=== PATIENT | female | born 1975 | race Caucasian/White ===

== ENCOUNTER 2019-06-03 10:59 | Emergency (ER) | payer SELFPAY ==
--- NOTE | ~2019-06-03 | CT_ITS ---
EXAMINATION: CT abdomen pelvis w con INDICATION: Left flank pain and dysuria TECHNIQUE: Computed tomographic images of the abdomen and pelvis were obtained after the administrati on of 100 cc of Omnipaque 350 intravenous contrast. The dose-length product (DLP) was 1255.81 mGy-cm. Automated exposure control and iterative reconstruction technique were employed. COMPARISON: 01/26/2014 FINDINGS: Minimal dependent atelectasis is present in the lung bases. The heart size is normal. The g allbladder is surgically absent. There is mild enlargement of the common bile duct and central intrah epatic ducts which is likely due to post cholecystectomy state. The liver, spleen, pancreas, and righ t adrenal gland are normal. A 10 mm mass of the left adrenal gland likely represents an adenoma. The kidneys are unremarkable. No pathologically enlarged abdominal or pelvic lymph nodes are identified. There is no free intraperitoneal gas or evidence of bowel obstruction. Colonic diverticulosis is pres ent without evidence of diverticulitis. IMPRESSION: 1. No CT correlate for the patient's symptoms. Reviewed, dictated and finalized at location B.
[2019-06-03 11:05] VITALS: BP 138/86; PULSE 74; RESP 18; TEMP 36.1; O2SAT 100
--- NOTE | 2019-06-03 11:26 | ED.ABDPAIN ---
HPI - Abdominal Pain General Chief Complaint: Abdominal Pain Stated Complaint: left flank pain Time Seen by Provider: 06/03/19 11:04 Source: patient Mode of arrival: ambulatory Limitations: no limitations History of Present Illness HPI narrative: This is a 43 year old female that presents to the ER for left flank pain x 2 days. Reports earlier in the week she started to have some dysuria. Reports this improved after hydration and cranberry juice, but then she started to have flank pain. Reports the pain has been constant. She has been taking OTV pain medication with little relief. Associated with some nausea. Denies fever, vomiting or dysuria. Related Data Allergies Allergy/AdvReac Type Severity Reaction Status Date / Time No Known Allergies Allergy Verified 04/18/17 22:46 Review of Systems Review of Systems: Narrative: CONSTITUTIONAL: Denies fever GASTROINTESTINAL: Reports abdominal pain, nausea and diarrhea. Denies vomiting GENITOURINARY: Reports dysuria. Denies hematuria. MUSCULOSKELETAL: Reports back pain All systems reviewed & are unremarkable except as noted in HPI and below PMFSH Past Medical History Medical History (Updated 06/03/19 @ 13:35 by Araceli Steiner PA-C) History of pancreatitis Surgical History Surgical History (Updated 06/03/19 @ 11:28 by Araceli Steiner PA-C) History of cholecystectomy Social History Social History (Updated 06/03/19 @ 11:29 by Araceli Steiner PA-C) Smoking status: Current some day smoker Tobacco type: e-cigarettes Substance use: never Gender identity (if verbalized by the patient): Female Exam Narrative: Exam Narrative: GENERAL: Well-appearing, well-nourished, and mild acute distress due to pain. HEAD: Normocephalic, atraumatic. EYES: [place]. CHEST: Clear to auscultation. No respiratory distress. No wheezes rales or rhonchi HEART: Regular rate and rhythm. No murmur heard. Normal peripheral pulses. ABDOMEN: Soft, nondistended, normal active bowel sounds. Mild tenderness to palpation of the left sided of abdomen without guarding. Left sided CVA tenderness EXTREMITIES: Normal range of motion. No edema. SKIN: Warm, dry, no rash. NEURO: No focal deficits. Alert and oriented x3. PSYCH: Normal mood and affect Course Vital Signs Vital signs: Vital Signs Temperature 97.0 F L 06/03/19 11:05 Pulse Rate 74 06/03/19 11:05 Respiratory Rate 18 06/03/19 11:05 Blood Pressure 138/86 06/03/19 11:05 Pulse Oximetry 100 06/03/19 11:05 Temperature 97.0 F L 06/03/19 11:05 Pulse Rate 74 06/03/19 11:05 Respiratory Rate 18 06/03/19 11:05 Blood Pressure 138/86 06/03/19 11:05 Pulse Oximetry 100 06/03/19 11:05 MDM - Abdominal Pain MDM Narrative Medical decision making narrative: Patient presents the emergency department for flank pain and dysuria. She is afebrile and nontoxic-appearing. Patient with mild leukocytosis and mild hemoconcentration on CBC. Metabolic panel is without acute changes. UA with evidence of possible urinary tract infection. CT abdomen pelvis is without acute changes. With flank pain, dysuria and evidence of possible UTI on UA patient will be treated for pyelonephritis. She was given a dose of IV antibiotics in the ED. She will be sent home on oral antibiotics and was instructed to follow-up with her primary care doctor. Patient was given warnings to return to the ER Lab Data Attestation: I reviewed the patient's lab results. Result diagrams: 06/03/19 11:28 06/03/19 11:28 Labs: Lab Results 06/03/19 06/03/19 06/03/19 Range/Units 11:28 11:28 11:28 WBC 10.3 H (4.5-10.0) K/mm3 RBC 5.00 (4.2-5.4) M/mm3 Hgb 15.3 H (12.0-15.0) g/dL Hct 45.8 (37.0-47.0) % MCV 91.6 (80-100) fl MCH 30.6 (26-34) pg MCHC 33.4 (32-36) g/dl RDW 13.2 (11.5-14.5) % Plt Count 347 (150-375) k/mm3 MPV 10.2 (7.4-10.4) fl Immature Gran % (Auto) 0.4 (0-0.5) % Neut
[2019-06-03] MEDS: ONDANSETRON INJ 4 MG/2 ML VIAL IV PUSH (11:31)
[2019-06-03] MEDS: SODIUM CHLORIDE 0.9% IV 1,000 ML 999 ML IV CONT (11:31)
[2019-06-03] MEDS: MORPHINE SULFATE 4 MG/ML INJ IV PUSH (11:31)
[2019-06-03 11:48] LABS: Add Urine Microscopic? YES; Appearance Urine Cloudy (Clear); Bacteria Urine Trace /hpf; Bilirubin Urine Negative (Negative); Blood Urine Negative (Negative); Color Urine Yellow (Yellow); Glucose Urine UA Negative (Negative); Ketones Urine Negative (Negative); Leukocyte Esterase Ur 1+ LEU/UL (Negative); Mucus Urine Rare /lpf; Nitrate Urine Negative (Negative); Protein Urine Negative (Negative); Specific Grav Ur 1.021 (1.001-1.035); Squamous Epithelial Cell Urine Many /hpf (Few); Urobilinogen Urine Negative mg/dL (<2.0); WBC Urine 31-50 /hpf
[2019-06-03 11:50] LABS: Basophils Absolute Auto 0.1 K/mm3 (0.0-0.1); Basophils Percent Auto 0.6 % (0.2-1.2); Eosinophils Absolute Auto 0.2 K/mm3 (0-0.3); Eosinophils Percent Auto 2.1 % (0-4.4); Hematocrit 45.8 % (37.0-47.0); Hemoglobin 15.3 g/dL (12.0-15.0); Immature Granulocyte Absolute 0.04 K/mm3 (0.00-0.031); Immature Granulocyte Percent A 0.4 % (0-0.5); Lymphocytes Absolute Auto 2.79 K/mm3 (0.9-3.2); Lymphocytes Percent Auto 27.1 % (18.3-44.2); Mean Corpuscular HGB Conc 33.4 g/dl (32-36); Mean Corpuscular Hemoglobin 30.6 pg (26-34); Mean Corpuscular Volume 91.6 fl (80-100); Mean Platelet Volume 10.2 fl (7.4-10.4); Monocytes Absolute Auto 0.5 K/mm3 (0.1-0.6); Monocytes Percent Auto 4.7 % (2.6-8.5); Neutrophils Absolute Auto 6.7 K/mm3 (1.3-6.7); Neutrophils Percent Auto 65.1 % (45.5-73.1); Platelet Count Result 347 k/mm3 (150-375); Red Cell Distribution Width 13.2 % (11.5-14.5); White Blood Count 10.3 K/mm3 (4.5-10.0)
[2019-06-03 11:54] LABS: Alanine Aminotransferase 23 U/L (4-35); Albumin Level 4.2 g/dL (3.5-5.1); Alkaline Phosphatase 119 U/L (38-126); Aspartate Amino Transferase 27 U/L (14-36); Bilirubin,Total 0.5 mg/dL (0.2-1.3); Blood Urea Nitrogen 13 mg/dL (7-17); Calcium 8.7 mg/dL (8.4-10.2); Carbon Dioxide 28 mmol/L (22-30); Chloride 102 mmol/L (98-107); Estimated CRCL calculation 138 ml/min; Estimated Glomerular Filt Rate > 60; Glucose 91 mg/dL (65-105); Lipase 88 U/L (23-300); Potassium 3.8 mmol/L (3.4-5.0); Sodium 134 mmol/L (137-145)
--- NOTE | 2019-06-03 12:11 | PC.NURSE ---
Pt in CT scan via stretcher.
[2019-06-03] MEDS: KETOROLAC 30 MG/ML VIAL (*BKC) IV PUSH (13:46)
[2019-06-03 14:19] VITALS: BP 110/59; PULSE 57; RESP 16; O2SAT 100
== END 2019-06-03 14:20 | disposition home or self-care (01) ==
PROVIDERS: Physician Assistant; Emergency Provider Emergency Medicine; PCP Emergency Medicine
DX: N12 Tubulo-interstitial nephritis, not specified as acute or chronic (principal)
CPT/HCPCS: 36415; 74177; 80053; 81001; 81025; 83690; 85025; 87077; 87086; 87088; 87186; 96365; 96367; 96375; 99284; J0131; J0696; J1885; J2270; J2405; J7030; Q9967

== ENCOUNTER 2019-11-27 12:00 | Emergency (ER) | payer OTHER, SELFPAY ==
[2019-11-27 12:13] VITALS: BP 147/68; PULSE 70; RESP 16; TEMP 36.6; O2SAT 99
--- NOTE | 2019-11-27 12:16 | ED.DENTAL ---
HPI - Dental/Oral General Chief complaint: Dental/Oral Stated complaint: tooth pain Time Seen by Provider: 11/27/19 12:16 Source: patient and RN notes reviewed Mode of arrival: ambulatory Limitations: no limitations History of Present Illness HPI Narrative: 44 female presents with concern for right lower dental pain. Reports 2 days ago she broke a filling. Reports pain is been increasing since yesterday. Reports she has been using 400 mg ibuprofen, ice to the face, and using salt water rinses with little relief. Reports she has plan to call the dentist tomorrow. She denies fever, malaise, foul taste in her mouth. Reports right lower jaw pain MD Complaint: tooth pain Related Data Allergies Allergy/AdvReac Type Severity Reaction Status Date / Time No Known Allergies Allergy Verified 11/27/19 12:15 Review of Systems Review of Systems: Narrative: CONSTITUTIONAL: Denies malaise, chills, sweats, or fever. ENT: Denies rhinorrhea, congestion, sinus pain, otalgia or sore throat. Reports right lower dental pain CARDIOVASCULAR: Denies chest pain, palpitations RESPIRATORY: Denies dyspnea. GASTROINTESTINAL: Denies abdominal pain, nausea, vomiting SKIN: Denies facial redness, swelling MUSCULOSKELETAL: Denies myalgia. NEUROLOGIC: Denies headache. All systems reviewed & are unremarkable except as noted in HPI and below PMFSH Past Medical History Medical History (Updated 11/27/19 @ 12:21 by Palmira Zhu NP) History of pancreatitis Surgical History Surgical History (Updated 06/03/19 @ 11:28 by Araceli Steiner PA-C) History of cholecystectomy Social History Social History (Updated 06/03/19 @ 11:29 by Araceli Steiner PA-C) Smoking status: Current some day smoker Tobacco type: e-cigarettes/vaping Substance use: never Gender identity (if verbalized by the patient): Female Comments At time of signature, agree with nursing past medical, surgical, social and family history. There is no relevant family history pertinent to the presenting complaint Exam Narrative: Exam Narrative: GENERAL: Well-appearing, well-nourished, and in no acute distress. HEAD: Normocephalic, atraumatic. EYES: PERRLA, conjunctivae clear ENT: Nares clear. Mucous membranes moist. Oropharynx without edema, erythema or lesions, tenderness dental fillings noted in teeth 29, 30 NECK: Supple. CHEST: No respiratory distress. Speaks in full sentences. HEART: Regular rate and rhythm. SKIN: Warm, dry, no rash. NEURO: Alert and oriented x3. PSYCH: Normal mood and affect Course Course Emergency Course: Patient is aware of diagnosis, understands and agrees to treatment plan. Anticipatory guidance given. Patient agrees to follow-up as directed and is aware of reasons to seek care at the emergency department. Portions of this record may have been created with voice recognition software Vital Signs Vital signs: Vital Signs Temperature 97.9 F 11/27/19 12:13 Pulse Rate 70 11/27/19 12:13 Respiratory Rate 16 11/27/19 12:13 Blood Pressure 147/68 H 11/27/19 12:13 Pulse Oximetry 99 11/27/19 12:13 Temperature 97.9 F 11/27/19 12:13 Pulse Rate 70 11/27/19 12:13 Respiratory Rate 16 11/27/19 12:13 Blood Pressure 147/68 H 11/27/19 12:13 Pulse Oximetry 99 11/27/19 12:13 Reviewed. MDM - Dental/Oral MDM Narrative Medical decision making narrative: Patients pain and complaint coupled with physical findings are consistant with dentalgia. There are no focal signs of space occupying lesions that are compromising to the airway; no dysphagia, odynophagia, dysphonia, or dyspnea. No uvular deviation or soft palate edema. Patient is non-toxic appearing. The floor of the mouth is soft with no signs of Antonio's Angina; no induration below mandible, no neck pain. Patient is without trismus or drooling and able to swallow secretions. Patient is felt appropriate for discharge home with dental follow up. Critical Care Time Critical Car
== END 2019-11-27 12:25 | disposition home or self-care (01) ==
PROVIDERS: Emergency Provider Nurse Practitioner
DX: K08.89 Other specified disorders of teeth and supporting structures (principal); F17.200 Nicotine dependence, unspecified, uncomplicated
CPT/HCPCS: 99213; G0463

== ENCOUNTER 2020-06-07 08:44 | Emergency (ER) | payer OTHER, SELFPAY ==
--- NOTE | ~2020-06-07 | CT_ITS ---
EXAMINATION: CT abdomen pelvis w con EXAM DATE: 06/07/2020 11:43 INDICATION: Abdominal pain and cramping. TECHNIQUE: Spiral CT of the abdomen and pelvis was performed following intravenous injection of 100 m L Omnipaque 350. Axial, coronal and sagittal images were reviewed. The dose-length product (DLP) fo r this examination was 1374.68 mGy-cm. The exposure was tailored according to patient size (auto mA exposure control), and iterative reconstruction (ASIR) was used as additional dose reduction techniqu e. Comparison is made to prior examination from 06/03/2019. FINDINGS: There is hepatomegaly. There is small left adrenal nodule measuring 9 mm, new compared to 2 014. This is not meeting density requirement for adenoma on this contrast-enhanced CT but is statisti hermelindo most likely adenoma. The liver, spleen, adrenal glands and pancreas are otherwise unremarkable . Gallbladder is unremarkable. No biliary obstruction. Portal and splenic veins are patent. Kidne ys enhance symmetrically. There is no hydronephrosis. Uterus is retroverted with a 5 cm fibroid. The bladder is collapsed at time of imaging limiting evaluation. There is no retroperitoneal or pelv ic lymphadenopathy. The appendix is not positively visualized. There is no pericecal inflammatory change to suggest appe ndicitis. There is mild descending and sigmoid colonic diverticulosis. There is no adjacent inflamma tory change to suggest diverticulitis. The stomach and small bowel are unremarkable. There is expect ed amount of colonic stool. No free intraperitoneal gas. The heart is normal in size. There are no pericardial or pleural effusions. The lung bases are unremarkable. There are no osteoblastic or osteolytic lesions identified. IMPRESSION: 1. No acute intra-abdominal findings. 2. Left adrenal gland subcentimeter lesion statistically most likely adenoma. 3. Mild colonic diverticulosis. 4. Hepatomegaly. 5. Fibroid. Reviewed, dictated and finalized at location A.
--- NOTE | ~2020-06-07 | US_ITS ---
EXAMINATION: US pelvic complete w TV DATE: 06/07/2020 09:53 INDICATION: Pelvic pain Comparison:11/23/2016 TECHNIQUE: Multiple transabdominal and endovaginal sonographic images of the pelvis performed. FINDINGS: The uterus measures 7.2 x 6.3 x 6.5 cm. The endometrial complex measures 4. There is a hype rechoic mass at the fundus of the uterus measuring 3.6 x 2.7 x 3.4 cm, slightly decreased in size com pared with prior study. The right ovary is surgically absent. Left ovary is not visualized. There is no free fluid in the pelvis. There are no abnormal masses seen on either side. IMPRESSION: 1. Slight interval decrease in size of uterine fibroid at the fundus measuring 3.6 x 3.4 x 2.7 cm. Reviewed, dictated and finalized at location B.
[2020-06-07 08:54] VITALS: BP 109/84; PULSE 66; RESP 18; TEMP 36.7; O2SAT 100
--- NOTE | 2020-06-07 08:57 | ED.GENADULT ---
HPI - General Adult General Chief complaint: Abdominal Pain Stated complaint: lower abdominal pain Time Seen by Provider: 06/07/20 08:46 Source: RN notes reviewed History of Present Illness HPI narrative: Patient presents to emergency department from home for abdominal pain. Patient states she has been having pain in the bilateral lower abdomen for the past 10 days pain is described as cramping in nature and associated with nausea. Patient states she went to [facility] last week and had a work-up in the emergency department showing fibroids she states that that time she followed up with her primary care physician who prescribed her hydrocodone which she has been taking for pain with last dose last night she states she is scheduled for outpatient imaging next week. She states that she has been unable to get into an [facility] until August and came to the emergency department as she could not wait that long she denies any fevers or chills chest pain shortness of breath or any other symptoms Related Data Allergies Allergy/AdvReac Type Severity Reaction Status Date / Time No Known Allergies Allergy Verified 06/07/20 08:59 Review of Systems Review of Systems: Narrative: Gen.: Denies fevers or chills ENT: Denies congestion Respiratory: Denies shortness of breath or cough CV: Denies chest pain or palpitations GI: See HPI denies burning, urgency, frequency or hematuria Musculoskeletal: Denies back pain or muscle pain Neuro: Denies numbness, tingling, weakness or focal weakness Skin: Denies rash Except as documented, all other systems reviewed and negative PMFSH Past Medical History Medical History History of pancreatitis Surgical History Surgical History (Updated 06/03/19 @ 11:28 by Araceli Steiner PA-C) History of cholecystectomy Social History Social History Smoking status: Current some day smoker Tobacco type: e-cigarettes/vaping Substance use: never Gender identity (if verbalized by the patient): Female Exam Narrative: Exam Narrative: APPEARANCE: No acute distress, nontoxic, resting in bed HEENT: Normocephalic, atraumatic, OMM RESPIRATORY: No respiratory distress, clear to auscultation bilaterally with no rhonchi wheezing or rales CARDIOVASCULAR: RRR s murmur ABDOMINAL: Soft nondistended tender to palpation right lower quadrant left lower quadrant no tenderness right upper quadrant left upper quadrant no rebound or guarding MUSCULOSKELETAl: Moves all extremities. No clubbing, cyanosis or edema. NEURO: Awake and alert. Following commands, speech normal, no focal deficits SKIN:: Warm, dry. Normal Color PSYCHIATRIC: Normal affect/mood Course Course Emergency Course: Patient states that they are feeling much better at this time. States abdominal pain has improved. Repeat abdominal exam shows the patient's abdomen to be soft. Patient does have hydrocodone at home for the pain with no surgical abdomen present. Discussed with patient results of workup and diagnosis. Discussed need for follow-up with primary care physician, reasons to return to the emergency department in proper use of medication. Patient understands and agrees to current treatment plan Vital Signs Vital signs: Vital Signs Temperature 98.1 F 06/07/20 08:54 Pulse Rate 66 06/07/20 08:54 Respiratory Rate 18 06/07/20 08:54 Blood Pressure 109/84 06/07/20 08:54 Pulse Oximetry 100 06/07/20 08:54 Temperature 98.1 F 06/07/20 08:54 Pulse Rate 66 06/07/20 08:54 Respiratory Rate 18 06/07/20 08:54 Blood Pressure 109/84 06/07/20 08:54 Pulse Oximetry 100 06/07/20 08:54 Medical Decision Making Vital Signs Vital Signs: Vital Signs Temperature 98.1 F 06/07/20 08:54 Pulse Rate 66 06/07/20 08:54 Respiratory Rate 18 06/07/20 08:54 Blood Pressure 109/84 06/07/20 08:54 Pulse Oximetry 100
[2020-06-07] MEDS: SODIUM CHLORIDE 0.9% IV 1,000 ML 999 ML IV CONT (09:07)
[2020-06-07] MEDS: KETOROLAC 30 MG/ML VIAL (*BKC) IV PUSH (09:08)
[2020-06-07] MEDS: ONDANSETRON INJ 4 MG/2 ML VIAL IV PUSH (09:10)
[2020-06-07 09:20] LABS: Basophils Absolute Auto 0.1 K/mm3 (0.0-0.1); Basophils Percent Auto 0.7 % (0.2-1.2); Eosinophils Absolute Auto 0.4 K/mm3 (0-0.3); Eosinophils Percent Auto 3.6 % (0-4.4); Hematocrit 45.1 % (37.0-47.0); Immature Granulocyte Absolute 0.05 K/mm3 (0.00-0.031); Immature Granulocyte Percent A 0.5 % (0-0.5); Lymphocytes Absolute Auto 3.19 K/mm3 (0.9-3.2); Lymphocytes Percent Auto 32.5 % (18.3-44.2); Mean Corpuscular HGB Conc 33.3 g/dl (32-36); Mean Corpuscular Hemoglobin 31.3 pg (26-34); Mean Corpuscular Volume 94.2 fl (80-100); Mean Platelet Volume 10.1 fl (7.4-10.4); Monocytes Absolute Auto 0.5 K/mm3 (0.1-0.6); Monocytes Percent Auto 5.1 % (2.6-8.5); Neutrophils Absolute Auto 5.7 K/mm3 (1.3-6.7); Neutrophils Percent Auto 57.6 % (45.5-73.1); Platelet Count Result 347 k/mm3 (150-375); Red Blood Count 4.79 M/mm3 (4.2-5.4); Red Cell Distribution Width 13.8 % (11.5-14.5); White Blood Count 9.8 K/mm3 (4.5-10.0)
--- NOTE | 2020-06-07 10:39 | PC.NURSE ---
Pt ambulatory to restroom with friend.
[2020-06-07 10:43] LABS: Alanine Aminotransferase 17 U/L (4-35); Alkaline Phosphatase 97 U/L (38-126); Anion Gap 5 mmol/L (8-16); Aspartate Amino Transferase 29 U/L (14-36); Bilirubin,Total 0.4 mg/dL (0.2-1.3); Blood Urea Nitrogen 13 mg/dL (7-17); Calcium 8.6 mg/dL (8.4-10.2); Carbon Dioxide 29 mmol/L (22-30); Chloride 105 mmol/L (98-107); Estimated CRCL calculation 111 ml/min; Estimated Glomerular Filt Rate > 60; Glucose 94 mg/dL (65-105); Lipase 135 U/L (23-300); Potassium 4.6 mmol/L (3.4-5.0); Sodium 139 mmol/L (137-145)
[2020-06-07 11:09] LABS: Add Urine Microscopic? YES; Appearance Urine Cloudy (Clear); Bacteria Urine Trace /hpf; Bilirubin Urine Negative (Negative); Blood Urine Negative (Negative); Color Urine Yellow (Yellow); Glucose Urine UA Negative (Negative); Ketones Urine Negative (Negative); Leukocyte Esterase Ur Negative LEU/UL (Negative); Mucus Urine Rare /lpf; Nitrate Urine Negative (Negative); Protein Urine Negative (Negative); RBC Urine 0-2 /hpf (0-2); Squamous Epithelial Cell Urine Many /hpf (Few); Urobilinogen Urine Negative mg/dL (<2.0); WBC Urine 0-3 /hpf
[2020-06-07] MEDS: MORPHINE SULFATE (*CRX) 4 MG/ML INJ 2 MG IV PUSH (11:27)
[2020-06-07] MEDS: PROMETHAZINE HCL 25 MG/ML AMPUL 12.5 MG IV PUSH (11:29)
[2020-06-07 12:31] VITALS: BP 104/59; PULSE 56; RESP 16; O2SAT 96
== END 2020-06-07 12:33 | disposition home or self-care (01) ==
PROVIDERS: Emergency Provider Emergency Medicine; PCP Physician Assistant
DX: D25.9 Leiomyoma of uterus, unspecified (principal); F17.290 Nicotine dependence, other tobacco product, uncomplicated; E27.9 Disorder of adrenal gland, unspecified; K57.90 Diverticulosis of intestine, part unspecified, without perforation or abscess without bleeding; R16.0 Hepatomegaly, not elsewhere classified
CPT/HCPCS: 36415; 74177; 76830; 76856; 80053; 81001; 81025; 83690; 85025; 96361; 96374; 96375; 99284; J1885; J2270; J2405; J2550; J7030; Q9967

== ENCOUNTER 2020-10-27 23:53 | Emergency (ER) | payer OTHER, SELFPAY ==
--- NOTE | ~2020-10-27 | XR_ITS ---
XR foot RT min 3V DATE: 10/28/2020 00:33 INDICATION: Fall. Right foot pain. TECHNIQUE: 4 views COMPARISON: None FINDINGS: Plantar calcaneal enthesopathy. There is soft tissue swelling of the dorsum of the forefoot. Mild osteoarthritis at the first metatarsophalangeal joint. There is osteoarthritis at the calcaneocu boid joint. Os tibiale externum, normal variant. IMPRESSION: Osteoarthritis Plantar calcaneal spur Dorsal soft tissue swelling of the right forefoot No fracture or dislocation Reviewed, dictated and finalized at location A.
--- NOTE | ~2020-10-27 | XR_ITS ---
XR ankle LT min 3V DATE: 10/28/2020 00:32 INDICATION: Fall. Left ankle pain. TECHNIQUE: 4 views COMPARISON: 01/02/2004 left ankle FINDINGS: There is a screw extending through the medial malleolus into the distal tibial metaphysis 4 internal fixation of an old medial malleolar fracture. There is old healed fracture deformity of the distal fibula. No recent fracture or dislocation of the ankle or disruption of the ankle mortise. No periosteal reac tion or bone destruction. Prominent plantar calcaneal enthesopathy. IMPRESSION: Old lateral malleolar and internally fixated medial malleolar fractures; no recent fractu re or dislocation Reviewed, dictated and finalized at location A. IMPRESSION: Old lateral malleolar and internally fixated medial malleolar fract ures; no recent fracture or dislocation
[2020-10-27 23:54] VITALS: BP 136/76; PULSE 87; RESP 18; TEMP 35.7; O2SAT 97
--- NOTE | 2020-10-28 01:25 | ED.LOWEXIN ---
HPI - Extremity Injury (Lower) General Chief Complaint: Extremity Injury, Lower Stated Complaint: lf ankle pain and rt foot pain Time Seen by Provider: 10/28/20 00:18 History of Present Illness HPI Narrative: Patient is a 45-year-old female who presents ER with right foot pain and left ankle pain. She is on a porch swing when she jumped off of it and had sudden onset pain. She has been able to bear weight but has discomfort. No numbness or tingling. No additional injury. Occurred several hours prior to arrival. Related Data Home Medications Medication Instructions Recorded Confirmed metformin mg 10/27/20 omeprazole 10/27/20 venlafaxine mg PO 10/27/20 Allergies Allergy/AdvReac Type Severity Reaction Status Date / Time No Known Allergies Allergy Verified 10/28/20 00:11 Review of Systems Constitutional: Constitutional: Denies chills, Denies fever(s) and Denies weakness Musculoskeletal: Musculoskeletal: Denies back pain, Reports arthralgias, Denies joint swelling and Denies muscle cramps Neurologic: Denies syncope, Denies numbness and Denies weakness PMFSH Past Medical History Medical History (Updated 10/28/20 @ 01:29 by Syed Ortiz MD) History of pancreatitis Surgical History Surgical History (Updated 10/28/20 @ 01:27 by Syed Ortiz MD) History of cholecystectomy History of orthopedic surgery Social History Social History Smoking status: Current some day smoker Tobacco type: e-cigarettes/vaping Substance use: never Gender identity (if verbalized by the patient): Female Sexual Orientation (if Verbalized by the Patient): Straight or Heterosexual Exam Narrative: GENERAL: Well-appearing, well-nourished, and in no acute distress. HEAD: Normocephalic, atraumatic. EXTREMITIES: Normal range of motion. No edema. Tender palpation of the plantar fascia of the right foot. No tenderness over the bony prominences of the foot or the top of the foot. Normal evaluation of the left ankle and foot. SKIN: Warm, dry, no rash. NEURO: Alert and oriented x3. PSYCH: Normal mood and affect. Course Course Emergency Course: Unremarkable evaluation. Recommend anti-inflammatories and a hard soled shoe for the right foot. Patient strained her plantar fascia. Vital Signs Vital signs: Vital Signs Temperature 96.3 F L 10/27/20 23:54 Pulse Rate 87 10/27/20 23:54 Respiratory Rate 18 10/27/20 23:54 Blood Pressure 136/76 10/27/20 23:54 Pulse Oximetry 97 10/27/20 23:54 Temperature 96.3 F L 10/27/20 23:54 Pulse Rate 87 10/27/20 23:54 Respiratory Rate 18 10/27/20 23:54 Blood Pressure 136/76 10/27/20 23:54 Pulse Oximetry 97 10/27/20 23:54 MDM - Extremity Injury (Lower) Imaging Data My impression: X-ray right foot: No acute process. X-ray left ankle: Surgical changes, nothing acute. Discharge Plan Discharge Clinical Impression: Muscle strain of foot Patient Disposition: Home, Self-Care Condition: Stable Instructions: Foot Sprain (ED) Additional Instructions: Return the ER if you have fever over 100.4 ?F, you cannot keep down food or water, you have chest pain or shortness of breath, you have additional concerns. Prescriptions: New ibuprofen 600 mg tablet 600 mg PO TID Qty: 20 RF: 0 No Action metformin 500 mg tablet RF: 0 venlafaxine 37.5 mg capsule,extended release 24hr PO RF: 0 omeprazole 20 mg capsule,delayed release(DR/EC) RF: 0 ibuprofen [IBU] 600 mg tablet 600 mg PO Q6H PRN (Reason: pain) Qty: 20 RF: 0 ondansetron 4 mg tablet,disintegrating 4 mg PO Q6H PRN (Reason: nausea and vomiting) Qty: 10 RF: 0 Follow-up/Referrals: Lito,JOSE Mckeon [Primary Care Provider] - 1 Week
[2020-10-28 01:44] VITALS: BP 97/70; PULSE 77; RESP 18; O2SAT 100
== END 2020-10-28 01:45 | disposition home or self-care (01) ==
PROVIDERS: Emergency Provider Emergency Medicine; PCP Physician Assistant
DX: S96.911A Strain of unspecified muscle and tendon at ankle and foot level, right foot, initial encounter (principal); Z79.84 Long term (current) use of oral hypoglycemic drugs; F17.290 Nicotine dependence, other tobacco product, uncomplicated; X50.9XXA Other and unspecified overexertion or strenuous movements or postures, initial encounter
CPT/HCPCS: 73610; 73630; 99283

== ENCOUNTER 2020-12-14 08:16 | Emergency (ER) | payer OTHER, SELFPAY ==
--- NOTE | ~2020-12-14 | CT_ITS ---
EXAMINATION: CT abdomen pelvis w con DATE: 12/14/2020 11:56 INDICATION: Diffuse abdominal pain. History of ovarian cyst. TECHNIQUE: Computed tomography (CT) of the abdomen and pelvis was performed with 100 cc Omnipaque 350 intravenous contrast. Automated exposure control and iterative reconstruction technique were employe d. Exam dose: 1524.31 mGy-cm total exam DLP. COMPARISON: 06/07/2020 CT abdomen pelvis FINDINGS: There is minimal atelectasis at the lung bases. Normal heart size. No pericardial or pleural effusion. Status post cholecystectomy. No hepatic, splenic, pancreatic or right adrenal space-occupying mass le pino is evident. Stable small probable left adrenal adenoma. There is a stable very small lower pole left renal cyst. No urinary tract calculus or hydroureterone phrosis. Normal caliber of the abdominal aorta. No intraperitoneal or retroperitoneal or pelvic mass lesion o r lymphadenopathy. No ascites. An approximately 2.8 cm left ovarian or adnexal cystic lesion is noted. Large uterine fundic fibroid. There are numerous diverticula of the sigmoid colon and to a lesser extent descending colon; no evide nce of diverticulitis. No bowel obstruction or intraperitoneal free air. Included skeletal structures are unremarkable. IMPRESSION: Status post cholecystectomy stable small left adrenal probable adenoma Stable very small lower pole left renal cyst Diverticulosis of the colon; no CT evidence of diverticulitis Approximately 2.8 cm left ovarian or adnexal cyst Large uterine fibroid Reviewed, dictated and finalized at [facility]. Reviewed, dictated and finalized at [facility]. IMPRESSION: Status post cholecystectomy stable small left adrenal probable jyothi noma Stable very small lower pole left renal cyst Diverticulosis of the colon; no CT evidence of diverticulitis Approximately 2.8 cm left ovarian or adnexal cyst Large uterine fibroid
[2020-12-14 08:33] VITALS: BP 144/100; PULSE 87; RESP 18; TEMP 36.6; O2SAT 100
--- NOTE | 2020-12-14 09:40 | ED.GENADULT ---
HPI - General Adult General Chief complaint: MOLD OPERATOR Stated complaint: abd cramping Time Seen by Provider: 12/14/20 08:27 Source: patient Mode of arrival: ambulatory Limitations: no limitations History of Present Illness HPI narrative: Patient drove herself to the emergency room complaining of diffuse lower abdominal cramps started over the last 48 hours, subsequently started having heavy bleeding yesterday, this morning intermittent blood clots. Patient denies any fever, chills, nausea, vomiting. History of positive ovarian disease, irregular menstrual cycles, last 1 was 3 to 4 months ago. History of cholecystectomy, pancreatitis, diverticulitis and diabetes. Patient never been before. 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 Patient is fully vaccinated for COVID-19. Related Data Home Medications Medication Instructions Recorded Confirmed metformin mg 10/27/20 omeprazole 10/27/20 venlafaxine mg PO 10/27/20 Allergies Allergy/AdvReac Type Severity Reaction Status Date / Time No Known Allergies Allergy Verified 12/14/20 08:43 Review of Systems Review of Systems: CONSTITUTIONAL: Denies fever, chills, or sweats. EYES: Denies visual changes, redness, or discharge. ENT: Denies rhinorrhea, congestion, sore throat, or otalgia. CARDIOVASCULAR: Denies chest pain, palpitations, or edema. RESPIRATORY: Denies cough or dyspnea. GASTROINTESTINAL: Denies abdominal pain, nausea, vomiting, or diarrhea. GENITOURINARY: Denies dysuria or hematuria. SKIN: Denies rash or itching. MUSCULOSKELETAL: Denies back pain, joint pain, or myalgia. NEUROLOGIC: Denies headache, numbness, or weakness. PSYCHIATRIC: Denies anxiety or depression. PMFSH Past Medical History Medical History History of pancreatitis Surgical History Surgical History History of cholecystectomy History of orthopedic surgery Social History Social History Smoking status: Current some day smoker Tobacco type: e-cigarettes/vaping Substance use: never Gender identity (if verbalized by the patient): Female Sexual Orientation (if Verbalized by the Patient): Straight or Heterosexual Exam Narrative: General appearance: Well-developed, well-nourished Skin: Normal color Head: Normocephalic, nontraumatic Eyes: Clear conjunctiva ENT: Oropharynx normal, ears normal, nose normal Neck: Supple, nontender Chest and respiratory: Airway patent, no respiratory distress, no accessory muscle use Heart: Regular rate/rhythm Abdomen: Soft, diffuse abdominal tenderness, no guarding or rebound,, no organomegaly, quiet bowel sounds Vascular: Normal peripheral pulses, normal capillary refill. 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 Menstrual cycle versus dysfunctional uterine bleeding is my concern. History of blood cystic ovarian disease. Labs, IV fluid, IV Dilaudid and Zofran, CT a
[2020-12-14] MEDS: ONDANSETRON INJ 4 MG/2 ML VIAL IV PUSH (10:26)
[2020-12-14] MEDS: SODIUM CHLORIDE 0.9% IV 1,000 ML 999 ML IV CONT (10:26)
[2020-12-14 10:31] LABS: Add Urine Microscopic? YES; Appearance Urine Cloudy (Clear); Bilirubin Urine Negative (Negative); Blood Urine 3+ (Negative); Color Urine Straw (Yellow); Glucose Urine UA Negative (Negative); Ketones Urine Negative (Negative); Leukocyte Esterase Ur Negative LEU/UL (Negative); Mucus Urine Rare /lpf; Nitrate Urine Negative (Negative); Protein Urine Negative (Negative); RBC Urine 0-2 /hpf (0-2); Specific Grav Ur 1.009 (1.001-1.035); Squamous Epithelial Cell Urine Many /hpf (Few); Urobilinogen Urine Negative mg/dL (<2.0); WBC Urine 0-3 /hpf
[2020-12-14] MEDS: HYDROmorphone HCL INJ (*CRX) 1 MG/ML SYR 0.5 MG IV PUSH (10:36)
[2020-12-14 10:39] LABS: Basophils Absolute Auto 0.1 K/mm3 (0.0-0.1); Basophils Percent Auto 0.6 % (0.2-1.2); Eosinophils Absolute Auto 0.3 K/mm3 (0-0.3); Eosinophils Percent Auto 2.9 % (0-4.4); Hematocrit 43.6 % (37.0-47.0); Hemoglobin 14.4 g/dL (12.0-15.0); Immature Granulocyte Absolute 0.07 K/mm3 (0.00-0.031); Immature Granulocyte Percent A 0.8 % (0-0.5); Lymphocytes Absolute Auto 2.79 K/mm3 (0.9-3.2); Lymphocytes Percent Auto 30.1 % (18.3-44.2); Mean Corpuscular Hemoglobin 31.8 pg (26-34); Mean Corpuscular Volume 96.2 fl (80-100); Mean Platelet Volume 9.8 fl (7.4-10.4); Monocytes Absolute Auto 0.5 K/mm3 (0.1-0.6); Monocytes Percent Auto 5.2 % (2.6-8.5); Neutrophils Absolute Auto 5.6 K/mm3 (1.3-6.7); Neutrophils Percent Auto 60.4 % (45.5-73.1); Platelet Count Result 331 k/mm3 (150-375); Red Blood Count 4.53 M/mm3 (4.2-5.4); Red Cell Distribution Width 13.8 % (11.5-14.5); White Blood Count 9.3 K/mm3 (4.5-10.0)
[2020-12-14 11:29] LABS: Alanine Aminotransferase 24 U/L (4-35); Albumin Level 3.9 g/dL (3.5-5.1); Alkaline Phosphatase 92 U/L (38-126); Anion Gap 3 mmol/L (8-16); Aspartate Amino Transferase 26 U/L (14-36); Bilirubin,Total 0.5 mg/dL (0.2-1.3); Blood Urea Nitrogen 11 mg/dL (7-17); Calcium 8.2 mg/dL (8.4-10.2); Carbon Dioxide 29 mmol/L (22-30); Chloride 105 mmol/L (98-107); Estimated CRCL calculation 129 ml/min; Estimated Glomerular Filt Rate > 60; Glucose 99 mg/dL (65-110); Lipase 75 U/L (23-300); Potassium 4.2 mmol/L (3.4-5.0); Sodium 137 mmol/L (137-145)
[2020-12-14] MEDS: KETOROLAC 30 MG/ML VIAL (*BKC) IV PUSH (12:41)
[2020-12-14 12:50] VITALS: BP 119/83; PULSE 70; RESP 16; TEMP 36.6; O2SAT 95
== END 2020-12-14 12:57 | disposition home or self-care (01) ==
PROVIDERS: Emergency Provider Emergency Medicine; PCP Physician Assistant
DX: N93.9 Abnormal uterine and vaginal bleeding, unspecified (principal); D25.9 Leiomyoma of uterus, unspecified; N83.202 Unspecified ovarian cyst, left side; Z79.84 Long term (current) use of oral hypoglycemic drugs; F17.290 Nicotine dependence, other tobacco product, uncomplicated
CPT/HCPCS: 36415; 74177; 80053; 81001; 83690; 85025; 96361; 96374; 96375; 99284; J1170; J1885; J2405; J7030; Q9967

== ENCOUNTER 2021-09-03 10:17 | Observation (INO) | payer OTHER, SELFPAY ==
[2021-09-03] VITALS (37 sets, daily range): BP systolic 99–132; BP diastolic 61–99; PULSE 58–85; RESP 10–24; TEMP 36.2–36.3; O2SAT 94–100; BMI 46.1
--- NOTE | ~2021-09-03 | MR_ITS ---
EXAMINATION: MR brain/brain stem wo con DATE: 09/04/2021 07:11 INDICATION: Abnormal CT TECHNIQUE: Magnetic resonance imaging (MRI) of the brain and brainstem was performed without intraven ous contrast. Sequences included sagittal and axial T1-weighted SE, axial diffusion-weighted FS SE, a xial 3D SWAN, axial T2-weighted FLAIR, axial T2-weighted FSE, small fuecx-tu-stmu coronal FIESTA, sma ll xuift-oa-ifjz coronal T1-weighted FSE, and small qgbkj-pc-ctxi 3D axial T1-weighted RAPHAEL. Apparen t diffusion coefficient (ADC) maps were created. Apparent diffusion coefficient (ADC) maps were creat ed. COMPARISON: Brain CT angiogram dated 09/03/2021 FINDINGS: There are no areas of restricted diffusion to suggest acute infarction. No intracranial hemorrhage or abnormal intracranial mass lesion. There are no intraparenchymal signal abnormalities seen on the ot her pulse sequences. The ventricles are symmetric and normal in size. There are no abnormal extra-axi al fluid collections. Flow voids are seen in the cerebral arteries on the T2-weighted sequences consi stent with their expected patency. Mild mucosal thickening the bilateral ethmoid and maxillary sinuse s. Visualized orbits and soft tissues are unremarkable. IMPRESSION: 1. Normal brain MRI. Reviewed, dictated and finalized at [facility]. IMPRESSION: 1. Normal brain MRI.
--- NOTE | ~2021-09-03 | CT_ITS ---
EXAMINATION: CTA brain carotid DATE: 09/03/2021 13:24 INDICATION: Unsteady gait, visual disturbance TECHNIQUE: Computed tomographic angiography (CTA) of the head was performed without and with 100 mL O mnipaque-300 intravenous contrast. CTA of the neck was performed with intravenous contrast. The dose- length product was 1799.25 mGy-cm. Maximum intensity projection and volume rendered 3D-reconstruction s were created by the technologist on a separate workstation. Automated exposure control and iterativ e reconstruction technique were employed. COMPARISON: None. FINDINGS: HEAD CTA: There is no intracranial hemorrhage, acute infarction, or abnormal mass lesion. The ventric les are normal. There is no abnormal mass effect or midline shift. The woodall-white matter differentiat ion is normal. The basal cisterns are patent. The orbits are normal. The paranasal sinuses, mastoids and calvarium are normal. There is no significant stenosis of the basilar artery or posterior cerebral arteries. There is no si gnificant stenosis of the intracranial internal carotid arteries or the anterior or middle cerebral a rteries. The anterior communicating artery and posterior communicating arteries are normal. There is no aneurysm. There is an asymmetric decrease in blood flow to the medial aspect of the right cerebell ar hemisphere. NECK CTA: The thyroid gland is unremarkable. The submandibular and parotid glands are symmetric. Ther e is no lymphadenopathy. There are no masses identified. The airway is unremarkable. There are no oss eous abnormalities. The superior mediastinum is unremarkable. There is 0% stenosis of the proximal right internal carotid artery relative to normal distal artery l umen diameter (NASCET criteria). There is 0% stenosis of the proximal left internal carotid artery re lative to normal distal artery lumen diameter. IMPRESSION: 1. Subtle asymmetric decrease in blood flow to the medial aspect of the right cerebellar hemisphere. Consider correlation with MRI. 2. 0% stenosis of the proximal right internal carotid artery relative to normal distal artery lumen d iameter (NASCET criteria). 3. 0% stenosis of the proximal left internal carotid artery relative to normal distal artery lumen di ameter. Reviewed, dictated and finalized at location [facility]. IMPRESSION: 1. Subtle asymmetric decrease in blood flow to the medial aspect of the right c erebellar hemisphere. Consider correlation with MRI. 2. 0% stenosis of the proximal right internal carotid artery relative to normal distal artery lumen diameter (NASCET criteria). 3. 0% stenosis of the proximal left internal carotid artery relative to normal distal artery lumen diameter.
--- NOTE | 2021-09-03 10:46 | ECG_ITS ---
Measurements Intervals [place] Rate: 68 P: 51 SD: 126 QRS: 3 QRSD: 94 T: -47 QT: 400 QTc: 426 Interpretive Statements SINUS RHYTHM ST AND T-WAVE CHANGES IN THE INFERIOR LEFT ANTERIOR AND LATERAL LEADS, CONSIDER ISCHEMIA NO PREVIOUS ECG AVAILABLE FOR COMPARISON Electronically Signed On 09-03-2021 19:34:21 CDT by Salma Gary M.D.
--- NOTE | 2021-09-03 10:51 | PC.NURSE ---
Dr. Cloud at bedside to assess pt.
--- NOTE | 2021-09-03 11:02 | ED.DIZZY ---
HPI - Dizziness General Chief Complaint: Dizziness Stated Complaint: dizzy, nausea, fibroid Time Seen by Provider: 09/03/21 10:49 History of Present Illness HPI Narrative: Pt presents with blurred vision, dizziness and loss of equilibrium/balance since yesterday. Pt says it is all worse since she got up this morning and she has trouble walking and is very nauseated. Pt says it does not go away when she is sitting or still. Pt also complains of a posterior ARNOLD. Pt has some lower abdominal pain and has a history of fibroids and says this feels similar. Related Data Home Medications Medication Instructions Recorded Confirmed metformin 500 mg tablet mg 10/27/20 omeprazole 20 mg capsule,delayed 10/27/20 release venlafaxine 37.5 mg mg PO 10/27/20 capsule,extended release 24 hr Allergies Allergy/AdvReac Type Severity Reaction Status Date / Time No Known Allergies Allergy Verified 09/03/21 11:14 Review of Systems Review of Systems: All systems reviewed & are unremarkable except as noted in HPI and below PMFSH Past Medical History Medical History History of pancreatitis Surgical History Surgical History History of cholecystectomy History of orthopedic surgery Social History Social History (System 06/06/21 @ 12:40 by Catherine Deleon) Smoking status: Current some day smoker Tobacco type: e-cigarettes/vaping Substance use: never Gender identity (if verbalized by the patient): Female Sexual Orientation (if Verbalized by the Patient): Straight or Heterosexual Exam Const: General: healthy appearing and no acute distress Nutritional Appearance: obese Orientation/consciousness: patient oriented x3 Limitations: no limitations HENMT: Head: normal to inspection Mouth: Yes moist mucous membranes Eyes: Conjunctivae: conjunctivae normal Pupils: Equal, round and reactive pupils present EOM: EOMs intact bilaterally Neck: Neck: normal visual inspection, no lymphadenopathy and no meningeal signs Resp: Effort & Inspection: normal respiratory effort Auscultation: clear to auscultation bilaterally Cardio: Rate: regular rate Rhythm: regular rhythm GI: Auscultation: normal bowel sounds Other: mild lower abdominal tenderness to palpation Skin: General skin exam: normal color Rashes: no rashes Wounds: no wounds Neuro: General: patient oriented x3, moves all extremities and no focal motor deficits Cranial nerves: Yes Nystagmus present horizontal Speech: normal speech Other: finger nose slow but intact Extrem: General: normal to inspection and no clubbing, cyanosis or edema Psych: Mental Status: mental status grossly normal Affect: normal affect Attitude: cooperative Course Course Emergency Course: d/w dr hoover at [facility] reviewed CTA, said if cva is small one and would not require intervention or necessitate acute time critical transfer, will put on list but may be 24-48 hrs, recommended MRI if possible and plavix and aspirin (ordered). Talked to CAR Jovel agreed to admit here awaiting bed at [facility] Vital Signs Vital signs: Vital Signs Temperature 97.4 F L 09/03/21 10:22 Pulse Rate 73 09/03/21 10:22 Respiratory Rate 16 09/03/21 10:22 Blood Pressure 132/73 09/03/21 10:22 Pulse Oximetry 98 09/03/21 10:22 Oxygen Delivery Room Air 09/03/21 10:22 Temperature 97.4 F L 09/03/21 10:22 Pulse Rate 84 09/03/21 17:52 Respiratory Rate 20 09/03/21 17:52 Blood Pressure 99/86 L 09/03/21 17:52 Pulse Oximetry 99 09/03/21 17:03 Oxygen Delivery Room Air 09/03/21 10:22 MDM - Dizziness Lab Data Result diagrams: 09/03/21 11:04 09/03/21 11:04 Labs: Lab Results 09/03/21 09/03/21 09/03/21 Range/Units 11:00 11:04 11:04 WBC 10.2 H (4.5-10.0) K/mm3 RBC 4.70 (4.2-5.4) M/mm3 Hgb 14.6 (12.0-15.0) g/dL Hct 4
[2021-09-03 11:03] LABS: Glucose Point of Care 116 mg/dl (65-105)
[2021-09-03 11:13] LABS: Basophils Absolute Auto 0.1 K/mm3 (0.0-0.1); Basophils Percent Auto 0.7 % (0.2-1.2); Eosinophils Absolute Auto 0.3 K/mm3 (0-0.3); Eosinophils Percent Auto 2.5 % (0-4.4); Hematocrit 44.3 % (37.0-47.0); Hemoglobin 14.6 g/dL (12.0-15.0); Immature Granulocyte Absolute 0.06 K/mm3 (0.00-0.031); Immature Granulocyte Percent A 0.6 % (0-0.5); Lymphocytes Percent Auto 24.4 % (18.3-44.2); Mean Corpuscular Hemoglobin 31.1 pg (26-34); Mean Corpuscular Volume 94.3 fl (80-100); Mean Platelet Volume 9.8 fl (7.4-10.4); Monocytes Absolute Auto 0.4 K/mm3 (0.1-0.6); Monocytes Percent Auto 4.2 % (2.6-8.5); Neutrophils Absolute Auto 6.9 K/mm3 (1.3-6.7); Neutrophils Percent Auto 67.6 % (45.5-73.1); Platelet Count Result 324 k/mm3 (150-375); Red Cell Distribution Width 13.7 % (11.5-14.5); White Blood Count 10.2 K/mm3 (4.5-10.0)
[2021-09-03] MEDS: ONDANSETRON INJ 4 MG/2 ML VIAL IV PUSH ×3 (11:14→20:59)
[2021-09-03 11:26] LABS: Alanine Aminotransferase 36 U/L (6-35); Albumin Level 3.9 g/dL (3.5-5.1); Alkaline Phosphatase 123 U/L (38-126); Anion Gap 4 mmol/L (8-16); Aspartate Amino Transferase 32 U/L (14-36); Bilirubin,Total 0.4 mg/dL (0.2-1.3); Blood Urea Nitrogen 10 mg/dL (7-17); Calcium 8.3 mg/dL (8.4-10.2); Carbon Dioxide 28 mmol/L (22-30); Chloride 105 mmol/L (98-107); Estimated CRCL calculation 135 ml/min; Estimated Glomerular Filt Rate > 60; Glucose 110 mg/dL (65-110); Potassium 4.4 mmol/L (3.4-5.0); Sodium 137 mmol/L (137-145)
[2021-09-03 11:38] LABS: Troponin I < 0.012 ng/mL (0.000-0.034)
[2021-09-03 11:50] LABS: Prothrombin Time 13.2 Seconds (11.1-14.7)
[2021-09-03] MEDS: fentaNYL CITRATE INJ (*CRX) 100 MCG/2 ML VIAL 50 MCG IV PUSH (15:10)
[2021-09-03] MEDS: CLOPIDOGREL BISULFATE 75 MG TABLET PO (16:44)
[2021-09-03] MEDS: ASPIRIN 325 MG TABLET PO (16:44)
--- NOTE | 2021-09-03 19:41 | ADMGEN ---
This patient, Nimco Baldwin, was admitted to [address] [place] [address] Room [facility] at 1857. Patient/family oriented to hospital policies and general routines including ID bracelet, bed and alarms, visiting hours, pain management, procedures, bathroom and other care routines, personal items, smoking policy, room service/diet, and visiting hours. Information on how to activate the Rapid Response Team has been discussed. Patient/Family are encouraged to report perceived risks to care and to ask questions if they do not understand what they are told or what they should do.
[2021-09-03] MEDS: KETOROLAC 30 MG/ML VIAL (*BKC) IV PUSH (20:59)
[2021-09-03] MEDS: MECLIZINE HCL 25 MG TABLET PO (21:00)
--- NOTE | 2021-09-03 22:18 | PM.IMHP ---
H&P: HPI History of Present Illness Date/Time: Patient was placed observation status for expected length of stay less than 23 hours for management, will plan to re-evaluate tomorrow for improvement. 09/03/21 9395 Chief Complaint: Dizziness Narrative: Ms. Baldwin is a 45-year-old female who presented to emergency room with complaints headache, blurred vision, and ataxia. Patient states she has a known history of migraines and vertigo but she has not had any episodes last 6-7 months. Patient states that she went to being a last evening and felt like she could not focus her eyes on her cards very well. Patient states that she felt like her vision was blurry and kept attempting to focus her vision. Patient denied any loss of vision. Patient denies any hemianopsia a scotoma. Patient denies any double vision. Patient states that she went to bed last evening feeling somewhat ?off? and then went to get out of bed this morning and felt like she was going to fall over. Patient states she called her significant other at that point in time and was attempting to walk and was very ataxic. Patient states she then requested to be brought to the emergency room. Patient states she has felt nauseated off and on, but is very difficult for distinguish between her normal nausea, because she is always nauseated. Patient states that it does help for to keep her eyes closed and the nausea does dissipate slightly. Patient states she has had an occipital headache that feels more of a pressure than a pain. Upon evaluation in emergency room patient underwent CT a of the neck and head and was noted to have subtle asymmetric decrease in blood flow to the medial aspect of the right cerebellar hemisphere and the MRI was to be considered. This was all discussed with [facility] and they stated since patient's symptoms had started last evening there was no intervention could be done at this time and they had no open beds and patient was to be given aspirin and Plavix and an MRI was needed. Patient was placed on a waiting list to be transferred to [facility]. Patient states she has a known history of migraines, vertigo, pancreatitis, and fibroid tumors. Review of Systems Review of Systems: A 12 point review of systems was completed patient all pertinent positive and negative per HPI the remainder are unremarkable. [facility] Past Medical History Medical History (Updated 09/03/21 @ 22:27 by Crystal L. Jesenick, CELERY TIER) History of pancreatitis Migraine headache Vertigo Surgical History Surgical History (System 06/06/21 @ 12:40 by Catherine Deleon) History of cholecystectomy History of orthopedic surgery Social History Social History (System 06/06/21 @ 12:40 by Catherine Deleon) Smoking packs per day: 0.25 Smoking cigarettes per day: 5.0 Years smoked: 25 Smoking pack-years: 6.25 Smoking status: Current every day smoker Tobacco type: cigarettes Alcohol intake: current Drinks per week: 1 Substance use: never Gender identity (if verbalized by the patient): Female Sexual Orientation (if Verbalized by the Patient): Straight or Heterosexual Spiritual care concerns: No Meds Home Medications and Allergies Home Medications Medication Instructions Recorded Confirmed Type omeprazole 20 mg capsule,delayed 20 mg PO DAILY 10/27/20 09/03/21 History release Allergies Allergy/AdvReac Type Severity Reaction Status Date / Time No Known Allergies Allergy Verified 09/03/21 11:14 Vital Signs Vital Signs - 24 hr 09/03/21 10:22 09/03/21 10:42 09/03/21 10:45 Temperature 36.3 C L Pulse Rate 73 73 Respiratory Rate 16 13 Blood Pressure 132/73 124/93 H Pulse Oximetry 98 100 Oxygen Delivery Room Air 09/03/21 10:59 09/03/21 11:00 09/03/21 11:15 Temperature Pulse Rate 71 73 68 Respiratory Rate 24 H 18 18 Blood Pressure Pulse Oximetry 97 Oxygen Delivery 09/03/21 11:30 06
[2021-09-04] VITALS (12 sets, daily range): BP systolic 97–118; BP diastolic 50–67; PULSE 59–76; RESP 18–20; TEMP 36.6–36.8; O2SAT 94–97
--- NOTE | 2021-09-04 | ECHO_ITS ---
Patient Info Name: Nimco Baldwin Age: 45 years : 1975 Gender: Female Ht: 65 in Wt: 277 lbs BSA: 2.47 m2 HR: 78 bpm BP: 101 / 64 mmHg Technical Quality: Fair Exam Date: 09/04/2021 9:53 AM Exam Location: [facility] Pulmonary Exam Room: 345 Patient Status: Outpatient Admit Date: 09/03/2021 Staff Ordering Physician: Mandeep [employer] Technician: Yudith Masterson RDCS Attending Provider: Chelsea Lovett DO Referring Physician: Jaylen JOVEL; Exam Type: CA echo dop color flow w con Study Info Indications - TIA SYMPTOMS Complete two-dimensional, color flow and Doppler transthoracic echocardiogram is performed with contrast to opacify the left ventricle and to improve the deliniation of the left ventricle endocardial borders. Contrast/Agitated Saline Contrast/Ag. Saline: Definity Amount: 2.00 ml Administered By: Yudith Masterson [facility] Existing IV Access: Yes IV Access Condition: patent with no signs of infiltration Summary 1. Left ventricular chamber dimension is mildly enlarged. 2. Definity contrast administered improved wall motion interpretation. 3. Left ventricular systolic function is normal, estimated at 60-65%. 4. The left ventricular diastolic function is normal. 5. E/e' 8 is minimally elevated. 6. Left atrial chamber dimension is mildly enlarged. 7. No pulmonary hypertension, estimated pulmonary arterial systolic pressure is 25 mmHg. Left Ventricle E/e' 8 is minimally elevated. Definity contrast administered improved wall motion interpretation. Left ventricular chamber dimension is mildly enlarged. Left ventricular systolic function is normal, estimated at 60-65%. The left ventricular diastolic function is normal. Right Ventricle Right ventricular chamber dimension is normal. Right ventricular systolic function is normal. Left Atria Left atrial chamber dimension is mildly enlarged. Right Atria Right atrial chamber dimension is normal. Aortic Valve The aortic valve is trileaflet. There is no aortic valve stenosis. There is no aortic valve regurgitation. Pulmonic Valve There is no pulmonic regurgitation. Mitral Valve There is no mitral valve stenosis. There is no mitral valve regurgitation. Tricuspid Valve There is no tricuspid valve regurgitation. No pulmonary hypertension, estimated pulmonary arterial systolic pressure is 25 mmHg. Pericardium/Pleural There is no pericardial effusion. Inferior Vena Cava Normal inferior vena cava with >50% collapse upon inspiration consistent with normal right atrial pressure, 5 mmHg. Aorta The aortic root size at the sinus of Valsalva is normal. Left Ventricular Outflow Tract Name Value Normal LVOT 2D LVOT Diameter 2.03 cm LVOT Doppler LVOT Peak Gradient 6 mmHg LVOT Mean Gradient 4 mmHg LVOT VTI 27.01 cm LVOT VTI/AV VTI Ratio 0.87 LVOT Stroke Volume 87.46 ml LVOT CO 18.02 l/min
[2021-09-04] MEDS: ACETAMINOPHEN 500 MG TABLET 1000 MG PO (01:56)
[2021-09-04 05:44] LABS: Basophils Absolute Auto 0.1 K/mm3 (0.0-0.1); Basophils Percent Auto 0.7 % (0.2-1.2); Eosinophils Absolute Auto 0.3 K/mm3 (0-0.3); Hematocrit 39.4 % (37.0-47.0); Hemoglobin 13.4 g/dL (12.0-15.0); Immature Granulocyte Absolute 0.06 K/mm3 (0.00-0.031); Immature Granulocyte Percent A 0.7 % (0-0.5); Lymphocytes Absolute Auto 3.03 K/mm3 (0.9-3.2); Lymphocytes Percent Auto 32.8 % (18.3-44.2); Mean Corpuscular Hemoglobin 31.9 pg (26-34); Mean Corpuscular Volume 93.8 fl (80-100); Mean Platelet Volume 10.3 fl (7.4-10.4); Monocytes Absolute Auto 0.6 K/mm3 (0.1-0.6); Monocytes Percent Auto 6.4 % (2.6-8.5); Neutrophils Absolute Auto 5.2 K/mm3 (1.3-6.7); Neutrophils Percent Auto 56.4 % (45.5-73.1); Platelet Count Result 310 k/mm3 (150-375); Red Cell Distribution Width 13.7 % (11.5-14.5); White Blood Count 9.2 K/mm3 (4.5-10.0)
[2021-09-04 05:55] LABS: Alanine Aminotransferase 35 U/L (6-35); Albumin Level 3.4 g/dL (3.5-5.1); Alkaline Phosphatase 101 U/L (38-126); Anion Gap 4 mmol/L (8-16); Aspartate Amino Transferase 33 U/L (14-36); Bilirubin,Total 0.4 mg/dL (0.2-1.3); Blood Urea Nitrogen 13 mg/dL (7-17); Calcium 8.2 mg/dL (8.4-10.2); Carbon Dioxide 22 mmol/L (22-30); Chloride 106 mmol/L (98-107); Estimated CRCL calculation 134 ml/min; Estimated Glomerular Filt Rate > 60; Glucose 111 mg/dL (65-110); Magnesium 2.2 mg/dL (1.6-2.3); Sodium 132 mmol/L (137-145)
[2021-09-04] MEDS: LORazepam INJ (*CRX) 2 MG/ML VIAL 1 MG IV PUSH (06:38)
[2021-09-04] MEDS: ASPIRIN 81 MG ENTERIC TABLET PO (07:56)
[2021-09-04] MEDS: PANTOPRAZOLE 40 MG TABLET PO (07:56)
[2021-09-04] MEDS: ENOXAPARIN 40 MG/0.4 ML SYRINGE SUB-Q (07:56)
[2021-09-04] MEDS: MECLIZINE HCL 25 MG TABLET PO (07:58)
--- NOTE | 2021-09-04 09:41 | PCPTNOTE ---
Attempted PT evaluation, patient getting a test at this time. Will follow.
[2021-09-04] MEDS: PERFLUTREN LIPID MICROSPHERES 1.5 ML VIAL DILUTED TO 10 ML TOTAL VOLUME IV PUSH (10:14)
--- NOTE | 2021-09-04 10:14 | IVDEFINITY ---
Prior to administration of IV Definity the patient was educated on the risks and benefits of the imaging enhancing agent including potential adverse side effects. The patient verbalized understanding. Allergies were verified. No exclusion criteria were identified and at least one of the following inclusion criteria were met: 1) physician request, 2) patient technically difficult to image (per the [place] [employer]chocardi[employer] guidelines of two or more segments not discernable within the apical view), or 3) questionable left ventricular function. ?
--- NOTE | 2021-09-04 10:34 | PCPTNOTE ---
Attempted PT evaluation, pt refused stating I feel out of it. I don't know how much I can do. Patient requested therapist returns after lunch. RN aware, will follow.
[2021-09-04] MEDS: CLOPIDOGREL BISULFATE 75 MG TABLET PO (10:43)
[2021-09-04] MEDS: ONDANSETRON INJ 4 MG/2 ML VIAL IV PUSH (10:56)
--- NOTE | 2021-09-04 12:30 | WPDNEURCNPN ---
Assessment and Plan Assessment and plan (1) Dizziness: Code(s): R42 - Dizziness and giddiness Status: Acute Plan labyrinth sign dysfunction with negative MRI of the brain and fairly unremarkable neurological examination at this particular time by the 80s on the basis of migrainous phenomenon is unclear but she was advised to follow on a regular basis with a physician none return to the office for the follow-up Consult date: 09/04/21 Time Seen: 11:00 Reason for consult: dizziness HPI: Nimco Baldwin is a 45 year old female admitted to the hospital for the complaints of dizziness along with nausea through the emergency room where she came with the complaints of blurred vision, dizziness, and loss of equilibrium and balance of [id number] duration she reportedly got up in the morning and had difficulties in walking and was extremely nauseated she was also complaining of posterior headache and some lower abdominal pain but she has the history of fibroids. Medications included metformin 500 mg daily when laugh faxing 37.5 mg daily and omeprazole 20 mg daily, she does have ongoing history of pancreatitis, cholecystectomy and orthopedic surgery also by history she has current some day smoker but never substance user, initial lab was completely normal on room air including the CBC and comprehensive metabolic panel, EKG was normal, CTA was normal with question regarding the asymmetrical blood flow to the right cerebellum but MRI documented no evidence of stroke or tumor Review of Systems Review of Systems: All systems reviewed & are unremarkable except as noted in HPI and below PMFSH Past Medical History Medical History (Updated 09/03/21 @ 22:27 by Becka Dewitt APRN) History of pancreatitis Migraine headache Vertigo Surgical History Surgical History (System 06/06/21 @ 12:40 by Catherine Deleon) History of cholecystectomy History of orthopedic surgery Social History Social History (System 06/06/21 @ 12:40 by Catherine Deleon) Smoking packs per day: 0.25 Smoking cigarettes per day: 5.0 Years smoked: 25 Smoking pack-years: 6.25 Smoking status: Current every day smoker Tobacco type: cigarettes Alcohol intake: current Drinks per week: 1 Substance use: never Gender identity (if verbalized by the patient): Female Sexual Orientation (if Verbalized by the Patient): Straight or Heterosexual Spiritual care concerns: No Meds Home Medications and Allergies Home Medications Medication Instructions Recorded Confirmed Type omeprazole 20 mg capsule,delayed 20 mg PO DAILY 10/27/20 09/03/21 History release Allergies Allergy/AdvReac Type Severity Reaction Status Date / Time No Known Allergies Allergy Verified 09/03/21 11:14 Vital Signs Vital Signs - 24 hr 09/03/21 14:42 09/03/21 14:45 09/03/21 15:00 Temperature Pulse Rate 67 66 68 Respiratory Rate 20 20 20 Blood Pressure Pulse Oximetry 96 99 98 Oxygen Delivery 09/03/21 15:02 09/03/21 15:15 09/03/21 15:42 Temperature Pulse Rate 61 72 63 Respiratory Rate 14 22 H 17 Blood Pressure Pulse Oximetry 96 98 99 Oxygen Delivery 09/03/21 15:45 09/03/21 15:52 09/03/21 16:00 Temperature Pulse Rate 64 60 60 Respiratory Rate 21 H 13 24 H Blood Pressure 112/84 Pulse Oximetry 94 99 98 Oxygen Delivery 09/03/21 16:11 09/03/21 16:15 09/03/21 16:30 Temperature Pulse Rate 64 63 69 Respiratory Rate 16 20 18 Blood Pressure 105/70 Pulse Oximetry 97 94 95 Oxygen Delivery 09/03/21 16:45 09/03/21 17:03 09/03/21 17:17 Temperature Pulse Rate 85 71 66 Respiratory Rate 13 20 18 Blood Pressure Pulse Oximetry 99 99 Oxygen Delivery 09/03/21 17:21 09/03/21 17:22 09/03/21 17:30 Temperature Pulse Rate 63 65 68 Respiratory Rate 11 L 18 18 Blood Pressure 116/76 Pulse Oximetry Oxygen Delivery 09/03/21 17:31 09/03/21 17:41 09/03/21 17:45 Tempera
--- NOTE | 2021-09-04 13:30 | PM.IMPN ---
Progress Note: A&P Assessment and Plan (1) TIA (transient ischemic attack): Code(s): G45.9 - Transient cerebral ischemic attack, unspecified Status: Acute Assessment and Plan: CT indicated cerebellar infarct MRI negative for CVA Carotid doppler <50% stenosis Aspirin, plavix, and lipitor added PT/OT No infarct noted (2) Vertigo: Code(s): R42 - Dizziness and giddiness Status: Acute Assessment and Plan: Seems to have a history meclizine on board bilateral ear exam shows cerumen impaction PT and OT (3) Cerumen impaction: Code(s): H61.20 - Impacted cerumen, unspecified ear Status: Acute Assessment and Plan: irrigation performed debrox on board will need to see ENT outpatient (4) Migraine headache: Code(s): G43.909 - Migraine, unspecified, not intractable, without status migrainosus Status: Acute Assessment and Plan: migraine headache with visual disturbances Imitrex x1 given head CT does not indicate any intracranial abnormality such as a bleed PT and OT encourage supportive care with rest Time Spent With Patient Time: 25 minutes performing cerumen disimpaction Time with patient: Greater than 35 minutes Subjective Date/time seen: 09/04/211329 Interval history: 09/04/211329 Patient is still pretty distraught on in to see her. She stated that she was very dizzy still and that she had hard time opening her eyes. She denies any dizziness differences looking at one-side Or the other. she did say that she is nauseated a lot of times and Zofran does help with that. She also stated that she has pain in the back of her neck and head. Ear examination did show cerebrum packed ear Canals. MRI of the brain was negative for stroke. Patient also stated that she is having a hard time with urination and reporting frequency and urgency. 09/03/21? 3017 Ms. Baldwin is a 45-year-old female who presented to emergency room with complaints headache, blurred vision, and ataxia.? Patient states she has a known history of migraines and vertigo but she has not had any episodes last 6-7 months.? Patient states that she went to being a last evening and felt like she could not focus her eyes on her cards very well.? Patient states that she felt like her vision was blurry and kept attempting to focus her vision.? Patient denied any loss of vision.? Patient denies any hemianopsia a scotoma.? Patient denies any double vision.? Patient states that she went to bed last evening feeling somewhat ?off? and then went to get out of bed this morning and felt like she was going to fall over.? Patient states she called her significant other at that point in time and was attempting to walk and was very ataxic.? Patient states she then requested to be brought to the emergency room.? Patient states she has felt nauseated off and on, but is very difficult for distinguish between her normal nausea, because she is always nauseated.? Patient states that it does help for to keep her eyes closed and the nausea does dissipate slightly.? Patient states she has had an occipital headache that feels more of a pressure than a pain.? Upon evaluation in emergency room patient underwent CT a of the neck and head and was noted to have subtle asymmetric decrease in blood flow to the medial aspect of the right cerebellar hemisphere and the MRI was to be considered.? This was all discussed with [facility] and they stated since patient's symptoms had started last evening there was no intervention could be done at this time and they had no open beds and patient was to be given aspirin and Plavix and an MRI was needed.? Patient was placed on a waiting list to be transferred to [facility]. Review of Systems Review of Systems: All systems reviewed & are unremarkable except as noted in HPI and below Exam Const: Gene
[2021-09-04] MEDS: CARBAMIDE PEROXIDE 6.5% OT SOLN 15 ML BTL 5 DROP EACH EAR (14:51)
[2021-09-04] MEDS: ACETAMINOPHEN 325 MG TABLET 650 MG PO (21:00)
[2021-09-04 22:12] LABS: Appearance Urine Clear (Clear); Bilirubin Urine Negative (Negative); Blood Urine Trace-lysed (Negative); Color Urine Yellow (Yellow); Glucose Urine UA Negative (Negative); Ketones Urine Negative (Negative); Leukocyte Esterase Ur Negative LEU/UL (Negative); Nitrate Urine Negative (Negative); Protein Urine Negative (Negative); Specific Grav Ur <= 1.005 (1.001-1.035); Urobilinogen Urine 0.2 mg/dL (<2.0); pH Urine 5.5 (5.0-9.0)
[2021-09-04 22:14] LABS: Bacteria Urine Trace /hpf; RBC Urine 0-2 /hpf (0-2); Squamous Epithelial Cell Urine Moderate /hpf (Few); WBC Urine 0-3 /hpf
[2021-09-04 22:19] LABS: Add Urine Microscopic? YES
[2021-09-05] VITALS (8 sets, daily range): BP systolic 105; BP diastolic 62; PULSE 51–80; RESP 16; TEMP 37.2; O2SAT 95–96
[2021-09-05] MEDS: ACETAMINOPHEN 325 MG TABLET 650 MG PO (02:55)
[2021-09-05] MEDS: SUMAtriptan SUCCINATE 6 MG/0.5 ML VIAL SUB-Q (03:13)
--- NOTE | 2021-09-05 03:15 | PC.NURSE ---
Pt c/o severe headache with no relief from Tylenol called and orders received.
[2021-09-05 05:43] LABS: Basophils Absolute Auto 0.1 K/mm3 (0.0-0.1); Basophils Percent Auto 0.7 % (0.2-1.2); Eosinophils Absolute Auto 0.3 K/mm3 (0-0.3); Hemoglobin 14.3 g/dL (12.0-15.0); Immature Granulocyte Absolute 0.05 K/mm3 (0.00-0.031); Immature Granulocyte Percent A 0.6 % (0-0.5); Immature Platelet Fraction Pct 4.9 % (0.9-11.2); Lymphocytes Absolute Auto 2.61 K/mm3 (0.9-3.2); Mean Corpuscular HGB Conc 33.3 g/dl (32-36); Mean Corpuscular Hemoglobin 31.6 pg (26-34); Mean Corpuscular Volume 94.9 fl (80-100); Monocytes Absolute Auto 0.5 K/mm3 (0.1-0.6); Monocytes Percent Auto 5.3 % (2.6-8.5); Neutrophils Percent Auto 59.4 % (45.5-73.1); Platelet Count Result 249 k/mm3 (150-375); Red Blood Count 4.53 M/mm3 (4.2-5.4); Red Cell Distribution Width 13.5 % (11.5-14.5); White Blood Count 8.4 K/mm3 (4.5-10.0)
[2021-09-05 05:57] LABS: Alanine Aminotransferase 35 U/L (6-35); Albumin Level 3.3 g/dL (3.5-5.1); Alkaline Phosphatase 100 U/L (38-126); Anion Gap 5 mmol/L (8-16); Aspartate Amino Transferase 32 U/L (14-36); Bilirubin,Total 0.3 mg/dL (0.2-1.3); Blood Urea Nitrogen 10 mg/dL (7-17); Calcium 8.1 mg/dL (8.4-10.2); Carbon Dioxide 20 mmol/L (22-30); Chloride 108 mmol/L (98-107); Estimated CRCL calculation 117 ml/min; Estimated Glomerular Filt Rate > 60; Glucose 113 mg/dL (65-110); Magnesium 1.9 mg/dL (1.6-2.3); Potassium 4.2 mmol/L (3.4-5.0); Sodium 133 mmol/L (137-145)
[2021-09-05] MEDS: ONDANSETRON INJ 4 MG/2 ML VIAL IV PUSH (09:33)
[2021-09-05] MEDS: ENOXAPARIN 40 MG/0.4 ML SYRINGE SUB-Q (09:33)
[2021-09-05] MEDS: MECLIZINE HCL 25 MG TABLET PO ×2 (09:34→16:24)
[2021-09-05] MEDS: PANTOPRAZOLE 40 MG TABLET PO (09:34)
[2021-09-05] MEDS: ASPIRIN 81 MG ENTERIC TABLET PO (09:34)
[2021-09-05] MEDS: CLOPIDOGREL BISULFATE 75 MG TABLET PO (09:34)
[2021-09-05] MEDS: CARBAMIDE PEROXIDE 6.5% OT SOLN 15 ML BTL 5 DROP EACH EAR ×2 (09:34→12:35)
--- NOTE | 2021-09-05 11:15 | PM.DS ---
DS: Admitting Diagnosis Discharge Date 09/05/21 1115 Admitting Diagnosis TIA, migraine, vertigo DS: Discharge Diagnosis Discharge Diagnosis (1) TIA (transient ischemic attack): Code(s): G45.9 - Transient cerebral ischemic attack, unspecified Status: Acute Assessment and Plan: CT indicated cerebellar infarct MRI negative for CVA Carotid doppler <50% stenosis Aspirin, plavix, and lipitor added PT/OT No infarct noted (2) Vertigo: Code(s): R42 - Dizziness and giddiness Status: Acute Assessment and Plan: Seems to have a history meclizine on board bilateral ear exam shows cerumen impaction PT and OT (3) Cerumen impaction: Code(s): H61.20 - Impacted cerumen, unspecified ear Status: Acute Assessment and Plan: irrigation performed debrox on board will need to see ENT outpatient (4) Migraine headache: Code(s): G43.909 - Migraine, unspecified, not intractable, without status migrainosus Status: Acute Assessment and Plan: migraine headache with visual disturbances Imitrex x1 given head CT does not indicate any intracranial abnormality such as a bleed PT and OT encourage supportive care with rest DS: Summary Hospital Course Hospital Course: patient is a 45-year-old female past medical history pancreatitis, migraine vertigo who presented to the ED for dizziness with visual changes over the last day or 2. Upon arrival patient had a CT of the head performed which did show a possible so cerebellar infarct and U was contacted. CT of the a of the neck did show less than 50% stenosis on bilateral carotid Dopplers. Patient was also started on aspirin and Plavix. Neurology was consulted and a brand MRI was obtained. Brain MRI did not show any acute infarction. Patient was also noted to have a headache with pressure in his cerebellar part of her head. Patient was given 1 dose of Imitrex and then a dose of Toradol, Reglan, Benadryl and a bag of fluids and his now saying her headache is gone. She still does have the dizziness however upon examination her years were noted to be packed with cerumen and disimpaction was warranted. Patient was also given Debrox earwax softening. Patient does feel little bit better and is denying any chest pain, shortness of breath, vomiting, diarrhea, constipation, weakness or fatigue. Patient is having a little bit of nausea along with the dizziness however is not as bad as it was when she came in. Visual changes is also better as well. Patient is stable for discharge for labs and vital signs at this time. Patient has been educated instructed follow-up with an ENT upon discharge and will be calling tomorrow for an appointment. Status at Discharge Functional status at discharge: independent ambulation Overall status at discharge: patient is progressing back to baseline Time Spent with Patient Time attestation: Total time spent providing and/or coordinating discharge services: 37 minutes Time spent: Greater than 30 minutes Specific discharge activities: Diagnostic testing, chart review, developing a treatment plan, education, care coordination documentation, physical exam, result review Exam Const: General: cooperative, healthy appearing, no acute distress, well developed, alert and awake Nutritional Appearance: well nourished Orientation/consciousness: patient oriented x3 Limitations: no limitations HENMT: Head: normal to inspection Ears: hearing grossly normal bilaterally General nose exam: Normal external nose present Mouth: Yes Normal oral and palatal mucosa present, Yes lip normal and Yes tongue normal Teeth and gingiva: abnormal tooth and associated gingiva and poor dentition Eyes: General: appearance normal, both eyes and all related structures Neck: Neck: normal visual inspection, full ROM, trachea midline and supple Chest: Chest palpation & inspe
[2021-09-05] MEDS: SODIUM CHLORIDE 0.9% IV 1,000 ML 999 ML IV CONT (12:31)
[2021-09-05] MEDS: KETOROLAC 30 MG/ML VIAL (*BKC) IV PUSH (12:31)
[2021-09-05] MEDS: METOCLOPRAMIDE HCL INJ 10 MG/2 ML VIAL IV PUSH (12:33)
[2021-09-05] MEDS: diphenhydrAMINE HCl INJ 50 MG/ML VIAL 25 MG IV PUSH (12:34)
== END 2021-09-05 18:35 | disposition home or self-care (01) ==
LOC: ANHED 16:41 → ANH3MED 23:16
PROVIDERS: Nurse Practitioner Adult Health; Admitting Provider Student in an Organized Health Care Education/Training Program; Emergency Provider Emergency Medicine; PCP Physician Assistant; Visit Provider Nurse Practitioner
DX: G45.9 Transient cerebral ischemic attack, unspecified (principal); R42 Dizziness and giddiness; H61.20 Impacted cerumen, unspecified ear; G43.909 Migraine, unspecified, not intractable, without status migrainosus; R26.81 Unsteadiness on feet; F17.210 Nicotine dependence, cigarettes, uncomplicated
CPT/HCPCS: 36415; 70496; 70498; 70551; 80053; 81001; 81025; 82948; 83735; 84484; 85025; 85055; 85610; 85730; 93005; 93306; 96372; 96374; 96375; 96376; 97161; 97165; 97530; 99285; A9270; C8929; G0378; G0379; J1200; J1650; J1885; J2060; J2405; J2765; J3010; J3030; J7030; Q9957; Q9967

== ENCOUNTER 2021-09-15 15:38 | Emergency (ER) | payer OTHER, SELFPAY ==
[2021-09-15 15:52] VITALS: BP 114/68; PULSE 72; RESP 16; TEMP 36.3; O2SAT 98
--- NOTE | 2021-09-15 16:49 | ED.EAR ---
HPI - Ear Problem General Chief complaint: Ear Stated complaint: Ear Pain Time Seen by Provider: 09/15/21 16:39 Source: patient Mode of arrival: ambulatory Limitations: no limitations History of Present Illness HPI Narrative: Patient presents today complaining of bilateral cerumen impactions. States she was in the ER few weeks ago and was told she had bilateral cerumen impactions. She has been trying removal at home but has been unsuccessful since that time. States her equilibrium has been off as well due to the impactions. She does not have a follow-up appointment with ENT until the of this. She came in today to get help with removal of the wax. She reports some pain and ringing in her left ear. Related Data Allergies Allergy/AdvReac Type Severity Reaction Status Date / Time No Known Allergies Allergy Verified 09/15/21 15:53 Review of Systems Review of Systems: CONSTITUTIONAL: Denies body aches, fever, chills, or sweats. EYES: Denies visual changes, redness, or discharge. ENT: Denies rhinorrhea, congestion, sore throat. + Ear pain and ringing. Bilateral cerumen impaction CARDIOVASCULAR: Denies chest pain, palpitations, or edema. RESPIRATORY: Denies cough or dyspnea. GASTROINTESTINAL: Denies abdominal pain, nausea, vomiting, or diarrhea. GENITOURINARY: Denies dysuria or hematuria. SKIN: Denies rash, itching, or wounds. MUSCULOSKELETAL: Denies back pain, joint pain, or myalgia. NEUROLOGIC: Denies headache, numbness, tingling, or weakness. PSYCH: Denies depression or anxiety. [facility] Past Medical History Medical History History of pancreatitis Migraine headache Vertigo Surgical History Surgical History History of cholecystectomy History of orthopedic surgery Social History Social History Smoking packs per day: 0.25 Smoking cigarettes per day: 5.0 Years smoked: 25 Smoking pack-years: 6.25 Smoking status: Current every day smoker Tobacco type: cigarettes Alcohol intake: current Drinks per week: 1 Substance use: never Gender identity (if verbalized by the patient): Female Sexual Orientation (if Verbalized by the Patient): Straight or Heterosexual Spiritual care concerns: No Comments At time of signature, I have reviewed and agree with nursing past medical, surgical, social and family history unless otherwise noted. Please see nursing chart for further information. There is no relevant family history pertinent to the presenting complaint Exam Narrative: GENERAL: Well-appearing, well-nourished, and in no acute distress. HEAD: Normocephalic, atraumatic. EYES: EOMI. No redness or drainage. Conjunctivae normal. ENT: Mucous membranes pink and moist. Nares clear. No rhinorrhea. Bilateral TMs occluded with bilateral cerumen impactions. NECK: Normal AROM. Supple. No lymphadenopathy. CHEST: No respiratory distress. EXTREMITIES: Normal range of motion. No edema. SKIN: Warm, dry, no rash. Capillary refill normal. Normal skin turgor. NEURO: No focal deficits. Alert and oriented x3. Gait steady. PSYCH: Normal affect. No signs of depression or anxiety. Course Course Level of Care: Express Care Visit Vital Signs Vital signs: Vital Signs Temperature 97.4 F L 09/15/21 15:52 Pulse Rate 72 09/15/21 15:52 Respiratory Rate 16 09/15/21 15:52 Blood Pressure 114/68 09/15/21 15:52 Pulse Oximetry 98 09/15/21 15:52 Oxygen Delivery Room Air 09/15/21 15:52 Temperature 97.4 F L 09/15/21 15:52 Pulse Rate 72 09/15/21 15:52 Respiratory Rate 16 09/15/21 15:52 Blood Pressure 114/68 09/15/21 15:52 Pulse Oximetry 98 09/15/21 15:52 Oxygen Delivery Room Air 09/15/21 15:52 Reviewed Procedures Ear Wax Removal Both Ears: Ear Wax Removal Date: 09/15/21 Ear Wax Re
[2021-09-15] MEDS: HYDROGEN PEROXIDE 3% SOLN(*SP) 473 ML BOTTLE 50 ML IRRIGATION (17:35)
== END 2021-09-15 17:50 | disposition home or self-care (01) ==
PROVIDERS: Emergency Provider Nurse Practitioner; PCP Physician Assistant
DX: H61.23 Impacted cerumen, bilateral (principal); F17.210 Nicotine dependence, cigarettes, uncomplicated
CPT/HCPCS: 69210; 99212; A9270; G0463

== ENCOUNTER 2021-10-21 08:17 | Emergency (ER) | payer OTHER, SELFPAY ==
[2021-10-21 08:31] VITALS: BP 112/74; PULSE 68; RESP 16; TEMP 36.1; O2SAT 100
--- NOTE | 2021-10-21 08:31 | ED.URI ---
HPI - URI/Sore Throat General Chief Complaint: Upper Respiratory Infection Stated Complaint: Sore Throat Time Seen by Provider: 10/21/21 08:31 Source: patient Mode of arrival: ambulatory Limitations: no limitations History of Present Illness HPI Narrative: 46-year-old female presents with complaint of nasal congestion, sore throat, cough, body aches, headache, nausea vomiting for 3 days. Denies shortness of breath. Is taking Excedrin and ibuprofen to treat headache and body aches. No diarrhea. Is able to keep down water. Took a home COVID test that was negative. No fever. All systems reviewed and negative except as noted above. Related Data Home Medications Medication Instructions Recorded Confirmed duloxetine 30 mg capsule,delayed 30 mg PO DAILY 09/26/21 10/21/21 release (Cymbalta) metformin 500 mg tablet 500 mg PO BID 09/26/21 10/21/21 ergocalciferol (vitamin D2) 1,250 1,250 mcg PO WEEKLY 10/21/21 10/21/21 mcg (50,000 unit) capsule Allergies Allergy/AdvReac Type Severity Reaction Status Date / Time No Known Allergies Allergy Verified 10/21/21 08:31 Review of Systems Review of Systems: CONSTITUTIONAL: Denies fever, chills, or sweats. Reports fatigue EYES: Denies visual changes, redness, or discharge. ENT: Reports rhinorrhea, congestion, sore throat. Denies otalgia. CARDIOVASCULAR: Denies chest pain, palpitations, or edema. RESPIRATORY: Reports cough. Denies dyspnea. GASTROINTESTINAL: Denies abdominal pain. Reports nausea, vomiting. Denies diarrhea. GENITOURINARY: Denies dysuria or hematuria. SKIN: Denies rash or itching. MUSCULOSKELETAL: Denies back pain, joint pain. Reports myalgia. NEUROLOGIC: Reports s headache. Denies numbness, or weakness. PSYCHIATRIC: Denies anxiety or depression. All other systems reviewed are negative, except as documented in HPI. [facility] Past Medical History Medical History History of pancreatitis Migraine headache Vertigo Surgical History Surgical History History of cholecystectomy History of orthopedic surgery Family History Family History Father Diabetes mellitus Hypertension Depression Mother Hypertension Depression Cerebrovascular accident Social History Social History Smoking packs per day: 0.25 Smoking cigarettes per day: 5.0 Years smoked: 25 Smoking pack-years: 6.25 Smoking status: Current every day smoker Tobacco type: cigarettes and e-cigarettes/vaping Alcohol intake: current Drinks per week: 1 Substance use: never Gender identity (if verbalized by the patient): Female Sexual Orientation (if Verbalized by the Patient): Straight or Heterosexual Spiritual care concerns: No Comments At time of signature, agree with nursing past medical, surgical, social and family history. There is no relevant family history pertinent to the presenting complaint. Exam Narrative: GENERAL: This is a well-nourished, well-developed patient. Patient is ill-appearing but no distress HEAD: normocephalic, atraumatic. EYES: PERRL. Sclera clear/white. Vision is grossly intact. EARS: External ears normal, auditory canals clear and without drainage, TMs normal without perforation. Hearing grossly intact. NOSE: External nose normal with clear nasal drainage. No erythema or swelling to nares. THROAT: Mucous membranes moist, mild erythema to posterior pharynx. No swelling, no tonsillar enlargement no exudates. NECK: Neck supple, non-tender without lymphadenopathy, masses or thyromegaly. CARDIOVASCULAR: Regular rate and rhythm without murmurs, gallops, or rubs. RESPIRATORY: Clear to auscultation. Breath sounds equal bilaterally. No wheezes, rales, or rhonchi. GASTROINTESTINAL: Abdomen soft, non-tender, nondistended. Bowel sounds are
[2021-10-21] MEDS: KETOROLAC 30 MG/ML VIAL (*BKC) IM (08:58)
[2021-10-21] MEDS: ONDANSETRON HCL ODT 4 MG TABLET SUBLINGUAL (08:58)
== END 2021-10-21 09:35 | disposition home or self-care (01) ==
PROVIDERS: Emergency Provider Nurse Practitioner Family; PCP Physician Assistant
DX: B34.9 Viral infection, unspecified (principal); Z20.822 Contact with and (suspected) exposure to COVID-19; F17.210 Nicotine dependence, cigarettes, uncomplicated; F17.290 Nicotine dependence, other tobacco product, uncomplicated
CPT/HCPCS: 87081; 87426; 87880; 96372; 99213; A9270; C9803; G0463; J1885

== ENCOUNTER 2021-12-20 15:30 | Outpatient (RCR) | payer OTHER, SELFPAY ==
--- NOTE | 2021-10-25 10:15 | PTOPEVAL ---
Thank you for referring Nimco Baldwin to [facility].? Her treatment plan will focus on decreasing her neck pain, and monitoring her vestibular s/s as the neck pain decreases. She is scheduled to be seen for therapy? 2 x/week for 3 weeks. Please review, sign, date and return this plan of care YAYO. I agree with and certify that the following plan of care is medically necessary. Referring Physician Date Attending Provider: Edmund Mancini MD Past Medical History Source of Past Medical History Recalled from Previous Visit, Confirmed with Patient/Family Neurological History Hx Migraine Yes Hx Other Neurological Disorders Yes: vertigo Cardiovascular History Hx Cardiac Disorders No Significant History Respiratory History Hx COVID-19 Yes: March 2020- still have some residual brain fog & joint pain Gastrointestinal History Hx Cholecystectomy Yes Hx Gastroesophageal Reflux Disease Yes Hx Pancreatitis Yes Genitourinary History Hx Urinary Tract Infection Yes Musculoskeletal History Hx Orthopedic Surgery Yes: left foot plate and pins Hx Other Musculoskeletal Disorders Yes: neck pain chronic > 10 yrs;new dx- fibromyalgia Hematological History Hx Hematological Disorders No Significant History Endocrine History Hx Diabetes Yes: meds HEENT History Hx HEENT Disorders No Significant History Integumentary History Hx Skin Disorders No Significant History Reproductive History Hx Fibroids Yes: grapefruit sized 2020 Hx Other Reproductive Disorders Yes: multiple ovarian cyst removal, L ovary removal Psychosocial History Hx Anxiety Yes Hx Depression Yes Pain History History of Any Previous or Ongoing No Significant History Instance of Pain Anesthesia History Hx Anesthesia Reactions No Significant History Other History Hx Other Medical Conditions Yes: obesity Evaluation Information Diagnosis migraines, cervicogenic dizziness, unsteady gait Onset Apr 2021 Subjective Information gradual increase in neck pain, Query Text:As Reported By Patient/ vertigo and off balance with Family walking; have dizzy spells 2-3x/month where cannot get out of the house, last 2-3 days; can ease with staying in bed, keep light out of room with black out curtains; to ER about 2 months ago due to being so bad , ruled out a strok
--- NOTE | 2021-11-04 16:07 | PCPTNOTE ---
Patient called & cancelled scheduled appointment this date due to having a migraine.
--- NOTE | 2021-11-15 12:24 | PCPTNOTE ---
Patient called & cancelled scheduled appointment this date stating that her vertigo is too bad and she is unable to drive to treatment.
--- NOTE | 2021-11-25 16:08 | PTOPPROG ---
Assessment and note entered by Priti Felipe, PT Evaluation Information Assessment Status Progress Subjective Information Nimco reports: have good days and bad days; have had some unsteadiness and off balance, taken meclazine about 3x; have more pain L side neck and head; theracane used for self massage; headaches/dizziness have calmed down-- have had 3 episodes in the past 2 weeks; have been doing the exercises at home, feel like it has made the L side worse; Assessment PT Clinical Summary Nimco has had 6 PT sessions. Compared to the initial evaluation: pain rating has changed from 3-9/10 to 5-7/10; reported migraine/headache duration is less; self assessment Oswestry is 6% worse; no longer has pain with cervical flexion and R shoulder flexion and abduction active motions; She has been educated on correct posture of her neck and shoulders, pain management techniques and HEP. The goals were partially achieved, she continues to have pain and limited activity level. Discussed with her to obtain a follow up appointment with her dr. Continue PT treatment to further decrease her pain and headaches, decrease muscle spasms and increase activity level. Plan of Care Interventions Electrical Stimulation,Hot Pack/Cold Pack,Manual Therapy,Mechanical Traction,Patient/Caregiver Education,Therapeutic Activities,Therapeutic Exercise,Self-Care/Home Management PT Services Indicated Yes Treatment Frequency and 2x/wk for 3 weeks Duration These treatments will address the objective and functional deficits as defined above. The patient will be advanced safely and appropriately in order for the patient to progress towards his/her prior level of function. Additional exercises will be introduced and as well as a comprehensive home exercise program upon discharge, if needed, ?to ensure carryover of functional gains achieved in the clinic. This treatment plan has been reviewed and agreement upon by the patient.
--- NOTE | 2021-12-20 16:18 | PTOPDC ---
Assessment and note entered by Priti Felipe, PT Evaluation Information Assessment Status Discharge Subjective Information Nimco reports: stim helps, have ordered--getting one for home; have the Theracane at home and using it; headaches are the base of the skull- have had 3 in the past 2 weeks, lasting few hours; feel like she is doing everything at home and does not need to come in anymore for therapy; Reported Pain Level Pain Score Self Report Additional Pain Score Comments pain range of 3-7/10 in neck, L shoulder; have good days and bad days; Oswestry self assessment functional activity score of 26% limitation in activity; Assessment PT Clinical Summary Nimco has received 8 PT sessions. Compared to the last reeval: pain rating has decreased from 5-7/10 to 3-7/10; continues to have headaches, with increased duration; self assessment Oswestry score improved by 10%; increased flexibility of cervical flexion, L shoulder flexion and abduction motions, but they still cause pain; Education complete for home exercises, self care for pain management--theracane, electrical stim, stretching and posture. The goals were partially achieved. Discharge PT services. She is to follow up with her general dr in 3 weeks. Nimco will discuss with her any continued issues with pain and possible need for further assessment of her headaches, neck and L shoulder pain. Plan of Care PT Services Indicated No
== END 2021-12-23 07:10 | disposition home or self-care (01) ==
LOC: ANHPT 15:30
PROVIDERS: PCP Physician Assistant; Visit Provider Otolaryngology
DX: G43.909 Migraine, unspecified, not intractable, without status migrainosus (principal); R42 Dizziness and giddiness; R26.89 Other abnormalities of gait and mobility
CPT/HCPCS: 97014; 97110; 97140; 97162; 99199; G0283

== ENCOUNTER 2022-01-15 11:06 | Emergency (ER) | payer OTHER, SELFPAY ==
--- NOTE | ~2022-01-15 | US_ITS ---
EXAMINATION: US transvaginal DATE: 01/15/2022 14:28 INDICATION: Pelvic pain TECHNIQUE: Multiple endovaginal sonographic images of the pelvis were obtained. COMPARISON: 06/07/2020; CT, 12/14/2020 FINDINGS: The uterus measures 7.1 x 6.8 x 6.9 cm. The endometrial complex measures 9 mm. There is a 4 .4 x 3.8 x 4.2 cm mass of the anterior uterine body with the appearance of an intramural fibroid. Nab othian cysts are noted in the cervix. The right ovary is not visualized however no right adnexal abno rmality is seen. The left ovary measures 3.7 x 2.9 x 3.0 cm. There is normal vascular flow in the lef t ovary. There is no free fluid in the pelvis. IMPRESSION: 1. Uterine fibroid. Reviewed, dictated and finalized at location B. [facility] SERVICES MANAGER IMPRESSION: 1. Uterine fibroid.
[2022-01-15 11:20] VITALS: BP 132/82; PULSE 65; RESP 18; TEMP 36.5; O2SAT 100
[2022-01-15 12:21] LABS: Basophils Absolute Auto 0.1 K/mm3 (0.0-0.1); Basophils Percent Auto 0.7 % (0.2-1.2); Eosinophils Absolute Auto 0.3 K/mm3 (0-0.3); Eosinophils Percent Auto 2.9 % (0-4.4); Hematocrit 42.1 % (37.0-47.0); Immature Granulocyte Absolute 0.05 K/mm3 (0.00-0.031); Immature Granulocyte Percent A 0.5 % (0-0.5); Lymphocytes Absolute Auto 3.12 K/mm3 (0.9-3.2); Lymphocytes Percent Auto 29.4 % (18.3-44.2); Mean Corpuscular HGB Conc 33.3 g/dl (32-36); Mean Corpuscular Volume 96.1 fl (80-100); Mean Platelet Volume 9.5 fl (7.4-10.4); Monocytes Absolute Auto 0.5 K/mm3 (0.1-0.6); Monocytes Percent Auto 5.1 % (2.6-8.5); Neutrophils Absolute Auto 6.5 K/mm3 (1.3-6.7); Neutrophils Percent Auto 61.4 % (45.5-73.1); Platelet Count Result 343 k/mm3 (150-375); Red Blood Count 4.38 M/mm3 (4.2-5.4); Red Cell Distribution Width 13.4 % (11.5-14.5); White Blood Count 10.6 K/mm3 (4.5-10.0)
[2022-01-15 12:32] LABS: Alanine Aminotransferase 30 U/L (6-35); Albumin Level 3.9 g/dL (3.5-5.1); Alkaline Phosphatase 95 U/L (38-126); Anion Gap 8 mmol/L (8-16); Aspartate Amino Transferase 26 U/L (14-36); Bilirubin,Total 0.6 mg/dL (0.2-1.3); Blood Urea Nitrogen 12 mg/dL (7-17); Calcium 8.3 mg/dL (8.4-10.2); Carbon Dioxide 27 mmol/L (22-30); Chloride 102 mmol/L (98-107); Estimated CRCL calculation 113 ml/min; Estimated Glomerular Filt Rate > 60; Glucose 102 mg/dL (65-110); Lipase 47 U/L (23-300); Potassium 3.7 mmol/L (3.4-5.0); Sodium 137 mmol/L (137-145)
--- NOTE | 2022-01-15 12:38 | ED.ABDPAIN ---
HPI - Abdominal Pain General Chief Complaint: Abdominal Pain Stated Complaint: Abdominal pain Time Seen by Provider: 01/15/22 12:22 History of Present Illness HPI narrative: Pt has history of intermittent lower abdominal pain for months. Pt says she had D and C which helped for awhile and was told she had a fibroid the size of a grapefruit but was unable to get surgery because of her insurance. Pt says most of the time she can deal with it but it got worse over the weekend and she is not able to sleep and OTC meds not helping. Related Data Home Medications Medication Instructions Recorded Confirmed duloxetine 30 mg capsule,delayed 30 mg PO DAILY 09/26/21 10/21/21 release (Cymbalta) metformin 500 mg tablet 500 mg PO BID 09/26/21 10/21/21 ergocalciferol (vitamin D2) 1,250 1,250 mcg PO WEEKLY 10/21/21 10/21/21 mcg (50,000 unit) capsule Allergies Allergy/AdvReac Type Severity Reaction Status Date / Time No Known Allergies Allergy Verified 10/21/21 08:31 Review of Systems Review of Systems: All systems reviewed & are unremarkable except as noted in HPI and below PMFSH Past Medical History Medical History History of pancreatitis Migraine headache Vertigo Surgical History Surgical History History of cholecystectomy History of orthopedic surgery Family History Family History Father Diabetes mellitus Hypertension Depression Mother Hypertension Depression Cerebrovascular accident Social History Social History Smoking packs per day: 0.25 Smoking cigarettes per day: 5.0 Years smoked: 25 Smoking pack-years: 6.25 Smoking status: Current every day smoker Tobacco type: cigarettes and e-cigarettes/vaping Alcohol intake: current Drinks per week: 1 Substance use: never Gender identity (if verbalized by the patient): Female Sexual Orientation (if Verbalized by the Patient): Straight or Heterosexual Spiritual care concerns: No Exam Const: General: healthy appearing and no acute distress Nutritional Appearance: obese Orientation/consciousness: patient oriented x3 Limitations: no limitations HENMT: Mouth: Yes Normal oral and palatal mucosa present Neck: Neck: normal visual inspection Resp: Effort & Inspection: normal respiratory effort Auscultation: clear to auscultation bilaterally Cardio: Rate: regular rate Rhythm: regular rhythm GI: GI Palp: Yes Soft to palpation and Yes Tenderness to palpation present (GI) (low badomen) Auscultation: normal bowel sounds Skin: General skin exam: normal color Rashes: no rashes Wounds: no wounds Neuro: General: patient oriented x3, moves all extremities, no meningeal signs and no focal motor deficits Cranial nerves: Yes Nystagmus not present Speech: normal speech Extrem: General: normal to inspection and no clubbing, cyanosis or edema Psych: Mental Status: mental status grossly normal Affect: normal affect Attitude: cooperative Course Vital Signs Vital signs: Vital Signs Temperature 97.7 F 01/15/22 11:20 Pulse Rate 65 01/15/22 11:20 Respiratory Rate 18 01/15/22 11:20 Blood Pressure 132/82 01/15/22 11:20 Pulse Oximetry 100 01/15/22 11:20 Oxygen Delivery Room Air 01/15/22 11:20 Temperature 97.2 F L 01/15/22 16:03 Pulse Rate 60 01/15/22 16:03 Respiratory Rate 15 01/15/22 16:03 Blood Pressure 106/60 01/15/22 16:03 Pulse Oximetry 98 01/15/22 16:03 Oxygen Delivery Room Air 01/15/22 11:20 MDM - Abdominal Pain Lab Data Result diagrams: 01/15/22 12:09 01/15/22 12:09 Labs: Lab Results 01/15/22 01/15/22 01/15/22 Range/Units 12:09 12:09 12:20 WBC 10.6 H (4.5-10.0) K/mm3 RBC 4.38 (4.2-5.4) M/mm3 Hgb 14.0 (12.0-15.
[2022-01-15 12:42] LABS: Appearance Urine Clear (Clear); Bilirubin Urine Negative (Negative); Blood Urine 2+ (Negative); Color Urine Yellow (Yellow); Glucose Urine UA Negative (Negative); Ketones Urine Negative (Negative); Leukocyte Esterase Ur Negative LEU/UL (Negative); Nitrate Urine Negative (Negative); Protein Urine Negative (Negative); Specific Grav Ur 1.025 (1.001-1.035); Urobilinogen Urine 0.2 mg/dL (<2.0)
[2022-01-15 13:17] LABS: Bacteria Urine Trace /hpf; Mucus Urine Rare /lpf; RBC Urine 0-2 /hpf (0-2); Squamous Epithelial Cell Urine Moderate /hpf (Few); WBC Urine 0-3 /hpf
[2022-01-15 13:18] LABS: Add Urine Microscopic? YES
[2022-01-15] MEDS: HYDROmorphone HCL INJ (*CRX) 1 MG/ML SYR 0.5 MG IV PUSH (13:33)
[2022-01-15] MEDS: ONDANSETRON INJ 4 MG/2 ML VIAL IV PUSH (13:33)
[2022-01-15] MEDS: SODIUM CHLORIDE 0.9% IV 1,000 ML 999 ML IV CONT (13:34)
[2022-01-15 14:18] LABS: INR 1.1; Prothrombin Time 13.5 Seconds (11.1-14.7)
[2022-01-15 14:19] LABS: Partial Thromboplastin Time 30.1 SECONDS (22.3-36.8)
[2022-01-15] MEDS: HYDROmorphone HCL INJ (*CRX) 1 MG/ML SYR IV PUSH (16:02)
[2022-01-15 16:03] VITALS: BP 106/60; PULSE 60; RESP 15; TEMP 36.2; O2SAT 98
== END 2022-01-15 16:23 | disposition home or self-care (01) ==
PROVIDERS: Emergency Medicine; Emergency Provider Emergency Medicine; PCP Physician Assistant
DX: D25.9 Leiomyoma of uterus, unspecified (principal); F17.210 Nicotine dependence, cigarettes, uncomplicated
CPT/HCPCS: 36415; 76830; 80053; 81001; 81025; 83690; 85025; 85610; 85730; 96361; 96374; 96375; 96376; 99284; J1170; J2405; J7030

== ENCOUNTER 2022-02-21 11:03 | Outpatient (CLI) | payer OTHER, SELFPAY ==
[2022-02-21 11:35] LABS: Hematocrit 43.2 % (37.0-47.0); Hemoglobin 14.6 g/dL (12.0-15.0); Mean Corpuscular HGB Conc 33.8 g/dl (32-36); Mean Corpuscular Hemoglobin 31.5 pg (26-34); Mean Corpuscular Volume 93.3 fl (80-100); Mean Platelet Volume 9.4 fl (7.4-10.4); Platelet Count Result 315 k/mm3 (150-375); Red Blood Count 4.63 M/mm3 (4.2-5.4); Red Cell Distribution Width 13.2 % (11.5-14.5); White Blood Count 9.3 K/mm3 (4.5-10.0)
== END 2022-02-21 11:04 | disposition home or self-care (01) ==
PROVIDERS: PCP Physician Assistant; Visit Provider Student in an Organized Health Care Education/Training Program
DX: Z01.818 Encounter for other preprocedural examination (principal); D21.9 Benign neoplasm of connective and other soft tissue, unspecified; D25.9 Leiomyoma of uterus, unspecified
CPT/HCPCS: 36415; 85027; 86850; 86900; 86901

== ENCOUNTER 2022-02-27 01:29 | Day surgery (SDC) | payer OTHER, SELFPAY ==
[2022-02-17 14:03] VITALS: BMI 45.8
--- NOTE | 2022-02-17 14:17 | PC.NURSE ---
Report to the Outpatient Waiting Room, entrance under the green pavilion located off [facility], at time _0600_ on date _[id number]_. Planned Procedure Time: _0730_. Time changes happen often and if your time is changed the preop area will call you the afternoon before. - You and your visitor will be asked to self-screen and do not enter if you have any COVID symptoms. - Only one visitor is requested with a max of two and NO children visitors are allowed at this time. - The patient visitor may be requested to leave or wait in car when not with patient due to distancing restrictions. - A mask is optional within the hospital. Patients may have clear liquids (water, carbonated beverages, clear teas, apple juice) until 3 hours prior to surgery with a maximum of 20 ounces. - No food from midnight until time of surgery Take the following medications with a SIP of water the morning of surgery: __Duloxetine Medications to discontinue per physician None Date to take last dose Please no make-up, nail telugu, hairspray, perfume, deodorant, or body powder the day of surgery. No jewelry (including any body piercings) or valuables the day of surgery, leave them at home. Please take a shower or bath the night before, or the morning of, surgery with an antibacterial soap. Wear comfortable, loose fitting clothing. - Jewelry must be removed prior to entering the operating room. Rings and piercings that are not removed may be cut off. - The hospital will not accept responsibility for valuables. - Please leave all valuables, including medications, at home the day of surgery. If you are going home after surgery, a licensed auto parts delivery driver must drive you home. - NO public transportation without another adult if you receive anesthesia. - We recommend that an adult stay with you for 24 hours following discharge. - We also recommend that you do not drive, make important decision, drink alcoholic beverages, or take any drugs that were not prescribed by your health care provider for at least 24 hours after your discharge time. Follow any additional instructions given to you from your surgeon. If you or anyone in your household have experienced Covid symptoms in the past week, please notify your surgeon or the nurse liaison at the phone number below for possible testing. Telephone instructions given to _Patient__and asked if any additional questions and then verbalized understanding. Patient advised to call surgeon office or pre surgery nurse liaison [phone] if any additional questions.
--- NOTE | 2022-02-26 13:04 | PM.IMHP ---
H&P: HPI History of Present Illness Date/Time: 02/26/22 13:04 Chief Complaint: abnormal uterine bleeding Pelvic plain Fibroid uterus Narrative: 46-year-old female who presents for robotic assisted hysterectomy for abnormal uterine bleeding and pelvic pain secondary to uterine fibroids. Patient has had multiple D&Cs and has tried hormonal contraceptives in the past. Patient still complains of pelvic pain and heavy bleeding. Review of Systems Cardiovascular: Cardiovascular: Denies chest pain, Denies leg edema, Denies palpitations, Denies dyspnea and Denies dyspnea on exertion Respiratory: Respiratory: Denies cough, Denies dyspnea and Denies dyspnea on exertion Gastrointestinal: Gastrointestinal: Denies abdominal pain, Denies constipation, Denies diarrhea, Denies nausea and Denies vomiting Genitourinary: Genitourinary: Denies hematuria, Denies urinary frequency, Denies dysuria, Denies pelvic pain, Denies urinary incontinence and Denies vaginal discharge Neurologic: Reports system reviewed and no additional complaints, except as documented Psychiatric: Psychiatric: Reports no additional psychiatric complaints Endocrine: Endocrine: Denies palpitations PMFSH Past Medical History Medical History (Updated 02/26/22 @ 13:06 by Misha Monae MD) History of pancreatitis Hyperlipidemia Migraine headache Screening breast examination Vertigo Surgical History Surgical History H/O dilation and curettage several H/O unilateral oophorectomy History of cholecystectomy History of orthopedic surgery Family History Family History Father Diabetes mellitus Hypertension Depression Mother Hypertension Depression Cerebrovascular accident Social History Social History Smoking status: Never smoker Tobacco type: cigarettes and e-cigarettes/vaping Alcohol intake: current Drinks per week: 1 Substance use: never Gender identity (if verbalized by the patient): Female Sexual Orientation (if Verbalized by the Patient): Straight or Heterosexual Spiritual care concerns: No Meds Home Medications and Allergies Home Medications Medication Instructions Recorded Confirmed Type duloxetine 30 mg capsule,delayed 30 mg PO DAILY 09/26/21 02/17/22 History release (Cymbalta) metformin 500 mg tablet 500 mg PO BID 09/26/21 02/17/22 History hydrocodone 5 mg-acetaminophen 325 1 tablet PO Q6H PRN pain #14 tabs 01/15/22 02/17/22 Rx mg tablet ondansetron 4 mg disintegrating 4 mg PO Q8H PRN nausea and 01/21/22 02/17/22 Rx tablet vomiting #30 tabs Allergies Allergy/AdvReac Type Severity Reaction Status Date / Time No Known Allergies Allergy Verified 02/17/22 14:01 Exam Const: General: no acute distress Eyes: EOM: EOMs intact bilaterally Neck: Neck: supple Thyroid: thyroid normal Chest: Breast/axilla inspection: normal inspection of the breasts Breast/axilla palpation: normal palpation of the breasts, normal palpation of the axillae and no axillary lymphadenopathy Resp: Effort & Inspection: normal respiratory effort Auscultation: clear to auscultation bilaterally Cardio: Rate: regular rate Rhythm: regular rhythm GI: Inspection: non-distended GI Palp: Yes Soft to palpation, No Tenderness to palpation present (GI) and No Guarding due to palpation present (GI) Auscultation: normal bowel sounds : General: No bladder normal to palpation External Female Exam: normal external appearance Speculum Exam - Vagina: normal vaginal discharge and No vaginal bleeding Speculum Exam - Cervix: nontender Bimanual exam- vagina & uterus: No bladder normal to palpation and No Cervical tenderness present OB/external & speculum: No vaginal bleeding Skin: General skin exam: normal color and no rashes or lesions noted Neuro: Cognition (Ne
[2022-02-27] VITALS (18 sets, daily range): BP systolic 101–139; BP diastolic 55–99; PULSE 52–86; RESP 12–24; TEMP 36.1–37; O2SAT 93–100
[2022-02-27] MEDS: ACETAMINOPHEN 500 MG TABLET 1000 MG PO (06:35)
[2022-02-27] MEDS: ONDANSETRON INJ 4 MG/2 ML VIAL IV PUSH ×3 (06:43→22:06)
[2022-02-27] MEDS: KETOROLAC 15 MG/ML VIAL (*BKC) IV PUSH (06:43)
[2022-02-27 06:45] LABS: Glucose Point of Care 118 mg/dl (65-105)
--- NOTE | 2022-02-27 06:51 | P.PNAN_ITS ---
Anes - Initial Pre Proc Eval Procedure: Operation Date: 02/27/22 07:30 Proposed Procedures p Robotic Assisted Total Vaginal Hysterectomy with Bilateral Salpingectomy - Misha Monae MD Date/Time: 02/27/22 06:51 Surgeon: Misha Monae MD Pre Op Diagnosis: ut Patient Data Age: 46 Gender: F Height: 1.65 m Weight: 122.2 kg Allergies Allergy/AdvReac Type Severity Reaction Status Date / Time No Known Allergies Allergy Verified 02/17/22 14:01 Home Medications Medication Instructions Recorded Confirmed Type duloxetine 30 mg capsule,delayed 30 mg PO DAILY 09/26/21 02/27/22 History release (Cymbalta) metformin 500 mg tablet 500 mg PO BID 09/26/21 02/27/22 History hydrocodone 5 mg-acetaminophen 325 1 tablet PO Q6H PRN pain #14 tabs 01/15/22 02/27/22 Rx mg tablet ondansetron 4 mg disintegrating 4 mg PO Q8H PRN nausea and 01/21/22 02/27/22 Rx tablet vomiting #30 tabs Laboratory Tests 02/27/22 06:37 POC Capillary Glucose 118 mg/dl H mg/dl (65-105) Patient hx anesthesia problems: none Family hx anesthesia problems: none Results Review: All pre-operative results and documents have been reviewed as part of the pre- operative evaluation. [facility] Past Medical History Medical History (Updated 02/27/22 @ 06:51 by Mando Neal MD) History of pancreatitis Hyperlipidemia Migraine headache Morbid obesity Screening breast examination Vertigo Surgical History Surgical History H/O dilation and curettage several H/O unilateral oophorectomy History of cholecystectomy History of orthopedic surgery Family History Family History Father Diabetes mellitus Hypertension Depression Mother Hypertension Depression Cerebrovascular accident Social History Social History Smoking status: Never smoker Tobacco type: cigarettes and e-cigarettes/vaping Alcohol intake: current Drinks per week: 1 Substance use: never Living arrangements: with family Gender identity (if verbalized by the patient): Female Sexual Orientation (if Verbalized by the Patient): Straight or Heterosexual Spiritual care concerns: No Anes - Eval Final PreProcedure Day of Procedure 02/27/22 06:51 Patient weight: morbidly obese Heart: regular rate and rhythm Lungs: clear to auscultation Airway: Mallampati scale class II Neurological: alert and oriented Last oral intake: >/= 8 hours ASA classification: III Emergent: no Anesthetic plan: proceed Anesthesia type and monitoring: general ETT and standard monitoring Results Review: All pre-operative results and documents have been reviewed as part of the pre- operative evaluation. Informed Consent: The patient's anesthetic plan and its attendant risks and benefits were discussed with the patient/family/POA. Questions were solicited and answers prov ided to the satisfaction of the patient/family/POA.
--- NOTE | 2022-02-27 07:01 | WPDHPUPDATE1 ---
History and Physical Update Update Date/Time: 02/27/22 07:01 History and Physical has been reviewed, including an updated exam of the patient. There are NO changes in the patient's condition. Risks, benefits, and alternatives have been discussed and questions answered. Patient agrees to proceed with procedure. A/P: plan for robotic TLH/BS for AUB and pelvic pain secondary to fibroid uterus
[2022-02-27] MEDS: ceFAZolin 3 GM/D5W 100 ML 100 ML IVPB (07:29)
[2022-02-27] MEDS: BUPIVACAINE/EPINEPHRINE 0.5% 30 ML VIAL INFILTRATE (08:10)
--- NOTE | 2022-02-27 08:56 | W.PM.PROC2 ---
Procedure Note - Detailed Date of Procedure 02/27/22 Pre-op Diagnosis abnormal uterine bleeding pelvic pain fibroid uterus Post-op Diagnosis Same Procedure Performed robotic assisted total laparoscopic hysterectomy and bilateral salpingectomy Surgeon Misha Monae MD Anesthesia General Findings large posterior fibroid, normal appearing fallopian tubes bilaterally, left ovary normal in appearance Description of Procedure After the patient was appropriately consented she was taken to the operating room where she was transferred to the table in a dorsal supine position. General anesthesia was then induced with endotracheal intubation. The patient was transferred to a dorsal lithotomy position using adjustable yellow-fin stirrups. Her position was adjusted for appropriate support of her lower back and lower extremities. The patient was prepped and draped. A transurethral mancini catheter was place. The cervix was sequentially dilated and a Pravin arch uterine manipulator placed in typical fashion about a 3cm LIZZIE ring. Gloves were changed. After confirmation of a functioning orogastric tube, lidocaine was injected at Buchanan's point in the LUQ and a 5mm incision was made. A 5mm Optiview trocar was then inserted into the abdominal cavity under direct visualization and done so without complication. The abdomen was then insufflated with approximately 2-3L of CO2 establishing a pneumoperitoneum and the patient was placed in Trendelenburg position. Just above the umbilicus in the midline, a 8mm incision made after injection of lidocaine and a 8mm bladeless trocar advanced into the abdominal cavity under direct visualization without incident. We subsequently placed two robotic ports in a similar fashion, one in the left mid-quadrant and one in the right, 10cm lateral to the midline port. The robot was then docked. Attention was turned to the left pelvis. The left fallopian tube was removed by sequentially dividing the mesosalpinx towards the uterus sparing the ovary. The utero-ovarian ligament was desiccated and transected, as was the round ligament. The posterior peritoneal leaf was taken down to the LIZZIE ring. The anterior leaf was developed as well as the start of the bladder flap. The left uterine artery was then skeletonized and desiccated and transected just above the level of the LIZZIE ring. Attention was turned to the right pelvis. The right fallopian tube was removed by sequentially dividing the mesosalpinx towards the uterus sparing the ovary. The utero-ovarian ligament was desiccated and transected, as was the round ligament. The posterior peritoneal leaf was taken down to the LIZZIE ring. The anterior leaf was developed as well as the start of the bladder flap. The right uterine artery was then skeletonized and desiccated and transected just above the level of the LIZZIE ring. The bladder was then further dissected inferiorly over the level of the LIZZIE ring. A circumferential colpotomy was made using monopolar current. The uterus, cervix, bilateral tubes were then delivered transvaginally. I then placed a single figure of eight suture of 0-vicryl in the left corner of the vaginal cuff. I then re-approximated the colpotomy with a running #1 PDO Quill suture in 2 layers. Following this dissection, the abdomen and pelvis were copiously irrigated and all surgical sites found to be hemostatic. Skin sites were reapproximated with 4-0 Vicryl in a subcuticular fashion. Steri-Strips were placed. The patient tolerated the procedure well. Sponge, needle and instrument counts were correct x 2 and the patient was taken to recovery in stable condition. Ancef wase given for antimicrobial prophylaxis. The patient had SCD's on for VTE prophylaxis during the entire procedure. Estimated Blood Loss 10 Drains No Packing No Pathology Yes (Uterus, cervix, bilateral fallopian tubes) Complications No immediate complications Condition Stable Disposition PACU [facility]
--- NOTE | 2022-02-27 09:11 | P.DS_ITS ---
DS: Admitting Diagnosis Discharge Date 02/28/22 Admitting Diagnosis Abnormal uterine bleeding pelvic pain uterine fibroid DS: Discharge Diagnosis Discharge Diagnosis (1) Abnormal uterine bleeding (AUB): Code(s): N93.9 - Abnormal uterine and vaginal bleeding, unspecified Status: Acute (2) Pelvic pain: Code(s): R10.2 - Pelvic and perineal pain Status: Acute (3) Fibroid, uterine: Code(s): D25.9 - Leiomyoma of uterus, unspecified Status: Acute DS: Summary Hospital Course Hospital Course: Nimco Baldwin was admitted after robotic assisted total laparoscopic hysterectomy and bilateral salpingectomy for abnormal uterine bleeding, pelvic pain, and fibroid uterus. The above procedure was performed with no complications. She is doing well post op. She states her pain is well controlled with PO medications. She reports minimal bleeding. She is ambulating up to the chair. Her mancini cath eter was removed. She is tolerating PO without N/V. She reports passing flatus. Status at Discharge Overall status at discharge: patient is progressing back to baseline Time Spent with Patient Time attestation: Total time spent providing and/or coordinating discharge services: Time spent: Less than 30 minutes Exam Const: General: comfortable and no acute distress Limitations: no limitations Resp: Effort & Inspection: normal respiratory effort Auscultation: clear to auscultation bilaterally Cardio: Rate: regular rate Rhythm: regular rhythm GI: Inspection: non-distended GI Palp: Yes Soft to palpation, Yes Tenderness to palpation present (GI) (milder tenderness to deep palpation) and No Guarding due to palpation present (GI) Auscultation: normal bowel sounds Other: incisions C/D/I covered with dermabond Urinary Catheter: Urinary Catheter: urine clear Skin: General skin exam: normal color Extrem: General: normal to inspection Psych: Mental Status: mental status grossly normal Affect: normal affect DS: Data Data Completed and Pending Pending studies at discharge: Pending at discharge 02/27/22 08:44 Surgical [PTH] Routine Labs on day of discharge: Labs from last 24 hours 02/27/22 06:37 POC Capillary Glucose 118 H Discharge Plan Discharge Patient Disposition: Home, Self-Care Patient Instructions: Laparoscopic Hysterectomy (DC) Stand Alone Forms: General Discharge Instructions Follow-up/Referrals: Misha Monae MD [Physician] - Discharge Medications: New ibuprofen 600 mg Tablet 600 mg PO Q6H PRN (Reason: Cramping) Qty: 30 0RF oxycodone-acetaminophen 5-325 mg tablet 1 tablet PO Q6H PRN (Reason: pain) Qty: 30 0RF sennosides-docusate sodium [Senna with Docusate Sodium] 8.6-50 mg tablet 1 tab-cap PO BID Qty: 30 0RF Continued duloxetine [Cymbalta] 30 mg capsule,delayed release(DR/EC) 30 mg PO DAILY metformin 500 mg tablet 500 mg PO BID ondansetron 4 mg tablet,disintegrating 4 mg PO Q8H PRN (Reason: nausea and vomiting) Qty: 30 0RF Discontinued hydrocodone-acetaminophen 5-325 mg tablet 1 tablet PO Q6H PRN (Reason: pain) Qty: 14 0RF
[2022-02-27] MEDS: LACTATED RINGERS 1,000 ML 30 ML IV CONT ×2 (09:14)
[2022-02-27] MEDS: fentaNYL CITRATE INJ (*CRX) 100 MCG/2 ML VIAL 25 MCG IV PUSH ×8 (09:35→10:04)
[2022-02-27] MEDS: diphenhydrAMINE HCl INJ 50 MG/ML VIAL 25 MG IV PUSH (09:45)
[2022-02-27 10:06] LABS: Glucose Point of Care 131 mg/dl (65-105)
[2022-02-27] MEDS: HYDROmorphone HCL INJ (*CRX) 1 MG/ML SYR 0.5 MG IV PUSH ×3 (10:10→10:28)
--- NOTE | 2022-02-27 12:25 | PC.NURSE ---
This patient, Nimco Baldwin, was received from PACU on 02/27/22 at 1225. Patient/family oriented to unit policies and routines
[2022-02-27] MEDS: KETOROLAC 30 MG/ML VIAL (*BKC) IV PUSH ×2 (12:57→19:09)
[2022-02-27] MEDS: HYDROcodone/acetaminophen (*CRX) 10-325 MG TABLET 1 TAB PO ×3 (15:33→23:30)
[2022-02-27] MEDS: DULoxetine HCL 30 MG CAPSULE.DR PO (17:43)
[2022-02-27] MEDS: metFORMIN HCL 500 MG TABLET PO (17:45)
[2022-02-28] MEDS: KETOROLAC 30 MG/ML VIAL (*BKC) IV PUSH (03:46)
[2022-02-28] MEDS: HYDROcodone/acetaminophen (*CRX) 5-325 MG TABLET 1 TAB PO (03:46)
[2022-02-28 03:50] VITALS: BP 139/84; PULSE 63; RESP 18; TEMP 36.7
--- NOTE | 2022-02-28 07:29 | WPDANESPN ---
Anes - Prog Note Post-Op Date/Time: 02/28/22 07:29 Vital Signs: Last Vital Signs Temp 36.7 C 02/28/22 03:50 Pulse 63 02/28/22 03:50 Resp 18 02/28/22 03:50 BP 139/84 02/28/22 03:50 Pulse Ox 99 02/27/22 23:30 O2 Del Method Room Air 02/28/22 03:50 O2 Flow Rate 8 02/27/22 09:14 Pain Score (VAS): 0 I/O: Intake & Output 02/27/22 02/27/22 02/28/22 15:59 23:59 07:59 Intake Total 1000 300 900 Output Total 150 1000 Balance 1000 150 -100 02/27/22 10:01 POC Capillary Glucose 131 H Patient Feedback: Patient satisfied with anesthetic care.
[2022-02-28 08:30] VITALS: BP 102/65; PULSE 62; RESP 16; TEMP 37.1; O2SAT 98
[2022-02-28] MEDS: metFORMIN HCL 500 MG TABLET PO (09:00)
[2022-02-28] MEDS: DULoxetine HCL 30 MG CAPSULE.DR PO (09:00)
[2022-02-28] MEDS: IBUPROFEN 600 MG TABLET PO (09:30)
[2022-02-28] MEDS: ONDANSETRON INJ 4 MG/2 ML VIAL IV PUSH (09:30)
[2022-02-28] MEDS: HYDROcodone/acetaminophen (*CRX) 10-325 MG TABLET 1 TAB PO (09:30)
[2022-02-28 11:01] LABS: Basophils Percent Auto 0.3 % (0.2-1.2); Eosinophils Absolute Auto 0.1 K/mm3 (0-0.3); Eosinophils Percent Auto 0.6 % (0-4.4); Hematocrit 40.7 % (37.0-47.0); Hemoglobin 13.4 g/dL (12.0-15.0); Immature Granulocyte Absolute 0.12 K/mm3 (0.00-0.031); Immature Granulocyte Percent A 0.9 % (0-0.5); Lymphocytes Absolute Auto 2.74 K/mm3 (0.9-3.2); Mean Corpuscular HGB Conc 32.9 g/dl (32-36); Mean Corpuscular Hemoglobin 31.8 pg (26-34); Mean Corpuscular Volume 96.4 fl (80-100); Mean Platelet Volume 9.6 fl (7.4-10.4); Monocytes Absolute Auto 0.6 K/mm3 (0.1-0.6); Monocytes Percent Auto 4.5 % (2.6-8.5); Neutrophils Absolute Auto 10.1 K/mm3 (1.3-6.7); Neutrophils Percent Auto 73.7 % (45.5-73.1); Platelet Count Result 314 k/mm3 (150-375); Red Blood Count 4.22 M/mm3 (4.2-5.4); Red Cell Distribution Width 13.3 % (11.5-14.5); White Blood Count 13.7 K/mm3 (4.5-10.0)
[2022-02-28 11:13] LABS: Anion Gap 6 mmol/L (8-16); Blood Urea Nitrogen 14 mg/dL (7-17); Calcium 8.5 mg/dL (8.4-10.2); Carbon Dioxide 28 mmol/L (22-30); Chloride 101 mmol/L (98-107); Estimated CRCL calculation 100 ml/min; Estimated Glomerular Filt Rate > 60; Glucose 129 mg/dL (65-110); Sodium 135 mmol/L (137-145)
== END 2022-02-28 11:40 | disposition home or self-care (01) ==
LOC: ANHSURGERY 09:13 → ANHOB2 12:29
PROVIDERS: PCP Physician Assistant; Visit Provider Student in an Organized Health Care Education/Training Program
PROC: (CPT 58571; principal; 2022-02-27 07:30)
DX: D25.1 Intramural leiomyoma of uterus (principal); N93.9 Abnormal uterine and vaginal bleeding, unspecified; N84.0 Polyp of corpus uteri; R10.2 Pelvic and perineal pain; E66.01 Morbid (severe) obesity due to excess calories; Z68.41 Body mass index [BMI] 40.0-44.9, adult; Z79.84 Long term (current) use of oral hypoglycemic drugs
CPT/HCPCS: 58571; S2900; 36415; 80048; 82948; 85025; 88307; 88342; 99199; A9270; J0690; J1100; J1170; J1200; J1885; J2250; J2405; J2704; J2710; J3010; J7030; J7120

== ENCOUNTER 2022-04-09 14:24 | Outpatient (CLI) | payer OTHER, SELFPAY ==
[2022-04-09 15:39] LABS: Hematocrit 44.5 % (37.0-47.0); Hemoglobin 14.9 g/dL (12.0-15.0)
[2022-04-09 16:19] LABS: Thyroid Stimulating Hormone 0.729 uIU/mL (0.465-4.680)
[2022-04-13 04:03] LABS: FSH 21.8 mIU/mL (***)
[2022-04-17 00:07] LABS: Estradiol, Ultrasensitive 17 pg/mL
== END 2022-04-09 14:25 | disposition home or self-care (01) ==
PROVIDERS: PCP Physician Assistant; Visit Provider Student in an Organized Health Care Education/Training Program
DX: N95.1 Menopausal and female climacteric states (principal)
CPT/HCPCS: 36415; 82670; 83001; 84443; 85014; 85018

== ENCOUNTER 2022-05-12 12:42 | Emergency (ER) | payer OTHER, SELFPAY ==
[2022-05-12 12:53] VITALS: BP 114/57; PULSE 68; RESP 22; TEMP 36.4; O2SAT 100
--- NOTE | 2022-05-12 13:44 | ED.URI ---
HPI - URI/Sore Throat General Chief Complaint: Upper Respiratory Infection Stated Complaint: Sore Throat/ Diarrhea Time Seen by Provider: 05/12/22 13:44 Source: patient, RN notes reviewed and old records reviewed Mode of arrival: ambulatory Limitations: no limitations History of Present Illness HPI Narrative: 46-year-old female presents to the [facility] with complaints of sore throat and sinus congestion. Symptoms started yesterday Patient reports exposure to both COVID and strep Related Data Home Medications Medication Instructions Recorded Confirmed duloxetine 30 mg capsule,delayed 30 mg PO DAILY 09/26/21 05/12/22 release (Cymbalta) metformin 500 mg tablet 500 mg PO BID 09/26/21 05/12/22 Allergies Allergy/AdvReac Type Severity Reaction Status Date / Time No Known Allergies Allergy Verified 05/12/22 12:56 Review of Systems Review of Systems: All systems reviewed & are unremarkable except as noted in HPI and below Constitutional: Constitutional: Reports no additional constitutional complaints Eyes: Eyes: Reports no additional eye complaints ENT: Reports as per HPI, Reports nasal congestion and Reports sore throat Cardiovascular: Cardiovascular: Reports no additional cardiovascular complaints, Denies chest pain and Denies dyspnea Respiratory: Respiratory: Reports no additional respiratory complaints, Denies chest congestion, Denies cough and Denies dyspnea Gastrointestinal: Gastrointestinal: Reports no additional gastrointestinal complaints, Denies abdominal pain, Denies nausea and Denies vomiting Musculoskeletal: Musculoskeletal: Reports no additional musculoskeletal complaints Integumentary/Breasts: Skin/Breast: Reports system reviewed and no additional complaints, except as docu Neurologic: Reports system reviewed and no additional complaints, except as documented Psychiatric: Psychiatric: Reports no additional psychiatric complaints Allergic/Immunologic: Allergic/Immunologic: Reports no additional allergic/immunologic complaints [facility] Past Medical History Medical History History of pancreatitis Hyperlipidemia Migraine headache Morbid obesity Screening breast examination Vertigo Surgical History Surgical History H/O dilation and curettage several H/O unilateral oophorectomy H/O: hysterectomy 02/27/22 - robotic assisted hysterectomy abnormal uterine bleeding - fibroids History of cholecystectomy History of orthopedic surgery Family History Family History Father Diabetes mellitus Hypertension Depression Mother Hypertension Depression Cerebrovascular accident Social History Social History Smoking status: Never smoker Tobacco type: cigarettes and e-cigarettes/vaping Alcohol intake: current Drinks per week: 1 Substance use: never Living arrangements: with family Gender identity (if verbalized by the patient): Female Sexual Orientation (if Verbalized by the Patient): Straight or Heterosexual Spiritual care concerns: No Comments At the time of my signature, I reviewed and agree with the nursing past medical, surgical, social, and family history. There is no relevant family history pertinent to the patient complaint. Exam Const: General: cooperative, healthy appearing, comfortable, no acute distress, well developed, alert and well nourished Nutritional Appearance: well nourished and obese Orientation/consciousness: patient oriented x3 Limitations: no limitations HENMT: Head: normal to inspection Ears: hearing grossly normal bilaterally and external ears normal Face/Nose/Sinus: Normal external nose present, Normal nares present, Normal nasal mucous membranes and turbinates present and normal facial exam Face and sinus: normal facial exa
== END 2022-05-12 13:55 | disposition home or self-care (01) ==
PROVIDERS: Emergency Provider Nurse Practitioner; PCP Physician Assistant
DX: B34.9 Viral infection, unspecified (principal); E78.5 Hyperlipidemia, unspecified; Z20.822 Contact with and (suspected) exposure to COVID-19
CPT/HCPCS: 87081; 87426; 87880; 99213; C9803; G0463

== ENCOUNTER 2022-08-25 12:40 | Outpatient (CLI) | payer OTHER, SELFPAY ==
--- NOTE | ~2022-08-25 | XR_ITS ---
[id number] 08/25/2022 13:10 Indication: Neck pain radiating to the left shoulder Procedure: 3 views cervical spine Comparison: No prior studies for comparison. Findings: Straightening of cervical lordosis. There is disc narrowing and endplate degenerative ignacio e at C6-7. No prevertebral soft tissue swelling. Vertebral body heights are maintained. The uncinate processes are normal. Lung apices are normal. Odontoid process is normal. Lateral masses normally ali gned. Impression: 1: Mild cervical spondylosis. Reviewed, dictated and finalized at location [] Impression: 1: Mild cervical spondylosis.
== END 2022-08-25 12:41 | disposition home or self-care (01) ==
PROVIDERS: PCP Physician Assistant; Visit Provider Physician Assistant
DX: M47.812 Spondylosis without myelopathy or radiculopathy, cervical region (principal)
CPT/HCPCS: 72040

== ENCOUNTER 2022-10-01 11:00 | Outpatient (RCR) | payer OTHER, SELFPAY ==
--- NOTE | 2022-09-03 14:10 | OPREHPOC ---
Outpatient Therapy Plan of Care This is a Multidisciplinary Plan of Care that may contain components documented by all disciplines (PT, OT, and ST.) PT Problem 1 PT Problem #1 Knowledge Deficit PT Goal 1 Goal Independent with HEP Target Visit 6 PT Problem 2 PT Problem #2 Pain PT Goal 1 Goal decrease pain to 5/10 at worst Target Visit 6 PT Problem 3 PT Problem #3 Impaired Range of Motion PT Goal 1 Goal L shoulder flexion and abduction to 135 degrees active range of motion, pain free. Target Visit 6 PT Problem 4 PT Problem #4 Impaired Strength PT Goal 1 Goal PRAVEENA scapular strength of 4/5 Target Visit 6
--- NOTE | 2022-09-03 14:10 | PTOPEVAL1 ---
Assessment and note entered by Atilio Durham, PT Evaluation Information Assessment Status Evaluation Diagnosis Pain in L shoulder joint Subjective Information Patient reports having increased pain in the shoulder mainly with over head reaching and sleeping on the L side. Patient reports she was told it is all coming from the neck, but she thinks it is her rotator cuff, although she doesn' t have a reason for the rotator cuff remark. Patient uses ice, heat, and percussion gun on the shoulder and upper traps. Patient is R handed. Reported Pain Level Pain Score 4: Self Report Assessment PT Clinical Summary Nimco is a 46 year old female coming into the clinic with a diagnosis of L shoulder pain. Patient has reduced flexion, abduction, internal rotation, external rotation range of motion, with pain when checking shoulder flexion and abduction with manual muscle testing. Patient has positive empty can, lift off, and painful arc special tests . Pain is moderate to severe mainly in the shoulder, AC joint, and deltoid. Patient has tight upper traps and suboccipitals. Physical therapy will work on below the shoulder strengthening, stretching, cervical and shoulder active range of motion, scapular strengthening and modalities and manual therapy as needed for pain control. Patient asking about furhter imaging of her shoulder and physical therapist informed her if she feels she needs it to ask her doctor. Plan of Care Interventions Electrical Stimulation,Gait Training,Hot Pack/Cold Pack,Manual Therapy,Neuro Re-education,Patient/ Caregiver Education,Therapeutic Activities, Therapeutic Exercise,Ultrasound Other Interventions cupping, taping, IASTM. PT Services Indicated Yes Treatment Frequency and 1-2x/wk for 4 weeks Duration These treatments will address the objective and functional deficits as defined above. The patient will be advanced safely and appropriately in order for the patient to progress towards his/her prior level of function. Additional exercises will be introduced and as well as a comprehensive home exercise program upon discharge, if needed, ?to ensure carryover of functional gains achieved in the clinic. This treatment plan has been reviewed and agreement upon by the patient.
--- NOTE | 2022-09-15 13:19 | PCPTNOTE ---
Patient called & cancelled scheduled appointment this date due to not feeling well.
--- NOTE | 2022-10-01 11:34 | PTOPDC ---
Assessment and note entered by Atilio Durham, PT Evaluation Information Assessment Status Discharge Diagnosis Pain in L shoulder joint. Subjective Information Patient reports she has been faithfully doing her exercises 2 times a day and the shoulder is a little better movement soriano, but she has no change in her pain. Biggest issues with range of motion are her overhead movement and reaching out to her side. Patient still having issues with sleeping. Is using a TENS unit to help with the pain. Reported Pain Level Pain Score 7: Self Report Assessment PT Clinical Summary Nimco is a 47 year old female coming into the clinic with a diagnosis of L shoulder pain. Patient was evaluated on 09/03/22 and has attended 7 sessions. The patient has not had any improvements in range of motion or strength and still has pain with empty cans, painful arc special tests and with manual muscle tests on flexion, abduction, and external rotation. Recommend discontinuing physical therapy and have imaging and orthopedic referral done so patient can try less conservative options. Plan of Care PT Services Indicated No
== END 2022-10-01 13:45 | disposition home or self-care (01) ==
LOC: ANHPT 11:00
PROVIDERS: PCP Physician Assistant; Visit Provider Physician Assistant
DX: M25.512 Pain in left shoulder (principal)
CPT/HCPCS: 97014; 97110; 97112; 97140; 97161; 99199; G0283

== ENCOUNTER 2022-11-05 10:21 | Outpatient (CLI) | payer OTHER, SELFPAY ==
--- NOTE | ~2022-11-05 | MMUS_ITS ---
EXAMINATION: MM diagnostic andrew BI w nik, US breast RT limited HISTORY: Possible right breast abscess TECHNIQUE: Craniocaudal, mediolateral, and mediolateral oblique 3-D tomosynthesis images of the breas ts were performed and synthetic 2-D images were generated. CAD analysis was submitted and interpreted . High resolution limited right breast ultrasound was performed. COMPARISON: 01/13/2018, 11/08/2015 BREAST PARENCHYMAL COMPOSITION: The breasts are almost entirely fatty. FINDINGS: MAMMOGRAPHIC FINDINGS: Right breast: There is focal asymmetry in the subareolar aspect of the right breast in the area of cl inical concern. No suspicious mass, calcification, or architectural distortion are identified. Left breast: No suspicious mass, calcification, or architectural distortion are identified to suggest malignancy. There has been no suspicious interval change. ULTRASOUND: There is a 1.5 x 1.3 x 0.7 cm fluid collection near the right nipple in the area of palpable concern. There is surrounding edema of the breast and increased vascularity. No suspicious mass is identified . IMPRESSION: 1. Findings consistent with small subareolar abscess of the right breast. Recommend trial of antibiot ics and if symptoms do not resolve, consider ultrasound-guided aspiration. 2. Recommend routine screening mammography in one year. BI-RADS Category 2: Benign finding(s). Reviewed, dictated and finalized at location L. IMPRESSION: 1. Findings consistent with small subareolar abscess of the right breast. Recom mend trial of antibiotics and if symptoms do not resolve, consider ultrasound-g uided aspiration. 2. Recommend routine screening mammography in one year. BI-RADS Category 2: Benign finding(s).
== END 2022-11-05 10:22 | disposition home or self-care (01) ==
PROVIDERS: PCP Physician Assistant; Visit Provider Obstetrics & Gynecology
DX: N61.1 Abscess of the breast and nipple (principal)
CPT/HCPCS: 76642; 77062; 77066; G0279

== ENCOUNTER 2023-01-01 15:33 | Emergency (ER) | payer OTHER, SELFPAY ==
--- NOTE | 2023-01-01 15:36 | ED.FEMALEGU ---
HPI - Female Genitourinary General Chief complaint: Urogenital-Female Stated complaint: UTI Time Seen by Provider: 01/01/23 15:52 Source: patient and RN notes reviewed Mode of arrival: ambulatory Limitations: no limitations History of Present Illness HPI Narrative: 47-year-old female presents with concern for 1 and half week history of urine frequency, urgency, dysuria, suprapubic pressure, low back pain. She reports she has began having fever, chills. Denies nausea or vomiting. She also reports she was exposed influenza of at work. She last took azo 24 hours ago MD elicited complaint: UTI Related Data Home Medications Medication Instructions Recorded Confirmed duloxetine 30 mg capsule,delayed 30 mg PO DAILY 09/26/21 01/01/23 release (Cymbalta) Allergies Allergy/AdvReac Type Severity Reaction Status Date / Time No Known Allergies Allergy Verified 01/01/23 15:41 Review of Systems Review of Systems: CONSTITUTIONAL: Reports malaise, chills, sweats CARDIOVASCULAR: Denies chest pain, palpitations, or edema. RESPIRATORY: Denies cough or dyspnea. GASTROINTESTINAL: Denies abdominal pain, nausea, vomiting, diarrhea GENITOURINARY: Reports dysuria, frequency, urgency, suprapubic pressure. Denies flank pain or hematuria. SKIN: Denies rash or itching. MUSCULOSKELETAL: Reports low back pain All systems reviewed & are unremarkable except as noted in HPI and below PMFSH Past Medical History Medical History History of pancreatitis Hyperlipidemia Migraine headache Morbid obesity Screening breast examination Vertigo Surgical History Surgical History H/O dilation and curettage several H/O unilateral oophorectomy H/O: hysterectomy 02/27/22 - robotic assisted hysterectomy abnormal uterine bleeding - fibroids History of cholecystectomy History of orthopedic surgery Family History Family History Father Diabetes mellitus Hypertension Depression Mother Hypertension Depression Cerebrovascular accident Social History Social History Smoking status: Current every day smoker Tobacco type: e-cigarettes/vaping Alcohol intake: never Drinks per week: 1 Substance use: current Substance use type: marijuana Other substance usage details: edibles for sleep Living arrangements: with family Gender identity (if verbalized by the patient): Female Sexual Orientation (if Verbalized by the Patient): Straight or Heterosexual Spiritual care concerns: No Comments At time of signature, agree with nursing past medical, surgical, social and family history. There is no relevant family history pertinent to the presenting complaint Exam Narrative: GENERAL: Well-appearing, well-nourished, and in no acute distress. HEAD: Normocephalic. EYES: PERRLA, conjunctivae clear. NECK: Supple. No lymphadenopathy CHEST: Clear to auscultation. No respiratory distress. HEART: Regular rate and rhythm. ABDOMEN: Soft, nontender upon palpation, nondistended, normal active bowel sounds, no palpable or pulsatile masses, no guarding. Bilateral CVA tenderness SKIN: Warm, dry, no rash. NEURO: Alert and oriented x3. PSYCH: Normal mood and affect Course Course Emergency Course: Patient is aware of diagnosis, understands and agrees to treatment plan. Anticipatory guidance given. Patient agrees to follow-up as directed and is aware of reasons to seek care at the emergency department. Portions of this record may have been created with voice recognition software Level of Care: Express Care Visit Vital Signs Vital signs: Reviewed. MDM - Female Genitourinary MDM Narrative Medical decision making narrative: Exam findings and UA show no acute concerns or changes; patient is non-toxic appearing a
[2023-01-01 15:44] VITALS: BP 125/93; PULSE 61; RESP 16; TEMP 36.3; O2SAT 100
== END 2023-01-01 16:21 | disposition home or self-care (01) ==
PROVIDERS: Emergency Provider Nurse Practitioner; PCP Physician Assistant
DX: N39.0 Urinary tract infection, site not specified (principal); B96.4 Proteus (mirabilis) (morganii) as the cause of diseases classified elsewhere; E78.5 Hyperlipidemia, unspecified; E66.01 Morbid (severe) obesity due to excess calories; Z68.39 Body mass index [BMI] 39.0-39.9, adult; F17.290 Nicotine dependence, other tobacco product, uncomplicated
CPT/HCPCS: 81003; 87077; 87086; 87186; 87804; 99213; G0463

== ENCOUNTER 2023-11-03 12:53 | Emergency (ER) | payer OTHER, SELFPAY ==
--- NOTE | ~2023-11-03 | CT_ITS ---
EXAMINATION: CT abdomen pelvis wo con DATE: 11/03/2023 17:53 INDICATION: Flank pain. TECHNIQUE: Computed tomography (CT) of the abdomen and pelvis was performed without intravenous contr ast. Automated exposure control and iterative reconstruction technique were employed. The dose-length product was 963.08 mGy-cm. COMPARISON: CT abdomen and pelvis 12/14/2020 FINDINGS: The visualized portions of the lung bases demonstrate mild atelectasis. No pleural effusion . The heart size is normal. No pericardial effusion. The liver is normal. There are changes of cholec ystectomy. The pancreas, spleen, adrenal glands, and right kidney are normal. There is cortical thinn ing of left kidney. There are approximately 5 stones in left kidney measuring up to 5 mm. There is a left internal ureteral stent in expected position. There is an 8 mm stone in proximal left ureter. Th ere is diverticulosis of the colon without evidence of diverticulitis. The appendix is normal. There are no dilated loops of bowel. There are no pathologically enlarged lymph nodes. There is no free int raperitoneal fluid. There is mild thoracic and lumbar spondylosis. IMPRESSION: 1. Stones in the left kidney and proximal left ureter with left internal ureteral stent in expected p osition. Reviewed, dictated and finalized at location A. IMPRESSION: 1. Stones in the left kidney and proximal left ureter with left internal ureter al stent in expected position.
[2023-11-03 13:45] VITALS: BP 129/71; PULSE 71; RESP 16; TEMP 36.6; O2SAT 100
--- NOTE | 2023-11-03 13:47 | ECG_ITS ---
Test Date: 2023-11-03 13:59:34 Measurements Intervals [place] Rate: 58 P: 53 [place]: 128 QRS: 10 QRSD: 106 T: 0 QT: 400 QTc: 395 Interpretive Statements SINUS BRADYCARDIA LOW QRS VOLTAGE IN PRECORDIAL LEADS [QRS DEFLECTION < 1.0 mV IN CHEST LEADS] POSSIBLE RIGHT VENTRICULAR CONDUCTION DELAY [RSR (QR) IN V1/V2] NONSPECIFIC T-WAVE ABNORMALITY BORDERLINE ECG No previous ECG available for comparison Electronically Signed On 11-03-2023 18:02:34 CDT by Booker Strong M.D.
--- NOTE | 2023-11-03 13:48 | ED.ABDPAIN ---
HPI - Abdominal Pain General Chief Complaint: Back Pain/Injury <JULIET Kinsey Last Filed: 11/05/23 12:06> Stated Complaint: bilateral flank pain <JULIET Kinsey Last Filed: 11/05/23 12:06> Time Seen by Provider: 11/03/23 13:48 <JULIET Kinsey Last Filed: 11/05/23 12:06> Focused HPI: This is a 48 year old female that presents to the ER for worsening flank pain. Reports recently being treated for a kidney stone with infection. She was seen at [facility] for this. She sees Dr. Tello. Reports she has continued to have pain which worsened the last couple of days. Reports associated nausea and vomiting. Also reports dizziness. Denies fevers. GENERAL: Well-appearing, well-nourished, and in no acute distress. HEAD: Normocephalic, atraumatic. CHEST: Clear to auscultation. ?No respiratory distress. HEART: Regular rate and rhythm.? NEURO: ?Alert and oriented x3. Patient screened in triage and initial orders placed.? ?Additional care and disposition to be based upon?diagnostic testing and treatment. <JULIET Kinsey Last Filed: 11/05/23 12:06> Source: patient <JULIET Olivo Last Filed: 11/04/23 02:07> Mode of arrival: ambulatory <JULIET Olivo Last Filed: 11/04/23 02:07> Limitations: no limitations <JULIET Olivo Last Filed: 11/04/23 02:07> History of Present Illness HPI narrative: Agree with above HPI. Reports pain worse over past 48 hours. Has been taking naproxen w/o relief. Reports she finished a course of bactrim 2-3 days ago for the infection. <JULIET Olivo Last Filed: 11/04/23 02:07> Related Data Home Medications: Home Medications Medication Instructions Recorded Confirmed atorvastatin 40 mg tablet 40 mg PO 05/06/24 05/06/24 duloxetine 20 mg capsule,delayed 40 mg PO 07/13/23 07/13/23 release <Araceli Steiner PA-C - Last Filed: 11/05/23 12:06> Allergies/Adverse Reactions: Allergies Allergy/AdvReac Type Severity Reaction Status Date / Time No Known Allergies Allergy Verified 11/03/23 19:43 <Araceli Steiner PA-C - Last Filed: 11/05/23 12:06> Review of Systems Review of Systems: All systems reviewed & are unremarkable except as noted in HPI. <Pennie Gavin PA-C - Last Filed: 11/04/23 02:07> All systems reviewed & are unremarkable except as noted in HPI and below <Pennie Gavin PA-C - Last Filed: 11/04/23 02:07> [facility] Past Medical History Medical History: Medical History History of pancreatitis Hyperlipidemia Migraine headache Morbid obesity Screening breast examination Screening mammogram for breast cancer Vertigo <Araceli Steiner PA-C - Last Filed: 11/05/23 12:06> Surgical History Surgical History: Surgical History H/O dilation and curettage several H/O unilateral oophorectomy H/O: hysterectomy 02/27/22 - robotic assisted hysterectomy abnormal uterine bleeding - fibroids History of cholecystectomy History of orthopedic surgery <Araceli Steiner PA-C - Last Filed: 11/05/23 12:06> Family History Family History: Family History Father Diabetes mellitus Hypertension Depression Mother Hypertension Depression Cerebrovascular accident <Araceli Steiner PA-C - Last Filed: 11/05/23 12:06> Social History Social History: Social History Smoking status: Current every day smoker Tobacco type: e-cigarettes/vaping Alcohol intake: never Drinks per week: 1 Substance use: current Substance use type: marijuana Other substance usage details: edibles for sleep Do You Feel Safe in your Home?: Yes Lack of Transportation: No Lack of Food: Ne
[2023-11-03 14:20] LABS: Basophils Absolute Auto 0.1 K/mm3 (0.0-0.1); Basophils Percent Auto 0.8 % (0.2-1.2); Eosinophils Absolute Auto 0.3 K/mm3 (0-0.3); Eosinophils Percent Auto 3.8 % (0-4.4); Hematocrit 42.7 % (37.0-47.0); Hemoglobin 14.3 g/dL (12.0-15.0); Immature Granulocyte Absolute 0.03 K/mm3 (0.00-0.031); Immature Granulocyte Percent A 0.3 % (0-0.5); Lymphocytes Absolute Auto 1.54 K/mm3 (0.9-3.2); Lymphocytes Percent Auto 17.7 % (18.3-44.2); Mean Corpuscular HGB Conc 33.5 g/dl (32-36); Mean Corpuscular Hemoglobin 31.8 pg (26-34); Mean Corpuscular Volume 94.9 fl (80-100); Mean Platelet Volume 9.9 fl (7.4-10.4); Monocytes Absolute Auto 0.4 K/mm3 (0.1-0.6); Monocytes Percent Auto 4.4 % (2.6-8.5); Neutrophils Absolute Auto 6.3 K/mm3 (1.3-6.7); Platelet Count Result 313 k/mm3 (150-375); Red Cell Distribution Width 13.4 % (11.5-14.5); White Blood Count 8.7 K/mm3 (4.5-10.0)
[2023-11-03 14:40] LABS: Alanine Aminotransferase 20 U/L (6-35); Albumin Level 3.9 g/dL (3.5-5.1); Alkaline Phosphatase 108 U/L (38-126); Anion Gap 8 mmol/L (4-12); Aspartate Amino Transferase 21 U/L (14-36); Bilirubin,Total 0.3 mg/dL (0.2-1.3); Blood Urea Nitrogen 17 mg/dL (7-17); Calcium 9.1 mg/dL (8.4-10.2); Carbon Dioxide 29 mmol/L (22-30); Chloride 100 mmol/L (98-107); Estimated CRCL calculation 79 ml/min; Estimated Glomerular Filt Rate > 60; Glucose 104 mg/dL (65-110); Lipase 92 U/L (23-300); Potassium 4.6 mmol/L (3.4-5.0); Sodium 137 mmol/L (137-145)
[2023-11-03 14:50] LABS: Add Urine Microscopic? YES; Appearance Urine Turbid (Clear); Bacteria Urine 3+ /hpf; Bilirubin Urine Negative (Negative); Blood Urine 3+ (Negative); Color Urine Yellow (Yellow); Glucose Urine UA Negative (Negative); Ketones Urine Negative (Negative); Leukocyte Esterase Ur 3+ LEU/UL (Negative); Nitrate Urine Negative (Negative); Protein Urine 2+ mg/dL (Negative); RBC Urine 51-100 /hpf (0-2); Specific Grav Ur 1.019 (1.001-1.035); Squamous Epithelial Cell Urine Few /hpf (Few); Urobilinogen Urine 0.2 mg/dL (<2.0); WBC Urine >100 /hpf (0-3); pH Urine 5.5 (5.0-9.0)
[2023-11-03 19:41] VITALS: BP 116/73; PULSE 60; RESP 16; O2SAT 97
[2023-11-03] MEDS: SODIUM CHLORIDE 0.9% IV 1,000 ML 999 ML IV CONT (19:48)
[2023-11-03] MEDS: MORPHINE SULFATE (*CRX) 4 MG/ML INJ IV PUSH (19:49)
[2023-11-03] MEDS: ONDANSETRON INJ 4 MG/2 ML VIAL IV PUSH (19:49)
[2023-11-03] MEDS: KETOROLAC 30 MG/ML VIAL (*BKC) IV PUSH (20:13)
[2023-11-03 22:12] VITALS: BP 102/77; PULSE 57; RESP 18; TEMP 36.8; O2SAT 99
[2023-11-04 11:35] LABS: BEDSIDEPREGUCG Negative
== END 2023-11-03 22:13 | disposition home or self-care (01) ==
PROVIDERS: Physician Assistant; Emergency Provider Physician Assistant; PCP Physician Assistant
DX: N20.2 Calculus of kidney with calculus of ureter (principal); Z96.0 Presence of urogenital implants; E78.5 Hyperlipidemia, unspecified; E66.01 Morbid (severe) obesity due to excess calories; Z68.37 Body mass index [BMI] 37.0-37.9, adult; F17.290 Nicotine dependence, other tobacco product, uncomplicated; Z90.49 Acquired absence of other specified parts of digestive tract; Z90.721 Acquired absence of ovaries, unilateral; Z90.710 Acquired absence of both cervix and uterus; R00.1 Bradycardia, unspecified; R94.31 Abnormal electrocardiogram [ECG] [EKG]
CPT/HCPCS: 36415; 74176; 80053; 81001; 81025; 83690; 85025; 87086; 87088; 93005; 96361; 96365; 96375; 99284; J0696; J1885; J2270; J2405; J7030

== ENCOUNTER 2023-11-27 10:56 | Emergency (ER) | payer OTHER, SELFPAY ==
--- NOTE | 2023-11-27 11:17 | ED.FEMALEGU ---
HPI - Female Genitourinary General Chief complaint: Urogenital-Female Stated complaint: UTI Time Seen by Provider: 11/27/23 11:17 Source: patient Mode of arrival: ambulatory Limitations: no limitations History of Present Illness HPI Narrative: 48 yo F presents with c/o urinary requency, dysuria, pressure for 2 days. Hx of recent kidney stone. Was seen by urology, had stent placed. had appt with urology last week but was cancelled due to pt's insurance. is waiting on phone call from [facility] urology. afebrile. Denies N/V, flank pain. All systems reviewed and negative except as noted above. Related Data Home Medications Medication Instructions Recorded Confirmed atorvastatin 40 mg tablet 40 mg PO 07/13/23 07/13/23 duloxetine 20 mg capsule,delayed 40 mg PO 07/13/23 07/13/23 release Allergies Allergy/AdvReac Type Severity Reaction Status Date / Time No Known Allergies Allergy Verified 11/27/23 10:57 Review of Systems Review of Systems: CONSTITUTIONAL: Denies fever, chills, or sweats. EYES: Denies visual changes, redness, or discharge. ENT: Denies rhinorrhea, congestion, sore throat, or otalgia. CARDIOVASCULAR: Denies chest pain, palpitations, or edema. RESPIRATORY: Denies cough or dyspnea. GASTROINTESTINAL: Denies abdominal pain, nausea, vomiting, or diarrhea. GENITOURINARY: Reports dysuria, suprapubic pressure, frequency. Denies hematuria. SKIN: Denies rash or itching. MUSCULOSKELETAL: Denies back pain, joint pain, or myalgia. NEUROLOGIC: Denies headache, numbness, or weakness. PSYCHIATRIC: Denies anxiety or depression. All other systems reviewed are negative, except as documented in HPI. FORMERLY [facility], [facility] Past Medical History Medical History History of pancreatitis Hyperlipidemia Migraine headache Morbid obesity Screening breast examination Screening mammogram for breast cancer Vertigo Surgical History Surgical History H/O dilation and curettage several H/O unilateral oophorectomy H/O: hysterectomy 02/27/22 - robotic assisted hysterectomy abnormal uterine bleeding - fibroids History of cholecystectomy History of orthopedic surgery Family History Family History Father Diabetes mellitus Hypertension Depression Mother Hypertension Depression Cerebrovascular accident Social History Social History Smoking status: Current every day smoker Tobacco type: e-cigarettes/vaping Alcohol intake: never Drinks per week: 1 Substance use: current Substance use type: marijuana Other substance usage details: edibles for sleep Do You Feel Safe in your Home?: Yes Lack of Transportation: No Lack of Food: Never True Current Housing: I Have Housing Concerned About Future Housing: No Difficulty Paying Gas/Electric Bills: No Difficulty Paying for Meds: No Currently Unemployed: No Education: High School Diploma/GED Difficulty w/ Childcare or Family Care: No Living arrangements: with family Gender identity (if verbalized by the patient): Female Sexual Orientation (if Verbalized by the Patient): Straight or Heterosexual Spiritual care concerns: No Comments At time of signature, agree with nursing past medical, surgical, social and family history. There is no relevant family history pertinent to the presenting complaint. Exam Narrative: GENERAL: This is a well-nourished, well-developed patient, in no apparent distress. HEAD: normocephalic, atraumatic. EYES: PERRL. Sclera clear/white. Vision is grossly intact. EARS: External ears normal NOSE: External nose normal NECK: Neck supple, non-tender without lymphadenopathy, masses or thyromegaly. CARDIOVASCULAR: Regular rate and rhythm without murmurs, gallops, or rubs. RESPIRATOR
[2023-11-27 11:18] LABS: EDUAAPPEAR Cloudy; EDUABILI Negative (Negative); EDUABLOOD 3+ (Negative); EDUACOLOR1 Yellow; EDUAGLUCOSE Negative (Negative); EDUAKETONE Negative (Negative); EDUALEUKO 3+ (Negative); EDUANITRATE Positive (Negative); EDUAPROTEIN 2+ (Negative); EDUASPGRAVITY 1.025
== END 2023-11-27 11:45 | disposition home or self-care (01) ==
PROVIDERS: Emergency Provider Nurse Practitioner Family; PCP Physician Assistant
DX: N39.0 Urinary tract infection, site not specified (principal); B96.20 Unspecified Escherichia coli [E. coli] as the cause of diseases classified elsewhere; F17.290 Nicotine dependence, other tobacco product, uncomplicated; F12.90 Cannabis use, unspecified, uncomplicated; E78.5 Hyperlipidemia, unspecified; E66.01 Morbid (severe) obesity due to excess calories
CPT/HCPCS: 81003; 87077; 87086; 87088; 87186; 99213; G0463

== ENCOUNTER 2024-08-17 14:04 | Outpatient (CLI) | payer OTHER, SELFPAY ==
--- NOTE | ~2024-08-17 | XR_ITS ---
Left Shoulder Technique: AP and scapular Y views were obtained. Clinical History: Pain Findings: No fracture or dislocation is seen. Osseous alignment is anatomic. The glenohumeral joint d emonstrates moderate degenerative change. AC joint intact. Soft tissues are unremarkable. Impression: Moderate glenohumeral joint degenerative change. Reviewed, dictated and finalized at location . Impression: Moderate glenohumeral joint degenerative change.
--- OUTSIDE RECORDS SUMMARY | 2024-08-17 16:57 | XMS_ITS | Data Portability ---
Author Organization [facility] Address [address] [place] [address] Care Team Providers Care Supervisory It Specialist Name Role Phone CHAVEZ DASILVA Tie Bucker HELENA NI Primary Care Provider Assessment Encounter Date Assessment Date Assessment LastModified by Organization Details LastModified Time 02/15/2024 02/15/2024 sent out with labs to pamela bloom Not available 02/16/2024 08:32:19 Plan of Treatment Reminders Order Date Submit Date Provider Last Modified By Organization Details Last Modified Time Details Appointments ANY 15 2024 01:15P M JOSE SUMMERS Not available Not available Not available Lab PTH (parathyr oid hormone), intact + calcium, serum or plasma 2023 024 BEULAH [facility], [address], [place], [address], 02/15/2024 14:24:08 phosphoru s, serum or plasma 2023 024 BEULAH [facility], [address], [place], [address], 02/15/2024 14:24:07 CMP, serum or plasma 2023 024 [facility], [address], [place], [address], 02/23/2024 08:19:17 HbA1c (hemoglob in A1c), blood 2023 024 [email or web address] [facility], [address], [place], [address], 02/23/2024 08:19:17 TSH + free T4, serum 2023 024 [facility], [address], [place], [address], 02/15/2024 14:24:08 lipid panel, serum 2023 024 [email or web address] [facility], [address], [place], [address], 02/23/2024 08:19:17 culture, urine 2023 024 BEULAH [facility], [address], [place], [address], 03/15/2023 20:11:14 lipid panel, serum 2023 024 [facility], [address], [place], [address], 03/11/2023 20:08:41 CBC w/ auto diff 2023 024 [facility]ULAH [facility], [address], [place], [address], 03/11/2023 20:08:42 vitamin B12 + folate, serum or blood 2023 024 [facility], [address], [place], [address], 03/15/2023 20:11:13 CMP, serum or plasma 2023 024 [facility]UL[facility], [address], [place], [address], 03/11/2023 20:08:41 vitamin D, 25-hydrox y, total, serum 2023 024 [facility]ULAH [facility], [address], [place], [address], 03/15/2023 20:11:15 TSH + free T4, serum 2023 024 XANDEROLU [facility], [address], [place], [address], 03/15/2023 20:11:13 iron + total iron-bind ing capacity (TIBC), serum 2023 024 XANDEROLU [facility], [address], [place], [address], 03/15/2023 20:11:14 HbA1c (hemoglob in A1c), blood 2022 023 XANDER [facility], [address], [place], [address], 10/30/2022 10:13:49 TSH + free T4, serum 2022 023 [facility], [address], [place], [address], 10/30/2022 10:13:48 lipid panel, serum 2022 023 XANDER Be[facility], [address], [place], [address], 10/29/2022 18:09:18 CMP, serum or plasma 2022 023 [facility], [address], [place], [address], 10/29/2022 18:09:18 HIV 1 + 2, meaningfu l use set 2022 023 [facility]UL[facility], [address], [place], [address], 10/30/2022 10:13:50 Referral orthopedi c surgeon referral - completed 7 session PT 2022 023 [facility], [address] [facility], [address], [place], [address], 10/29/2022 13:05:27 Procedures None recorded. Surgeries None recorded. Imaging MAMMO, screening , bilateral [address], [address], [place], [address], 03/15/2024 08:34:41 US, breast, unilatera l - recurrent painful cyst under nipple [email or web address] [facility], [address], [address], [place], [address], 03/11/2023 09:40:00 XR, shoulder, 2 or more view [email or web address], [address], [address], [place], [address], 10/29/2022 09:01:03 MRI, cervical spine, w/o contrast [address], [address], [place], [address], 10/29/2022 09:01:03 Medication Orders naproxen 500 mg tablet 2024 025 [facility] [address], [address] , [place], [address], 05/16/2024 10:28:30 ondansetr on 4 mg disintegr ating tablet 2023 025 [facility] [address], [address] , [place], [address], 05/16/2024 10:48:06 duloxetin e 30 mg capsule,d elayed release 2023 024 XANDER Lan [facility] [address], [address] , [place], [address], 02/15/2024 14:27:34 Patient TargetsNo targets recorded. Patient Instructions Encounter Date Encounter Id Patient Instructions Last Modified By Organization Details Last Modified Time 10/29/2022 [id number] A healthy lifestyle: care instructions Not available 10/29/2022 08:38:24 02/15/2024 [id number] A healthy lifestyle: care instructions Not available 02/15/2024 14:11:13 05/16/2024 [id number] A healthy lifestyle: care instructions Not available 05/16/2024 10:21:21 muscle strain: care instructions Not available 05/16/2024 10:38:32 muscle aches: care instructions Not available 05/16/2024 10:38:32 Reason for Referral Orthopedic Surgeon Referral for Pain of left shoulder joint completed 7 session PT Referring Physician: Helena Ni Lead Sales Consultant, Encounter Date: 10/29/2022 Orthopedic Surgeon Referral for Pain of left shoulder joint Referring Physician: Helena Ni Lead Sales Consultant, Encounter Date: 08/17/2024 Results Created Date Observation Date Name Description Value Unit Range Abnormal Flag Note LastModifiedBy Organization Detail LastModifiedTime 10/30/1910/29/2022 LIPID PANEL cholesterol, total 277 mg/dL 100-19 9 above high normal Not Available [facility] [address] [place], [address], 10/29/2022 18:09:18 10/30/1910/29/2022 LIPID PANEL triglyceride s 415 mg/dL 0-149 above high normal Not Available [facility] [address] [place], [address], 10/29/2022 18:09:18 10/30/1910/29/2022 LIPID PANEL HDL cholesterol 42 mg/dL 40-999 Not Available [facility] [address] [place], [address], 10/29/2022 18:09:18 10/30/19 23 10/29/2022 LIPID PANEL VLDL cholesterol gina 83 mg/dL 5-40 above high normal Not Available [facility] [address] [place] [address], [address], 10/29/2022 18:09:18 10/30/1910/29/2022 LIPID PANEL LDL chol calc (nih) 205 mg/dL 0-99 above high normal Not Available [facility] [address] [place] [address], [address], 10/29/2022 18:09:18 10/30/1910/29/2022 COMP. METAB OLIC PANEL (14) glucose 111 mg/dL 70-99 above high normal Not Available [facility] [address] [place], [address], 10/29/2022 18:09:18 10/30/19 23 10/29/2022 COMP. METAB OLIC PANEL (14) BUN 9 mg/dL 6-[address] [facility] [address] [place] [address], [address], 10/29/2022 18:09:18 10/30/1910/29/2022 COMP. METAB OLIC PANEL (14) creatinine 0.67 mg/dL 0.76-1 .27 below low normal Not Available [facility] [address] [place] [address], [address], 10/29/2022 18:09:18 10/30/1910/29/2022 COMP. METAB OLIC PANEL (14) eGFR 108 >=60 Units for eGFR value s are mL/mi n/1.7 3 The eGFR Calcu latio n has not been valid ated for patie nts under the age of 18. If test resul ts are displ ayed for a patie nt under the age of 18, disre neal that value . Not Available [facility] [address] [place], [address], 10/29/2022 18:09:18 10/30/19 23 10/29/2022 COMP. METAB OLIC PANEL (14) BUN/creatini ne ratio 13 9-23 Not Available [facility] [address] [place], [address], 10/29/2022 18:09:18 10/30/19 23 10/29/2022 COMP. METAB OLIC PANEL (14) sodium 140 mmol/ L 134-[address] [facility] [address] [place] [address], [address], 10/29/2022 18:09:18 10/30/19 23 10/29/2022 COMP. METAB OLIC PANEL (14) potassium 4.2 mmol/ L 3.5-5. [address] [facility] [address] [place], [address], 10/29/2022 18:09:18 10/30/19 23 10/29/2022 COMP. METAB OLIC PANEL (14) chloride 101 mmol/ L 96-[address] [facility] [address] [place] [address], [address], 10/29/2022 18:09:18 10/30/19 23 10/29/2022 COMP. METAB OLIC PANEL (14) carbon dioxide, total 28 mmol/ L 20-[address] [facility] [address] [place], [address], 10/29/2022 18:09:18 10/30/1910/29/2022 COMP. METAB OLIC PANEL (14) calcium 9.2 mg/dL 8.7-[address] [facility] [address] [place], [address], 10/29/2022 18:09:18 10/30/19 10/29/2022 COMP. METAB OLIC PANEL (14) protein, total 6.9 g/dL 6.0-8. [address] [facility] [address] [place], [address], 10/29/2022 18:09:18 10/30/19 23 10/29/2022 COMP. METAB OLIC PANEL (14) albumin 4.0 g/dL 3.9-4. [address] [facility] [address] [place], [address], 10/29/2022 18:09:18 10/30/19 23 10/29/2022 COMP. METAB OLIC PANEL (14) globulin, total 2.9 g/dL 1.5-4. [address] [facility] [address] [place], [address], 10/29/2022 18:09:18 10/30/19 23 10/29/2022 COMP. METAB OLIC PANEL (14) A/G ratio 1.0 1.2-2. 2 below low normal Not Available [facility] [address] [place], [address], 10/29/2022 18:09:18 10/30/19 23 10/29/2022 COMP. METAB OLIC PANEL (14) bilirubin, total 0.4 mg/dL 0.0-1. [address] [facility] [address] [place], [address], 10/29/2022 18:09:18 10/30/19 23 10/29/2022 COMP. METAB OLIC PANEL (14) alkaline phosphatase 119 IU/L 44-121 Not Available [facility] [address] [place], [address], 10/29/2022 18:09:18 10/30/19 23 10/29/2022 COMP. METAB OLIC PANEL (14) AST (SGOT) 13 IU/L 0-[address] [facility] [address] [place], [address], 10/29/2022 18:09:18 10/30/1910/29/2022 COMP. METAB OLIC PANEL (14) ALT (SGPT) 13 IU/L 0-[address] [facility] [address] [place], [address], 10/29/2022 18:09:18 10/30/1910/30/2022 TSH+F REE T4 TSH 0.927 uIU/m L 0.450- 4.500 Not Available [facility] ([facility]) [address] [place], [address], 10/30/2022 10:13:48 10/30/1910/30/2022 TSH+F REE T4 T4,free(dire ct) 1.19 NG/dL 0.82-1 .77 Not Available [facility] ([facility]) [address] [facility], [place], [address], 10/30/2022 10:13:48 10/30/1910/30/2022 HEMOG LOBIN A1C hemoglobin A1C 5.8 % 4.8-5. 6 above high normal Predi abete s: 5.7 - 6.4 Diabe zander: >6.4 Glyce brina contr ol for adult s with diabe zander: <7.0 Not Available [facility] ([facility]) [address] [place], [address], 10/30/2022 10:13:49 10/30/1910/30/2022 HIV AB/P2 4 AG WITH REFLE X HIV Ab/P24 Ag screen Non Reacti ve nonrea ctive HIV Negat ezio HIV-1 /HIV- 2 antib odies and HIV-1 p24 antig en were NOT detec hemanth. There is no labor atory evide nce of HIV infec tion. Not Available [facility] ([facility]) [address] [place], [address], 10/30/2022 10:13:50 03/11/19 24 03/11/2023 LIPID PANEL cholesterol, total 182 mg/dL 100-[address] [facility] [address] [place] [address], [address], 03/11/2023 20:08:41 03/11/19 24 03/11/2023 LIPID PANEL triglyceride s 239 mg/dL 0-149 above high normal Not Available [facility] [address] [place] [address], [address], 03/11/2023 20:08:41 03/11/19 24 03/11/2023 LIPID PANEL HDL cholesterol 49 mg/dL 40-999 Not Available [facility] [address] [place] [address], [address], 03/11/2023 20:08:41 03/11/19 24 03/11/2023 LIPID PANEL VLDL cholesterol gina 48 mg/dL 5-40 above high normal Not Available [facility] [address] [place] [address], [address], 03/11/2023 20:08:41 03/11/19 24 03/11/2023 LIPID PANEL LDL chol calc (nih) 121 mg/dL 0-99 above high normal Not Available [facility] [address] [place] [address], [address], 03/11/2023 20:08:41 03/11/19 24 03/11/2023 COMP. METAB OLIC PANEL (14) glucose 100 mg/dL 70-99 above high normal Not Available [facility] [address] [place], [address], 03/11/2023 20:08:41 03/11/19 24 03/11/2023 COMP. METAB OLIC PANEL (14) BUN 8 mg/dL 6-[address] [facility] [address] [place] [address], [address], 03/11/2023 20:08:41 03/11/19 24 03/11/2023 COMP. METAB OLIC PANEL (14) creatinine 0.67 mg/dL 0.76-1 .27 below low normal Not Available [facility] [address] [place] [address], [address], 03/11/2023 20:08:41 03/11/19 24 03/11/2023 COMP. METAB OLIC PANEL (14) eGFR 108 >=60 Units for eGFR value s are mL/mi n/1.7 3 The eGFR Calcu latio n has not been valid ated for patie nts under the age of 18. If test resul ts are displ ayed for a patie nt under the age of 18, disre nael that value . Not Available [facility] [address] [place] [address], [address], 03/11/2023 20:08:41 03/11/19 24 03/11/2023 COMP. METAB OLIC PANEL (14) BUN/creatini ne ratio 11 9-23 Not Available [facility] [address] [place] [address], [address], 03/11/2023 20:08:41 03/11/19 24 03/11/2023 COMP. METAB OLIC PANEL (14) sodium 141 mmol/ L 134-[address] [facility] [address] [place] [address], [address], 03/11/2023 20:08:41 03/11/19 24 03/11/2023 COMP. METAB OLIC PANEL (14) potassium 4.3 mmol/ L 3.5-5. [address] [facility] [address] [place] [address], [address], 03/11/2023 20:08:41 03/11/19 24 03/11/2023 COMP. METAB OLIC PANEL (14) chloride 100 mmol/ L 96-[address] [facility] [address] [place] [address], [address], 03/11/2023 20:08:41 03/11/19 24 03/11/2023 COMP. METAB OLIC PANEL (14) carbon dioxide, total 31 mmol/ L 20-29 above high normal Not Available [facility] [address] [place] [address], [address], 03/11/2023 20:08:41 03/11/19 24 03/11/2023 COMP. METAB OLIC PANEL (14) calcium 9.3 mg/dL 8.7-[address] [facility] [address] [place] [address], [address], 03/11/2023 20:08:41 03/11/19 24 03/11/2023 COMP. METAB OLIC PANEL (14) protein, total 7.1 g/dL 6.0-8. [address] [facility] [address] [place] [address], [address], 03/11/2023 20:08:41 03/11/19 24 03/11/2023 COMP. METAB OLIC PANEL (14) albumin 4.1 g/dL 3.9-4. [address] [facility] [address] [place] [address], [address], 03/11/2023 20:08:41 03/11/19 24 03/11/2023 COMP. METAB OLIC PANEL (14) globulin, total 3.0 g/dL 1.5-4. [address] [facility] [address] [place] [address], [address], 03/11/2023 20:08:41 03/11/19 24 03/11/2023 COMP. METAB OLIC PANEL (14) A/G ratio 1.4 1.2-2. [address] [facility] [address] [place] [address], [address], 03/11/2023 20:08:41 03/11/19 24 03/11/2023 COMP. METAB OLIC PANEL (14) bilirubin, total 0.3 mg/dL 0.0-1. [address] [facility] [address] [place], [address], 03/11/2023 20:08:41 03/11/19 24 03/11/2023 COMP. METAB OLIC PANEL (14) alkaline phosphatase 119 IU/L 44-121 Not Available [facility] [address] [place], [address], 03/11/2023 20:08:41 03/11/19 24 03/11/2023 COMP. METAB OLIC PANEL (14) AST (SGOT) 11 IU/L 0-[address] [facility] [address] [place], [address], 03/11/2023 20:08:41 03/11/19 24 03/11/2023 COMP. METAB OLIC PANEL (14) ALT (SGPT) 10 IU/L 0-[address] [facility] [address] [place], [address], 03/11/2023 20:08:41 03/11/19 24 03/11/2023 CBC WITH DIFFE RENTI AL/PL ATELE T WBC 8.9 x10e3 /uL 3.4-[address] [facility] [address] [place], [address], 03/11/2023 20:08:42 03/11/19 24 03/11/2023 CBC WITH DIFFE RENTI AL/PL ATELE T RBC 4.69 x10e6 /uL 3.77-[address] [facility] [address] [place], [address], 03/11/2023 20:08:42 03/11/19 24 03/11/2023 CBC WITH DIFFE RENTI AL/PL ATELE T hemoglobin 14.2 g/dL 11.1-[address] [facility] [address] [place], [address], 03/11/2023 20:08:42 03/11/19 24 03/11/2023 CBC WITH DIFFE RENTI AL/PL ATELE T hematocrit 44.5 % 34.0-[address] [facility] [address] [place], [address], 03/11/2023 20:08:42 03/11/19 24 03/11/2023 CBC WITH DIFFE RENTI AL/PL ATELE T MCV 95 fL 79-[address] [facility] [address] [place], [address], 03/11/2023 20:08:42 03/11/19 24 03/11/2023 CBC WITH DIFFE RENTI AL/PL ATELE T MCH 30.3 pg 26.6-[address] [facility] [address] [place], [address], 03/11/2023 20:08:42 03/11/19 24 03/11/2023 CBC WITH DIFFE RENTI AL/PL ATELE T MCHC 31.9 g/dL 31.5-[address] [facility] [address] [place], [address], 03/11/2023 20:08:42 03/11/19 24 03/11/2023 CBC WITH DIFFE RENTI AL/PL ATELE T RDW 13.1 % 11.5-[address] [facility] [address] [place], [address], 03/11/2023 20:08:42 03/11/19 24 03/11/2023 CBC WITH DIFFE RENTI AL/PL ATELE T platelets 377 x10e3 /uL 150-[address] [facility] [address] [place], [address], 03/11/2023 20:08:42 03/11/19 24 03/11/2023 CBC WITH DIFFE RENTI AL/PL ATELE T neutrophils 67 % notest b. Not Available [facility] [address] [place], [address], 03/11/2023 20:08:42 03/11/19 24 03/11/2023 CBC WITH DIFFE RENTI AL/PL ATELE T lymphs 26 % notest b. Not Available [facility] [address] [place], [address], 03/11/2023 20:08:42 03/11/19 24 03/11/2023 CBC WITH DIFFE RENTI AL/PL ATELE T monocytes 4 % notest b. Not Available [facility] [address] [place], [address], 03/11/2023 20:08:42 03/11/19 24 03/11/2023 CBC WITH DIFFE RENTI AL/PL ATELE T eos 2 % notest b. Not Available [facility] [address] [place], [address], 03/11/2023 20:08:42 03/11/19 24 03/11/2023 CBC WITH DIFFE RENTI AL/PL ATELE T basos 1 % notest b. Not Available [facility] [address] [place], [address], 03/11/2023 20:08:42 03/11/19 24 03/11/2023 CBC WITH DIFFE RENTI AL/PL ATELE T neutrophils (absolute) 5.9 x10e3 /uL 1.4-7. [address] [facility] [address] [place], [address], 03/11/2023 20:08:42 03/11/19 24 03/11/2023 CBC WITH DIFFE RENTI AL/PL ATELE T lymphs (absolute) 2.3 x10e3 /uL 0.7-3. [address] [facility] [address] [place], [address], 03/11/2023 20:08:42 03/11/19 24 03/11/2023 CBC WITH DIFFE RENTI AL/PL ATELE T monocytes(ab solute) 0.4 x10e3 /uL 0.1-0. [address] [facility] [address] [place], [address], 03/11/2023 20:08:42 03/11/19 24 03/11/2023 CBC WITH DIFFE RENTI AL/PL ATELE T eos (absolute) 0.2 x10e3 /uL 0.0-0. [address] [facility] [address] [place], [address], 03/11/2023 20:08:42 03/11/19 24 03/11/2023 CBC WITH DIFFE RENTI AL/PL ATELE T baso (absolute) 0.1 x10e3 /uL 0.0-0. [address] [facility] [address] [place], [address], 03/11/2023 20:08:42 03/11/19 24 03/11/2023 CBC WITH DIFFE RENTI AL/PL ATELE T immature granulocytes 0.2 % notest b. Not Available [facility] [address] [place], [address], 03/11/2023 20:08:42 03/11/19 24 03/11/2023 CBC WITH DIFFE RENTI AL/PL ATELE T immature grans (abs) 0.0 x10e3 /uL 0.0-0. [address] [facility] [address] [place], [address], 03/11/2023 20:08:42 03/11/19 24 03/11/2023 CBC WITH DIFFE RENTI AL/PL ATELE T NRBC 0 % 0-[address] [facility] [address] [place], [address], 03/11/2023 20:08:42 03/11/19 24 03/12/2023 TSH+F REE T4 TSH 0.698 uIU/m L 0.450- 4.500 Not Available [facility] ([facility]) [address] [place], [address], 03/15/2023 20:11:13 03/11/19 24 03/12/2023 TSH+F REE T4 T4,free(dire ct) 1.24 NG/dL 0.82-1 .77 Not Available [facility] ([facility]) [address] [place], [address], 03/15/2023 20:11:13 03/11/19 24 03/12/2023 VITAM IN B12 AND FOLAT E vitamin B12 300 pg/mL 232-12 45 Not Available [facility] ([facility]) [address] [place], [address], 03/15/2023 20:11:13 03/11/19 24 03/12/2023 VITAM IN B12 AND FOLAT E folate (folic acid), serum 7.5 NG/mL >3.0 A serum folat e nicholas ntrat ion of less than 3.1 ng/mL is consi dered to repre sent clini gina defic iency . Not Available [facility] ([facility]) [address] [facility], [place], [address], 03/15/2023 20:11:13 03/11/19 24 03/12/2023 IRON AND TIBC iron bind.cap.(TI BC) 285 ug/dL 250-45 0 Not Available [facility] ([facility]) [address] [place], [address], 03/15/2023 20:11:14 03/11/19 24 03/12/2023 IRON AND TIBC UIBC 210 ug/dL 131-42 5 Not Available [facility] ([facility]) [address] [facility], [place], [address], 03/15/2023 20:11:14 03/11/19 24 03/12/2023 IRON AND TIBC iron 75 ug/dL 27-159 Not Available [facility] ([facility]) [address] [facility], [place], [address], 03/15/2023 20:11:14 03/11/19 24 03/12/2023 IRON AND TIBC iron saturation 26 % 15-55 Not Available [facility] ([facility]) [address] [facility], [place], [address], 03/15/2023 20:11:14 03/11/19 24 03/15/2023 URINE CULTU RE, ROUTI NE urine culture, routine Final report abnormal Not Available [facility] ([facility]) [address] [facility], [place], [address], 03/15/2023 20:11:14 03/11/19 24 03/15/2023 URINE CULTU RE, ROUTI NE result 1 Commen t abnormal Prote us mirab ilis/ penne ri Great er than 100,0 00 colon y formi ng units per mL Cefaz tirso <=4 ug/mL Cefaz tirso with an BRINA <=16 predi cts susce ptibi lity to the oral agent s cefac martha, cefdi iesha, cefpo doxim e, cefpr ozil, cefur oxime , cepha lexin , and lorac arbef when used for thera py of uncom plica hemanth urina ry tract infec tions due to E. coli, Klebs iella pneum oniae , and Prote us mirab ilis. Not Available [facility] ([facility]) [address] [facility], [place], [address], 03/15/2023 20:11:14 03/11/19 24 03/15/2023 URINE CULTU RE, ROUTI NE antimicrobia l susceptibili ty Commen t S = Susce ptibl e; I = Inter media te; R = Resis tant P = Posit ezio; N = Negat ezio MICS are expre ssed in micro grams per mL Antib iotic RSLT# 1 RSLT# 2 RSLT# 3 RSLT# 4 Ampic illin S Cefep josé miguel S Ceftr iaxon e S Cefur oxime S Cipro floxa marsha S Ertap enem S Genta micin S Levof loxac in S Merop enem S Nitro furan toin R Piper acill in/Ta zobac brown S Tetra cycli ne R Tobra mycin S Trime thopr im/Duran lfa S Not Available [facility] ([facility]) [address] [facility], [place], [address], 03/15/2023 20:11:14 03/11/19 24 03/12/2023 VITAM IN D, 25-HY DROXY vitamin D, 25-hydroxy 40.8 NG/mL 30.0-1 00.0 Vitam in D defic iency has been defin ed by the Insti tute of Medic ine and an Endoc rine Socie ty pract ice guide line as a level of serum 25-OH vitam in D less than 20 ng/mL (1,2) . The Endoc rine Socie ty went on to furth er defin e vitam in D insuf ficie ncy as a level betwe en 21 and 29 ng/mL (2). 1. IOM (Inst itute of Medic ine). 2009. Dieta ry refer ence intenrico es for calci um and D. Mercedez carias [place]: The [facility] Press . 2. [place], Sheila vidales [place], Johana off-F errar i ARNOLD, et al. Evalu ation , treat ment, and preve ntion of vitam in D defic iency : an Endoc rine Socie ty clini gina pract ice guide line. JCEM. 2010; 96(7) :1911 -30. Not Available [facility] ([facility]) [address] [facility] [facility], [place], [address], 03/15/2023 20:11:15 09/16/19 24 09/18/2023 Bacte eliud ident ified in Urine by Cultu re specimen source identified URINE CLEAN CATCH SPEC DESCR IPTIO N URINE CLEAN CATCH 09/15 2:59 PM CDT [facility] CONVE NIENT CARE Not Available Not Available 05/16/2024 03:04:18 09/16/19 24 09/18/2023 Bacte eliud ident ified in Urine by Cultu re service comment NO SPECIA L REQUES T SPECI AL REQUE STS NO SPECI AL REQUE ST 09/15 2:59 PM CDT [facility] Not Available Not Available 05/16/2024 03:04:18 09/16/19 24 09/18/2023 Bacte eliud ident ified in Urine by Cultu re bacteria identified in specimen by culture 10,000 -49,00 0 COL/ML PROTEU S MIRABI LIS abnormal CULTU RE RESUL T 10,00 0-49, 000 COL/M L PROTE US MIRAB ILIS (A) 09/17 7:45 AM CDT [facility] Not Available Not Available 05/16/2024 03:04:18 09/16/19 24 09/18/2023 Bacte eliud ident ified in Urine by Cultu re interpretati on and review of laboratory results Abnorm al Not Available Not Available 03:04:18 09/16/19 24 09/16/2023 Urina lysis macro (dips tick) panel - Urine collection method - specimen URINE CLEAN CATCH SPECI MEN TYPE URINE CLEAN CATCH 09/15 2:48 PM CDT [facility] Not Available Not Available 05/16/2024 03:04:18 09/16/19 24 09/16/2023 Urina lysis macro (dips tick) panel - Urine color of urine YELLOW COLOR (U) ESTEFANÍAO W 09/15 2:57 PM CDT [facility] Not Available Not Available 05/16/2024 03:04:18 09/16/19 24 09/16/2023 Urina lysis macro (dips tick) panel - Urine clarity of urine CLOUDY TRANS PAREN CY CLOUD Y 09/15 2:57 PM CDT [facility] NIENT CARE Not Available Not Available 05/16/2024 03:04:18 09/16/19 24 09/16/2023 Urina lysis macro (dips tick) panel - Urine specific gravity of urine 1.015 low: 1.001h igh: 1.03 SPECI FIC GRAVI TY (U) 1.015 1.001 - 1.030 09/15 2:57 PM CDT [facility] NIENT CARE Not Available Not Available 05/16/2024 03:04:18 09/16/19 24 09/16/2023 Urina lysis macro (dips tick) panel - Urine pH of urine 6.5 low: 5high: 9 U PH 6.5 5.0 - 9.0 09/15 2:57 PM CDT [facility] NIENT CARE Not Available Not Available 05/16/2024 03:04:18 09/16/19 24 09/16/2023 Urina lysis macro (dips tick) panel - Urine leukocytes [#/volume] in urine by test strip LARGE text: negati ve abnormal LEUKO CYTES (U) LARGE (A) NEGAT EZIO 09/15 2:57 PM CDT [facility] CONVE NIENT CARE Not Available Not Available 05/16/2024 03:04:18 09/16/19 24 09/16/2023 Urina lysis macro (dips tick) panel - Urine nitrite [presence] in urine NEGATI VE text: negati ve NITRI ZANDER NEGAT EZIO NEGAT EZIO 09/15 2:57 PM CDT [facility] NIENT CARE Not Available Not Available 05/16/2024 03:04:18 09/16/19 24 09/16/2023 Urina lysis macro (dips tick) panel - Urine protein [mass/volume ] in urine by test strip NEGATI VE text: <30 mg/dL PROTE IN RANDO M (U) NEGAT EZIO <30 MG/DL 09/15 2:57 PM CDT [facility] CONVE NIENT CARE Not Available Not Available 05/16/2024 03:04:18 09/16/19 24 09/16/2023 Urina lysis macro (dips tick) panel - Urine glucose [mass/volume ] in urine NEGATI VE text: negati ve mg/dL GLUCO SE (U) NEGAT EZIO NEGAT EZIO MG/DL 09/15 2:57 PM CDT [facility] CONVE NIENT CARE Not Available Not Available 05/16/2024 03:04:18 09/16/19 24 09/16/2023 Urina lysis macro (dips tick) panel - Urine ketones [mass/volume ] in urine by test strip NEGATI VE text: negati ve mg/dL KETON ES MG/DL (U) NEGAT EZIO NEGAT EZIO MG/DL 09/15 2:57 PM CDT [facility] CONVE NIENT CARE Not Available Not Available 05/16/2024 03:04:18 09/16/19 24 09/16/2023 Urina lysis macro (dips tick) panel - Urine urobilinogen [units/volum e] in urine by test strip 2 text: negati ve mg/dL abnormal UROBI LINOG EN 2.0 (A) NEGAT EZIO MG/DL 09/15 2:57 PM CDT [facility] CONVE NIENT CARE Not Available Not Available 05/16/2024 03:04:18 09/16/19 24 09/16/2023 Urina lysis macro (dips tick) panel - Urine bilirubin.to boo [mass/volume ] in urine NEGATI VE text: negati ve mg/dL BILIR UBIN (U) NEGAT EZIO NEGAT EZIO MG/DL 09/15 2:57 PM CDT [facility] C[facility] Not Available Not Available 05/16/2024 03:04:18 09/16/19 24 09/16/2023 Urina lysis macro (dips tick) panel - Urine erythrocytes [#/volume] in urine by automated test strip SMALL text: negati ve abnormal BLOOD (U) SMALL (A) NEGAT EZIO 09/15 2:57 PM CDT [facility] Not Available Not Available 05/16/2024 03:04:18 09/16/19 24 09/16/2023 Urina lysis macro (dips tick) panel - Urine interpretati on and review of laboratory results Abnorm al Not Available Not Available 03:04:18 09/25/19 24 09/26/2023 Lipas e [Enzy matic activ ity/v olume ] in Serum or Plasm a lipase [enzymatic activity/vol ume] in serum or plasma 59 text: 13 - 75 units/ L LIPAS E 59 13 - 75 UNITS /L 09/24 11:23 PM CDT [facility] Not Available Not Available 05/16/2024 10:08:23 09/25/19 24 09/26/2023 Compr ehens ezio metab olic 2000 panel - Serum or Plasm a glucose [mass/volume ] in serum or plasma 98 text: 70 - 99 mg/dL GLUCO SE 98 70 - 99 MG/DL 09/24 11:23 PM CDT [facility] Not Available Not Available 05/16/2024 10:08:23 09/25/19 24 09/26/2023 Compr ehens ezio metab olic 2000 panel - Serum or Plasm a urea nitrogen [mass/volume ] in serum or plasma 12 text: 7 - 18 mg/dL BUN 12 7 - 18 MG/DL 09/24 11:23 PM CDT [facility] Not Available Not Available 05/16/2024 10:08:23 09/25/19 24 09/26/2023 Compr ehens ezio metab olic 2000 panel - Serum or Plasm a creatinine [mass/volume ] in serum or plasma 0.93 text: 0.55 - 1.02 mg/dL CREAT ININE S/P/B 0.93 0.55 - 1.02 MG/DL 09/24 11:23 PM CDT [facility] Not Available Not Available 05/16/2024 10:08:23 09/25/19 24 09/26/2023 Compr ehens ezio metab olic 1999 panel - Serum or Plasm a sodium [moles/volum e] in serum or plasma 139 text: 136 - 145 mmol/L SODIU M S/P/B 139 136 - 145 MMOL/ L 09/24 11:23 PM CDT [facility] Not Available Not Available 05/16/2024 10:08:23 09/25/19 24 09/26/2023 Compr ehens ezio metab olic 2000 panel - Serum or Plasm a potassium [moles/volum e] in serum or plasma 3.4 text: 3.5 - 5.1 mmol/L low POTAS SIUM S/P/B 3.4 (L) 3.5 - 5.1 MMOL/ L 09/24 11:23 PM CDT [facility] Not Available Not Available 05/16/2024 10:08:23 09/25/19 24 09/26/2023 Compr ehens ezio metab olic 2000 panel - Serum or Plasm a chloride [moles/volum e] in serum or plasma 106 text: 100 - 108 mmol/L CHLOR SRIDHAR S/P/B 106 100 - 108 MMOL/ L 09/24 11:23 PM CDT [facility] Not Available Not Available 05/16/2024 10:08:23 09/25/19 24 09/26/2023 Compr ehens ezio metab olic 2000 panel - Serum or Plasm a carbon dioxide, total [moles/volum e] in serum or plasma 26.5 text: 21 - 32 mmol/L CO2 26.5 21 - 32 MMOL/ L 09/24 11:23 PM CDT [facility] Not Available Not Available 05/16/2024 10:08:23 09/25/19 24 09/26/2023 Compr ehens ezio metab olic 1999 panel - Serum or Plasm a calcium [mass/volume ] in serum or plasma 8.8 text: 8.5 - 10.1 mg/dL CALCI UM S/P/B 8.8 8.5 - 10.1 MG/DL 09/24 11:[address] [facility] Not Available Not Available 05/16/2024 10:08:23 09/25/19 24 09/26/2023 Compr ehens ezio metab olic 2000 panel - Serum or Plasm a bilirubin.to boo [mass/volume ] in serum or plasma 0.2 text: 0.2 - 1.2 mg/dL BILIR UBIN TOTAL S/P/B 0.2 0.2 - 1.2 MG/DL 09/24 11:[address] [facility] Not Available Not Available 05/16/2024 10:08:23 09/25/19 24 09/26/2023 Compr ehens ezio metab olic 1999 panel - Serum or Plasm a protein [mass/volume ] in serum or plasma 6.5 text: 6.4 - 8.2 g/dL TOTAL PROTE IN S/P/B 6.5 6.4 - 8.2 G/DL 09/24 11:23 PM CDT [facility] Not Available Not Available 05/16/2024 10:08:23 09/25/19 24 09/26/2023 Compr ehens ezio metab olic 2000 panel - Serum or Plasm a albumin [mass/volume ] in serum or plasma 2.9 text: 3.4 - 5.0 g/dL low ALBUM IN S/P/B 2.9 (L) 3.4 - 5.0 G/DL 09/24 11:23 PM CDT [facility] Not Available Not Available 05/16/2024 10:08:23 09/25/19 24 09/26/2023 Compr ehens ezio metab olic 2000 panel - Serum or Plasm a aspartate aminotransfe rase [enzymatic activity/vol ume] in serum or plasma 10 U/L low: 15U/Lh igh: 37U/L low AST 10 (L) 15 - 37 U/L 09/24 11:23 PM CDT [facility] Not Available Not Available 05/16/2024 10:08:23 09/25/19 24 09/26/2023 Compr ehens ezio metab olic 1999 panel - Serum or Plasm a alanine aminotransfe rase [enzymatic activity/vol ume] in serum or plasma 19 U/L low: 14U/Lh igh: 55U/L ALT 19 14 - 55 U/L 09/24 11:23 PM CDT [facility] Not Available Not Available 05/16/2024 10:08:23 09/25/19 24 09/26/2023 Compr ehens ezio metab olic 1999 panel - Serum or Plasm a alkaline phosphatase [enzymatic activity/vol ume] in serum or plasma 100 U/L low: 50U/Lh igh: 136U/L ALKAL INE PHOSP HATAS E S/P/B 100 50 - 136 U/L 09/24 11:23 PM CDT [facility] Not Available Not Available 05/16/2024 10:08:23 09/25/19 24 09/26/2023 Compr ehens ezio metab olic 1999 panel - Serum or Plasm a anion gap in serum or plasma 6.5 text: 5 - 15 mmol/L ANION GAP 6.5 5 - 15 MMOL/ L 09/24 11:23 PM CDT [facility] Not Available Not Available 05/16/2024 10:08:23 09/25/19 24 09/26/2023 Compr ehens ezio metab olic 1999 panel - Serum or Plasm a urea nitrogen/cre atinine [mass ratio] in serum or plasma 12.9 low: 6high: 26 BUN CREAT ININE RATIO 12.9 6 - 26 09/24 11:23 PM CDT [facility] Not Available Not Available 05/16/2024 10:08:23 09/25/19 24 09/26/2023 Compr ehens ezio metab olic 2000 panel - Serum or Plasm a albumin/glob ulin [mass ratio] in serum or plasma 0.8 text: 1.0 - 2.0 ratio low A/G RATIO 0.8 (L) 1.0 - 2.0 RATIO 09/24 11:23 PM CDT [facility] Not Available Not Available 05/16/2024 10:08:23 09/25/19 24 09/26/2023 Compr ehens ezio metab olic 2000 panel - Serum or Plasm a glomerular filtration rate/1.73 sq M.predicted [volume rate/area] in serum, plasma or blood by creatinine-b ased formula (CKD-epi 2020) 76 text: >90 mL/min /1.73 M2 low GFR ESTIM ATE 76 (L) >90 ML/HI N/1.7 3 M2 09/24 11:23 PM CDT [facility] Not Available Not Available 05/16/2024 10:08:23 09/25/19 24 09/26/2023 Compr ehens ezio metab olic 2000 panel - Serum or Plasm a interpretati on and review of laboratory results Abnorm al Not Available Not Available 10:08:23 09/25/19 24 09/26/2023 CBC W Auto Diffe renti al panel - Blood leukocytes [#/volume] in blood by automated count 12.82 text: 4.5 - 11.0 x10'3/ uL high WBC 12.82 (H) 4.5 - 11.0 x10'3 /uL 09/24 11:02 PM CDT [facility] Not Available Not Available 05/16/2024 10:08:23 09/25/19 24 09/26/2023 CBC W Auto Diffe renti al panel - Blood erythrocytes [#/volume] in blood by automated count 4.06 text: 4.20 - 5.40 x10'6/ uL low RBC 4.06 (L) 4.20 - 5.40 x10'6 /uL 09/24 11:02 PM CDT [facility] Not Available Not Available 05/16/2024 10:08:23 09/25/19 24 09/26/2023 CBC W Auto Diffe renti al panel - Blood hemoglobin [mass/volume ] in blood 12.4 text: 12.0 - 16.0 g/dL HGB 12.4 12.0 - 16.0 G/DL 09/24 11:02 PM CDT [facility] Not Available Not Available 05/16/2024 10:08:23 09/25/19 24 09/26/2023 CBC W Auto Diffe renti al panel - Blood hematocrit [volume fraction] of blood 38.5 % low: 38%hig h: 48% HCT 38.5 38.0 - 48.0 % 09/24 11:02 PM CDT [facility] Not Available Not Available 05/16/2024 10:08:23 09/25/19 24 09/26/2023 CBC W Auto Diffe renti al panel - Blood MCV [entitic volume] 94.8 text: 81.0 - 99.0 fL MCV 94.8 81.0 - 99.0 FL 09/24 11:02 PM CDT [facility] Not Available Not Available 05/16/2024 10:08:23 09/25/19 24 09/26/2023 CBC W Auto Diffe renti al panel - Blood MCH [entitic mass] 30.5 pg low: 27pghi gh: 31pg MCH 30.5 27.0 - 31.0 PG 09/24 11:02 PM CDT [facility] Not Available Not Available 05/16/2024 10:08:23 09/25/19 24 09/26/2023 CBC W Auto Diffe renti al panel - Blood MCHC [mass/volume ] 32.2 text: 32.0 - 36.0 g/dL MCHC 32.2 32.0 - 36.0 G/DL 09/24 11:02 PM CDT [facility] Not Available Not Available 05/16/2024 10:08:23 09/25/19 24 09/26/2023 CBC W Auto Diffe renti al panel - Blood erythrocyte distribution width [entitic volume] by automated count 13.2 % low: 11.5%h igh: 14.5% RDW 13.2 11.5 - 14.5 % 09/24 11:02 PM CDT [facility] Not Available Not Available 05/16/2024 10:08:23 09/25/19 24 09/26/2023 CBC W Auto Diffe renti al panel - Blood platelets [#/volume] in blood 417 text: 130 - 400 x10'3/ uL high PLT 417 (H) 130 - 400 x10'3 /uL 09/24 11:02 PM CDT [facility] Not Available Not Available 05/16/2024 10:08:23 09/25/19 24 09/26/2023 CBC W Auto Diffe renti al panel - Blood platelet mean volume [entitic volume] in blood 9.8 text: 9.3 - 12.2 fL MPV 9.8 9.3 - 12.2 FL 09/24 11:02 PM CDT [facility] Not Available Not Available 05/16/2024 10:08:23 09/25/19 24 09/26/2023 CBC W Auto Diffe renti al panel - Blood differential cell count method - blood AUTOMA HEMANTH DIFFER ENTIAL DIFFE RENTI AL TYPE AUTOM ATED DIFFE RENTI AL 09/24 11:02 PM CDT [facility] Not Available Not Available 05/16/2024 10:08:23 09/25/19 24 09/26/2023 CBC W Auto Diffe renti al panel - Blood neutrophils/ 100 leukocytes in blood by automated count 59.2 % NEUTR OPHIL S % 59.2 % 09/24 11:02 PM CDT [facility] Not Available Not Available 05/16/2024 10:08:23 09/25/19 24 09/26/2023 CBC W Auto Diffe renti al panel - Blood lymphocytes/ 100 leukocytes in blood by automated count 32.4 % LYMPH OCYTE S % 32.4 % 09/24 11:02 PM CDT [facility] Not Available Not Available 05/16/2024 10:08:23 09/25/19 24 09/26/2023 CBC W Auto Diffe renti al panel - Blood monocytes/10 0 leukocytes in blood by automated count 4.4 % MONOC YTES % 4.4 % 09/24 11:02 PM CDT [facility] Not Available Not Available 05/16/2024 10:08:23 09/25/19 24 09/26/2023 CBC W Auto Diffe renti al panel - Blood eosinophils/ 100 leukocytes in blood by automated count 3 % EOSIN OPHIL S 3.0 % 09/24 11:02 PM CDT [facility] Not Available Not Available 05/16/2024 10:08:23 09/25/19 24 09/26/2023 CBC W Auto Diffe renti al panel - Blood basophils/10 0 leukocytes in blood by automated count 0.6 % BASOP HILS 0.6 % 09/24 11:02 PM CDT [facility] Not Available Not Available 05/16/2024 10:08:23 09/25/19 24 09/26/2023 CBC W Auto Diffe renti al panel - Blood immature granulocytes /100 leukocytes in blood by automated count 0.4 % IMMAT URE GRANS % 0.4 % 09/24 11:02 PM CDT [facility] Not Available Not Available 05/16/2024 10:08:23 09/25/19 24 09/26/2023 CBC W Auto Diffe renti al panel - Blood neutrophils [#/volume] in blood 7.6 text: 1.80 - 7.70 x10'3/ uL ABS. NEUTR OPHIL S 7.60 1.80 - 7.70 x10'3 /uL 09/24 11:02 PM CDT [facility] Not Available Not Available 05/16/2024 10:08:23 09/25/19 24 09/26/2023 CBC W Auto Diffe renti al panel - Blood lymphocytes [#/volume] in blood 4.15 text: 1.00 - 4.80 x10'3/ uL ABS. LYMPH OCYTE S 4.15 1.00 - 4.80 x10'3 /uL 09/24 11:02 PM CDT [facility] Not Available Not Available 05/16/2024 10:08:23 09/25/19 24 09/26/2023 CBC W Auto Diffe renti al panel - Blood monocytes [#/volume] in blood 0.56 text: 0.24 - 0.86 x10'3/ uL ABS. MONOC YTES 0.56 0.24 - 0.86 x10'3 /uL 09/24 11:02 PM CDT [facility] Not Available Not Available 05/16/2024 10:08:23 09/25/19 24 09/26/2023 CBC W Auto Diffe renti al panel - Blood eosinophils [#/volume] in blood 0.38 text: 0.04 - 0.36 x10'3/ uL high ABS. EOSIN OPHIL S 0.38 (H) 0.04 - 0.36 x10'3 /uL 09/24 11:02 PM CDT [facility] Not Available Not Available 05/16/2024 10:08:23 09/25/19 24 09/26/2023 CBC W Auto Diffe renti al panel - Blood basophils [#/volume] in blood 0.08 text: 0.01 - 0.08 x10'3/ uL ABS. BASOP HILS 0.08 0.01 - 0.08 x10'3 /uL 09/24 11:02 PM CDT [facility] Not Available Not Available 05/16/2024 10:08:23 09/25/19 24 09/26/2023 CBC W Auto Diffe renti al panel - Blood immature granulocytes [#/volume] in blood 0.05 text: 0.00 - 0.49 x10'3/ uL ABS. IMMAT URE GRANU LOCYT ES 0.05 0.00 - 0.49 x10'3 /uL 09/24 11:02 PM CDT [facility] Not Available Not Available 05/16/2024 10:08:23 09/25/19 24 09/26/2023 CBC W Auto Diffe renti al panel - Blood interpretati on and review of laboratory results Abnorm al Not Available Not Available 10:08:23 09/25/19 24 09/29/2023 Bacte eliud ident ified in Urine by Cultu re specimen source identified URINE CLEAN CATCH SPEC DESCR IPTIO N URINE CLEAN CATCH 09/25 1:23 AM CDT [facility] Not Available Not Available 05/16/2024 10:08:23 09/25/19 24 09/29/2023 Bacte eliud ident ified in Urine by Cultu re service comment NO SPECIA L REQUES T SPECI AL REQUE STS NO SPECI AL REQUE ST 09/25 1:23 AM CDT [facility] Not Available Not Available 05/16/2024 10:08:23 09/25/19 24 09/29/2023 Bacte eliud ident ified in Urine by Cultu re bacteria identified in specimen by culture 10,000 -49,00 0 COL/ML CANDID A ALBICA NS SUSCEP TIBILT Y NOT ROUTIN ROMI PERFOR MED. SAVING ISOLAT E FOR 5 DAYS. CONTAC T MICROB IOLOGY DEPART MENT IF FURTHE R WORKUP IS INDICA HEMANTH. abnormal CULTU RE RESUL T 10,00 0-49, 000 COL/M L SANTOSH DA ALBIC ANS SUSCE PTIBI LTY NOT ROUTI LUCIO PERFO RMED. SAVIN G ISOLA TE FOR [address] MICRO BIOLO GY DEPAR TMENT IF FURTH ER CINDY P IS INDIC ATED. (A) 09/28 6:54 AM CDT [facility] Not Available Not Available 05/16/2024 10:08:23 09/25/19 24 09/29/2023 Bacte leiud ident ified in Urine by Cultu re bacteria identified in specimen by culture 10,000 -49,00 0 COL/ML PROTEU S MIRABI LIS abnormal CULTU RE RESUL T 10,00 0-49, 000 COL/M L PROTE US MIRAB ILIS (A) 09/28 6:54 AM CDT [facility] Not Available Not Available 05/16/2024 10:08:23 09/25/19 24 09/29/2023 Bacte eliud ident ified in Urine by Cultu re bacteria identified in specimen by culture POLYMI CROBIA L GROWTH CONSIS TENT WITH NORMAL GENITA L EDDY. SUSCEP TIBILI TIES NOT ROUTIN ROMI [facility]. CULTU RE RESUL T POLYM ICROB IAL GROWT H CONSI STENT WITH LUCIE L GENIT AL EDDY . SUSCE PTIBI LITIE S NOT ROUTI LUCIO PERFO RMED. 09/28 6:54 AM CDT [facility] Not Available Not Available 05/16/2024 10:08:23 09/25/19 24 09/29/2023 Bacte eliud ident ified in Urine by Cultu re interpretati on and review of laboratory results Abnorm al Not Available Not Available 10:08:23 09/26/19 24 09/26/2023 CBC W Auto Diffe renti al panel - Blood leukocytes [#/volume] in blood by automated count 10.4 text: 4.5 - 11.0 x10'3/ uL WBC 10.40 4.5 - 11.0 x10'3 /uL 09/25 7:26 AM CDT [facility] Not Available Not Available 05/16/2024 10:08:24 09/26/19 24 09/26/2023 CBC W Auto Diffe renti al panel - Blood erythrocytes [#/volume] in blood by automated count 3.64 text: 4.20 - 5.40 x10'6/ uL low RBC 3.64 (L) 4.20 - 5.40 x10'6 /uL 09/25 7:26 AM CDT [facility] Not Available Not Available 05/16/2024 10:08:24 09/26/19 24 09/26/2023 CBC W Auto Diffe renti al panel - Blood hemoglobin [mass/volume ] in blood 11.5 text: 12.0 - 16.0 g/dL low HGB 11.5 (L) 12.0 - 16.0 G/DL 09/25 7:26 AM CDT [facility] Not Available Not Available 05/16/2024 10:08:24 09/26/19 24 09/26/2023 CBC W Auto Diffe renti al panel - Blood hematocrit [volume fraction] of blood 34.4 % low: 38%hig h: 48% low HCT 34.4 (L) 38.0 - 48.0 % 09/25 7:26 AM CDT [facility] Not Available Not Available 05/16/2024 10:08:24 09/26/19 24 09/26/2023 CBC W Auto Diffe renti al panel - Blood MCV [entitic volume] 94.5 text: 81.0 - 99.0 fL MCV 94.5 81.0 - 99.0 FL 09/25 7:26 AM CDT [facility] Not Available Not Available 05/16/2024 10:08:24 09/26/19 24 09/26/2023 CBC W Auto Diffe renti al panel - Blood MCH [entitic mass] 31.6 pg low: 27pghi gh: 31pg high MCH 31.6 (H) 27.0 - 31.0 PG 09/25 7:26 AM CDT [facility] Not Available Not Available 05/16/2024 10:08:24 09/26/19 24 09/26/2023 CBC W Auto Diffe renti al panel - Blood MCHC [mass/volume ] 33.4 text: 32.0 - 36.0 g/dL MCHC 33.4 32.0 - 36.0 G/DL 09/25 7:26 AM CDT [facility] Not Available Not Available 05/16/2024 10:08:24 09/26/19 24 09/26/2023 CBC W Auto Diffe renti al panel - Blood erythrocyte distribution width [entitic volume] by automated count 13.5 % low: 11.5%h igh: 14.5% RDW 13.5 11.5 - 14.5 % 09/25 7:26 AM CDT [facility] Not Available Not Available 05/16/2024 10:08:24 09/26/19 24 09/26/2023 CBC W Auto Diffe renti al panel - Blood platelets [#/volume] in blood 366 text: 130 - 400 x10'3/ uL PLT 366 130 - 400 x10'3 /uL 09/25 7:26 AM CDT [facility] Not Available Not Available 05/16/2024 10:08:24 09/26/19 24 09/26/2023 CBC W Auto Diffe renti al panel - Blood platelet mean volume [entitic volume] in blood 10.4 text: 9.3 - 12.2 fL MPV 10.4 9.3 - 12.2 FL 09/25 7:26 AM CDT [facility] Not Available Not Available 05/16/2024 10:08:24 09/26/19 24 09/26/2023 CBC W Auto Diffe renti al panel - Blood differential cell count method - blood AUTOMA HEMANTH DIFFER ENTIAL DIFFE LJ AL TYPE AUTOM ATED DIFFE RENTI AL 09/25 7:26 AM CDT [facility] Not Available Not Available 05/16/2024 10:08:24 09/26/19 24 09/26/2023 CBC W Auto Diffe renti al panel - Blood neutrophils/ 100 leukocytes in blood by automated count 56.2 % NEUTR OPHIL S % 56.2 % 09/25 7:26 AM CDT [facility] Not Available Not Available 05/16/2024 10:08:24 09/26/19 24 09/26/2023 CBC W Auto Diffe renti al panel - Blood lymphocytes/ 100 leukocytes in blood by automated count 34.6 % LYMPH OCYTE S % 34.6 % 09/25 7:26 AM CDT [facility] Not Available Not Available 05/16/2024 10:08:24 09/26/19 24 09/26/2023 CBC W Auto Diffe renti al panel - Blood monocytes/10 0 leukocytes in blood by automated count 4.5 % MONOC YTES % 4.5 % 09/25 7:26 AM CDT [facility] Not Available Not Available 05/16/2024 10:08:24 09/26/19 24 09/26/2023 CBC W Auto Diffe renti al panel - Blood eosinophils/ 100 leukocytes in blood by automated count 3.6 % EOSIN OPHIL S 3.6 % 09/25 7:26 AM CDT [facility] Not Available Not Available 05/16/2024 10:08:24 09/26/19 24 09/26/2023 CBC W Auto Diffe renti al panel - Blood basophils/10 0 leukocytes in blood by automated count 0.5 % BASOP HILS 0.5 % 09/25 7:26 AM CDT [facility] Not Available Not Available 05/16/2024 10:08:24 09/26/19 24 09/26/2023 CBC W Auto Diffe renti al panel - Blood immature granulocytes /100 leukocytes in blood by automated count 0.6 % IMMAT URE GRANS % 0.6 % 09/25 7:26 AM CDT [facility] Not Available Not Available 05/16/2024 10:08:24 09/26/19 24 09/26/2023 CBC W Auto Diffe renti al panel - Blood neutrophils [#/volume] in blood 5.85 text: 1.80 - 7.70 x10'3/ uL ABS. NEUTR OPHIL S 5.85 1.80 - 7.70 x10'3 /uL 09/25 7:26 AM CDT [facility] Not Available Not Available 05/16/2024 10:08:24 09/26/19 24 09/26/2023 CBC W Auto Diffe renti al panel - Blood lymphocytes [#/volume] in blood 3.6 text: 1.00 - 4.80 x10'3/ uL ABS. LYMPH OCYTE S 3.60 1.00 - 4.80 x10'3 /uL 09/25 7:26 AM CDT [facility] Not Available Not Available 05/16/2024 10:08:24 09/26/19 24 09/26/2023 CBC W Auto Diffe renti al panel - Blood monocytes [#/volume] in blood 0.47 text: 0.24 - 0.86 x10'3/ uL ABS. MONOC YTES 0.47 0.24 - 0.86 x10'3 /uL 09/25 7:26 AM CDT [facility] Not Available Not Available 05/16/2024 10:08:24 09/26/19 24 09/26/2023 CBC W Auto Diffe renti al panel - Blood eosinophils [#/volume] in blood 0.37 text: 0.04 - 0.36 x10'3/ uL high ABS. EOSIN OPHIL S 0.37 (H) 0.04 - 0.36 x10'3 /uL 09/25 7:26 AM CDT [facility] Not Available Not Available 05/16/2024 10:08:24 09/26/19 24 09/26/2023 CBC W Auto Diffe renti al panel - Blood basophils [#/volume] in blood 0.05 text: 0.01 - 0.08 x10'3/ uL ABS. BASOP HILS 0.05 0.01 - 0.08 x10'3 /uL 09/25 7:26 AM T [facility] Not Available Not Available 05/16/2024 10:08:24 09/26/19 24 09/26/2023 CBC W Auto Diffe renti al panel - Blood immature granulocytes [#/volume] in blood 0.06 text: 0.00 - 0.49 x10'3/ uL ABS. IMMAT URE GRANU LOCYT ES 0.06 0.00 - 0.49 x10'3 /uL 09/25 7:26 AM CDT [facility] Not Available Not Available 05/16/2024 10:08:24 09/26/19 24 09/26/2023 CBC W Auto Diffe renti al panel - Blood interpretati on and review of laboratory results Abnorm al Not Available Not Available 10:08:24 09/26/19 24 09/26/2023 Basic metab olic 2000 panel - Serum or Plasm a glucose [mass/volume ] in serum or plasma 109 text: 70 - 99 mg/dL high GLUCO SE 109 (H) 70 - 99 MG/DL 09/25 7:19 AM T [facility] Not Available Not Available 05/16/2024 10:08:24 09/26/19 24 09/26/2023 Basic metab olic 2000 panel - Serum or Plasm a urea nitrogen [mass/volume ] in serum or plasma 10 text: 7 - 18 mg/dL BUN 10 7 - 18 MG/DL 09/25 7:19 AM T [facility] Not Available Not Available 05/16/2024 10:08:24 09/26/19 24 09/26/2023 Basic metab olic 2000 panel - Serum or Plasm a creatinine [mass/volume ] in serum or plasma 0.72 text: 0.55 - 1.02 mg/dL CREAT ININE S/P/B 0.72 0.55 - 1.02 MG/DL 09/25 7:19 AM T [facility] Not Available Not Available 05/16/2024 10:08:24 09/26/19 24 09/26/2023 Basic metab olic 2000 panel - Serum or Plasm a sodium [moles/volum e] in serum or plasma 139 text: 136 - 145 mmol/L SODIU M S/P/B 139 136 - 145 MMOL/ L 09/25 7:19 AM CDT [facility] Not Available Not Available 05/16/2024 10:08:24 09/26/19 24 09/26/2023 Basic metab olic 2000 panel - Serum or Plasm a potassium [moles/volum e] in serum or plasma 3.4 text: 3.5 - 5.1 mmol/L low POTAS SIUM S/P/B 3.4 (L) 3.5 - 5.1 MMOL/ L 09/25 7:19 AM CDT [facility] Not Available Not Available 05/16/2024 10:08:24 09/26/19 24 09/26/2023 Basic metab olic 2000 panel - Serum or Plasm a chloride [moles/volum e] in serum or plasma 107 text: 100 - 108 mmol/L CHLOR SRIDHAR S/P/B 107 100 - 108 MMOL/ L 09/25 7:19 AM T [facility] Not Available Not Available 05/16/2024 10:08:24 09/26/19 24 09/26/2023 Basic metab olic 2000 panel - Serum or Plasm a carbon dioxide, total [moles/volum e] in serum or plasma 25.5 text: 21 - 32 mmol/L CO2 25.5 21 - 32 MMOL/ L 09/25 7:19 AM CDT [facility] Not Available Not Available 05/16/2024 10:08:24 09/26/19 24 09/26/2023 Basic metab olic 2000 panel - Serum or Plasm a calcium [mass/volume ] in serum or plasma 8.3 text: 8.5 - 10.1 mg/dL low CALCI UM S/P/B 8.3 (L) 8.5 - 10.1 MG/DL 09/25 7:19 AM CDT [facility] Not Available Not Available 05/16/2024 10:08:24 09/26/19 24 09/26/2023 Basic metab olic 2000 panel - Serum or Plasm a anion gap in serum or plasma 6.5 text: 5 - 15 mmol/L ANION GAP 6.5 5 - 15 MMOL/ L 09/25 7:19 AM CDT [facility] Not Available Not Available 05/16/2024 10:08:24 09/26/19 24 09/26/2023 Basic metab olic 2000 panel - Serum or Plasm a urea nitrogen/cre atinine [mass ratio] in serum or plasma 13.9 low: 6high: 26 BUN CREAT ININE RATIO 13.9 6 - 26 09/25 7:19 AM CDT [facility] Not Available Not Available 05/16/2024 10:08:24 09/26/19 24 09/26/2023 Basic metab olic 2000 panel - Serum or Plasm a glomerular filtration rate/1.73 sq M.predicted [volume rate/area] in serum, plasma or blood by creatinine-b ased formula (CKD-epi 2020) text: >90 mL/min /1.73 M2 GFR ESTIM ATE >90 >90 ML/HI N/1.7 3 M2 09/25 7:19 AM CDT [facility] Not Available Not Available 05/16/2024 10:08:24 09/26/19 24 09/26/2023 Basic metab olic 2000 panel - Serum or Plasm a interpretati on and review of laboratory results Abnorm al Not Available Not Available 10:08:24 09/26/19 24 09/27/2023 Bacte eliud ident ified in Genit al speci men by [employer] cultu re specimen source identified VAGINA L SPECIM EN SPEC DESCR IPTIO N VAGIN AL SPECI MEN 09/25 12:24 AM CDT [facility] Not Available Not Available 05/16/2024 10:08:23 09/26/19 24 09/27/2023 Bacte eliud ident ified in Genit al speci men by [employer] cultu re service comment NO SPECIA L REQUES T SPECI AL REQUE STS NO SPECI AL REQUE ST 09/25 12:24 AM CDT [facility] Not Available Not Available 05/16/2024 10:08:23 09/26/19 24 09/27/2023 Bacte eliud ident ified in Genit al speci men by [employer] cultu re microscopic observation [identifier] in specimen by gram stain NEGATI VE FOR BACTER IAL VAGINO SIS GRAM STAIN RESUL T NEGAT EZIO FOR BACTE RIAL VAGIN OSIS 09/25 6:35 AM CDT [facility] Not Available Not Available 05/16/2024 10:08:23 09/26/19 24 09/27/2023 Bacte eliud ident ified in Genit al speci men by Aer[employer] cultu re microscopic observation [identifier] in specimen by gram stain MODERA TE YEAST GRAM STAIN RESUL T MODER ATE YEAST 09/25 6:35 AM CDT [facility] Not Available Not Available 05/16/2024 10:08:23 09/26/19 24 09/27/2023 Bacte eliud ident ified in Genit al speci men by Aerob [employer] cultu re bacteria identified in specimen by culture HEAVY GROWTH OF CANDID A ALBICA NS SUSCEP TIBILT Y NOT ROUTIN ROMI PERFOR MED. SAVING ISOLAT E FOR 5 DAYS. CONTAC T MICROB IOLOGY DEPART MENT IF FURTHE R WORKUP IS INDICA HEMANTH. abnormal CULTU RE RESUL T HEAVY GROWT H OF [place] DA ALBIC ANS SUSCE PTIBI LTY NOT ROUTI LUCIO PERFO RMED. SAVIN G ISOLA TE FOR [address] MICRO BIOLO GY DEPAR TMENT IF FURTH ER CINDY P IS INDIC ATED. (A) 09/26 7:58 AM CDT [facility] Not Available Not Available 05/16/2024 10:08:23 09/26/19 24 09/27/2023 Bacte eliud ident ified in Genit al speci men by Aerob e cultu re bacteria identified in specimen by culture HEAVY GROWTH OF NORMAL EDDY PRESEN T CULTU RE RESUL T HEAVY GROWT H OF LUCIE L EDDY PRESE NT 09/26 7:58 AM CDT [facility] Not Available Not Available 05/16/2024 10:08:23 09/26/19 24 09/27/2023 Bacte eliud ident ified in Genit al speci men by Aerob e cultu re interpretati on and review of laboratory results Abnorm al Not Available Not Available 10:08:23 09/26/19 24 09/26/2023 Urina lysis dipst ick W Refle x Micro scopi c panel - Urine collection method - specimen URINE CLEAN CATCH SPECI MEN TYPE URINE CLEAN CATCH 09/24 11:28 PM CDT [facility] Not Available Not Available 05/16/2024 10:08:23 09/26/19 24 09/26/2023 Urina lysis dipst ick W Refle x Micro scopi c panel - Urine color of urine YELLOW COLOR (U) YELLO W 09/24 11:54 PM CDT [facility] Not Available Not Available 05/16/2024 10:08:23 09/26/19 24 09/26/2023 Urina lysis dipst ick W Refle x Micro scopi c panel - Urine clarity of urine TURBID TRANS PAREN CY TURBI D 09/24 11:54 PM CDT [facility] Not Available Not Available 05/16/2024 10:08:23 09/26/19 24 09/26/2023 Urina lysis dipst ick W Refle x Micro scopi c panel - Urine specific gravity of urine 1.038 low: 1.001h igh: 1.03 high SPECI FIC GRAVI TY (U) 1.038 (H) 1.001 - 1.030 09/24 11:54 PM CDT [facility] Not Available Not Available 05/16/2024 10:08:23 09/26/19 24 09/26/2023 Urina lysis dipst ick W Refle x Micro scopi c panel - Urine pH of urine 5.5 low: 5high: 9 U PH 5.5 5.0 - 9.0 09/24 11:54 PM CDT [facility] Not Available Not Available 05/16/2024 10:08:23 09/26/19 24 09/26/2023 Urina lysis dipst ick W Refle x Micro scopi c panel - Urine leukocytes [#/volume] in urine by test strip 500 text: negati ve abnormal LEUKO CYTES (U) 500 (A) NEGAT EZIO 09/24 11:54 PM CDT [facility] Not Available Not Available 05/16/2024 10:08:23 09/26/19 24 09/26/2023 Urina lysis dipst ick W Refle x Micro scopi c panel - Urine nitrite [presence] in urine NEGATI VE text: negati ve NITRI ZANDER NEGAT EZIO NEGAT EZIO 09/24 11:54 PM CDT [facility] Not Available Not Available 05/16/2024 10:08:23 09/26/19 24 09/26/2023 Urina lysis dipst ick W Refle x Micro scopi c panel - Urine protein [mass/volume ] in urine by test strip 10 text: <30 mg/dL PROTE IN RANDO M (U) 10 <30 MG/DL 09/24 11:54 PM CDT [facility] Not Available Not Available 05/16/2024 10:08:23 09/26/19 24 09/26/2023 Urina lysis dipst ick W Refle x Micro scopi c panel - Urine glucose [mass/volume ] in urine NORMAL text: normal mg/dL GLUCO SE (U) LUCIE L LUCIE L MG/DL 09/24 11:[address] [facility] Not Available Not Available 05/16/2024 10:08:23 09/26/19 24 09/26/2023 Urina lysis dipst ick W Refle x Micro scopi c panel - Urine ketones [mass/volume ] in urine by test strip NEGATI VE text: negati ve mg/dL KETON ES MG/DL (U) NEGAT EZIO NEGAT EZIO MG/DL 09/24 11:[address] [facility] Not Available Not Available 05/16/2024 10:08:23 09/26/19 24 09/26/2023 Urina lysis dipst ick W Refle x Micro scopi c panel - Urine urobilinogen [units/volum e] in urine by test strip NORMAL text: normal mg/dL UROBI LINOG EN LUCIE L LUCIE L MG/DL 09/24 11:[address] [facility] Not Available Not Available 05/16/2024 10:08:23 09/26/19 24 09/26/2023 Urina lysis dipst ick W Refle x Micro scopi c panel - Urine bilirubin.to boo [mass/volume ] in urine NEGATI VE text: negati ve mg/dL BILIR UBIN (U) NEGAT EZIO NEGAT EZIO MG/DL 09/24 11:[address] [facility] Not Available Not Available 05/16/2024 10:08:23 09/26/19 24 09/26/2023 Urina lysis dipst ick W Refle x Micro scopi c panel - Urine erythrocytes [#/volume] in urine by automated test strip NEGATI VE text: negati ve BLOOD (U) NEGAT EZIO NEGAT EZIO 09/24 11:[address] [facility] Not Available Not Available 05/16/2024 10:08:23 09/26/19 24 09/26/2023 Urina lysis dipst ick W Refle x Micro scopi c panel - Urine mucus [#/area] in urine sediment by microscopy low power field RARE text: /lpf MUCUS RARE /LPF 09/24 11:54 PM CDT [facility] Not Available Not Available 05/16/2024 10:08:23 09/26/19 24 09/26/2023 Urina lysis dipst ick W Refle x Micro scopi c panel - Urine leukocytes [#/area] in urine sediment by microscopy high power field >100 text: <6 /hpf high WBC/H PF >100 (H) <6 /HPF 09/24 11:54 PM CDT [facility] Not Available Not Available 05/16/2024 10:08:23 09/26/19 24 09/26/2023 Urina lysis dipst ick W Refle x Micro scopi c panel - Urine erythrocytes [#/area] in urine sediment by microscopy high power field 50 text: <6 /hpf high RBC/H PF 50 (H) <6 /HPF 09/24 11:54 PM CDT [facility] Not Available Not Available 05/16/2024 10:08:23 09/26/19 24 09/26/2023 Urina lysis dipst ick W Refle x Micro scopi c panel - Urine calcium oxalate crystals [#/area] in urine sediment by microscopy high power field FEW text: /hpf CA OXALA TE CRYST ALS FEW /HPF 09/24 11:54 PM CDT [facility] Not Available Not Available 05/16/2024 10:08:23 09/26/19 24 09/26/2023 Urina lysis dipst ick W Refle x Micro scopi c panel - Urine epithelial cells.squamo us [#/area] in urine sediment by microscopy high power field MODERA TE text: /hpf SQUAM OUS EPITH ELIAL S MODER ATE /HPF 09/24 11:54 PM CDT [facility] Not Available Not Available 05/16/2024 10:08:23 09/26/19 24 09/26/2023 Urina lysis dipst ick W Refle x Micro scopi c panel - Urine interpretati on and review of laboratory results Abnorm al Not Available Not Available 10:08:23 09/27/19 24 09/27/2023 Compr ehens ezio metab olic 1999 panel - Serum or Plasm a glucose [mass/volume ] in serum or plasma 140 text: 70 - 99 mg/dL high GLUCO SE 140 (H) 70 - 99 MG/DL 09/26 6:13 AM CDT [facility] Not Available Not Available 05/16/2024 10:08:24 09/27/19 24 09/27/2023 Compr ehens ezio metab olic 1999 panel - Serum or Plasm a urea nitrogen [mass/volume ] in serum or plasma 8 text: 7 - 18 mg/dL BUN 8 7 - 18 MG/DL 09/26 6:13 AM CDT [facility] Not Available Not Available 05/16/2024 10:08:24 09/27/19 24 09/27/2023 Compr ehens ezio metab olic 1999 panel - Serum or Plasm a creatinine [mass/volume ] in serum or plasma 0.78 text: 0.55 - 1.02 mg/dL CREAT ININE S/P/B 0.78 0.55 - 1.02 MG/DL 09/26 6:13 AM CDT [facility] Not Available Not Available 05/16/2024 10:08:24 09/27/19 24 09/27/2023 Compr ehens ezio metab olic 1999 panel - Serum or Plasm a sodium [moles/volum e] in serum or plasma 136 text: 136 - 145 mmol/L SODIU M S/P/B 136 136 - 145 MMOL/ L 09/26 6:13 AM CDT [facility] Not Available Not Available 05/16/2024 10:08:24 09/27/19 24 09/27/2023 Compr ehens ezio metab olic 2000 panel - Serum or Plasm a potassium [moles/volum e] in serum or plasma 4.1 text: 3.5 - 5.1 mmol/L POTAS SIUM S/P/B 4.1 3.5 - 5.1 MMOL/ L 09/26 6:13 AM CDT [facility] Not Available Not Available 05/16/2024 10:08:24 09/27/19 24 09/27/2023 Compr ehens ezio metab olic 1999 panel - Serum or Plasm a chloride [moles/volum e] in serum or plasma 106 text: 100 - 108 mmol/L CHLOR SRIDHAR S/P/B 106 100 - 108 MMOL/ L 09/26 6:13 AM CDT [facility] Not Available Not Available 05/16/2024 10:08:24 09/27/19 24 09/27/2023 Compr ehens ezio metab olic 1999 panel - Serum or Plasm a carbon dioxide, total [moles/volum e] in serum or plasma 24.9 text: 21 - 32 mmol/L CO2 24.9 21 - 32 MMOL/ L 09/26 6:[address] [facility] Not Available Not Available 05/16/2024 10:08:24 09/27/19 24 09/27/2023 Compr ehens ezio metab olic 1999 panel - Serum or Plasm a calcium [mass/volume ] in serum or plasma 8.4 text: 8.5 - 10.1 mg/dL low CALCI UM S/P/B 8.4 (L) 8.5 - 10.1 MG/DL 09/26 6:[address] [facility] Not Available Not Available 05/16/2024 10:08:24 09/27/19 24 09/27/2023 Compr ehens ezio metab olic 2000 panel - Serum or Plasm a bilirubin.to boo [mass/volume ] in serum or plasma 0.4 text: 0.2 - 1.2 mg/dL BILIR UBIN TOTAL S/P/B 0.4 0.2 - 1.2 MG/DL 09/26 6:13 AM CDT [facility] Not Available Not Available 05/16/2024 10:08:24 09/27/19 24 09/27/2023 Compr ehens ezio metab olic 1999 panel - Serum or Plasm a protein [mass/volume ] in serum or plasma 6.2 text: 6.4 - 8.2 g/dL low TOTAL PROTE IN S/P/B 6.2 (L) 6.4 - 8.2 G/DL 09/26 6:13 AM CDT [facility] Not Available Not Available 05/16/2024 10:08:24 09/27/19 24 09/27/2023 Compr ehens ezio metab olic 1999 panel - Serum or Plasm a albumin [mass/volume ] in serum or plasma 2.8 text: 3.4 - 5.0 g/dL low ALBUM IN S/P/B 2.8 (L) 3.4 - 5.0 G/DL 09/26 6:13 AM CDT [facility] Not Available Not Available 05/16/2024 10:08:24 09/27/19 24 09/27/2023 Compr ehens ezio metab olic 1999 panel - Serum or Plasm a aspartate aminotransfe rase [enzymatic activity/vol ume] in serum or plasma 14 U/L low: 15U/Lh igh: 37U/L low AST 14 (L) 15 - 37 U/L 09/26 6:13 AM CDT [facility] Not Available Not Available 05/16/2024 10:08:24 09/27/19 24 09/27/2023 Compr ehens ezio metab olic 2000 panel - Serum or Plasm a alanine aminotransfe rase [enzymatic activity/vol ume] in serum or plasma 21 U/L low: 14U/Lh igh: 55U/L ALT 21 14 - 55 U/L 09/26 6:13 AM CDT [facility] Not Available Not Available 05/16/2024 10:08:24 09/27/19 24 09/27/2023 Compr ehens ezio metab olic 2000 panel - Serum or Plasm a alkaline phosphatase [enzymatic activity/vol ume] in serum or plasma 88 U/L low: 50U/Lh igh: 136U/L ALKAL INE PHOSP HATAS E S/P/B 88 50 - 136 U/L 09/26 6:13 AM CDT [facility] Not Available Not Available 05/16/2024 10:08:24 09/27/19 24 09/27/2023 Compr ehens ezio metab olic 1999 panel - Serum or Plasm a anion gap in serum or plasma 5.1 text: 5 - 15 mmol/L ANION GAP 5.1 5 - 15 MMOL/ L 09/26 6:13 AM CDT [facility] Not Available Not Available 05/16/2024 10:08:24 09/27/19 24 09/27/2023 Compr ehens ezio metab olic 1999 panel - Serum or Plasm a urea nitrogen/cre atinine [mass ratio] in serum or plasma 10.2 low: 6high: 26 BUN CREAT ININE RATIO 10.2 6 - 26 09/26 6:13 AM CDT [facility] Not Available Not Available 05/16/2024 10:08:24 09/27/19 24 09/27/2023 Compr ehens ezio metab olic 1999 panel - Serum or Plasm a albumin/glob ulin [mass ratio] in serum or plasma 0.8 text: 1.0 - 2.0 ratio low A/G RATIO 0.8 (L) 1.0 - 2.0 RATIO 09/26 6:13 AM CDT [facility] Not Available Not Available 05/16/2024 10:08:24 09/27/19 24 09/27/2023 Compr ehens ezio metab olic 2000 panel - Serum or Plasm a glomerular filtration rate/1.73 sq M.predicted [volume rate/area] in serum, plasma or blood by creatinine-b ased formula (CKD-epi 2020) text: >90 mL/min /1.73 M2 GFR ESTIM ATE >90 >90 ML/HI N/1.7 3 M2 09/26 6:13 AM CDT [facility] Not Available Not Available 05/16/2024 10:08:24 09/27/19 24 09/27/2023 Compr desiree ezio metab olic 2000 panel - Serum or Plasm a interpretati on and review of laboratory results Abnorm al Not Available Not Available 10:08:24 09/27/19 24 09/27/2023 CBC W Auto Diffe renti al panel - Blood leukocytes [#/volume] in blood by automated count 16.47 text: 4.5 - 11.0 x10'3/ uL high WBC 16.47 (H) 4.5 - 11.0 x10'3 /uL 09/26 5:30 AM CDT [facility] Not Available Not Available 05/16/2024 10:08:24 09/27/19 24 09/27/2023 CBC W Auto Diffe renti al panel - Blood erythrocytes [#/volume] in blood by automated count 4.04 text: 4.20 - 5.40 x10'6/ uL low RBC 4.04 (L) 4.20 - 5.40 x10'6 /uL 09/26 5:30 AM CDT [facility] Not Available Not Available 05/16/2024 10:08:24 09/27/19 24 09/27/2023 CBC W Auto Diffe renti al panel - Blood hemoglobin [mass/volume ] in blood 12.4 text: 12.0 - 16.0 g/dL HGB 12.4 12.0 - 16.0 G/DL 09/26 5:30 AM CDT [facility] Not Available Not Available 05/16/2024 10:08:24 09/27/19 24 09/27/2023 CBC W Auto Diffe renti al panel - Blood hematocrit [volume fraction] of blood 37.8 % low: 38%hig h: 48% low HCT 37.8 (L) 38.0 - 48.0 % 09/26 5:30 AM CDT [facility] Not Available Not Available 05/16/2024 10:08:24 09/27/19 24 09/27/2023 CBC W Auto Diffe renti al panel - Blood MCV [entitic volume] 93.6 text: 81.0 - 99.0 fL MCV 93.6 81.0 - 99.0 FL 09/26 5:30 AM T [facility] Not Available Not Available 05/16/2024 10:08:24 09/27/19 24 09/27/2023 CBC W Auto Diffe renti al panel - Blood MCH [entitic mass] 30.7 pg low: 27pghi gh: 31pg MCH 30.7 27.0 - 31.0 PG 09/26 5:30 AM T [facility] Not Available Not Available 05/16/2024 10:08:24 09/27/19 24 09/27/2023 CBC W Auto Diffe renti al panel - Blood MCHC [mass/volume ] 32.8 text: 32.0 - 36.0 g/dL MCHC 32.8 32.0 - 36.0 G/DL 09/26 5:30 AM T [facility] Not Available Not Available 05/16/2024 10:08:24 09/27/19 24 09/27/2023 CBC W Auto Diffe renti al panel - Blood erythrocyte distribution width [entitic volume] by automated count 13.2 % low: 11.5%h igh: 14.5% RDW 13.2 11.5 - 14.5 % 09/26 5:30 AM T [facility] Not Available Not Available 05/16/2024 10:08:24 09/27/19 24 09/27/2023 CBC W Auto Diffe renti al panel - Blood platelets [#/volume] in blood 402 text: 130 - 400 x10'3/ uL high PLT 402 (H) 130 - 400 x10'3 /uL 09/26 5:30 AM T [facility] Not Available Not Available 05/16/2024 10:08:24 09/27/19 24 09/27/2023 CBC W Auto Diffe renti al panel - Blood platelet mean volume [entitic volume] in blood 10.4 text: 9.3 - 12.2 fL MPV 10.4 9.3 - 12.2 FL 09/26 5:30 AM CDT [facility] Not Available Not Available 05/16/2024 10:08:24 09/27/19 24 09/27/2023 CBC W Auto Diffe renti al panel - Blood differential cell count method - blood AUTOMA HEMANTH DIFFER ENTIAL DIFFE RENTI AL TYPE AUTOM ATED DIFFE RENTI AL 09/26 5:30 AM CDT [facility] Not Available Not Available 05/16/2024 10:08:24 09/27/19 24 09/27/2023 CBC W Auto Diffe renti al panel - Blood neutrophils/ 100 leukocytes in blood by automated count 90.9 % NEUTR OPHIL S % 90.9 % 09/26 5:30 AM CDT [facility] Not Available Not Available 05/16/2024 10:08:24 09/27/19 24 09/27/2023 CBC W Auto Diffe renti al panel - Blood lymphocytes/ 100 leukocytes in blood by automated count 6.9 % LYMPH OCYTE S % 6.9 % 09/26 5:30 AM CDT [facility] Not Available Not Available 05/16/2024 10:08:24 09/27/19 24 09/27/2023 CBC W Auto Diffe renti al panel - Blood monocytes/10 0 leukocytes in blood by automated count 1.5 % MONOC YTES % 1.5 % 09/26 5:30 AM CDT [facility] Not Available Not Available 05/16/2024 10:08:24 09/27/19 24 09/27/2023 CBC W Auto Diffe renti al panel - Blood eosinophils/ 100 leukocytes in blood by automated count 0 % EOSIN OPHIL S 0.0 % 09/26 5:30 AM CDT [facility] Not Available Not Available 05/16/2024 10:08:24 09/27/19 24 09/27/2023 CBC W Auto Diffe renti al panel - Blood basophils/10 0 leukocytes in blood by automated count 0.2 % BASOP HILS 0.2 % 09/26 5:30 AM CDT [facility] Not Available Not Available 05/16/2024 10:08:24 09/27/19 24 09/27/2023 CBC W Auto Diffe renti al panel - Blood immature granulocytes /100 leukocytes in blood by automated count 0.5 % IMMAT URE GRANS % 0.5 % 09/26 5:30 AM CDT [facility] Not Available Not Available 05/16/2024 10:08:24 09/27/19 24 09/27/2023 CBC W Auto Diffe renti al panel - Blood neutrophils [#/volume] in blood 14.98 text: 1.80 - 7.70 x10'3/ uL high ABS. NEUTR OPHIL S 14.98 (H) 1.80 - 7.70 x10'3 /uL 09/26 5:30 AM CDT [facility] Not Available Not Available 05/16/2024 10:08:24 09/27/19 24 09/27/2023 CBC W Auto Diffe renti al panel - Blood lymphocytes [#/volume] in blood 1.13 text: 1.00 - 4.80 x10'3/ uL ABS. LYMPH OCYTE S 1.13 1.00 - 4.80 x10'3 /uL 09/26 5:30 AM CDT [facility] Not Available Not Available 05/16/2024 10:08:24 09/27/19 24 09/27/2023 CBC W Auto Diffe renti al panel - Blood monocytes [#/volume] in blood 0.24 text: 0.24 - 0.86 x10'3/ uL ABS. MONOC YTES 0.24 0.24 - 0.86 x10'3 /uL 09/26 5:30 AM CDT [facility] Not Available Not Available 05/16/2024 10:08:24 09/27/19 24 09/27/2023 CBC W Auto Diffe renti al panel - Blood eosinophils [#/volume] in blood 0 text: 0.04 - 0.36 x10'3/ uL low ABS. EOSIN OPHIL S 0.00 (L) 0.04 - 0.36 x10'3 /uL 09/26 5:30 AM CDT [facility] Not Available Not Available 05/16/2024 10:08:24 09/27/19 24 09/27/2023 CBC W Auto Diffe renti al panel - Blood basophils [#/volume] in blood 0.03 text: 0.01 - 0.08 x10'3/ uL ABS. BASOP HILS 0.03 0.01 - 0.08 x10'3 /uL 09/26 5:30 AM CDT [facility] Not Available Not Available 05/16/2024 10:08:24 09/27/19 24 09/27/2023 CBC W Auto Diffe renti al panel - Blood immature granulocytes [#/volume] in blood 0.09 text: 0.00 - 0.49 x10'3/ uL ABS. IMMAT URE GRANU LOCYT ES 0.09 0.00 - 0.49 x10'3 /uL 09/26 5:30 AM CDT [facility] Not Available Not Available 05/16/2024 10:08:24 09/27/19 24 09/27/2023 CBC W Auto Diffe renti al panel - Blood interpretati on and review of laboratory results Abnorm al Not Available Not Available 10:08:24 09/27/19 24 09/27/2023 aPTT in Plate let poor plasm a by [place] assay APTT in platelet poor plasma by coagulation assay 31 text: 25.1 - 36.5 sec PTT 31.0 25.1 - 36.5 SEC 09/26 5:46 AM CDT [facility] Not Available Not Available 05/16/2024 10:08:24 09/27/19 24 09/27/2023 Proth rombi n time (PT) prothrombin time (PT) 11.3 text: 10.2 - 12.9 sec PROTI ME 11.3 10.2 - 12.9 SEC 09/26 5:46 AM CDT [facility] Not Available Not Available 05/16/2024 10:08:24 09/27/19 24 09/27/2023 Proth rombi n time (PT) INR in platelet poor plasma by coagulation assay 1 INR 1.0 09/26 5:46 AM CDT [facility] Not Available Not Available 05/16/2024 10:08:24 09/28/19 24 09/28/2023 Compr ehens ezio metab olic 1999 panel - Serum or Plasm a glucose [mass/volume ] in serum or plasma 97 text: 70 - 99 mg/dL GLUCO SE 97 70 - 99 MG/DL 09/27 7:17 AM T [facility] Not Available Not Available 05/16/2024 10:08:24 09/28/19 24 09/28/2023 Compr ehens ezio metab olic 1999 panel - Serum or Plasm a urea nitrogen [mass/volume ] in serum or plasma 15 text: 7 - 18 mg/dL BUN 15 7 - 18 MG/DL 09/27 7:17 AM CDT [facility] Not Available Not Available 05/16/2024 10:08:24 09/28/19 24 09/28/2023 Compr ehens ezio metab olic 1999 panel - Serum or Plasm a creatinine [mass/volume ] in serum or plasma 0.95 text: 0.55 - 1.02 mg/dL CREAT ININE S/P/B 0.95 0.55 - 1.02 MG/DL 09/27 7:17 AM CDT [facility] Not Available Not Available 05/16/2024 10:08:24 09/28/19 24 09/28/2023 Compr ehens ezio metab olic 2000 panel - Serum or Plasm a sodium [moles/volum e] in serum or plasma 138 text: 136 - 145 mmol/L SODIU M S/P/B 138 136 - 145 MMOL/ L 09/27 7:17 AM CDT [facility] Not Available Not Available 05/16/2024 10:08:24 09/28/19 24 09/28/2023 Compr ehens ezio metab olic 2000 panel - Serum or Plasm a potassium [moles/volum e] in serum or plasma 3.8 text: 3.5 - 5.1 mmol/L POTAS SIUM S/P/B 3.8 3.5 - 5.1 MMOL/ L 09/27 7:17 AM CDT [facility] Not Available Not Available 05/16/2024 10:08:24 09/28/19 24 09/28/2023 Compr ehens ezio metab olic 2000 panel - Serum or Plasm a chloride [moles/volum e] in serum or plasma 106 text: 100 - 108 mmol/L CHLOR SRIDHAR S/P/B 106 100 - 108 MMOL/ L 09/27 7:17 AM T [facility] Not Available Not Available 05/16/2024 10:08:24 09/28/19 24 09/28/2023 Compr ehens ezio metab olic 2000 panel - Serum or Plasm a carbon dioxide, total [moles/volum e] in serum or plasma 27 text: 21 - 32 mmol/L CO2 27.0 21 - 32 MMOL/ L 09/27 7:17 AM T [facility] Not Available Not Available 05/16/2024 10:08:24 09/28/19 24 09/28/2023 Compr ehens ezio metab olic 2000 panel - Serum or Plasm a calcium [mass/volume ] in serum or plasma 8.1 text: 8.5 - 10.1 mg/dL low CALCI UM S/P/B 8.1 (L) 8.5 - 10.1 MG/DL 09/27 7:[address] [facility] Not Available Not Available 05/16/2024 10:08:24 09/28/19 24 09/28/2023 Compr ehens ezio metab olic 2000 panel - Serum or Plasm a bilirubin.to boo [mass/volume ] in serum or plasma 0.4 text: 0.2 - 1.2 mg/dL BILIR UBIN TOTAL S/P/B 0.4 0.2 - 1.2 MG/DL 09/27 7:[address] [facility] Not Available Not Available 05/16/2024 10:08:24 09/28/19 24 09/28/2023 Compr ehens ezio metab olic 2000 panel - Serum or Plasm a protein [mass/volume ] in serum or plasma 6.3 text: 6.4 - 8.2 g/dL low TOTAL PROTE IN S/P/B 6.3 (L) 6.4 - 8.2 G/DL 09/27 7:[address] [facility] Not Available Not Available 05/16/2024 10:08:24 09/28/19 24 09/28/2023 Compr ehens ezio metab olic 2000 panel - Serum or Plasm a albumin [mass/volume ] in serum or plasma 2.9 text: 3.4 - 5.0 g/dL low ALBUM IN S/P/B 2.9 (L) 3.4 - 5.0 G/DL 09/27 7:[address] [facility] Not Available Not Available 05/16/2024 10:08:24 09/28/19 24 09/28/2023 Compr ehens ezio metab olic 2000 panel - Serum or Plasm a aspartate aminotransfe rase [enzymatic activity/vol ume] in serum or plasma 12 U/L low: 15U/Lh igh: 37U/L low AST 12 (L) 15 - 37 U/L 09/27 7:17 AM CDT [facility] Not Available Not Available 05/16/2024 10:08:24 09/28/19 24 09/28/2023 Compr ehens ezio metab olic 1999 panel - Serum or Plasm a alanine aminotransfe rase [enzymatic activity/vol ume] in serum or plasma 19 U/L low: 14U/Lh igh: 55U/L ALT 19 14 - 55 U/L 09/27 7:17 AM CDT [facility] Not Available Not Available 05/16/2024 10:08:24 09/28/19 24 09/28/2023 Compr ehens ezio metab olic 2000 panel - Serum or Plasm a alkaline phosphatase [enzymatic activity/vol ume] in serum or plasma 85 U/L low: 50U/Lh igh: 136U/L ALKAL INE PHOSP HATAS E S/P/B 85 50 - 136 U/L 09/27 7:17 AM CDT [facility] Not Available Not Available 05/16/2024 10:08:24 09/28/19 24 09/28/2023 Compr ehens ezio metab olic 2000 panel - Serum or Plasm a anion gap in serum or plasma 5 text: 5 - 15 mmol/L ANION GAP 5.0 5 - 15 MMOL/ L 09/27 7:17 AM CDT [facility] Not Available Not Available 05/16/2024 10:08:24 09/28/19 24 09/28/2023 Compr ehens ezio metab olic 2000 panel - Serum or Plasm a urea nitrogen/cre atinine [mass ratio] in serum or plasma 15.8 low: 6high: 26 BUN CREAT ININE RATIO 15.8 6 - 26 09/27 7:17 AM CDT [facility] Not Available Not Available 05/16/2024 10:08:24 09/28/19 24 09/28/2023 Compr ehens ezio metab olic 2000 panel - Serum or Plasm a albumin/glob ulin [mass ratio] in serum or plasma 0.9 text: 1.0 - 2.0 ratio low A/G RATIO 0.9 (L) 1.0 - 2.0 RATIO 09/27 7:17 AM CDT [facility] Not Available Not Available 05/16/2024 10:08:24 09/28/19 24 09/28/2023 Compr ehens ezio metab olic 2000 panel - Serum or Plasm a glomerular filtration rate/1.73 sq M.predicted [volume rate/area] in serum, plasma or blood by creatinine-b ased formula (CKD-epi 2020) 74 text: >90 mL/min /1.73 M2 low GFR ESTIM ATE 74 (L) >90 ML/HI N/1.7 3 M2 09/27 7:17 AM CDT [facility] Not Available Not Available 05/16/2024 10:08:24 09/28/19 24 09/28/2023 Compr ehens ezio metab olic 2000 panel - Serum or Plasm a interpretati on and review of laboratory results Abnorm al Not Available Not Available 10:08:24 09/28/19 24 09/28/2023 CBC W Auto Diffe renti al panel - Blood leukocytes [#/volume] in blood by automated count 13.93 text: 4.5 - 11.0 x10'3/ uL high WBC 13.93 (H) 4.5 - 11.0 x10'3 /uL 09/27 6:45 AM CDT [facility] Not Available Not Available 05/16/2024 10:08:24 09/28/19 24 09/28/2023 CBC W Auto Diffe renti al panel - Blood erythrocytes [#/volume] in blood by automated count 3.97 text: 4.20 - 5.40 x10'6/ uL low RBC 3.97 (L) 4.20 - 5.40 x10'6 /uL 09/27 6:45 AM CDT [facility] Not Available Not Available 05/16/2024 10:08:24 09/28/19 24 09/28/2023 CBC W Auto Diffe renti al panel - Blood hemoglobin [mass/volume ] in blood 12.3 text: 12.0 - 16.0 g/dL HGB 12.3 12.0 - 16.0 G/DL 09/27 6:[address] [facility] Not Available Not Available 05/16/2024 10:08:24 09/28/19 24 09/28/2023 CBC W Auto Diffe renti al panel - Blood hematocrit [volume fraction] of blood 37.2 % low: 38%hig h: 48% low HCT 37.2 (L) 38.0 - 48.0 % 09/27 6:45 AM CDT [facility] Not Available Not Available 05/16/2024 10:08:24 09/28/19 24 09/28/2023 CBC W Auto Diffe renti al panel - Blood MCV [entitic volume] 93.7 text: 81.0 - 99.0 fL MCV 93.7 81.0 - 99.0 FL 09/27 6:[address] [facility] Not Available Not Available 05/16/2024 10:08:24 09/28/19 24 09/28/2023 CBC W Auto Diffe renti al panel - Blood MCH [entitic mass] 31 pg low: 27pghi gh: 31pg MCH 31.0 27.0 - 31.0 PG 09/27 6:45 AM CDT [facility] Not Available Not Available 05/16/2024 10:08:24 09/28/19 24 09/28/2023 CBC W Auto Diffe renti al panel - Blood MCHC [mass/volume ] 33.1 text: 32.0 - 36.0 g/dL MCHC 33.1 32.0 - 36.0 G/DL 09/27 6:[address] [facility] Not Available Not Available 05/16/2024 10:08:24 09/28/19 24 09/28/2023 CBC W Auto Diffe renti al panel - Blood erythrocyte distribution width [entitic volume] by automated count 13.4 % low: 11.5%h igh: 14.5% RDW 13.4 11.5 - 14.5 % 09/27 6:45 AM CDT [facility] Not Available Not Available 05/16/2024 10:08:24 09/28/19 24 09/28/2023 CBC W Auto Diffe renti al panel - Blood platelets [#/volume] in blood 367 text: 130 - 400 x10'3/ uL PLT 367 130 - 400 x10'3 /uL 09/27 6:45 AM CDT [facility] Not Available Not Available 05/16/2024 10:08:24 09/28/19 24 09/28/2023 CBC W Auto Diffe renti al panel - Blood platelet mean volume [entitic volume] in blood 10.3 text: 9.3 - 12.2 fL MPV 10.3 9.3 - 12.2 FL 09/27 6:45 AM CDT [facility] Not Available Not Available 05/16/2024 10:08:24 09/28/19 24 09/28/2023 CBC W Auto Diffe renti al panel - Blood differential cell count method - blood AUTOMA HEMANTH DIFFER ENTIAL DIFFE RENTI AL TYPE AUTOM ATED DIFFE RENTI AL 09/27 6:45 AM CDT [facility] Not Available Not Available 05/16/2024 10:08:24 09/28/19 24 09/28/2023 CBC W Auto Diffe renti al panel - Blood neutrophils/ 100 leukocytes in blood by automated count 70.4 % NEUTR OPHIL S % 70.4 % 09/27 6:45 AM CDT [facility] Not Available Not Available 05/16/2024 10:08:24 09/28/19 24 09/28/2023 CBC W Auto Diffe renti al panel - Blood lymphocytes/ 100 leukocytes in blood by automated count 24 % LYMPH OCYTE S % 24.0 % 09/27 6:45 AM CDT [facility] Not Available Not Available 05/16/2024 10:08:24 09/28/19 24 09/28/2023 CBC W Auto Diffe renti al panel - Blood monocytes/10 0 leukocytes in blood by automated count 3.8 % MONOC YTES % 3.8 % 09/27 6:45 AM CDT [facility] Not Available Not Available 05/16/2024 10:08:24 09/28/19 24 09/28/2023 CBC W Auto Diffe renti al panel - Blood eosinophils/ 100 leukocytes in blood by automated count 0.9 % EOSIN OPHIL S 0.9 % 09/27 6:45 AM CDT [facility] Not Available Not Available 05/16/2024 10:08:24 09/28/19 24 09/28/2023 CBC W Auto Diffe renti al panel - Blood basophils/10 0 leukocytes in blood by automated count 0.4 % BASOP HILS 0.4 % 09/27 6:45 AM CDT [facility] Not Available Not Available 05/16/2024 10:08:24 09/28/19 24 09/28/2023 CBC W Auto Diffe renti al panel - Blood immature granulocytes /100 leukocytes in blood by automated count 0.5 % IMMAT URE GRANS % 0.5 % 09/27 6:45 AM CDT [facility] Not Available Not Available 05/16/2024 10:08:24 09/28/19 24 09/28/2023 CBC W Auto Diffe renti al panel - Blood neutrophils [#/volume] in blood 9.82 text: 1.80 - 7.70 x10'3/ uL high ABS. NEUTR OPHIL S 9.82 (H) 1.80 - 7.70 x10'3 /uL 09/27 6:45 AM CDT [facility] Not Available Not Available 05/16/2024 10:08:24 09/28/19 24 09/28/2023 CBC W Auto Diffe renti al panel - Blood lymphocytes [#/volume] in blood 3.34 text: 1.00 - 4.80 x10'3/ uL ABS. LYMPH OCYTE S 3.34 1.00 - 4.80 x10'3 /uL 09/27 6:45 AM CDT [facility] Not Available Not Available 05/16/2024 10:08:24 09/28/19 24 09/28/2023 CBC W Auto Diffe renti al panel - Blood monocytes [#/volume] in blood 0.53 text: 0.24 - 0.86 x10'3/ uL ABS. MONOC YTES 0.53 0.24 - 0.86 x10'3 /uL 09/27 6:45 AM CDT [facility] Not Available Not Available 05/16/2024 10:08:24 09/28/19 24 09/28/2023 CBC W Auto Diffe renti al panel - Blood eosinophils [#/volume] in blood 0.12 text: 0.04 - 0.36 x10'3/ uL ABS. EOSIN OPHIL S 0.12 0.04 - 0.36 x10'3 /uL 09/27 6:45 AM CDT [facility] Not Available Not Available 05/16/2024 10:08:24 09/28/19 24 09/28/2023 CBC W Auto Diffe renti al panel - Blood basophils [#/volume] in blood 0.05 text: 0.01 - 0.08 x10'3/ uL ABS. BASOP HILS 0.05 0.01 - 0.08 x10'3 /uL 09/27 6:45 AM CDT [facility] Not Available Not Available 05/16/2024 10:08:24 09/28/19 24 09/28/2023 CBC W Auto Diffe renti al panel - Blood immature granulocytes [#/volume] in blood 0.07 text: 0.00 - 0.49 x10'3/ uL ABS. IMMAT URE GRANU LOCYT ES 0.07 0.00 - 0.49 x10'3 /uL 09/27 6:45 AM CDT [facility] Not Available Not Available 05/16/2024 10:08:24 09/28/19 24 09/28/2023 CBC W Auto Diffe renti al panel - Blood interpretati on and review of laboratory results Abnorm al Not Available Not Available 10:08:24 10/06/19 24 10/06/2023 Urina lysis dipst ick W Refle x Micro scopi c panel - Urine collection method - specimen URINE CLEAN CATCH SPECI MEN TYPE URINE CLEAN CATCH 10/05 8:22 AM T [facility] Not Available Not Available 05/16/2024 10:08:12 10/06/19 24 10/06/2023 Urina lysis dipst ick W Refle x Micro scopi c panel - Urine color of urine LIGHT YELLOW COLOR (U) LIGHT YELLO W 10/05 9:18 AM CDT [facility] Not Available Not Available 05/16/2024 10:08:12 10/06/19 24 10/06/2023 Urina lysis dipst ick W Refle x Micro scopi c panel - Urine clarity of urine TURBID TRANS PAREN CY TURBI D 10/05 9:18 AM CDT [facility] Not Available Not Available 05/16/2024 10:08:12 10/06/19 24 10/06/2023 Urina lysis dipst ick W Refle x Micro scopi c panel - Urine specific gravity of urine 1.014 low: 1.001h igh: 1.03 SPECI FIC GRAVI TY (U) 1.014 1.001 - 1.030 10/05 9:18 AM CDT [facility] Not Available Not Available 05/16/2024 10:08:12 10/06/19 24 10/06/2023 Urina lysis dipst ick W Refle x Micro scopi c panel - Urine pH of urine 6 low: 5high: 9 U PH 6.0 5.0 - 9.0 10/05 9:18 AM T [facility] Not Available Not Available 05/16/2024 10:08:12 10/06/19 24 10/06/2023 Urina lysis dipst ick W Refle x Micro scopi c panel - Urine leukocytes [#/volume] in urine by test strip 500 text: negati ve abnormal LEUKO CYTES (U) 500 (A) NEGAT EZIO 10/05 9:18 AM T [facility] Not Available Not Available 05/16/2024 10:08:12 10/06/19 24 10/06/2023 Urina lysis dipst ick W Refle x Micro scopi c panel - Urine nitrite [presence] in urine NEGATI VE text: negati ve NITRI ZANDER NEGAT EZIO NEGAT EZIO 10/05 9:18 AM T [facility] Not Available Not Available 05/16/2024 10:08:12 10/06/19 24 10/06/2023 Urina lysis dipst ick W Refle x Micro scopi c panel - Urine protein [mass/volume ] in urine by test strip 50 text: <30 mg/dL high PROTE IN RANDO M (U) 50 (H) <30 MG/DL 10/05 9:18 AM [facility] Not Available Not Available 05/16/2024 10:08:12 10/06/19 24 10/06/2023 Urina lysis dipst ick W Refle x Micro scopi c panel - Urine glucose [mass/volume ] in urine NORMAL text: normal mg/dL GLUCO SE (U) LUCIE L LUCIE L MG/DL 10/05 9:18 AM T [facility] Not Available Not Available 05/16/2024 10:08:12 10/06/19 24 10/06/2023 Urina lysis dipst ick W Refle x Micro scopi c panel - Urine ketones [mass/volume ] in urine by test strip NEGATI VE text: negati ve mg/dL KETON ES MG/DL (U) NEGAT EZIO NEGAT EZIO MG/DL 10/05 9:[address] [facility] Not Available Not Available 05/16/2024 10:08:12 10/06/19 24 10/06/2023 Urina lysis dipst ick W Refle x Micro scopi c panel - Urine urobilinogen [units/volum e] in urine by test strip NORMAL text: normal mg/dL UROBI LINOG EN LUCIE L LUCIE L MG/DL 10/05 9:[address] [facility] Not Available Not Available 05/16/2024 10:08:12 10/06/19 24 10/06/2023 Urina lysis dipst ick W Refle x Micro scopi c panel - Urine bilirubin.to boo [mass/volume ] in urine NEGATI VE text: negati ve mg/dL BILIR UBIN (U) NEGAT EZIO NEGAT EZIO MG/DL 10/05 9:[address] [facility] Not Available Not Available 05/16/2024 10:08:12 10/06/19 24 10/06/2023 Urina lysis dipst ick W Refle x Micro scopi c panel - Urine erythrocytes [#/volume] in urine by automated test strip 3+ text: negati ve abnormal BLOOD (U) 3+ (A) NEGAT EZIO 10/05 9:[address] [facility] Not Available Not Available 05/16/2024 10:08:12 10/06/19 24 10/06/2023 Urina lysis dipst ick W Refle x Micro scopi c panel - Urine leukocytes [#/area] in urine sediment by microscopy high power field >100 text: <6 /hpf high WBC/H PF >100 (H) <6 /HPF 10/05 9:18 AM CDT [facility] Not Available Not Available 05/16/2024 10:08:12 10/06/19 24 10/06/2023 Urina lysis dipst ick W Refle x Micro scopi c panel - Urine erythrocytes [#/area] in urine sediment by microscopy high power field >100 text: <6 /hpf high RBC/H PF >100 (H) <6 /HPF 10/05 9:18 AM CDT [facility] Not Available Not Available 05/16/2024 10:08:12 10/06/19 24 10/06/2023 Urina lysis dipst ick W Refle x Micro scopi c panel - Urine yeast.buddin g [#/area] in urine sediment by microscopy high power field RARE text: none /hpf abnormal BUDDI NG YEAST RARE (A) NONE /HPF 10/05 9:18 AM CDT [facility] Not Available Not Available 05/16/2024 10:08:12 10/06/19 24 10/06/2023 Urina lysis dipst ick W Refle x Micro scopi c panel - Urine epithelial cells.squamo us [#/area] in urine sediment by microscopy high power field RARE text: /hpf SQUAM OUS EPITH ELIAL S RARE /HPF 10/05 9:18 AM T [facility] Not Available Not Available 05/16/2024 10:08:12 10/06/19 24 10/06/2023 Urina lysis dipst ick W Refle x Micro scopi c panel - Urine interpretati on and review of laboratory results Abnorm al Not Available Not Available 10:08:12 12/11/19 24 12/11/2023 Lipas e [Enzy matic activ ity/v olume ] in Serum or Plasm a lipase [enzymatic activity/vol ume] in serum or plasma 36 text: 13 - 75 units/ L Not Available Not Available 08/17/2024 14:09:34 12/11/19 24 12/11/2023 Compr ehens ezio metab olic 2000 panel - Serum or Plasm a glucose [mass/volume ] in serum or plasma 102 text: 70 - 99 mg/dL high Not Available Not Available 08/17/2024 14:09:34 12/11/19 24 12/11/2023 [facility] Lipocalyxe Gynzy 1999 panel - Serum or Plasm a urea nitrogen [mass/volume ] in serum or plasma 13 text: 7 - 18 mg/dL Not Available Not Available 08/17/2024 14:09:34 12/11/19 24 12/11/2023 [facility] ChartITright 1999 panel - Serum or Plasm a creatinine [mass/volume ] in serum or plasma 0.81 text: 0.55 - 1.02 mg/dL Not Available Not Available 08/17/2024 14:09:34 12/11/1912/11/2023 [facility] ChartITright 1999 panel - Serum or Plasm a sodium [moles/volum e] in serum or plasma 139 text: 136 - 145 mmol/L Not Available Not Available 08/17/2024 14:09:34 12/11/19 24 12/11/2023 [facility] [employer]ITright 1999 panel - Serum or Plasm a potassium [moles/volum e] in serum or plasma 3.6 text: 3.5 - 5.1 mmol/L Not Available Not Available 08/17/2024 14:09:34 12/11/19 24 12/11/2023 [facility] [employer]ITright 1999 panel - Serum or Plasm a chloride [moles/volum e] in serum or plasma 105 text: 97 - 115 mmol/L Not Available Not Available 08/17/2024 14:09:34 12/11/19 24 12/11/2023 [facility] [employer]IT[employer] 1999 panel - Serum or Plasm a carbon dioxide, total [moles/volum e] in serum or plasma 29.4 text: 21 - 32 mmol/L Not Available Not Available 08/17/2024 14:09:34 12/11/19 24 12/11/2023 [facility] [employer]ITright 1999 panel - Serum or Plasm a calcium [mass/volume ] in serum or plasma 8.6 text: 8.5 - 10.1 mg/dL Not Available Not Available 08/17/2024 14:09:34 12/11/19 24 12/11/2023 Compr [employer] ezio metab olic 1999 panel - Serum or Plasm a bilirubin.to boo [mass/volume ] in serum or plasma 0.4 text: 0.2 - 1.2 mg/dL THIS ASSAY IS NOT RECOM JORDI D FOR PATIE NTS UNDER GOING TREAT MENT WITH ELTRO MBOPA G DUE TO THE POTEN TIAL FOR FALSE LY ELEVA HEMANTH RESUL TS. Not Available Not Available 08/17/2024 14:09:34 12/11/19 24 12/11/2023 Compr ehens ezio metab olic 1999 panel - Serum or Plasm a protein [mass/volume ] in serum or plasma 7 text: 6.4 - 8.2 g/dL Not Available Not Available 08/17/2024 14:09:34 12/11/19 24 12/11/2023 Compr ehens ezio metab olic 1999 panel - Serum or Plasm a albumin [mass/volume ] in serum or plasma 3.1 text: 3.4 - 5.0 g/dL low Not Available Not Available 08/17/2024 14:09:34 12/11/19 24 12/11/2023 Compr ehens ezio metab olic 1999 panel - Serum or Plasm a aspartate aminotransfe rase [enzymatic activity/vol ume] in serum or plasma 10 U/L low: 15U/Lh igh: 37U/L low Not Available Not Available 08/17/2024 14:09:34 12/11/19 24 12/11/2023 Compr ehens ezio metab olic 1999 panel - Serum or Plasm a alanine aminotransfe rase [enzymatic activity/vol ume] in serum or plasma 13 U/L low: 14U/Lh igh: 55U/L low Not Available Not Available 08/17/2024 14:09:34 12/11/19 24 12/11/2023 Compr ehens ezio metab olic 1999 panel - Serum or Plasm a alkaline phosphatase [enzymatic activity/vol ume] in serum or plasma 106 U/L low: 50U/Lh igh: 136U/L Not Available Not Available 08/17/2024 14:09:34 12/11/19 24 12/11/2023 Compr ehens ezio metab olic 1999 panel - Serum or Plasm a anion gap in serum or plasma by calculation 4.6 text: 2 - 10 mmol/L Not Available Not Available 08/17/2024 14:09:34 12/11/19 24 12/11/2023 Compr ehens ezio metab olic 1999 panel - Serum or Plasm a urea nitrogen/cre atinine [mass ratio] in serum or plasma 16.1 low: 6high: 26 Not Available Not Available 08/17/2024 14:09:34 12/11/19 24 12/11/2023 Compr ehens ezio metab olic 1999 panel - Serum or Plasm a albumin/glob ulin [mass ratio] in serum or plasma 0.8 text: 1.0 - 2.0 ratio low Not Available Not Available 08/17/2024 14:09:34 12/11/19 24 12/11/2023 Compr ehens ezio metab olic 1999 panel - Serum or Plasm a glomerular filtration rate [volume rate/area] in serum, plasma or blood by creatinine-b ased formula (CKD-epi 2020)/1.73 sq M 89 text: >90 mL/min /1.73 M2 low NOTE: eGFR is not calcu lated for patie nts <18 years of age or gende r unkno wn. This is an estim ated GFR calcu latio n using the new CKD EPI creat inine equat ion witho ut race and so does not requi re a corre ction facto r for race. This estim ated GFR shoul d not be used for calcu latin g drug doses . Not Available Not Available 08/17/2024 14:09:34 12/11/19 24 12/11/2023 Compr [employer] ezio metab olic 1999 panel - Serum or Plasm a interpretati on and review of laboratory results Abnorm al Not Available Not Available 14:09:34 12/11/19 24 12/11/2023 CBC W Auto Diffe renti al panel - Blood leukocytes [#/volume] in blood by automated count 6.69 text: 4.5 - 11.0 x10'3/ uL Not Available Not Available 08/17/2024 14:09:34 12/11/19 24 12/11/2023 CBC W Auto Diffe renti al panel - Blood erythrocytes [#/volume] in blood by automated count 4.03 text: 4.20 - 5.40 x10'6/ uL low Not Available Not Available 08/17/2024 14:09:34 12/11/19 24 12/11/2023 CBC W Auto Diffe renti al panel - Blood hemoglobin [mass/volume ] in blood 12.6 text: 12.0 - 16.0 g/dL Not Available Not Available 08/17/2024 14:09:34 12/11/19 24 12/11/2023 CBC W Auto Diffe renti al panel - Blood hematocrit [volume fraction] of blood by calculation 37.8 % low: 38%hig h: 48% low Not Available Not Available 08/17/2024 14:09:34 12/11/19 24 12/11/2023 CBC W Auto Diffe renti al panel - Blood MCV [entitic mean volume] in red blood cells 93.8 text: 81.0 - 99.0 fL Not Available Not Available 08/17/2024 14:09:34 12/11/19 24 12/11/2023 CBC W Auto Diffe renti al panel - Blood MCH [entitic mass] 31.3 pg low: 27pghi gh: 31pg high Not Available Not Available 08/17/2024 14:09:34 12/11/19 24 12/11/2023 CBC W Auto Diffe renti al panel - Blood MCHC [entitic mass/volume] in red blood cells 33.3 text: 32.0 - 36.0 g/dL Not Available Not Available 08/17/2024 14:09:34 12/11/19 24 12/11/2023 CBC W Auto Diffe renti al panel - Blood RDW 13.2 % low: 11.5%h igh: 14.5% Not Available Not Available 08/17/2024 14:09:34 12/11/19 24 12/11/2023 CBC W Auto Diffe renti al panel - Blood platelets [#/volume] in blood 395 text: 130 - 400 x10'3/ uL Not Available Not Available 08/17/2024 14:09:34 12/11/19 24 12/11/2023 CBC W Auto Diffe renti al panel - Blood platelet [entitic mean volume] in blood 9.7 text: 9.3 - 12.2 fL Not Available Not Available 08/17/2024 14:09:34 12/11/19 24 12/11/2023 CBC W Auto Diffe renti al panel - Blood differential cell count method - blood AUTOMA HEMANTH DIFFER ENTIAL Not Available Not Available 14:09:34 12/11/19 24 12/11/2023 CBC W Auto Diffe renti al panel - Blood neutrophils/ leukocytes in blood by automated count 61.8 % Not Available Not Available 08/07 14:09:34 12/11/19 24 12/11/2023 CBC W Auto Diffe renti al panel - Blood lymphocytes/ leukocytes in blood by automated count 29.3 % Not Available Not Available 08/07 14:09:34 12/11/1912/11/2023 CBC W Auto Diffe renti al panel - Blood monocytes/le ukocytes in blood by automated count 5.5 % Not Available Not Available 08/07 14:09:34 12/11/1912/11/2023 CBC W Auto Diffe renti al panel - Blood eosinophils/ leukocytes in blood by automated count 2.5 % Not Available Not Available 08/07 14:09:34 12/11/1912/11/2023 CBC W Auto Diffe renti al panel - Blood basophils/le ukocytes in blood by automated count 0.6 % Not Available Not Available 08/07 14:09:34 12/11/19 24 12/11/2023 CBC W Auto Diffe renti al panel - Blood immature granulocytes /leukocytes in blood by automated count 0.3 % Not Available Not Available 08/07 14:09:34 12/11/1912/11/2023 CBC W Auto Diffe renti al panel - Blood neutrophils [#/volume] in blood 4.13 text: 1.80 - 7.70 x10'3/ uL Not Available Not Available 08/17/2024 14:09:34 12/11/19 24 12/11/2023 CBC W Auto Diffe renti al panel - Blood lymphocytes [#/volume] in blood 1.96 text: 1.00 - 4.80 x10'3/ uL Not Available Not Available 08/17/2024 14:09:34 10/04/20 24 12/11/2023 CBC W Auto Diffe renti al panel - Blood monocytes [#/volume] in blood 0.37 text: 0.24 - 0.86 x10'3/ uL Not Available Not Available 08/17/2024 14:09:34 12/11/19 24 12/11/2023 CBC W Auto Diffe renti al panel - Blood eosinophils [#/volume] in blood 0.17 text: 0.04 - 0.36 x10'3/ uL Not Available Not Available 08/17/2024 14:09:34 12/11/19 24 12/11/2023 CBC W Auto Diffe renti al panel - Blood basophils [#/volume] in blood 0.04 text: 0.01 - 0.08 x10'3/ uL Not Available Not Available 08/17/2024 14:09:34 12/11/19 24 12/11/2023 CBC W Auto Diffe renti al panel - Blood immature granulocytes [#/volume] in blood 0.02 text: 0.00 - 0.49 x10'3/ uL Not Available Not Available 08/17/2024 14:09:34 12/11/19 24 12/11/2023 CBC W Auto Diffe renti al panel - Blood interpretati on and review of laboratory results Abnorm al Not Available Not Available 14:09:34 12/11/19 24 12/13/2023 Bacte eliud ident ified in Urine by Cultu re specimen source identified URINE CLEAN CATCH Not Available Not Available 14:09:33 12/11/19 24 12/13/2023 Bacte eliud ident ified in Urine by Cultu re service comment NO SPECIA L REQUES T Not Available Not Available 14:09:33 12/11/19 24 12/13/2023 Bacte eliud ident ified in Urine by Cultu re bacteria identified in specimen by culture >100,0 00 COL/ML ESCHER ICHIA COLI abnormal Not Available Not Available 14:09:33 12/11/19 24 12/13/2023 Bacte eliud ident ified in Urine by Cultu re interpretati on and review of laboratory results Abnorm al Not Available Not Available 14:09:33 12/11/19 24 12/11/2023 Urina lysis dipst ick W Refle x Micro scopi c panel - Urine collection method - specimen URINE CLEAN CATCH Not Available Not Available 14:09:33 12/11/19 24 12/11/2023 Urina lysis dipst ick W Refle x Micro scopi c panel - Urine color of urine LIGHT YELLOW Not Available Not Available 14:09:33 12/11/19 24 12/11/2023 Urina lysis dipst ick W Refle x Micro scopi c panel - Urine clarity of urine TURBID Not Available Not Available 08/07 14:09:33 12/11/1912/11/2023 Urina lysis dipst ick W Refle x Micro scopi c panel - Urine specific gravity of urine 1.007 low: 1.001h igh: 1.03 Not Available Not Available 08/17/2024 14:09:33 12/11/19 24 12/11/2023 Urina lysis dipst ick W Refle x Micro scopi c panel - Urine pH of urine 5.5 low: 5high: 9 Not Available Not Available 08/17/2024 14:09:33 12/11/19 24 12/11/2023 Urina lysis dipst ick W Refle x Micro scopi c panel - Urine leukocytes [#/volume] in urine by test strip 500 text: negati ve abnormal Not Available Not Available 08/17/2024 14:09:33 12/11/19 24 12/11/2023 Urina lysis dipst ick W Refle x Micro scopi c panel - Urine nitrite [presence] in urine 2+ text: negati ve abnormal Not Available Not Available 08/17/2024 14:09:33 12/11/19 24 12/11/2023 Urina lysis dipst ick W Refle x Micro scopi c panel - Urine protein [mass/volume ] in urine by test strip 10 text: <30 mg/dL Not Available Not Available 08/17/2024 14:09:33 12/11/19 24 12/11/2023 Urina lysis dipst ick W Refle x Micro scopi c panel - Urine glucose [mass/volume ] in urine NORMAL text: normal mg/dL Not Available Not Available 08/17/2024 14:09:33 12/11/19 24 12/11/2023 Urina lysis dipst ick W Refle x Micro scopi c panel - Urine ketones [mass/volume ] in urine by test strip NEGATI VE text: negati ve mg/dL Not Available Not Available 08/17/2024 14:09:33 12/11/19 24 12/11/2023 Urina lysis dipst ick W Refle x Micro scopi c panel - Urine urobilinogen [units/volum e] in urine by test strip NORMAL text: normal mg/dL Not Available Not Available 08/17/2024 14:09:33 12/11/1912/11/2023 Urina lysis dipst ick W Refle x Micro scopi c panel - Urine bilirubin.to boo [mass/volume ] in urine NEGATI VE text: negati ve mg/dL Not Available Not Available 08/17/2024 14:09:33 12/11/19 24 12/11/2023 Urina lysis dipst ick W Refle x Micro scopi c panel - Urine erythrocytes [#/volume] in urine by automated test strip 2+ text: negati ve abnormal Not Available Not Available 08/17/2024 14:09:33 12/11/19 24 12/11/2023 Urina lysis dipst ick W Refle x Micro scopi c panel - Urine leukocytes [#/area] in urine sediment by microscopy high power field >100 text: <6 /hpf high Not Available Not Available 08/17/2024 14:09:33 12/11/19 24 12/11/2023 Urina lysis dipst ick W Refle x Micro scopi c panel - Urine erythrocytes [#/area] in urine sediment by microscopy high power field 19 text: <6 /hpf high Not Available Not Available 08/17/2024 14:09:33 12/11/19 24 12/11/2023 Urina lysis dipst ick W Refle x Micro scopi c panel - Urine bacteria [#/area] in urine sediment by microscopy high power field MANY text: none /hpf abnormal Not Available Not Available 08/17/2024 14:09:33 12/11/19 24 12/11/2023 Urina lysis dipst ick W Refle x Micro scopi c panel - Urine epithelial cells.squamo us [#/area] in urine sediment by microscopy high power field RARE text: /hpf Not Available Not Available 08/17/2024 14:09:33 12/11/19 24 12/11/2023 Urina lysis dipst ick W Refle x Micro scopi c panel - Urine interpretati on and review of laboratory results Abnorm al Not Available Not Available 14:09:33 12/12/19 24 12/12/2023 Basic metab olic 1999 panel - Serum or Plasm a glucose [mass/volume ] in serum or plasma 110 text: 70 - 99 mg/dL high Not Available Not Available 08/17/2024 14:09:34 12/12/19 24 12/12/2023 Basic metab olic 1999 panel - Serum or Plasm a urea nitrogen [mass/volume ] in serum or plasma 14 text: 7 - 18 mg/dL Not Available Not Available 08/17/2024 14:09:34 12/12/19 24 12/12/2023 Basic metab olic 1999 panel - Serum or Plasm a creatinine [mass/volume ] in serum or plasma 0.79 text: 0.55 - 1.02 mg/dL Not Available Not Available 08/17/2024 14:09:34 12/12/19 24 12/12/2023 Basic metab olic 1999 panel - Serum or Plasm a sodium [moles/volum e] in serum or plasma 139 text: 136 - 145 mmol/L Not Available Not Available 08/17/2024 14:09:34 12/12/19 24 12/12/2023 Basic metab olic 1999 panel - Serum or Plasm a potassium [moles/volum e] in serum or plasma 3.7 text: 3.5 - 5.1 mmol/L Not Available Not Available 08/17/2024 14:09:34 12/12/19 24 12/12/2023 Basic metab olic 2000 panel - Serum or Plasm a chloride [moles/volum e] in serum or plasma 107 text: 97 - 115 mmol/L Not Available Not Available 08/17/2024 14:09:34 12/12/19 24 12/12/2023 Basic metab olic 2000 panel - Serum or Plasm a carbon dioxide, total [moles/volum e] in serum or plasma 28.7 text: 21 - 32 mmol/L Not Available Not Available 08/17/2024 14:09:34 12/12/19 24 12/12/2023 [facility] 1999 panel - Serum or Plasm a calcium [mass/volume ] in serum or plasma 8.3 text: 8.5 - 10.1 mg/dL low Not Available Not Available 08/17/2024 14:09:34 12/12/19 24 12/12/2023 [facility] 1999 panel - Serum or Plasm a anion gap in serum or plasma by calculation 3.3 text: 2 - 10 mmol/L Not Available Not Available 08/17/2024 14:09:34 12/12/1912/12/2023 [facility] - Serum or Plasm a urea nitrogen/cre atinine [mass ratio] in serum or plasma 17.7 low: 6high: 26 Not Available Not Available 08/17/2024 14:09:34 12/12/19 24 12/12/2023 [facility] 1999 panel - Serum or Plasm a glomerular filtration rate [volume rate/area] in serum, plasma or blood by creatinine-b ased formula (CKD-epi 2020)/1.73 sq M >90 text: >90 mL/min /1.73 M2 NOTE: eGFR is not calcu lated for patie nts <18 years of age or gende r unkno wn. This is an estim ated GFR calcu latio n using the new CKD EPI creat inine equat ion witho ut race and so does not requi re a corre ction facto r for race. This estim ated GFR shoul d not be used for calcu latin g drug doses . Not Available Not Available 08/17/2024 14:09:34 12/12/19 24 12/12/2023 [facility] 1999 panel - Serum or Plasm a interpretati on and review of laboratory results Abnorm al Not Available Not Available 14:09:34 12/12/19 24 12/12/2023 CBC W Auto Diffe renti al panel - Blood leukocytes [#/volume] in blood by automated count 10.6 text: 4.5 - 11.0 x10'3/ uL Not Available Not Available 08/17/2024 14:09:34 12/12/19 24 12/12/2023 CBC W Auto Diffe renti al panel - Blood erythrocytes [#/volume] in blood by automated count 3.86 text: 4.20 - 5.40 x10'6/ uL low Not Available Not Available 08/17/2024 14:09:34 12/12/19 24 12/12/2023 CBC W Auto Diffe renti al panel - Blood hemoglobin [mass/volume ] in blood 12 text: 12.0 - 16.0 g/dL Not Available Not Available 08/17/2024 14:09:34 12/12/19 24 12/12/2023 CBC W Auto Diffe renti al panel - Blood hematocrit [volume fraction] of blood by calculation 36.7 % low: 38%hig h: 48% low Not Available Not Available 08/17/2024 14:09:34 12/12/19 24 12/12/2023 CBC W Auto Diffe renti al panel - Blood MCV [entitic mean volume] in red blood cells 95.1 text: 81.0 - 99.0 fL Not Available Not Available 08/17/2024 14:09:34 12/12/19 24 12/12/2023 CBC W Auto Diffe renti al panel - Blood MCH [entitic mass] 31.1 pg low: 27pghi gh: 31pg high Not Available Not Available 08/17/2024 14:09:34 12/12/19 24 12/12/2023 CBC W Auto Diffe renti al panel - Blood MCHC [entitic mass/volume] in red blood cells 32.7 text: 32.0 - 36.0 g/dL Not Available Not Available 08/17/2024 14:09:34 12/12/19 24 12/12/2023 CBC W Auto Diffe renti al panel - Blood RDW 13.5 % low: 11.5%h igh: 14.5% Not Available Not Available 08/17/2024 14:09:34 12/12/19 24 12/12/2023 CBC W Auto Diffe renti al panel - Blood platelets [#/volume] in blood 386 text: 130 - 400 x10'3/ uL Not Available Not Available 08/17/2024 14:09:34 12/12/19 24 12/12/2023 CBC W Auto Diffe renti al panel - Blood platelet [entitic mean volume] in blood 9.9 text: 9.3 - 12.2 fL Not Available Not Available 08/17/2024 14:09:34 12/12/19 24 12/12/2023 CBC W Auto Diffe renti al panel - Blood differential cell count method - blood AUTOMA HEMANTH DIFFER ENTIAL Not Available Not Available 14:09:34 12/12/1912/12/2023 CBC W Auto Diffe renti al panel - Blood neutrophils/ leukocytes in blood by automated count 65 % Not Available Not Available 08/07 14:09:34 12/12/19 24 12/12/2023 CBC W Auto Diffe renti al panel - Blood lymphocytes/ leukocytes in blood by automated count 26.7 % Not Available Not Available 08/07 14:09:34 12/12/1912/12/2023 CBC W Auto Diffe renti al panel - Blood monocytes/le ukocytes in blood by automated count 4.7 % Not Available Not Available 08/07 14:09:34 12/12/1912/12/2023 CBC W Auto Diffe renti al panel - Blood eosinophils/ leukocytes in blood by automated count 2.7 % Not Available Not Available 08/07 14:09:34 12/12/19 24 12/12/2023 CBC W Auto Diffe renti al panel - Blood basophils/le ukocytes in blood by automated count 0.6 % Not Available Not Available 08/07 14:09:34 12/12/19 24 12/12/2023 CBC W Auto Diffe renti al panel - Blood immature granulocytes /leukocytes in blood by automated count 0.3 % Not Available Not Available 08/07 14:09:34 12/12/19 24 12/12/2023 CBC W Auto Diffe renti al panel - Blood neutrophils [#/volume] in blood 6.89 text: 1.80 - 7.70 x10'3/ uL Not Available Not Available 08/17/2024 14:09:34 12/12/1930 1212/12/2023 CBC W Auto Diffe renti al panel - Blood lymphocytes [#/volume] in blood 2.83 text: 1.00 - 4.80 x10'3/ uL Not Available Not Available 08/17/2024 14:09:34 12/12/19 24 12/12/2023 CBC W Auto Diffe renti al panel - Blood monocytes [#/volume] in blood 0.5 text: 0.24 - 0.86 x10'3/ uL Not Available Not Available 08/17/2024 14:09:34 12/12/19 24 12/12/2023 CBC W Auto Diffe renti al panel - Blood eosinophils [#/volume] in blood 0.29 text: 0.04 - 0.36 x10'3/ uL Not Available Not Available 08/17/2024 14:09:34 12/12/19 24 12/12/2023 CBC W Auto Diffe renti al panel - Blood basophils [#/volume] in blood 0.06 text: 0.01 - 0.08 x10'3/ uL Not Available Not Available 08/17/2024 14:09:34 12/12/19 24 12/12/2023 CBC W Auto Diffe renti al panel - Blood immature granulocytes [#/volume] in blood 0.03 text: 0.00 - 0.49 x10'3/ uL Not Available Not Available 08/17/2024 14:09:34 12/12/19 24 12/12/2023 CBC W Auto Diffe renti al panel - Blood interpretati on and review of laboratory results Abnorm al Not Available Not Available 14:09:34 12/12/1912/14/2023 [facility] 1996 panel - Serum or Plasm a cholesterol [mass/volume ] in serum or plasma 170 text: <200 mg/dL Not Available Not Available 08/17/2024 14:09:34 12/12/1912/14/2023 Lipid 1996 panel - Serum or Plasm a triglyceride [mass/volume ] in serum or plasma 378 text: <150 mg/dL high Not Available Not Available 08/17/2024 14:09:34 12/12/19 24 12/14/2023 Lipid 1996 panel - Serum or Plasm a cholesterol in HDL [mass/volume ] in serum or plasma 41 text: >40.0 mg/dL Not Available Not Available 08/17/2024 14:09:34 12/12/19 24 12/14/2023 Lipid 1996 panel - Serum or Plasm a cholesterol in LDL [mass/volume ] in serum or plasma by calculation 53 text: <100 mg/dL Not Available Not Available 08/17/2024 14:09:34 12/12/19 24 12/14/2023 Lipid 1996 panel - Serum or Plasm a cholesterol non HDL [mass/volume ] in serum or plasma 129 text: <130 mg/dL Not Available Not Available 08/17/2024 14:09:34 12/12/19 24 12/14/2023 Lipid 1996 panel - Serum or Plasm a cholesterol. total/choles terol in HDL [mass ratio] in serum or plasma 4.1 low: 0high: 4.5 Not Available Not Available 08/17/2024 14:09:34 12/12/19 24 12/14/2023 Lipid 1996 panel - Serum or Plasm a cholesterol in VLDL [mass/volume ] in serum or plasma by calculation 76 text: 5 - 55 mg/dL high Not Available Not Available 08/17/2024 14:09:34 12/12/19 24 12/14/2023 Lipid 1996 panel - Serum or Plasm a service comment [facility] NSUS REPOR T RECOM MENDA TIONS : ADULT CHILD LOW RISK: MERRY STERO L <200 <170 TRIGL YCERI DE <150 --- HDL >=60 --- LDL <100 <110 BORDE RLINE : MERRY STERO L 200-2 39 170-1 99 TRIGL YCERI DE 150-1 99 --- HDL 40-59 --- LDL 100-1 59 110-1 29 HIGH RISK: MERRY STERO L >=240 >=200 TRIGL YCERI DE >=200 --- HDL <40 --- LDL >=160 >=130 Not Available Not Available 08/17/2024 14:09:34 12/12/19 24 12/14/2023 Lipid 1996 panel - Serum or Plasm a interpretati on and review of laboratory results Abnorm al Not Available Not Available 14:09:34 12/13/19 24 12/13/2023 Basic metab olic 2000 panel - Serum or Plasm a glucose [mass/volume ] in serum or plasma 95 text: 70 - 99 mg/dL Not Available Not Available 08/17/2024 14:09:34 12/13/19 24 12/13/2023 [facility] 1999 panel - Serum or Plasm a urea nitrogen [mass/volume ] in serum or plasma 11 text: 7 - 18 mg/dL Not Available Not Available 08/17/2024 14:09:34 12/13/19 24 12/13/2023 [facility] 1999 panel - Serum or Plasm a creatinine [mass/volume ] in serum or plasma 0.88 text: 0.55 - 1.02 mg/dL Not Available Not Available 08/17/2024 14:09:34 12/13/19 24 12/13/2023 [facility] 1999 panel - Serum or Plasm a sodium [moles/volum e] in serum or plasma 140 text: 136 - 145 mmol/L Not Available Not Available 08/17/2024 14:09:34 12/13/19 24 12/13/2023 [facility] 1999 panel - Serum or Plasm a potassium [moles/volum e] in serum or plasma 4.6 text: 3.5 - 5.1 mmol/L Not Available Not Available 08/17/2024 14:09:34 12/13/19 24 12/13/2023 [facility] 1999 panel - Serum or Plasm a chloride [moles/volum e] in serum or plasma 106 text: 97 - 115 mmol/L Not Available Not Available 08/17/2024 14:09:34 12/13/19 24 12/13/2023 [facility] 1999 panel - Serum or Plasm a carbon dioxide, total [moles/volum e] in serum or plasma 30 text: 21 - 32 mmol/L Not Available Not Available 08/17/2024 14:09:34 12/13/19 24 12/13/2023 [employer] [facility] panel - Serum or Plasm a calcium [mass/volume ] in serum or plasma 8.7 text: 8.5 - 10.1 mg/dL Not Available Not Available 08/17/2024 14:09:34 12/13/19 24 12/13/2023 [facility] 1999 panel - Serum or Plasm a anion gap in serum or plasma by calculation 4 text: 2 - 10 mmol/L Not Available Not Available 08/17/2024 14:09:34 12/13/19 24 12/13/2023 Basic metab olic 2000 panel - Serum or Plasm a urea nitrogen/cre atinine [mass ratio] in serum or plasma 12.5 low: 6high: 26 Not Available Not Available 08/17/2024 14:09:34 12/13/19 24 12/13/2023 Basic metab olic 2000 panel - Serum or Plasm a glomerular filtration rate [volume rate/area] in serum, plasma or blood by creatinine-b ased formula (CKD-epi 2020)/1.73 sq M 81 text: >90 mL/min /1.73 M2 low NOTE: eGFR is not calcu lated for patie nts <18 years of age or gende r unkno wn. This is an estim ated GFR calcu latio n using the new CKD EPI creat inine equat ion witho ut race and so does not requi re a corre ction facto r for race. This estim ated GFR shoul d not be used for calcu latin g drug doses . Not Available Not Available 08/17/2024 14:09:34 12/13/19 24 12/13/2023 Basic metab olic 2000 panel - Serum or Plasm a interpretati on and review of laboratory results Abnorm al Not Available Not Available 14:09:34 12/13/19 24 12/13/2023 CBC W Auto Diffe renti al panel - Blood leukocytes [#/volume] in blood by automated count 7.08 text: 4.5 - 11.0 x10'3/ uL Not Available Not Available 08/17/2024 14:09:34 12/13/19 24 12/13/2023 CBC W Auto Diffe renti al panel - Blood erythrocytes [#/volume] in blood by automated count 4.06 text: 4.20 - 5.40 x10'6/ uL low Not Available Not Available 08/17/2024 14:09:34 12/13/19 24 12/13/2023 CBC W Auto Diffe renti al panel - Blood hemoglobin [mass/volume ] in blood 12.6 text: 12.0 - 16.0 g/dL Not Available Not Available 08/17/2024 14:09:34 12/13/19 24 12/13/2023 CBC W Auto Diffe renti al panel - Blood hematocrit [volume fraction] of blood by calculation 38.7 % low: 38%hig h: 48% Not Available Not Available 08/17/2024 14:09:34 12/13/19 24 12/13/2023 CBC W Auto Diffe renti al panel - Blood MCV [entitic mean volume] in red blood cells 95.3 text: 81.0 - 99.0 fL Not Available Not Available 08/17/2024 14:09:34 12/13/19 24 12/13/2023 CBC W Auto Diffe renti al panel - Blood MCH [entitic mass] 31 pg low: 27pghi gh: 31pg Not Available Not Available 08/17/2024 14:09:34 12/13/19 24 12/13/2023 CBC W Auto Diffe renti al panel - Blood MCHC [entitic mass/volume] in red blood cells 32.6 text: 32.0 - 36.0 g/dL Not Available Not Available 08/17/2024 14:09:34 12/13/19 24 12/13/2023 CBC W Auto Diffe renti al panel - Blood RDW 13.3 % low: 11.5%h igh: 14.5% Not Available Not Available 08/17/2024 14:09:34 12/13/19 24 12/13/2023 CBC W Auto Diffe renti al panel - Blood platelets [#/volume] in blood 367 text: 130 - 400 x10'3/ uL Not Available Not Available 08/17/2024 14:09:34 12/13/19 24 12/13/2023 CBC W Auto Diffe renti al panel - Blood platelet [entitic mean volume] in blood 9.6 text: 9.3 - 12.2 fL Not Available Not Available 08/17/2024 14:09:34 12/13/19 24 12/13/2023 CBC W Auto Diffe renti al panel - Blood differential cell count method - blood AUTOMA HEMANTH DIFFER ENTIAL Not Available Not Available 14:09:34 12/13/19 24 12/13/2023 CBC W Auto Diffe renti al panel - Blood neutrophils/ leukocytes in blood by automated count 54.6 % Not Available Not Available 08/07 14:09:34 12/13/19 24 12/13/2023 CBC W Auto Diffe renti al panel - Blood lymphocytes/ leukocytes in blood by automated count 34.6 % Not Available Not Available 08/07 14:09:34 12/13/19 24 12/13/2023 CBC W Auto Diffe renti al panel - Blood monocytes/le ukocytes in blood by automated count 5.1 % Not Available Not Available 08/07 14:09:34 12/13/19 24 12/13/2023 CBC W Auto Diffe renti al panel - Blood eosinophils/ leukocytes in blood by automated count 4.7 % Not Available Not Available 08/07 14:09:34 12/13/19 24 12/13/2023 CBC W Auto Diffe renti al panel - Blood basophils/le ukocytes in blood by automated count 0.7 % Not Available Not Available 08/07 14:09:34 12/13/19 24 12/13/2023 CBC W Auto Diffe renti al panel - Blood immature granulocytes /leukocytes in blood by automated count 0.3 % Not Available Not Available 08/07 14:09:34 12/13/19 24 12/13/2023 CBC W Auto Diffe renti al panel - Blood neutrophils [#/volume] in blood 3.87 text: 1.80 - 7.70 x10'3/ uL Not Available Not Available 08/17/2024 14:09:34 12/13/19 24 12/13/2023 CBC W Auto Diffe renti al panel - Blood lymphocytes [#/volume] in blood 2.45 text: 1.00 - 4.80 x10'3/ uL Not Available Not Available 08/17/2024 14:09:34 12/13/19 24 12/13/2023 CBC W Auto Diffe renti al panel - Blood monocytes [#/volume] in blood 0.36 text: 0.24 - 0.86 x10'3/ uL Not Available Not Available 08/17/2024 14:09:34 12/13/19 24 12/13/2023 CBC W Auto Diffe renti al panel - Blood eosinophils [#/volume] in blood 0.33 text: 0.04 - 0.36 x10'3/ uL Not Available Not Available 08/17/2024 14:09:34 12/13/19 24 12/13/2023 CBC W Auto Diffe renti al panel - Blood basophils [#/volume] in blood 0.05 text: 0.01 - 0.08 x10'3/ uL Not Available Not Available 08/17/2024 14:09:34 12/13/19 24 12/13/2023 CBC W Auto Diffe renti al panel - Blood immature granulocytes [#/volume] in blood 0.02 text: 0.00 - 0.49 x10'3/ uL Not Available Not Available 08/17/2024 14:09:34 12/13/19 24 12/13/2023 CBC W Auto Diffe renti al panel - Blood interpretati on and review of laboratory results Abnorm al Not Available Not Available 14:09:34 12/18/19 24 12/20/2023 Bacte eliud ident ified in Urine by Cultu re bacteria identified in urine by culture <10,00 0 CFU/mL urogen ital eddy Cultu re Urine <10,0 00 CFU/m L uroge nital eddy BRINA 12/19 7:25 AM CDT [facility] Not Available Not Available 05/16/2024 10:07:58 12/24/19 24 12/26/2023 Bacte eliud ident ified in Urine by Cultu re bacteria identified in urine by culture >100,0 00 CFU/mL Yeast abnormal Cultu re Urine >100, 000 CFU/m L Yeast (A) BRINA 12/25 6:26 AM CDT [facility] Not Available Not Available 05/16/2024 10:08:01 12/24/19 24 12/26/2023 Bacte eliud ident ified in Urine by Cultu re interpretati on and review of laboratory results Abnorm al Not Available Not Available 10:08:01 12/24/19 24 12/28/2023 Tissu e Patho logy biops y repor t pathology report.secti on heading Surgic al Pathol ogy Report Case: [id number] Author izing Provid er: Alfredo Cheng MD Collec hemanth: 2023 12:03 PM Orderi ng Locati on: [facility] Receiv ed: 2023 03:03 PM Pathol ogist: Vira Alvarez MD Specim en: Calcul us, Left kidney stone Case Repor t Surgi gina Patho logy Repor t Case: [id number] Autho magen g Provi thomas: Alfredo Cheng MD Colle cted: 12/23 12:03 PM Order ing Locat ion: [facility] Recei nancie: 12/23 03:03 PM Patho logis t: Hector Carvalho MD Speci men: Calcu lavern, Left kidne y stone 12/27 10:11 AM CDT [facility] Not Available Not Available 05/16/2024 10:08:01 12/24/1912/28/2023 Tissu e Patho logy biops y repor t pathology report final diagnosis narrative Left kidney stone: - Lithia sis; chemic al analys is pendin g Final Diagn osis Left kidne y stone : - Lithi asis; chemi gina boaz sis pendi ng 12/27 10:11 AM CDT [facility] Elect clifford dumont rula d by Hector Carvalho MD on 12/27 at 10:11 AM Not Available Not Available 05/16/2024 10:08:01 12/24/1912/28/2023 Tissu e Patho logy biops y repor t pathology report relevant history narrative Kidney stone Clini gina Histo ry Kidne y stone 12/27 10:11 AM CDT [facility] Not Available Not Available 05/16/2024 10:08:01 12/24/1912/28/2023 Tissu e Patho logy biops y repor t pathology report gross observation narrative The requis ition and specim en(s) are identi fied with the patien t's name Nimco Baldwin . Receiv ed fresh, specim en A, consis ts of a 1.4 x 0.4 x 0.4 cm aggreg ate of multip le yellow -white firm irregu lar calcul i admixe d with red-br own blood clot. The specim en is for gross examin ation only and no sectio ns are submit hemanth. The entire specim en is submit hemanth to a refere jarrede seun [place] for stone analys is./BA Dani Gross Descr iptio n The requi sitio n and speci men(s ) are ident ified with the patie nt's name Nimco Baldwin . Recei nancie fresh , speci men A, consi sts of a 1.4 x 0.4 x 0[address] of multi ple yello w-whi te firm irreg ular calcu li admix ed with red-b rown blood clot. The speci men is for gross exami natio n only and no secti ons are submi tted. The entir e speci men is submi tted to a refer ence labor ashwini for stone boaz sis./ MONIQUE 12/27 10:11 AM CDT [facility] Not Available Not Available 05/16/2024 10:08:01 12/24/19 24 12/28/2023 Tissu e Patho logy biops y repor t pathologist location at [facility] Patho logis t Locat ion at [facility] 12/27 10:11 AM CDT [facility] Not Available Not Available 05/16/2024 10:08:01 12/24/1912/28/2023 Tissu e Patho logy biops y repor t service comment The perfor vanessa fabian terist ics of all immuno histoc hemica l and indire ct immuno fluore scence stains (if any) cited in this report were determ ined by the Histop shawn germain of [facility]. Some of these tests were develo ped by our own seun germain and have not been cleare d or approv ed by the [place] Food and Drug Admini strati on. The FDA does not requir e this test to go throug h premar ket FDA review . These tests are used for clinic al purpos es. They should not be regard ed as invest igatio nal or for resear ch. This labora tory is certif ied under the Clinic al Labora tory Improv ement Amendm ents (CLIA) as qualif ied to perfor m high comple xity clinic al labora tory testin g. This case has been person ally review ed and interp reted by the attend ing (teach ing) pathol ogist. Discl aimer The perfo rmanc e nerissa cteri stics of all immun ohist ochem ical and indir ect immun ofluo resce nce stain s (if any) cited in this repor t were deter mined by the Histo patho logy Labor atory of [facility] . Some of these tests were devel oped by our own labor atory and have not been clear ed or appro nancie by the [place] Food and Drug Admin istra tion. The FDA does not requi re this test to go throu gh gamaliel rket FDA revie w. These tests are used for clini gina purpo ses. They shoul d not be regar ded as inves tigat ional or for resea rch. This labor atory is certi fied under the Clini gina Labor atory Impro vemen t Amend ments (CLIA ) as quali fied to perfo rm high compl exity clini gina labor atory testi ng. This case has been perso henny revie wed and inter prete d by the atten kenia ([facility]) patho logis t. 12/27 10:11 AM CDT [facility] Not Available Not Available 05/16/2024 10:08:01 12/24/1912/28/2023 Tissu e Patho logy biops y repor t embedded images Embed ded Image s 12/27 10:11 AM CDT [facility] Not Available Not Available 05/16/2024 10:08:01 12/24/1912/24/2023 Gluco se [Mass /volu me] in Arter ial blood glucose [mass/volume ] in capillary blood by glucometer 100 mg/dL low: 70mg/d Lhigh: 115mg/ dL Gluco se WB/PO C 100 70 - 115 mg/dL 12/23 8:03 AM CDT [facility] Not Available Not Available 05/16/2024 10:08:01 12/24/1912/24/2023 Gluco se [Mass /volu me] in Arter ial blood specimen source identified Venous Speci men Type Venou s 12/23 8:03 AM CDT [facility] Not Available Not Available 05/16/2024 10:08:01 01/22/20 24 02/20/2024 Fungu s ident ified in [place] te by Cultu re microorganis m identified in specimen by culture No fungus isolat ed Cultu re No fungu s isola hemanth BRINA 02/19 2:42 PM [facility] Not Available Not Available 05/16/2024 10:09:56 01/22/20 24 02/20/2024 Fungu s ident ified in [place] te by Cultu re fungus identified in specimen by fungus stain No yeast or hyphae seen Fungu s Stain No yeast or hypha e seen 02/19 2:42 PM [facility] Not Available Not Available 05/16/2024 10:09:56 01/22/20 24 02/20/2024 Fungu s ident ified in [place] te by Cultu re interpretati on and review of laboratory results Normal Not Available Not Available 05/07 10:09:56 01/22/20 24 01/22/2024 Urina lysis panel - Urine by Auto color UA Yellow text: straw, yellow Color UA Yello w Straw , Yello w 01/21 4:52 PM [facility] Not Available Not Available 05/16/2024 10:09:56 01/22/20 24 01/22/2024 Urina lysis panel - Urine by Auto clarity UA Clear text: clear Sherley ty UA Clear Clear 01/21 4:52 PM [facility] Not Available Not Available 05/16/2024 10:09:56 01/22/20 24 01/22/2024 Urina lysis panel - Urine by Auto specific gravity UA 1.015 low: 1.005h igh: 1.03 Speci fic Gravi ty UA 1.015 1.005 - 1.030 01/21 4:52 PM [facility] Not Available Not Available 05/16/2024 10:09:56 01/22/20 24 01/22/2024 Urina lysis panel - Urine by Auto pH UA 6 pH low: 5pHhig h: 8pH pH UA 6.0 5.0 - 8.0 pH 01/21 4:52 PM [facility] Not Available Not Available 05/16/2024 10:09:56 01/22/20 24 01/22/2024 Urina lysis panel - Urine by Auto protein UA Negati ve text: negati ve Prote in UA Negat ezio Negat ezio 01/21 4:52 PM [facility] Not Available Not Available 05/16/2024 10:09:56 01/22/20 24 01/22/2024 Urina lysis panel - Urine by Auto glucose UA Negati ve text: negati ve Gluco se UA Negat ezio Negat ezio 01/21 4:52 PM [facility] Not Available Not Available 05/16/2024 10:09:56 01/22/20 24 01/22/2024 Urina lysis panel - Urine by Auto ketone UA Negati ve text: negati ve Keton e UA Negat ezio Negat ezio 01/21 4:52 PM [facility] Not Available Not Available 05/16/2024 10:09:56 01/22/20 24 01/22/2024 Urina lysis panel - Urine by Auto bilirubin UA Negati ve text: negati ve Bilir ubin UA Negat ezio Negat ezio 01/21 4:52 PM [facility] Not Available Not Available 05/16/2024 10:09:56 01/22/20 24 01/22/2024 Urina lysis panel - Urine by Auto blood UA 1+ text: negati ve abnormal Blood UA 1+ (A) Negat ezio 11/15 /2024 4:52 PM [facility] Not Available Not Available 05/16/2024 10:09:56 01/22/20 24 01/22/2024 Urina lysis panel - Urine by Auto nitrite UA Negati ve text: negati ve Nitri te UA Negat ezio Negat ezio 01/21 4:52 PM [facility] Not Available Not Available 05/16/2024 10:09:56 01/22/20 24 01/22/2024 Urina lysis panel - Urine by Auto leukocyte esterase Negati ve text: negati ve Leuko cyte Ambika ase Negat ezio Negat ezio 01/21 4:52 PM [facility] Not Available Not Available 05/16/2024 10:09:56 01/22/20 24 01/22/2024 Urina lysis panel - Urine by Auto urobilinogen UA Negati ve text: negati ve mg/dL Urobi linog en UA Negat ezio Negat ezio mg/dL 01/21 4:52 PM [facility] Not Available Not Available 05/16/2024 10:09:56 01/22/20 24 01/22/2024 Urina lysis panel - Urine by Auto RBC UA 3-5 text: none seen, 0-2, 3-5 /hpf RBC UA 3-5 None Seen, 0-2, 3-5 /HPF 01/21 4:52 PM [facility] Not Available Not Available 05/16/2024 10:09:56 01/22/20 24 01/22/2024 Urina lysis panel - Urine by Auto WBC UA 0-5 text: none seen, 0-5 /hpf WBC UA 0-5 None Seen, 0-5 /HPF 01/21 4:52 PM [facility] Not Available Not Available 05/16/2024 10:09:56 01/22/20 24 01/22/2024 Urina lysis panel - Urine by Auto squamous epithelial cells UA 3-5 text: none seen, 0-2, 3-5 /hpf Squam ous Epith elial Cells UA 3-5 None Seen, 0-2, 3-5 /HPF 01/21 4:52 PM [facility] Not Available Not Available 05/16/2024 10:09:56 01/22/20 24 01/22/2024 Urina lysis panel - Urine by Auto mucus UA 1+ text: /lpf Mucus UA 1+ /LPF 01/21 4:52 PM [facility] Not Available Not Available 05/16/2024 10:09:56 01/22/20 24 01/22/2024 Urina lysis panel - Urine by Auto Unknown Analyte Cultur e Not Indica hemanth Cultu re Not Indic ated Not Available Not Available 05/16/2024 10:09:56 01/22/20 24 01/22/2024 Urina lysis panel - Urine by Auto interpretati on and review of laboratory results Abnorm al Not Available Not Available 10:09:56 01/22/20 24 01/22/[address] [Mass /volu me] in Serum or Plasm a parathyrin.i ntact [mass/volume ] in serum or plasma 62 pg/mL low: 8pg/mL high: 77pg/m L PTH Intac t 62.0 8.0 - 77.0 pg/mL 01/21 4:53 PM [facility] Not Available Not Available 05/16/2024 10:09:56 01/22/20 24 01/22/[address] [Mass /volu me] in Serum or Plasm a interpretati on and review of laboratory results Normal Not Available Not Available 05/07 10:09:56 01/22/20 24 01/22/2024 Compr ehens ezio metab olic 1999 panel - Serum or Plasm a urea nitrogen [mass/volume ] in serum or plasma 14 mg/dL low: 7mg/dL high: 26mg/d L BUN 14 7 - 26 mg/dL 01/21 4:48 PM [facility] Not Available Not Available 05/16/2024 10:07:55 01/22/20 24 01/22/2024 Compr ehens ezio metab olic 1999 panel - Serum or Plasm a creatinine [mass/volume ] in serum or plasma 0.97 mg/dL low: 0.56mg /dLhig h: 0.96mg /dL high Creat inine 0.97 (H) 0.56 - 0.96 mg/dL 01/21 4:48 PM [facility] Not Available Not Available 05/16/2024 10:07:55 01/22/20 24 01/22/2024 Compr ehens ezio metab olic 1999 panel - Serum or Plasm a sodium [moles/volum e] in serum or plasma 140 mmol/ L low: 136mmo l/Lhig h: 145mmo l/L Sodiu m 140 136 - 145 mmol/ L 01/21 4:48 PM [facility] Not Available Not Available 05/16/2024 10:07:55 01/22/20 24 01/22/2024 Compr ehens ezio metab olic 1999 panel - Serum or Plasm a potassium [moles/volum e] in serum or plasma 3.7 mmol/ L low: 3.5mmo l/Lhig h: 4.5mmo l/L Potas sium 3.7 3.5 - 4.5 mmol/ L 01/21 4:48 PM [facility] Not Available Not Available 05/16/2024 10:07:55 01/22/20 24 01/22/2024 Compr ehens ezio metab olic 1999 panel - Serum or Plasm a chloride [moles/volum e] in serum or plasma 104 mmol/ L low: 98mmol /Lhigh : 107mmo l/L Chlor sridhar 104 98 - 107 mmol/ L 01/21 4:48 PM [facility] Not Available Not Available 05/16/2024 10:07:55 01/22/20 24 01/22/2024 Compr ehens ezio metab olic 1999 panel - Serum or Plasm a carbon dioxide, total [moles/volum e] in serum or plasma 28 mmol/ L low: 22mmol /Lhigh : 29mmol /L CO2 28 22 - 29 mmol/ L 01/21 4:48 PM [facility] Not Available Not Available 05/16/2024 10:07:55 01/22/20 24 01/22/2024 Compr ehens ezio metab olic 1999 panel - Serum or Plasm a glucose [mass/volume ] in serum or plasma 87 mg/dL low: 70mg/d Lhigh: 99mg/d L Gluco se 87 70 - 99 mg/dL 01/21 4:48 PM [facility] Not Available Not Available 05/16/2024 10:07:55 01/22/20 24 01/22/2024 Compr ehens ezio metab olic 1999 panel - Serum or Plasm a calcium [moles/volum e] in serum or plasma 9.3 mg/dL low: 8.4mg/ dLhigh : 10.2mg /dL Calci um 9.3 8.4 - 10.2 mg/dL 01/21 4:48 PM [facility] Not Available Not Available 05/16/2024 10:07:55 01/22/20 24 01/22/2024 Compr [employer] Access [employer] ezio metab olic 1999 panel - Serum or Plasm a protein [mass/volume ] in serum or plasma 6.8 g/dL low: 6g/dLh igh: 8.3g/d L Prote in Total 6.8 6.0 - 8.3 g/dL 01/21 4:48 PM [facility] Not Available Not Available 05/16/2024 10:07:55 01/22/20 24 01/22/2024 Compr [employer] ezio metab olic 1999 panel - Serum or Plasm a albumin [mass/volume ] in serum or plasma by bromocresol green (bcg) dye binding method 3.5 g/dL low: 3.4g/d Lhigh: 5g/dL Album in 3.5 3.4 - 5.0 g/dL 01/21 4:48 PM [facility] Not Available Not Available 05/16/2024 10:07:55 01/22/20 24 01/22/2024 Compr [employer] ezio metab olic 2000 panel - Serum or Plasm a bilirubin.to boo [mass/volume ] in serum or plasma 0.5 mg/dL low: 0.2mg/ dLhigh : 1.2mg/ dL Bilir ubin Total 0.5 0.2 - 1.2 mg/dL 01/21 4:48 PM [facility] Not Available Not Available 05/16/2024 10:07:55 01/22/20 24 01/22/2024 Compr ehens ezio metab olic 1999 panel - Serum or Plasm a alkaline phosphatase [enzymatic activity/vol ume] in serum or plasma 103 U/L low: 40U/Lh igh: 150U/L Alkal ine Phosp hatas e 103 40 - 150 U/L 01/21 4:48 PM [facility] Not Available Not Available 05/16/2024 10:07:55 01/22/20 24 01/22/2024 Compr ehens ezio metab olic 1999 panel - Serum or Plasm a alanine aminotransfe rase [enzymatic activity/vol ume] in serum or plasma by no addition of P-5'-P 11 U/L low: 5U/Lhi gh: 55U/L ALT 11 5 - 55 U/L 01/21 4:48 PM [facility] Not Available Not Available 05/16/2024 10:07:55 01/22/20 24 01/22/2024 Compr ehens ezio metab olic 1999 panel - Serum or Plasm a aspartate aminotransfe rase [enzymatic activity/vol ume] in serum or plasma 13 U/L low: 5U/Lhi gh: 34U/L AST 13 5 - 34 U/L 01/21 4:48 PM [facility] Not Available Not Available 05/16/2024 10:07:55 01/22/20 24 01/22/2024 Compr ehens ezio metab olic 1999 panel - Serum or Plasm a anion gap 8 low: 6high: 16 Anion Gap 8 6 - 16 01/21 4:48 PM [facility] Not Available Not Available 05/16/2024 10:07:55 01/22/20 24 01/22/2024 Compr ehens ezio metab olic 1999 panel - Serum or Plasm a urea nitrogen/cre atinine [mass ratio] in serum or plasma 14 low: 7high: 23 BUN/C reati nine Ratio 14 7 - 23 01/21 4:48 PM [facility] Not Available Not Available 05/16/2024 10:07:55 01/22/20 24 01/22/2024 Compr ehens ezio metab olic 2000 panel - Serum or Plasm a osmolality calculated 290 text: 275 - 295 mOsm/k g Osmol aligian Calcu lated 290 275 - 295 mOsm/ kg 01/21 4:48 PM [facility] Not Available Not Available 05/16/2024 10:07:55 01/22/20 24 01/22/2024 Compr ehens ezio metab olic 2000 panel - Serum or Plasm a albumin/glob ulin ratio 1.1 low: 1.1hig h: 2.3 Album in/Gl obuli n Ratio 1.1 1.1 - 2.3 01/21 4:48 PM [facility] Not Available Not Available 05/16/2024 10:07:55 01/22/20 24 01/22/2024 Compr ehens ezio metab olic 2000 panel - Serum or Plasm a glomerular filtration rate/1.73 sq M.predicted [volume rate/area] in serum, plasma or blood by creatinine-b ased formula (CKD-epi 2020) 72 text: >=90 mL/min /1.73 m2 low eGFR by CKD-E PI 72 (L) >=90 mL/mi n/1.7 3 m2 01/21 4:48 PM [facility] Not Available Not Available 05/16/2024 10:07:55 01/22/20 24 01/22/2024 Compr ehens ezio metab olic 2000 panel - Serum or Plasm a interpretati on and review of laboratory results Abnorm al Not Available Not Available 10:07:55 02/22/20 24 02/22/2024 Urina lysis panel - Urine by Auto glucose UA - Gluco se UA - Not Available Not Available 05/16/2024 10:07:55 02/22/20 24 02/22/2024 Urina lysis panel - Urine by Auto bilirubin UA poct - Bilir ubin UA POCT - Not Available Not Available 05/16/2024 10:07:55 02/22/20 24 02/22/2024 Urina lysis panel - Urine by Auto ketones UA poct - Keton es UA POCT - Not Available Not Available 05/16/2024 10:07:55 02/22/20 24 02/22/2024 Urina lysis panel - Urine by Auto specific gravity UA 1.015 Speci fic Gravi ty UA 1.015 Not Available Not Available 05/16/2024 10:07:55 02/22/20 24 02/22/2024 Urina lysis panel - Urine by Auto blood urine poct - Blood Urine POCT - Not Available Not Available 05/16/2024 10:07:55 02/22/20 24 02/22/2024 Urina lysis panel - Urine by Auto pH UA 6 pH UA 6.0 Not Available Not Available 05/16/2024 10:07:55 02/22/20 24 02/22/2024 Urina lysis panel - Urine by Auto protein UA - Prote in UA - Not Available Not Available 05/16/2024 10:07:55 02/22/20 24 02/22/2024 Urina lysis panel - Urine by Auto urobilinogen UA - Urobi linog en UA - Not Available Not Available 05/16/2024 10:07:55 02/22/20 24 02/22/2024 Urina lysis panel - Urine by Auto nitrite UA - Nitri te UA - Not Available Not Available 05/16/2024 10:07:55 02/22/20 24 02/22/2024 Urina lysis panel - Urine by Auto WBC UA - WBC UA - Not Available Not Available 05/16/2024 10:07:55 05/15/1905/14/2024 Urina lysis dipst ick W Refle x Micro scopi c panel - Urine collection method - specimen URINE CLEAN CATCH SPECI MEN TYPE URINE CLEAN CATCH 05/14 11:05 AM [facility] Not Available Not Available 05/14/2024 14:15:49 05/15/19 25 05/14/2024 Urina lysis dipst ick W Refle x Micro scopi c panel - Urine color of urine LIGHT YELLOW COLOR (U) LIGHT YELLO W 05/14 11:25 AM [facility] Not Available Not Available 05/14/2024 14:15:49 05/15/19 25 05/14/2024 Urina lysis dipst ick W Refle x Micro scopi c panel - Urine clarity of urine TURBID TRANS PAREN CY TURBI D 05/14 11:25 AM [facility] Not Available Not Available 05/14/2024 14:15:49 05/15/1905/14/2024 Urina lysis dipst ick W Refle x Micro scopi c panel - Urine specific gravity of urine 1.02 low: 1.001h igh: 1.03 SPECI FIC GRAVI TY (U) 1.020 1.001 - 1.030 05/14 11:25 AM [facility] Not Available Not Available 05/14/2024 14:15:49 05/15/1905/14/2024 Urina lysis dipst ick W Refle x Micro scopi c panel - Urine pH of urine 6 low: 5high: 9 U PH 6.0 5.0 - 9.0 05/14 11:25 AM [facility] Not Available Not Available 05/14/2024 14:15:49 05/15/1905/14/2024 Urina lysis dipst ick W Refle x Micro scopi c panel - Urine leukocytes [#/volume] in urine by test strip NEGATI VE text: negati ve LEUKO CYTES (U) NEGAT EZIO NEGAT EZIO 05/14 11:25 AM [facility] Not Available Not Available 05/14/2024 14:15:49 05/15/19 25 05/14/2024 Urina lysis dipst ick W Refle x Micro scopi c panel - Urine nitrite [presence] in urine NEGATI VE text: negati ve NITRI ZANDER NEGAT EZIO NEGAT EZIO 05/14 11:[address] [facility] Not Available Not Available 05/14/2024 14:15:49 05/15/19 25 05/14/2024 Urina lysis dipst ick W Refle x Micro scopi c panel - Urine protein [mass/volume ] in urine by test strip NEGATI VE text: <30 mg/dL PROTE IN RANDO M (U) NEGAT EZIO <30 MG/DL 05/14 11:25 AM [facility] Not Available Not Available 05/14/2024 14:15:49 05/15/19 25 05/14/2024 Urina lysis dipst ick W Refle x Micro scopi c panel - Urine glucose [mass/volume ] in urine NORMAL text: normal mg/dL GLUCO SE (U) LUCIE L LUCIE L MG/DL 05/14 11:25 AM [facility] Not Available Not Available 05/14/2024 14:15:49 05/15/19 25 05/14/2024 Urina lysis dipst ick W Refle x Micro scopi c panel - Urine ketones [mass/volume ] in urine by test strip NEGATI VE text: negati ve mg/dL KETON ES MG/DL (U) NEGAT EZIO NEGAT EZIO MG/DL 05/14 11:25 AM [facility] Not Available Not Available 05/14/2024 14:15:49 05/15/19 25 05/14/2024 Urina lysis dipst ick W Refle x Micro scopi c panel - Urine urobilinogen [units/volum e] in urine by test strip NORMAL text: normal mg/dL UROBI LINOG EN LUCIE L LUCIE L MG/DL 05/14 11:25 AM [facility] Not Available Not Available 05/14/2024 14:15:49 05/15/19 25 05/14/2024 Urina lysis dipst ick W Refle x Micro scopi c panel - Urine bilirubin.to boo [mass/volume ] in urine NEGATI VE text: negati ve mg/dL BILIR UBIN (U) NEGAT EZIO NEGAT EZIO MG/DL 05/14 11:25 AM [facility] Not Available Not Available 05/14/2024 14:15:49 05/15/19 25 05/14/2024 Urina lysis dipst ick W Refle x Micro scopi c panel - Urine erythrocytes [#/volume] in urine by automated test strip TRACE text: negati ve abnormal BLOOD (U) TRACE (A) NEGAT EZIO 05/14 11:25 AM [facility] Not Available Not Available 05/14/2024 14:15:49 05/15/1905/14/2024 Urina lysis dipst ick W Refle x Micro scopi c panel - Urine mucus [#/area] in urine sediment by microscopy low power field RARE text: /lpf MUCUS RARE /LPF 05/14 11:25 AM [facility] Not Available Not Available 05/14/2024 14:15:49 05/15/19 25 05/14/2024 Urina lysis dipst ick W Refle x Micro scopi c panel - Urine leukocytes [#/area] in urine sediment by microscopy high power field 2 text: <6 /hpf WBC/H PF 2 <6 /HPF 05/14 11:25 AM [facility] Not Available Not Available 05/14/2024 14:15:49 05/15/19 25 05/14/2024 Urina lysis dipst ick W Refle x Micro scopi c panel - Urine erythrocytes [#/area] in urine sediment by microscopy high power field 3 text: <6 /hpf RBC/H PF 3 <6 /HPF 05/14 11:25 AM [facility] Not Available Not Available 05/14/2024 14:15:49 05/15/19 25 05/14/2024 Urina lysis dipst ick W Refle x Micro scopi c panel - Urine epithelial cells.squamo us [#/area] in urine sediment by microscopy high power field MODERA TE text: /hpf SQUAM OUS EPITH ELIAL S MODER ATE /HPF 05/14 11:25 AM [facility] Not Available Not Available 05/14/2024 14:15:49 05/15/1905/14/2024 Urina lysis dipst ick W Refle x Micro scopi c panel - Urine interpretati on and review of laboratory results Abnorm al Not Available Not Available 14:15:49 05/15/1905/14/2024 Fibri n D-dim er FEU [Mass /volu me] in Plate let poor plasm a fibrin D-dimer feu [mass/volume ] in platelet poor plasma 306 NG{fe u}/mL low: 0NG{fe u}/mLh igh: 500NG{ feu}/m L D-DIM ER 306 0 - 500 ng{FE U}/mL 05/14 10:54 AM [facility] Not Available Not Available 05/14/2024 14:15:49 05/15/1905/14/2024 Lipas e [Enzy matic activ ity/v olume ] in Serum or Plasm a lipase [enzymatic activity/vol ume] in serum or plasma 44 text: 13 - 75 units/ L LIPAS E 44 13 - 75 UNITS /L 05/14 11:01 AM [facility] Not Available Not Available 05/14/2024 14:15:49 05/15/19 25 05/14/2024 Compr ehens ezio metab olic 1999 panel - Serum or Plasm a glucose [mass/volume ] in serum or plasma 107 text: 70 - 99 mg/dL high GLUCO SE 107 (H) 70 - 99 MG/DL 05/14 11:01 AM [facility] Not Available Not Available 05/14/2024 14:15:49 05/15/19 25 05/14/2024 Compr ehens ezio metab olic 2000 panel - Serum or Plasm a urea nitrogen [mass/volume ] in serum or plasma 14 text: 7 - 18 mg/dL BUN 14 7 - 18 MG/DL 05/14 11:01 AM [facility] Not Available Not Available 05/14/2024 14:15:49 05/15/19 25 05/14/2024 Compr ehens ezio metab olic 2000 panel - Serum or Plasm a creatinine [mass/volume ] in serum or plasma 0.84 text: 0.55 - 1.02 mg/dL CREAT ININE S/P/B 0.84 0.55 - 1.02 MG/DL 05/14 11:01 AM [facility] Not Available Not Available 05/14/2024 14:15:49 05/15/1905/14/2024 Compr ehens ezio metab olic 2000 panel - Serum or Plasm a sodium [moles/volum e] in serum or plasma 136 text: 136 - 145 mmol/L SODIU M S/P/B 136 136 - 145 MMOL/ L 05/14 11:01 AM [facility] Not Available Not Available 05/14/2024 14:15:49 05/15/1905/14/2024 Compr ehens ezio metab olic 2000 panel - Serum or Plasm a potassium [moles/volum e] in serum or plasma 3.6 text: 3.5 - 5.1 mmol/L POTAS SIUM S/P/B 3.6 3.5 - 5.1 MMOL/ L 05/14 11:01 AM [facility] Not Available Not Available 05/14/2024 14:15:49 05/15/19 25 05/14/2024 Compr ehens ezio metab olic 2000 panel - Serum or Plasm a chloride [moles/volum e] in serum or plasma 105 text: 97 - 115 mmol/L CHLOR SRIDHAR S/P/B 105 97 - 115 MMOL/ L 05/14 11:01 AM [facility] Not Available Not Available 05/14/2024 14:15:49 03/08/05/14/2024 Compr ehens ezio metab olic 2000 panel - Serum or Plasm a carbon dioxide, total [moles/volum e] in serum or plasma 26.8 text: 21 - 32 mmol/L CO2 26.8 21 - 32 MMOL/ L 05/14 11:01 AM [facility] Not Available Not Available 05/14/2024 14:15:49 05/15/19 25 05/14/2024 Compr ehens ezio metab olic 2000 panel - Serum or Plasm a calcium [mass/volume ] in serum or plasma 9 text: 8.5 - 10.1 mg/dL CALCI UM S/P/B 9.0 8.5 - 10.1 MG/DL 05/14 11:01 AM [facility] Not Available Not Available 05/14/2024 14:15:49 05/15/19 25 05/14/2024 Compr ehens ezio metab olic 2000 panel - Serum or Plasm a bilirubin.to boo [mass/volume ] in serum or plasma 1 text: 0.2 - 1.2 mg/dL BILIR UBIN TOTAL S/P/B 1.0 0.2 - 1.2 MG/DL 05/14 11:01 AM [facility] Not Available Not Available 05/14/2024 14:15:49 05/15/19 25 05/14/2024 Compr ehens ezio metab olic 2000 panel - Serum or Plasm a protein [mass/volume ] in serum or plasma 7.8 text: 6.4 - 8.2 g/dL TOTAL PROTE IN S/P/B 7.8 6.4 - 8.2 G/DL 05/14 11:01 AM [facility] Not Available Not Available 05/14/2024 14:15:49 05/15/19 25 05/14/2024 Compr ehens ezio metab olic 2000 panel - Serum or Plasm a albumin [mass/volume ] in serum or plasma 3.4 text: 3.4 - 5.0 g/dL ALBUM IN S/P/B 3.4 3.4 - 5.0 G/DL 05/14 11:01 AM [facility] Not Available Not Available 05/14/2024 14:15:49 05/15/19 25 05/14/2024 Compr ehens ezio metab olic 2000 panel - Serum or Plasm a aspartate aminotransfe rase [enzymatic activity/vol ume] in serum or plasma 11 U/L low: 15U/Lh igh: 37U/L low AST 11 (L) 15 - 37 U/L 05/14 11:01 AM [facility] Not Available Not Available 05/14/2024 14:15:49 05/15/1905/14/2024 Compr ehens ezio metab olic 2000 panel - Serum or Plasm a alanine aminotransfe rase [enzymatic activity/vol ume] in serum or plasma 17 U/L low: 14U/Lh igh: 55U/L ALT 17 14 - 55 U/L 05/14 11:01 AM [facility] Not Available Not Available 05/14/2024 14:15:49 05/15/19 25 05/14/2024 Compr ehens ezio metab olic 2000 panel - Serum or Plasm a alkaline phosphatase [enzymatic activity/vol ume] in serum or plasma 129 U/L low: 50U/Lh igh: 136U/L ALKAL INE PHOSP HATAS E S/P/B 129 50 - 136 U/L 05/14 11:01 AM [facility] Not Available Not Available 05/14/2024 14:15:49 05/15/19 25 05/14/2024 Compr ehens ezio metab olic 2000 panel - Serum or Plasm a anion gap in serum or plasma 4.2 text: 2 - 10 mmol/L ANION GAP 4.2 2 - 10 MMOL/ L 05/14 11:01 AM [facility] Not Available Not Available 05/14/2024 14:15:49 05/15/19 25 05/14/2024 Compr ehens ezio metab olic 2000 panel - Serum or Plasm a urea nitrogen/cre atinine [mass ratio] in serum or plasma 16.7 low: 6high: 26 BUN CREAT ININE RATIO 16.7 6 - 26 05/14 11:01 AM [facility] Not Available Not Available 05/14/2024 14:15:49 05/15/19 25 05/14/2024 Compr ens ezio metab olic 1999 panel - Serum or Plasm a albumin/glob ulin [mass ratio] in serum or plasma 0.8 text: 1.0 - 2.0 ratio low A/G RATIO 0.8 (L) 1.0 - 2.0 RATIO 05/14 11:01 AM [facility] Not Available Not Available 05/14/2024 14:15:49 05/15/19 25 05/14/2024 Compr ehens ezio metab olic 2000 panel - Serum or Plasm a glomerular filtration rate/1.73 sq M.predicted [volume rate/area] in serum, plasma or blood by creatinine-b ased formula (CKD-epi 2020) 86 text: >90 mL/min /1.73 M2 low GFR ESTIM ATE 86 (L) >90 ML/HI N/1.7 3 M2 05/14 11:01 AM [facility] Not Available Not Available 05/14/2024 14:15:49 05/15/19 25 05/14/2024 Compr ens ezio metab olic 2000 panel - Serum or Plasm a interpretati on and review of laboratory results Abnorm al Not Available Not Available 14:15:49 05/15/19 25 05/14/2024 CBC W Auto Diffe renti al panel - Blood leukocytes [#/volume] in blood by automated count 8.27 text: 4.5 - 11.0 x10'3/ uL WBC 8.27 4.5 - 11.0 x10'3 /uL 05/14 10:33 AM [facility] Not Available Not Available 05/14/2024 14:15:49 05/15/19 25 05/14/2024 CBC W Auto Diffe renti al panel - Blood erythrocytes [#/volume] in blood by automated count 4.89 text: 4.20 - 5.40 x10'6/ uL RBC 4.89 4.20 - 5.40 x10'6 /uL 05/14 10:33 AM [facility] Not Available Not Available 05/14/2024 14:15:49 05/15/19 25 05/14/2024 CBC W Auto Diffe renti al panel - Blood hemoglobin [mass/volume ] in blood 14.8 text: 12.0 - 16.0 g/dL HGB 14.8 12.0 - 16.0 G/DL 05/14 10:33 AM [facility] Not Available Not Available 05/14/2024 14:15:49 05/15/19 25 05/14/2024 CBC W Auto Diffe renti al panel - Blood hematocrit [volume fraction] of blood 45.9 % low: 38%hig h: 48% HCT 45.9 38.0 - 48.0 % 05/14 10:33 AM [facility] Not Available Not Available 05/14/2024 14:15:49 05/15/19 25 05/14/2024 CBC W Auto Diffe renti al panel - Blood MCV [entitic volume] 93.9 text: 81.0 - 99.0 fL MCV 93.9 81.0 - 99.0 FL 05/14 10:33 AM [facility] Not Available Not Available 05/14/2024 14:15:49 05/15/19 25 05/14/2024 CBC W Auto Diffe renti al panel - Blood MCH [entitic mass] 30.3 pg low: 27pghi gh: 31pg MCH 30.3 27.0 - 31.0 PG 05/14 10:33 AM [facility] Not Available Not Available 05/14/2024 14:15:49 05/15/19 25 05/14/2024 CBC W Auto Diffe renti al panel - Blood MCHC [mass/volume ] 32.2 text: 32.0 - 36.0 g/dL MCHC 32.2 32.0 - 36.0 G/DL 05/14 10:33 AM [facility] Not Available Not Available 05/14/2024 14:15:49 05/15/19 25 05/14/2024 CBC W Auto Diffe renti al panel - Blood erythrocyte distribution width [entitic volume] by automated count 13.7 % low: 11.5%h igh: 14.5% RDW 13.7 11.5 - 14.5 % 05/14 10:33 AM [facility] Not Available Not Available 05/14/2024 14:15:49 05/15/19 25 05/14/2024 CBC W Auto Diffe renti al panel - Blood platelets [#/volume] in blood 329 text: 130 - 400 x10'3/ uL PLT 329 130 - 400 x10'3 /uL 05/14 10:33 AM [facility] Not Available Not Available 05/14/2024 14:15:49 05/15/1905/14/2024 CBC W Auto Diffe renti al panel - Blood platelet mean volume [entitic volume] in blood 9.5 text: 9.3 - 12.2 fL MPV 9.5 9.3 - 12.2 FL 05/14 10:33 AM [facility] Not Available Not Available 05/14/2024 14:15:49 05/15/19 25 05/14/2024 CBC W Auto Diffe renti al panel - Blood differential cell count method - blood AUTOMA HEMANTH DIFFER ENTIAL DIFFE RENTI AL TYPE AUTOM ATED DIFFE RENTI AL 05/14 10:33 AM [facility] Not Available Not Available 05/14/2024 14:15:49 05/15/19 25 05/14/2024 CBC W Auto Diffe renti al panel - Blood neutrophils/ 100 leukocytes in blood by automated count 68.9 % NEUTR OPHIL S % 68.9 % 05/14 10:33 AM [facility] Not Available Not Available 05/14/2024 14:15:49 05/15/19 25 05/14/2024 CBC W Auto Diffe renti al panel - Blood lymphocytes/ 100 leukocytes in blood by automated count 23 % LYMPH OCYTE S % 23.0 % 05/14 10:33 AM [facility] Not Available Not Available 05/14/2024 14:15:49 05/15/19 25 05/14/2024 CBC W Auto Diffe renti al panel - Blood monocytes/10 0 leukocytes in blood by automated count 4.4 % MONOC YTES % 4.4 % 05/14 10:33 AM [facility] Not Available Not Available 05/14/2024 14:15:49 05/15/19 25 05/14/2024 CBC W Auto Diffe renti al panel - Blood eosinophils/ 100 leukocytes in blood by automated count 2.8 % EOSIN OPHIL S 2.8 % 05/14 10:33 AM [facility] Not Available Not Available 05/14/2024 14:15:49 05/15/19 25 05/14/2024 CBC W Auto Diffe renti al panel - Blood basophils/10 0 leukocytes in blood by automated count 0.5 % BASOP HILS 0.5 % 05/14 10:33 AM [facility] Not Available Not Available 05/14/2024 14:15:49 05/15/19 25 05/14/2024 CBC W Auto Diffe renti al panel - Blood immature granulocytes /100 leukocytes in blood by automated count 0.4 % IMMAT URE GRANS % 0.4 % 05/14 10:33 AM [facility] Not Available Not Available 05/14/2024 14:15:49 05/15/19 25 05/14/2024 CBC W Auto Diffe renti al panel - Blood neutrophils [#/volume] in blood 5.71 text: 1.80 - 7.70 x10'3/ uL ABS. NEUTR OPHIL S 5.71 1.80 - 7.70 x10'3 /uL 05/14 10:33 AM [facility] Not Available Not Available 05/14/2024 14:15:49 05/15/19 25 05/14/2024 CBC W Auto Diffe renti al panel - Blood lymphocytes [#/volume] in blood 1.9 text: 1.00 - 4.80 x10'3/ uL ABS. LYMPH OCYTE S 1.90 1.00 - 4.80 x10'3 /uL 05/14 10:33 AM [facility] Not Available Not Available 05/14/2024 14:15:49 05/15/19 25 05/14/2024 CBC W Auto Diffe renti al panel - Blood monocytes [#/volume] in blood 0.36 text: 0.24 - 0.86 x10'3/ uL ABS. MONOC YTES 0.36 0.24 - 0.86 x10'3 /uL 05/14 10:33 AM [facility] Not Available Not Available 05/14/2024 14:15:49 05/15/19 25 05/14/2024 CBC W Auto Diffe renti al panel - Blood eosinophils [#/volume] in blood 0.23 text: 0.04 - 0.36 x10'3/ uL ABS. EOSIN OPHIL S 0.23 0.04 - 0.36 x10'3 /uL 05/14 10:33 AM [facility] Not Available Not Available 05/14/2024 14:15:49 05/15/19 25 05/14/2024 CBC W Auto Diffe renti al panel - Blood basophils [#/volume] in blood 0.04 text: 0.01 - 0.08 x10'3/ uL ABS. BASOP HILS 0.04 0.01 - 0.08 x10'3 /uL 05/14 10:33 AM [facility] Not Available Not Available 05/14/2024 14:15:49 05/15/1905/14/2024 CBC W Auto Diffe renti al panel - Blood immature granulocytes [#/volume] in blood 0.03 text: 0.00 - 0.49 x10'3/ uL ABS. IMMAT URE GRANU LOCYT ES 0.03 0.00 - 0.49 x10'3 /uL 05/14 10:33 AM [facility] Not Available Not Available 05/14/2024 14:15:49 06/12/1906/22/2024 Dexam ethas one [Mass /volu me] in Serum or Plasm a dexamethason e 433 NG/dL This test was devel oped and its perfo rmanc e nerissa cteri stics deter mined by [facility]. It has not been clear ed or appro nancie by the Food and Drug Admin istra tion. Refer ence Range : Adult s basel ine: <30 8:00 AM [facility] 1 mg dexam ethas one previ ous eveni n - 295 8:00 AM [facility] 8 mg dexam ethas one (4 x 2 mg doses ) previ ous day: 1600 - 2850 Not Available Not Available 08/17/2024 14:19:20 06/12/1906/22/2024 Dexam ethas one [Mass /volu me] in Serum or Plasm a Unknown Analyte Perfor med at: 01 - [employer] [address] [place] [address] [id number] [facility] Direct or: Radames pitt MD, Not Available Not Available 14:19:20 07/21/1907/20/2024 Urina lysis panel - Urine by Autom ated color of urine by auto Yellow text: yellow , straw Not Available Not Available 08/17/2024 14:19:20 07/21/19 25 07/20/2024 Urina lysis panel - Urine by Autom ated clarity in urine by refractometr y automated Turbid text: clear abnormal Not Available Not Available 08/17/2024 14:19:20 07/21/19 25 07/20/2024 Urina lysis panel - Urine by Autom ated glucose [presence] in urine by test strip Normal text: normal Not Available Not Available 08/17/2024 14:19:20 07/21/19 25 07/20/2024 Urina lysis panel - Urine by Autom ated bilirubin.to boo [presence] in urine by test strip Negati ve text: negati ve Not Available Not Available 08/17/2024 14:19:20 07/21/19 25 07/20/2024 Urina lysis panel - Urine by Autom ated ketones [presence] in urine by automated test strip Negati ve text: negati ve Not Available Not Available 08/17/2024 14:19:20 07/21/19 25 07/20/2024 Urina lysis panel - Urine by Autom ated specific gravity of urine by test strip 1.019 low: 1.005h igh: 1.03 Not Available Not Available 08/17/2024 14:19:20 07/21/19 25 07/20/2024 Urina lysis panel - Urine by Autom ated hemoglobin [presence] in urine by test strip 1+ text: negati ve abnormal Not Available Not Available 08/17/2024 14:19:20 07/21/19 25 07/20/2024 Urina lysis panel - Urine by Autom ated pH of urine by test strip 6 pH low: 5pHhig h: 8pH Not Available Not Available 08/17/2024 14:19:20 07/21/19 25 07/20/2024 Urina lysis panel - Urine by Autom ated protein [presence] in urine by test strip Negati ve text: negati ve Not Available Not Available 08/17/2024 14:19:20 07/21/19 25 07/20/2024 Urina lysis panel - Urine by Autom ated urobilinogen [mass/volume ] in urine by automated test strip Normal text: normal mg/dL Not Available Not Available 08/17/2024 14:19:20 07/21/19 25 07/20/2024 Urina lysis panel - Urine by Autom ated nitrite [presence] in urine by test strip Negati ve text: negati ve Not Available Not Available 08/17/2024 14:19:20 07/21/19 25 07/20/2024 Urina lysis panel - Urine by Autom ated leukocyte esterase [presence] in urine by test strip Negati ve text: negati ve Not Available Not Available 08/17/2024 14:19:20 07/21/19 25 07/20/2024 Urina lysis panel - Urine by Autom ated erythrocytes [#/area] in urine sediment by automated count 3-5 text: 0 - 5 # /hpf Not Available Not Available 08/17/2024 14:19:20 07/21/19 25 07/20/2024 Urina lysis panel - Urine by Autom ated leukocytes [#/area] in urine sediment by automated count 6-10 text: 0 - 5 # /hpf abnormal Not Available Not Available 08/17/2024 14:19:20 07/21/19 25 07/20/2024 Urina lysis panel - Urine by Autom ated bacteria [presence] in urine by automated 2+ text: none seen abnormal Not Available Not Available 08/17/2024 14:19:20 07/21/19 25 07/20/2024 Urina lysis panel - Urine by Autom ated epithelial cells.squamo us [presence] in urine by automated >20 text: 0 - 5 /hpf Not Available Not Available 08/17/2024 14:19:20 07/21/19 25 07/20/2024 Urina lysis panel - Urine by Autom ated mucus [presence] in urine by automated 1+ text: /lpf Not Available Not Available 08/17/2024 14:19:20 07/21/19 25 07/20/2024 Urina lysis panel - Urine by Autom ated interpretati on and review of laboratory results Abnorm al Not Available Not Available 14:19:20 07/21/19 25 07/20/2024 Urina lysis panel - Urine by Autom ated glucose UA neg Not Available Not Emerita ilable 08/17/2024 14:19:20 07/21/19 25 07/20/2024 Urina lysis panel - Urine by Autom ated bilirubin UA poct neg Not Available Not Available 08/07 14:19:20 07/21/19 25 07/20/2024 Urina lysis panel - Urine by Autom ated ketones UA poct neg Not Available Not Available 08/07 14:19:20 07/21/19 25 07/20/2024 Urina lysis panel - Urine by Autom ated specific gravity UA 1.02 Not Available Not Available 0 08/17/2024 14:19:20 07/21/19 25 07/20/2024 Urina lysis panel - Urine by Autom ated blood urine poct 2+80er y/ul Not Available Not Available 14:19:20 07/21/19 25 07/20/2024 Urina lysis panel - Urine by Autom ated pH UA 6 Not Available Not Availa ble 08/17/2024 14:19:20 07/21/19 25 07/20/2024 Urina lysis panel - Urine by Autom ated protein UA neg Not Available Not Emerita ilable 08/17/2024 14:19:20 07/21/19 25 07/20/2024 Urina lysis panel - Urine by Autom ated urobilinogen UA 0.2mg/ dl Not Available Not Available 14:19:20 07/21/19 25 07/20/2024 Urina lysis panel - Urine by Autom ated nitrite UA neg Not Available Not Emerita ilable 08/17/2024 14:19:20 07/21/19 25 07/20/2024 Urina lysis panel - Urine by Autom ated WBC UA neg Not Available Not Availa ble 08/17/2024 14:19:20 11/07/19 23 11/05/2022 MAMMO , scree taniya, bilat eral No observ ation record ed. [address], [place], [address], 11/06/2022 16:29:22 11/03/19 24 11/03/2023 CT, abdom en + pelvi s, w/o contr ast No observ ation record ed. [place] [id number], [place], [address], 11/04/2023 10:50:57 Result Notes None recorded. Problems Name Problem SNOMED Code Status Onset Date Resolution Date Notes Provider Name and Address Organization Details Recorded Time Polycysti c ovary syndrome 050675864 Active 2019 Not Available [facility] 3 13:03:31 Pancreati tis 39813686 Active 2019 triglycer sridhar induced Not Available [facility] 3 13:03:31 Hepatomeg nikolai 41540824 Active 2020 Not Available [facility] 3 13:03:31 Uterine leiomyoma 42246412 Active 2020 Not Available [facility] 3 13:03:31 Multiple nodules of lung 314385761 Active 2020 Not Available [facility] 3 13:03:31 Sleep apnea 28971482 Active 2021 Not Available [facility] 3 13:03:31 Vitamin D deficienc y 29731284 Active 2021 Not Available [facility] 3 13:03:31 Blurring of visual image 781346566 Active 2021 Not Available [facility] 3 13:03:31 Pain of multiple joints 70803513 Active 2021 Not Available [facility] 3 13:03:31 Cervical radiculop athy 31645444 Active 2022 Not Available [facility] 3 13:03:31 Pain of left shoulder joint 11890102356 472438 Active 2022 Not Available [facility] 3 13:03:31 Hyperlipi demia 24411325 Active 2022 Not Available [facility] 3 13:03:31 Morbid obesity 335229383 Active 2022 Not Available [facility] 3 13:03:31 Depressiv e disorder 12421442 Active 2022 Not Available [facility] 3 13:03:31 Recurrent urinary tract infection 665195518 Active 2023 JOSE SUMMERS Attn: [place], [address] , [facility] 4 09:35:34 Fatigue 03268202 Active 2023 JOSE SUMMERS Attn: Accounting ,[address] [facility], [place], [address] , [place] [facility] 4 09:35:37 Pain of right breast 7473295274 Active 2023 JOSE SUMMERS Attn: Accounting ,[address] [facility], [place], [address] , [place] [facility] 4 09:35:38 Obesity 578801505 Active 2023 JOSE SUMMERS Attn: Accounting ,[address] [facility], [place], [address] , [place] [facility] 4 08:29:49 Recurrent kidney stone 82586416139 04311 Active 2023 JOSE SUMMERS Attn: Accounting ,[address] [facility], [place], [address] , [facility] 4 08:30:53 Muscle pain 86319272 Active 2024 JOSE SUMMERS Attn: Accounting ,[address] [facility], [place], [address] , [place] [facility] 5 10:37:32 Problem Notes None recorded. Procedures Surgical History Date Name Laterality Status Provider Name and Address Organization Details Recorded Time 023 Date of Last Pap Smear completed Ivet Wood [place] [facility] 08/14/2022 09:57:40 018 Dilation and Curettage completed Paige Kirkpatrick [place] [facility] 04/15/2017 16:29:02 017 Endometrial Biopsy completed Chavez Dasilva MD Attn: Accounting,[address] [place], [address], [place] [facility] 12/31/2016 16:53:00 017 IUD Insertion completed Chavez Dasilva MD Attn: Accounting[address] [place], [address], [place] [facility] 12/31/2016 16:58:26 014 Cholecystectomy completed Paige Kirkpatrick [facility] 07/16/2016 12:33:25 007 Orthopedic Surgery completed Paige Kirkpatrick [facility] 07/16/2016 12:34:37 995 Ectopic completed Paige Kirkpatrick MA [facility] 07/16/2016 12:36:33 Laparoscopy completed Paige Kirkpatrick MA [facility] 07/16/2016 12:33:58 Orthopedic Surgery completed Paige Kirkpatrick [facility] 07/16/2016 12:33:12 Imaging Results None recorded. Procedure Notes None recorded. Medical Equipment None Reported. Allergies No known drug allergies Medications Name Sig Start Date Stop Date Status Note LastModified by Organization Details LastModified Time celecoxib 200 mg capsule TAKE 1 CAPSULE BY MOUTH TWICE DAILY 02/14 completed Not Available Not Available Not Available cyclobenzap rine 10 mg tablet TAKE 1 TABLET BY MOUTH THREE TIMES DAILY NEEDED FOR MUSCLE SPASM 02/14 completed Not Available Not Available Not Available amoxicillin 500 mg capsule TK ONE C PO Q 8 H TAT 05/29 completed Not Available Not Available Not Available medroxyprog esterone 10 mg tablet TAKE 1 TABLET BY MOUTH ONCE DAILY 09/12 completed Not Available Not Available Not Available Mirena 21 mcg/24 hr (up to 8 years) 52 mg intrauterin e device Take 1 device by intrauter ine route. 11/27 completed Not Available Not Available Not Available atorvastati n 40 mg tablet TAKE 1 TABLET BY MOUTH ONCE DAILY active Not Available Not Available No t Available metformin 500 mg tablet Take 1 tablet twice a day by oral route for 90 days. 08/14 completed Not Available Not Available Not Available BD Alcohol Swabs 11/20 completed Not Available Not Available Not Available atorvastati n 80 mg tablet 11/27 completed Not Available Not Available Not Available venlafaxine ER 37.5 mg capsule,ext ended release 24 hr TK 1 C PO QD 05/29 completed Not Available Not Available Not Available acetaminoph en 325 mg tablet TK ONE T PO Q 8 H PRN 05/29 completed Not Available Not Available Not Available venlafaxine ER 75 mg capsule,ext ended release 24 hr Take 1 capsule by mouth once daily 09/12 completed Not Available Not Available Not Available nicotine 14 mg/24 hr daily transdermal patch Apply 1 patch every day by transderm al route for 42 days. 11/27 completed Not Available Not Available Not Available clindamycin HCl 300 mg capsule TK ONE C PO Q 8 H FOR 5 DAYS 05/29 completed Not Available Not Available Not Available azithromyci n 250 mg tablet 11/20 completed Not Available Not Available Not Available ibuprofen 800 mg tablet TK 1 T PO Q 8 H PRN 02/14 completed Not Available Not Available Not Available hydrocodone 5 mg-acetamin ophen 325 mg tablet TAKE 1 TABLET BY MOUTH EVERY 6 HOURS NEEDED FOR PAIN 02/14 completed Not Available Not Available Not Available fluconazole 200 mg tablet TAKE 1 TABLET BY MOUTH ONCE DAILY 02/14 completed Not Available Not Available Not Available FreeStyle Lancets 28 gauge 11/27 completed Not Available Not Available Not Available phenazopyri dine 200 mg tablet TAKE 1 TABLET BY MOUTH THREE TIMES DAILY NEEDED FOR BURNING WITH URINATION 02/14 completed Not Available Not Available Not Available ondansetron HCl 4 mg tablet TAKE 1 TABLET BY MOUTH EVERY 6 HOURS NEEDED FOR NAUSEA AND VOMITING 08/14 completed Not Available Not Available Not Available prednisone 20 mg tablet TAKE DIRECTED TAKE 3 TABLETS BY MOUTH ONCE DAILY FOR 3 DAYS THEN 2 ONCE DAILY FOR 3 DAYS THEN 1 ONCE DAILY FOR 3 DAYS 03/11 completed Not Available Not Available Not Available ceftriaxone 250 mg solution for injection Take 250 mg by injection route for 1 day. 02/16 completed Not Available Not Available Not Available terconazole 0.8 % vaginal cream Insert 1 applicato rful every day by vaginal route for 3 days. 11/27 completed Not Available Not Available Not Available Diflucan 150 mg tablet Take 1 tablet by oral route for 1 day. 12/27 completed Not Available Not Available Not Available venlafaxine ER 150 mg capsule,ext ended release 24 hr TAKE 1 CAPSULE BY MOUTH ONCE DAILY 09/12 completed Not Available Not Available Not Available penicillin V potassium 500 mg tablet 11/20 completed Not Available Not Available Not Available meclizine 12.5 mg tablet active Not Available Not Available Not Available metronidazo le 500 mg tablet Take 1 tablet every 12 hours by oral route for 14 days. 02/16 completed Not Available Not Available Not Available hydroxyzine HCl 50 mg tablet TAKE 2 TABLETS BY MOUTH 3 TO 4 TIMES DAILY NEEDED FOR ANXIETY 02/14 completed Not Available Not Available Not Available acetaminoph en 300 mg-codeine 30 mg tablet TK 1 T PO Q 8 H PRN P 05/29 completed Not Available Not Available Not Available clopidogrel 75 mg tablet 09/12 completed Not Available Not Available Not Available ciprofloxac in 250 mg tablet TK 1 T PO Q 12 H FOR 3 DAYS 05/29 completed Not Available Not Available Not Available ciprofloxac in 500 mg tablet TAKE 1 TABLET BY MOUTH ONCE ON THE DAY YOU REMOVE THE STENT FOR PREVENTIO N OF INFECTION AT THE TIME OF SURGERY 02/14 completed Not Available Not Available Not Available sulfamethox azole 800 mg-trimetho prim 160 mg tablet TAKE 1 TABLET BY MOUTH EVERY 12 HOURS FOR 3 DAYS 11/29 completed Not Available Not Available Not Available peg-electro lyte solution 420 gram oral solution TAKE DIRECTED 10/29 completed Not Available Not Available Not Available omeprazole 40 mg capsule,del ayed release TAKE 1 CAPSULE BY MOUTH ONCE DAILY 08/14 completed Not Available Not Available Not Available aspirin 81 mg tablet,hood yed release TAKE 1 TABLET BY MOUTH IN THE MORNING 08/14 completed Not Available Not Available Not Available ketorolac 10 mg tablet 11/20 completed Not Available Not Available Not Available meloxicam 7.5 mg tablet 11/27 completed Not Available Not Available Not Available oxycodone-a cetaminophe n 5 mg-325 mg tablet TAKE 1 TABLET BY MOUTH EVERY 6 HOURS NEEDED FOR PAIN 06/10 completed Not Available Not Available Not Available terbinafine HCl 250 mg tablet 11/20 completed Not Available Not Available Not Available amoxicillin 875 mg tablet 02/16 completed Not Available Not Available Not Available estradiol 1 mg tablet TAKE 2 TABLETS BY MOUTH ONCE DAILY active Not Available Not Available No t Available DOK 100 mg capsule 11/20 completed Not Available Not Available Not Available tamsulosin 0.4 mg capsule TAKE 1 CAPSULE BY MOUTH ONCE DAILY AT THE SAME TIME EVERY DAY AFTER A MEAL 02/14 completed Not Available Not Available Not Available dexamethaso ne 1 mg tablet TAKE 1 TABLET BY MOUTH AT 11 PM THE NIGHT BEFORE YOU GO FOR YOUR MORNING BLOOD WORK active Not Available Not Available No t Available meclizine 25 mg tablet TAKE 1 TABLET BY MOUTH THREE TIMES DAILY NEEDED 01/11 completed Not Available Not Available Not Available baclofen 10 mg tablet TAKE 1 TABLET BY MOUTH THREE TIMES DAILY active Not Available Not Available No t Available benzonatate 100 mg capsule TAKE 1 CAPSULE BY MOUTH EVERY 8 HOURS NEEDED 08/14 completed Not Available Not Available Not Available doxycycline monohydrate 100 mg capsule Take 1 capsule twice a day by oral route for 14 days. 11/27 completed Not Available Not Available Not Available cephalexin 500 mg capsule TAKE 1 CAPSULE BY MOUTH EVERY 8 HOURS FOR 7 DAYS 02/14 completed Not Available Not Available Not Available pantoprazol e 40 mg tablet,hood yed release 08/14 completed Not Available Not Available Not Available simvastatin 20 mg tablet 11/20 completed Not Available Not Available Not Available erythromyci n 5 mg/gram (0.5 %) eye ointment 11/20 completed Not Available Not Available Not Available metformin 1,000 mg tablet Take 1 tablet twice a day by oral route. 11/27 completed Not Available Not Available Not Available neomycin-po lymyxin-dex ameth 3.5 mg/mL-10,00 0 unit/mL-0.1 % eye drops 11/20 completed Not Available Not Available Not Available lisinopril 10 mg tablet 11/27 completed Not Available Not Available Not Available promethazin e 25 mg tablet 11/20 completed Not Available Not Available Not Available Calcium-600 600 mg (as calcium carbonate 1,500 mg) tablet 11/27 completed Not Available Not Available Not Available Ear Drops (carbamide peroxide) 6.5 % INSTILL 5 DROPS INTO EACH EAR TWICE DAILY 08/14 completed Not Available Not Available Not Available oxybutynin chloride ER 5 mg tablet,exte nded release 24 hr TAKE 1 TABLET BY MOUTH ONCE DAILY 02/14 completed Not Available Not Available Not Available cephalexin 500 mg tablet Take 1 tablet every 8 hours by oral route for 7 days. 03/11 completed Not Available Not Available Not Available hydroxyzine HCl 25 mg tablet Take 1 tablet twice a day by oral route as needed for 30 days. 09/12 completed Not Available Not Available Not Available lisinopril 5 mg tablet 12/31 completed Not Available Not Available Not Available ergocalcife rol (vitamin D2) 1,250 mcg (50,000 unit) capsule TAKE 1 CAPSULE BY MOUTH ONCE A WEEK 08/14 completed Not Available Not Available Not Available ibuprofen 600 mg tablet TAKE 1 TABLET BY MOUTH EVERY 6 HOURS NEEDED FOR CRAMPING 08/14 completed Not Available Not Available Not Available methylpredn isolone 4 mg tablets in a dose pack 11/20 completed Not Available Not Available Not Available norethindro ne (contracept ezio) 0.35 mg tablet TK 1 T PO QD 09/12 completed Not Available Not Available Not Available ondansetron 4 mg disintegrat ing tablet Place 1 tablet twice a day by transling ual route as needed for 4 days. 2024 active Not Available Not Available Not Avai lable fluticasone propionate 50 mcg/actuati on nasal spray,suspe nsion USE 1 SPRAY(S) IN EACH NOSTRIL ONCE DAILY 10/29 completed Not Available Not Available Not Available sertraline 50 mg tablet 11/20 completed Not Available Not Available Not Available doxycycline hyclate 100 mg tablet Take 1 tablet twice a day by oral route for 14 days. 12/31 completed Not Available Not Available Not Available naproxen 500 mg tablet Take 1 tablet twice a day by oral route for 60 days. 2024 active Not Available Not Available Not Avai lable diazepam 5 mg tablet TAKE 1/2 (ONE-HALF ) TABLET BY MOUTH EVERY 6 HOURS NEEDED FOR ANXIETY 02/14 completed Not Available Not Available Not Available amoxicillin 875 mg-potassiu m clavulanate 125 mg tablet TK 1 T PO Q 12 H FOR 10 DAYS 05/29 completed Not Available Not Available Not Available amoxicillin 500 mg-potassiu m clavulanate 125 mg tablet TAKE 1 TABLET BY MOUTH TWICE DAILY FOR 7 DAYS 02/14 completed Not Available Not Available Not Available nicotine 7 mg/24 hr daily transdermal patch Apply 1 patch every day by transderm al route for 14 days. 11/27 completed Not Available Not Available Not Available 3-Day Vaginal 2 % cream INSERT ONE APPLICATO RFUL VAGINALLY AT BEDTIME FOR 3 DAYS active Not Available Not Available No t Available Microgestin 20 (21) 1 mg-20 mcg tablet TAKE 1 TABLET BY MOUTH ONCE DAILY 09/12 completed Not Available Not Available Not Available nitrofurant oin monohydrate /macrocryst als 100 mg capsule TAKE 1 CAPSULE BY MOUTH TWICE DAILY WITH MORNING MEAL AND WITH EVENING MEAL 02/14 completed Not Available Not Available Not Available duloxetine 20 mg capsule,del ayed release TAKE 1 CAPSULE BY MOUTH TWICE DAILY 05/16 completed Not Available Not Available Not Available duloxetine 30 mg capsule,del ayed release Take 1 capsule by mouth twice daily 2024 active Not Available Not Available Not Avai lable fenofibrate 160 mg tablet 11/27 completed Not Available Not Available Not Available Zofran 08/14 completed Not Available Not Available Not Available ProAir HFA 90 mcg/actuati on aerosol inhaler 11/27 completed Not Available Not Available Not Available fenofibrate nanocrystal lized 145 mg tablet 11/20 completed Not Available Not Available Not Available FreeStyle Lite Strips 11/27 completed Not Available Not Available Not Available ketorolac 30 mg/mL injection solution Inject 1 mL every day by intraveno us route. 09/12 completed Not Available Not Available Not Available Vitamin D3 50 mcg (2,000 unit) capsule Take 1 capsule every day by oral route for 90 days. 08/14 completed Not Available Not Available Not Available Fish Oil 1,000 mg (120 mg-180 mg) capsule Take 1 capsule twice a day by oral route for 90 days. 08/14 completed Not Available Not Available Not Available Vitals Date Recorded Body height Body mass index (BMI) Body weight Heart rate Oxygen saturation Oxygen saturation in Arterial blood by Pulse oximetry Systolic blood pressure Diastolic blood pressure Provider Name and Address Organization Details Last Updated DateTime 4 165.1 cm 38.5 kg/m2 707429. 94 g 80 /min 96 % 96 % 116 mm[Hg] 76 mm[Hg] Salma Mehta MA [facility] 4 08:51:32 Date Recorded Systolic blood pressure Diastolic blood pressure Provider Name and Address Organization Details Last Updated DateTime 05/16/2024 134 mm[Hg] 86 mm[Hg] JOSE SUMMERS Attn: Accounting,[address] [facility], [place], [address], [facility] 05/16/2024 10:38:17 Date Recorded Body height Body mass index (BMI) Body weight Heart rate Oxygen saturation Oxygen saturation in Arterial blood by Pulse oximetry Provider Name and Address Organization Details Last Updated DateTime 5 165.1 cm 37.4 kg/m2 140106. 28 g 60 /min 99 % 99 % Ivet Wood MA [facility] 5 10:18:31 Date Recorded Body height Body mass index (BMI) Body weight Heart rate Oxygen saturation Oxygen saturation in Arterial blood by Pulse oximetry Systolic blood pressure Diastolic blood pressure Provider Name and Address Organization Details Last Updated DateTime 5 165.1 cm 37.6 kg/m2 406279. 88 g 63 /min 97 % 97 % 136 mm[Hg] 83 mm[Hg] Ivet Wood MA [facility] 5 14:12:47 Date Recorded Body height Body mass index (BMI) Body weight Heart rate Oxygen saturation Oxygen saturation in Arterial blood by Pulse oximetry Systolic blood pressure Diastolic blood pressure Provider Name and Address Organization Details Last Updated DateTime 3 165.1 cm 41.7 kg/m2 044263. 19 g 76 /min 98 % 98 % 114 mm[Hg] 70 mm[Hg] Salma Mehta MA [facility] 3 08:31:36 Date Recorded Body height Body mass index (BMI) Body weight Heart rate Oxygen saturation Oxygen saturation in Arterial blood by Pulse oximetry Systolic blood pressure Diastolic blood pressure Provider Name and Address Organization Details Last Updated DateTime 4 165.1 cm 37.6 kg/m2 264261. 88 g 88 /min 92 % 92 % 132 mm[Hg] 76 mm[Hg] Ivet Wood MA [facility] 4 14:06:12 Social History Question Answer Notes LastModified by Organizat ion Details LastModified Time Tobacco Smoking Status Former Smoker Not Available [facility] 01/10/2020 03:39:29 Do You Have An Advance Directive? No [id number] Information not available 01/10/2020 Is Blood Transfusion Acceptable In An Emergency? Yes [id number] Information not available 01/10/2020 What Is Your Level Of Caffeine Consumption? Moderate [id number] Information not available 01/10/2020 How Much Tobacco Do You Chew? None [id number] Information not available 01/10/2020 What Type Of Diet Are You Following? REGULAR [id number] Information not available 01/10/2020 Which Illicit Or Recreational Drugs Have You Used? None [id number] Information not available 01/10/2020 Education 2 Year College Information not available 07/16/2016 Live Alone Or With Others? With Others Information not available 07/16/2016 What Was The Date Of Your Most Recent Tobacco Screening? 05/16/2024 Information not available 05/16/2024 How Many Children Do You Have? 0 [id number] Information not available 01/10/2020 Performs Monthly Self-breast Exam? Yes Information not available 07/16/2016 Do You Use Protection During Sex? Always [id number] Information not available 01/10/2020 What Is Your Relationship Status? Single [id number] Information not available 01/10/2020 Seat Belts Used Routinely No Information not available 07/16/2016 Are You Sexually Active? No [id number] Information not available 01/10/2020 At What Age Did You Start Smoking Tobacco? 15 [id number] Information not available 01/10/2020 How Much Tobacco Do You Smoke? No Pt Has Not Smoked For 14 Days. Amp 11/20/2016 [id number] Information not available 01/10/2020 General Stress Level High Information not available 07/16/2016 Do You Use Sunscreen Routinely? Yes [id number] Information not available 01/10/2020 Has Tobacco Cessation Counseling Been Provided? Yes Information not available 08/14/2022 On What Date Was Tobacco Cessation Counseling Provided? 05/16/2024 Information not available 05/16/2024 How Many Years Have You Smoked Tobacco? 25 [id number] Information not available 01/10/2020 Sex: Female Functional Status Question Answer Note LastModified by Organizat ion Details LastModified Time Do you use any illicit or recreational drugs? No Information not available 08/14/2022 What is your level of alcohol consumption? None Information not available 05/29/2020 Do you or have you ever used smokeless tobacco? Never used smokeless tobacco [id number] Information not available 01/10/2020 Are you currently employed? Yes [id number] Information not available 01/10/2020 Are you able to care for yourself? 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 Never used electronic cigarettes [id number] Information not available 01/10/2020 What is your exercise level? Moderate [id number] Information not available 01/10/2020 Mental Status None recorded. Family History Relationship Description Onset Age of this Age Resolved Age Notes LastModified by Organization Details LastModified Time Father No current problems or disability Not available 07/07 12:29:18 Mother No current problems or disability Not available 07/07 12:29:18 Notes:pt denies any new fami ly history 12/10/16 Medical History Condition Response Other Y High Blood Pressure N Breast Cancer N Thyroid Problems N Kidney or Bladder Problems N GI Problems Y Lung Disease Y Depression Y Blood Clots N Acne N Breast Problem N Skin Problems N Eating Disorder N Anemia N Anesthesia Complications N Heart Attack (HI) N Headaches/Migraines Y Anxiety Disorder Y Diabetes Y Ovarian Cancer N Muscle, Joint, or Bone Problems N Blood Transfusions N Seizures/Epilepsy N Polyps Y Infertility N Acid Reflux (GERD) N Cancer N Stroke N Abuse/Domestic Violence N Asthma N Allergies N Endometriosis N High Cholesterol Y Hepatitis N Liver Disease N Heart Disease N Pre-Eclampsia N Heart Failure N Osteoporosis N Gynecological History Statement/Question Response Abnormal Pap N Date of Last Mammogram Date of LMP 03/09/2020 On BCP's at Conception? N STIs/STDs N HPV Vaccine N Duration of Flow (days) Age at Menarche 15 Current Control Method None Sexually Active? N Menses Monthly N Date of Last Pap Smear 03/09/2022 Sexual Problems? N LMP Approximate Desired Control Method Unknown Obstetrics History GPAL:G 1 P 0 0 1 0 Type Value Multiple Births 0 Full Term 0 Induced 0 Spontaneous 0 Premature 0 Living 0 Ectopics 1 Total 1 Immunizations Vaccine Type Date Status Note Provider Nam e and Address Organization Details Recorded Time SARS-COV-2 (COVID-19) vaccine, UNSPECIFIED 1 completed Not Available [facility] 01/12/2023 13:03:31 SARS-COV-2 (COVID-19) vaccine, UNSPECIFIED 1 completed Not Available [facility] 01/12/2023 13:03:31 pneumococcal polysaccharide PPV23 4 completed Not Available [facility] 08/17/2024 14:09:58 Influenza, split virus, trivalent, preservative 4 completed Not Available [facility] 08/17/2024 14:09:58 COVID-19, mRNA, LNP-S, PF, 30 mcg/0.3 mL dose 1 completed Not Available [facility] 08/17/2024 14:09:58 Tdap 3 completed JOSE SUMMERS Attn: Accounting[address] [place], [address], [facility] 08/14/2022 13:00:21 Past Encounters Encounter ID Performer Location Encounter Start Date Encounter Closed Date Diagnosis/Indication Diagnosis SNOMED-CT Code Diagnosis ICD10 Code Diagnosis Note [id number] Atilio Valdivia PA-C [facility] [address] [place] [address] 06/08/2015 16:01:40 06/08/2015 16:42:15 History and physical examination, pre-employment 971795956 Z02.1 [id number] MD Viv Arroyo ([employer]) [address] [place] [phone] 07/16/2016 11:45:14 07/17/2016 15:39:42 Gynecologic examination 93066722 Z01.419 Venereal d isease screening 028129743 Z11.3 Body mass index 40+ - severely obese 716093971 Z68.41 counseled about diet and excercise, weight loss, fruits and vegetables Smoker 18313063 F17.200 Polycystic ovaries 42509 008 E28.2 counseled about different causes including PCOS. Counseled about insulin resistance , effect of insulin on androgens, menstrual periods, estrogen levels and its effect on EMT, breast, metabolic syndrome. counseled about weight loss, diet and excercise, fruits and vegetables . Irregular periods 376981 07 N92.6 counseled about different causes including PCOS. Counseled about insulin resistance , effect of insulin on androgens, menstrual periods, estrogen levels and its effect on EMT, breast, metabolic syndrome. counseled about weight loss, diet and excercise, fruits and vegetables . [id number] MD Viv Arroyo ([employer]PER[employer]) [address] [place] [phone] 08/15/2016 16:00:05 08/15/2016 17:42:43 Irregular periods 51612233 N92.6 D/W PATIENT LAB WORK, ULTRASOUND RESULT, PAP AND NUSWAB. ADVISED PATIENT TO CONTINUE METFORMIN. ALSO ADVISED TO F/U WITH ENDOCRINOL OGIST. [facility] 360858933 Z30.09 PATIENT REFUSED CONTROL. [id number] MD Viv Arroyo ([employer]PER[employer]) [address] [place] [phone] 11/20/2016 15:39:23 11/20/2016 17:13:40 Female pelvic inflammatory disease 649299422 N73.9 Safe sex counseling and use of condoms. Advised no intercours e until treatment. Notified patient that Partner need to be treated. Abnormal u terine bleeding 5153436272 9100 N93.9 Counseled about different causes. Counseled patient about different forms of control methods including Condoms, OCPS, Depo Provera, Nuva ring, patch, Nexplanon, IUD, Implanon -- etc. Counseled LARC is the best option for her. Patient desires to have Mirena. Counseled thoroughly about benefits and risks, mechanism of action, efficacy, administra tion, contraindi cations, return to fertility after discontinu ation, side effects, effect on menstrual changes, weight changes, head ache, ectopic , PID, mood changes, effect on depression , anxiety and bipolar, venous thromboemb olism. Patient verbalized understand ing. Urine test negative today. Counseled about importance of using condoms with it to prevent STD's. Explained patient that mirena can not be put in until her PID clears [id number] MD Viv Arroyo ([employer]) [address] [place] [phone] 12/10/2016 14:29:55 12/10/2016 15:18:16 Abnormal uterine bleeding [id number] 9100 N93.9 D/W patient ultrasound report. Possible cause from uterine myoma. counseled about fibroids causing abnormal vaginal bleeding. Already discussed options of medical management in previous visits and she opted Mirena. Await for mirena to arrive in office. Polycystic ovaries 72653 008 E28.2 Since she has PCOS and she is having AUB offered doing endometria l biopsy. She agreed but she wanted to do it at the time of mirena placement. Uterine leiomyoma 825405 05 D25.9 counseled about it. counseled about fibroids causing abnormal vaginal bleeding. Already discussed options of medical management in previous visits and she opted Mirena. Await for mirena to arrive in office. [id number] [facility] ([employer]) [address] [place] [phone] 12/31/2016 15:13:18 12/31/2016 17:07:06 Abnormal uterine bleeding [id number] 9100 N93.9 COUNSELED ABOUT EMT AND ENDOMETRIA L BIOPSY.COU NSELED ABOUT RISK OF INFECTION, BLEEDING, DAMAGE TO INTERNAL ORGANS, UTERINE PERFORATIO N. SHE VERBALIZED UNDERSTAND ING. CONSENT SIGNED. REFER TO PROCEDURE NOTE.Advis ed patient to continue Bactrim prescribed . Advised patient to go to ER if bleeding, fever > 100.4 and severe pain. She verbalized understand ing Insertion of intrauterine contraceptive device 26096712 Z30.430 Refer to procedure [id number] MD Viv Arroyo ([employer]) [address] [place] [address] 01/07/2017 15:33:33 01/07/2017 17:13:31 IUD check 150401339 Z30.431 IUD threads visualized . Simple end ometrial hyperplasia 755236569 N85.01 d/w patient endometria l biopsy result. Counseled thoroughly about it including risks of endometria l hyperplasi a and management . Mirena already placed last visit. Explained patient that she need endometria l biopsy every 3 to 6 months. Patient verbalized understand ing. [id number] MD Viv Arroyo ([employer]PER[employer]) [address] [place] [phone] 01/13/2017 12:26:45 01/14/2017 14:06:46 Female pelvic inflammatory disease 501864370 N73.9 PATIENT HAS B/L ABDOMINAL TENDERNESS AND ADNEXAL TENDERNESS . NO CMT. SINCE SHE HAS IUD EVEN THOUGH SHE DOES NOT HAVE CMT HAVE A LOW THRESHOLD FOR EMPIRIC TREATMENT OF PID. Safe sex counseling and use of condoms. Advised no intercours e until treatment. Notified patient that Partner need to be treated. Advised patient if pelvic cramping does not improve in 2-3 day to call office and notify. At that time will repeat ultrasound if symptoms does not improve.Of fered removal of IUD. Patient say she wanted to keep IUD and get it removed at the time of hysterosco pic D & C. Explained patient that she need to wait for 3-4 months before she gets hysterosco py D & C and hysterecto my because of PID. Abnormal u terine bleeding 1404180195 9100 N93.9 She has uterine leiomyoma and simple endometria l hyperplasi a.Explaine d patient that she has multiple co morbid conditions ( h/o pancreatit is, diabetes, HTN, risk of CVD, hyperchole sterolemia , multiple surgeries, lung disease.) which poses her to high risk of complicati ons with surgical procedures including . Also gave patient option of depo lupron. Patient still refusing medical management . She wanted to discuss surgical options.Co unselled thoroughly about surgical options - including myomectomy , uterine artery embolizati on, hysterecto my. Counseled about risks of procedure including risk of infection, bleeding, blood transfusio n and its risks, damage to internal organs, indicated procedures , DVT, PE,HI, stroke, . Patient still refusing medical management . She wanted to get hysterecto my. Since she is high risk with multiple co morbid conditions , explained patient that she need to get the surgery done in tertiary care hospital with a senior designer oncologist . She preferred to go to [facility]. Explained patient since she has simple endometria l hyperplasi a, that she need hysterosco pic D & C before [facility]. Patient verbalized understand ing. Refer to REVERSER oncologist .Explained patient that She need medical clearance from PCP, Cardiologi st, endocrinol ogist, pulmonolog ist, Gastroente rologist. Simple end ometrial hyperplasia 700347127 N85.01 Refer to note under AUB. [id number] MD Viv Arroyo ([employer]PER[employer]) [address] [place] [phone] 02/16/2017 15:37:46 02/16/2017 17:59:31 Polycystic ovaries 02524487 E28.2 Counseled about diet and excercise and weight loss. Answered all questions patient have on conception at this age. Counseled about risks. Simple end ometrial hyperplasia 670500407 N85.01 she is f/u with senior designer oncologist . scheduled for D & C. IUD in. She is still debating whether to go for hysterecto my or not. She wanted to wait until D & C and see how she does after that. [id number] MD Viv Arroyo ([employer] OPERATOR) [address] [place] [phone] 04/15/2017 15:59:13 04/15/2017 17:42:00 Simple endometrial hyperplasia 734240015 N85.01 she is f/u with senior designer oncologist . S/P D & C. IUD removed by REVERSER onc. She was told pathology report was normal. She does not want hysterecto my at this time. She wanted to try to get . Polycystic ovaries 09913 008 E28.2 Counseled about diet and excercise and weight loss. Answered all questions patient have on conception at this age. Counseled about risks. Advised to continue metformin at this time. Postoperative visit 1836 28181 Z09 S/P D & C. [id number] JOSE SUMMERS [facility] [address] [place] [address] 11/28/2019 15:28:37 11/29/2019 08:14:35 Sleep apnea 54227126 G47.30 patient states she snores, feels tired, has witnessed hypoxic moments. BMI 42.9, elevated BP. - SLeep study Screening mammography 24 567644 Z12.31 due for mammogram Polycystic ovary syndrome 650169085 E28.2 Patient advised to take progestero ne to protect endometriu m. She has had nexplanon, mirena in past and did not like them. We discussed PCOS diet. - patient has acne, discussed spironolac tone- start metformin 500mg bid, start once per day to avoid GI upset Adult heal th examination 313685663 Z00.00 patient presents to establish and discuss anxiety and sleep, ROS pertinent for snoring, witnessed hypoxia, anxiety, increased urination. - labs- mammogram- utd on pap- OCP for endometria l protection - sleep study- venlafaxin e for headaches, night sweats, and anxiety Anxiety 37082383 F41.9 patient with crying episodes, decreased sleep, anxiety, depressed mood, trouble getting up, irritabili ty x 3 months. Recently she is taking care of her mom who had stroke. She has tried otc medication and is ready to try something lese. denies SI/HI.- start venlafaxin e 37.5 to help with headaches, anxiety,- advised counseling -Patient was educated on his prescribed medication s, rationale for medication s, dosing indication s, adverse reactions, black box warning, dosing indication s, SE (e.g., decreased libido, weight gain, gynecomast ia, and galactorrh ea) and the risks and benefits. -Call center with questions/ concerns. Go to ER or call 911 for crisis (e.g., suicidal behaviors, suicidal ideations, intent or plan emerge). Additional ly, patient has suicide hotline #[phone]. - f/u one month - call with questions [id number] JOSE SUMMERS [facility] [address] [place] [address] 11/29/2019 09:14:51 11/29/2019 10:40:13 [id number] JOSE SUMMERS [facility] [address] [place] [address] 12/28/2019 15:38:08 12/29/2019 08:37:33 Anxiety 99902929 F41.9 Patient doing better buts till dealing with decreased sleep and and anxiety. Will increase dose as she toelrated medication well.- Increase venlafaxin e 75 mg to help with headaches, anxiety,- advised counseling -Patient was educated on his prescribed medication s, rationale for medication s, dosing indication s, adverse reactions, black box warning, dosing indication s, SE (e.g., decreased libido, weight gain, gynecomast ia, and galactorrh ea) and the risks and benefits. -Call center with questions/ concerns. Go to ER or call 911 for crisis (e.g., suicidal behaviors, suicidal ideations, intent or plan emerge). Additional ly, patient has suicide hotline #[phone]. - f/u one month - call with questions Vitamin D deficiency [phone] 31556 E55.9 refill [id number] MD Shant Rivers [address] [place] [address] 01/05/2020 13:47:40 01/09/2020 12:14:23 Viral screening [id number] Z11.59 D/w pt the current pandemic of COVID-19 and call for social isolation in order to blunt the curve and minimize risk and spread. Encouraged patient and family to take restrictio ns seriously. They have verbalized understand ing of such. Viral syndrome [id number] B34.9 [id number] MD Shant Huerta [address] [place] [address] 02/21/2020 11:46:35 02/22/2020 08:17:02 Suspected COVID-19 [id number] Z03.89 [id number] JOSE SUMMERS [facility] [address] [place] [address] 05/29/2020 16:52:15 06/01/2020 08:25:45 Hepatomegaly 83699356 R16.0 Patient was found to have enlarged liver on CT scan. Last liver fn test was normal. Will obtain additional labs and get US liver. Referral to GI. Uterine leiomyoma [id number] D25.9 Patient was shown to have abnormal likely due to fibroid. Will obtain US abd/pelvis to work up. Multiple n odules of lung 629450608 R91.8 Patient was found to have an indetermin ate 4mm nodule a CT of abdomen and pelvis. Will send to pulmonary provider. Abdominal pain 35078123 R10.9 Patient went to hospital yesterday and received toradol shot after [facility] and labs revealed nothing life threatenin g. She would like another shot as it is only thing that has helped. Patient advised not taking any other NSAID to prevent risk of bleeding. Anxiety 08105955 F41.9 Patient doing better buts till dealing with decreased sleep and and anxiety. Will increase dose as she toelrated medication well.- Increase venlafaxin e 75 mg to help with headaches, anxiety,- advised counseling -Patient was educated on his prescribed medication s, rationale for medication s, dosing indication s, adverse reactions, black box warning, dosing indication s, SE (e.g., decreased libido, weight gain, gynecomast ia, and galactorrh ea) and the risks and benefits. -Call center with questions/ concerns. Go to ER or call 911 for crisis (e.g., suicidal behaviors, suicidal ideations, intent or plan emerge). Additional ly, patient has suicide hotline #. - f/u one month - call with questions [id number] JOSE SUMMERS [facility] [address] [place] [address] 09/12/2021 16:21:55 09/13/2021 10:02:24 Depressive disorder 60667212 F32.A start duloxetine 20mg bid for pain (possible fibromyalg ia) and depression . She has not been complaint in past with taking daily meds and in one month will see if we need to switch to prozac to increase compliance and improve sx. -Patient was educated on his prescribed medication s, rationale for medication s, dosing indication s, adverse reactions, black box warning, dosing indication s, SE (e.g., decreased libido, weight gain, gynecomast ia, and galactorrh ea) and the risks and benefits. -Call center with questions/ concerns. Go to ER or call 911 for crisis (e.g., suicidal behaviors, suicidal ideations, intent or plan emerge). Additional ly, patient has suicide hotline #. - f/u one month - call with questions Fatigue 62125280 R53.83 patient has increased fatigue. does have hx CARLOS, ask next appointmen t if using C-pap. - r/o anemia Pain of mu ltiple joints 35632468 M25.50 multiple joint and muscles pain equal on all sides and includes knees, legs, shoulders, neck, arms. denies rash but does endorse fatigue. R/O autoimmune causes. Cholesterol screening 27 2053338 Z13.220 Morbid obesity 277304288 E66.01 BMI 45.4. Will discuss medication for weight loss in future appointmen t. GLP-1 is an option but has had pancreatit is in the past and may need to use something else to start with. healthy diet encouraged . Blurring o f visual image 057919256 H53.8 blurry vision. needs referral Vitamin D deficiency 347 74697 E55.9 last level 14 in 2020. Hospital i npatient stay within past 30 days [id number] 106 Z76.89 hospitaliz ed for dizziness, vision changes and loss of balance. MRI r/o stroke or mass. Neurologis t consulted during hospital stay and told her all look good. She was released with clopidogre l and at this time will d/c as she has no indication and not in neurology note. [id number] JOSE SUMMERS [facility] [address] [place] [address] 10/14/2021 13:57:54 10/15/2021 10:16:25 Depressive disorder 00918796 F32.A continue duloxetine 20mg bid for pain (possible fibromyalg ia) and depression . She states energy and is better, less irritable, some improvemen t in pain. f/u 2 weeks to increase dose if continue with breakthrou gh sx. -Patient was educated on his prescribed medication s, rationale for medication s, dosing indication s, adverse reactions, black box warning, dosing indication s, SE (e.g., decreased libido, weight gain, gynecomast ia, and galactorrh ea) and the risks and benefits.- Call center with questions/ concerns. Go to ER or call 911 for crisis (e.g., suicidal behaviors, suicidal ideations, intent or plan emerge). Additional ly, patient has suicide hotline #.- f/u 2 weeks- call with questions Morbid obesity [id number] E66.01 BMI 45.4. Will discuss medication for weight loss in future appointmen t. GLP-1 is an option but has had pancreatit is in the past and may need to use something else to start with. healthy diet encouraged . Hyperlipidemia 99583348 E78.5 repeat testing and start statin. take omega 3 to improve triglycrid es. [id number] JOSE SUMMERS [facility] [address] [place] [address] 08/14/2022 09:49:02 08/14/2022 10:44:27 Depressive disorder 39431937 F32.A continue duloxetine 20mg bid for pain (possible fibromyalg ia) and depression . She states energy and is better, less irritable, some improvemen t in pain. f/u 2 weeks to increase dose if continue with breakthrou gh sx. -Patient was educated on his prescribed medication s, rationale for medication s, dosing indication s, adverse reactions, black box warning, dosing indication s, SE (e.g., decreased libido, weight gain, gynecomast ia, and galactorrh ea) and the risks and benefits.- Call center with questions/ concerns. Go to ER or call 911 for crisis (e.g., suicidal behaviors, suicidal ideations, intent or plan emerge). Additional ly, patient has suicide hotline #[phone].- f/u 2 weeks- call with questions Morbid obesity 653156654 E66.01 >15 lb weight gain since last visitBMI 42.8. Will discuss medication for weight loss in future appointmen t. GLP-1 is an option but has had pancreatit is in the past and may need to use something else to start with. healthy diet encouraged . Hyperlipidemia 19537052 E78.5 repeat testing and start statin. take omega 3 to improve triglycrid es. Neck pain 02588226 M54.2 neck and shoulder pain x 6 months worse with movement and lifting. ice/heat helps some. Pain of le ft shoulder joint [id number] 0475161 M25.512 Screening mammography 24 379245 Z12.31 due for mammogram Screening for malignant neoplasm of colon 628402206 Z12.11 maternal gradnma had colon cancer Administra tion of diphtheria, pertussis, and tetanus vaccine 791960323 Z23 [id number] JOSE SUMMERS [facility] [address] [place] [address] 10/29/2022 08:27:51 10/29/2022 09:01:02 Depressive disorder 24860991 F32.A continue duloxetine 20mg bid for pain (possible fibromyalg ia) and depression . She states energy and is better, less irritable, some improvemen t in pain. f/u 2 weeks to increase dose if continue with breakthrou gh sx. -Patient was educated on his prescribed medication s, rationale for medication s, dosing indication s, adverse reactions, black box warning, dosing indication s, SE (e.g., decreased libido, weight gain, gynecomast ia, and galactorrh ea) and the risks and benefits.- Call center with questions/ concerns. Go to ER or call 911 for crisis (e.g., suicidal behaviors, suicidal ideations, intent or plan emerge). Additional ly, patient has suicide hotline #.- f/u 2 weeks- call with questions Morbid obesity 345542802 E66.01 23 lb total weight lossBMI 42.8. Will discuss medication for weight loss in future appointmen t. GLP-1 is an option but has had pancreatit is in the past and may need to use something else to start with. healthy diet encouraged . Hyperlipidemia 57051471 E78.5 repeat testing and start statin. take omega 3 to improve triglyceri donnell. Pain of le ft shoulder joint [id number] 3638550 M25.512 Still unable to lift arm >45 degrees, having daily pain most of the dayno improvemen t with PT, [facility] Screening mammography 24 864994 Z12.31 due for mammogram Cervical radiculopathy 94411974 M54.12 neck and shoulder pain x 6 months worse with movement and lifting. shooting pain to hand almost daily. ice/heat helps some.xray non revealing7 sessions PT did not help HIV screening 175079218 Z11.[id number] [facility] [address] [place] [address] 03/11/2023 08:47:39 03/11/2023 09:40:00 Pain of right breast 7482613446 N64.4 pain under right nipple and recurrent hardening that improved with keflex. Has had two episodes of this.PEX: no induration , mass or drainage on exam.- US- may need bx Fatigue 67416588 R53.83 patient has increased fatigue - r/o anemia Hyperlipidemia 61957511 E78.5 repeat testing and continue statin. take omega 3 to improve triglyceri donnell.(2022) TC 277, tri 415 LDL 205 HDL 42 Recurrent urinary tract infection 770133493 N39.0 no sx todayafebr ile [id number] Drake Neal MD [facility] [address] [place] [address] 02/15/2024 13:51:30 02/16/2024 16:32:54 Obesity 358216567 E66.9 patient with PCOS and BMI 37.6. she continues on diet and continues to lose weight. Depressive disorder 8337 3645 F32.A increase duloxetine 20mg bid to 30mg bid for pain (possible fibromyalg ia) and depression . She states energy and is better, less irritable, some improvemen t in pain. -Patient was educated on his prescribed medication s, rationale for medication s, dosing indication s, adverse reactions, black box warning, dosing indication s, SE (e.g., decreased libido, weight gain, gynecomast ia, and galactorrh ea) and the risks and benefits.- Call center with questions/ concerns. Go to ER or call 911 for crisis (e.g., suicidal behaviors, suicidal ideations, intent or plan emerge).- f/u 2 weeks- call with questions Recurrent kidney stone [id number] 432420 N20.0 saw endocrinol ogy and checked cortisolno labs for PTH, will order due to increased kidney stones and all over pain.norm al Calcium on CMP on past labs Nausea 766369377 R11.0 understand s risk of serotonin sydromeonl y use as needed Screening mammography 24 327535 Z12.31 due for mammogram [id number] Drake Neal MD [facility] [address] [place] [address] 05/16/2024 10:07:31 05/16/2024 10:49:15 Obesity 138341458 E66.9 patient with PCOS and BMI 37.6. she continues on diet and continues to lose weight. Muscle pain 51979098 M79 .10 patient here for muscle strain on left back side. On exam she has TTP over latissimus . allow rest to heal muscleadd on baclofenad vised not driving on on baclofentr ial tens machineapp ly heat/ice to areaover the counter medication s like bio-freeze , Icy Hot and capsaicin may help [id number] Drake Neal MD [facility] [address] [place] [address] 08/17/2024 14:08:50 08/17/2024 15:31:39 Neck pain 68456381 M54.2 neck and shoulder pain x 6 months worse with movement and lifting. ice/heat helps some. Pain of le ft shoulder joint 6167016424 5941429 M25.512 Still unable to lift arm >45 degrees, having daily pain most of the dayno improvemen t with PT, [facility] Screening mammography 24 517729 Z12.31 due for mammogram Health Concerns Section Related Observation LastModified by Organization Anahi brock LastModified Time None Recorded Concern Status LastModified by Organization Details LastModified Time None Recorded Advance Directives Directive N: Payers Encounter Date Sequence Insurance Name Policy Number Policy Porras Covered Member ID Porras Member ID Guarantor Name 10/29/2022 1 [facility] (MEDICAID HMO) [id number] Nimco Baldwin [id number] Nimco Baldwin 03/11/2023 1 [facility] (MEDICAID HMO) [id number] Nimco Baldwin [id number] Nimco Baldwin 02/15/2024 1 [facility] (MEDICAID HMO) [id number] Nimco Baldwin [id number] Nimco Baldwin 05/16/2024 1 [facility] (MEDICAID HMO) [id number] 0003 Nimco Baldwin [id number] Nimco Baldwin Notes Date Note Type Note Provider Name and Address Organization Details Recorded Time 10/29/2022 text/html ShoulderReported bypatient.Hand Dominance:right Location:left Quality:aching; frequent; no change Severity:moderate Timing:cannot identify; recurrent Context:cannot identify Alleviating Factors:heat; ice Aggravating Factors:lifting; twisting; changing clothes Associated Symptoms:no weakness; no numbness; no tingling; no swelling; no redness; no warmth; no ecchymosis; no catching/locking; no fever; no chills; no weight loss Previous Surgery:none Prior Imaging:none Previous Injections:none Previous PT:none Work Related:no Working:no Nimco is a 47 YO F PMHXZ of pancreatitis, prediabetes, hyperlipidemia, cholecystectomy, Uterine fibroids, depression, sleep apnea who presents for neck/shoulder pain f/u as well as fasting labs Patient having shoulder and neck pain since february 2022. She cannot lift her arm more than 45 degrees without pain. No known mechanism of injury. Pian occurs daily. worse with movement or lifting. Ice/heat pack helps some. pain does shoot down her left hand.completed 7 session of PT w/o improvement. PT advised going to ortho and imaging of shoulder. JOSE SUMMERS Attn: Accounting,[address] [place], [address], [facility] 10/29/2022 09:10:40 03/11/2023 text/html ShoulderReported bypatient.Hand Dominance:right Location:left Quality:aching; frequent; no change Severity:moderate Timing:cannot identify; recurrent Context:cannot identify Alleviating Factors:heat; ice Aggravating Factors:lifting; twisting; changing clothes Associated Symptoms:no weakness; no numbness; no tingling; no swelling; no redness; no warmth; no ecchymosis; no catching/locking; no fever; no chills; no weight loss Previous Surgery:none Prior Imaging:none Previous Injections:none Previous PT:none Work Related:no Working:no Nimco is a 47 YO F PMHXZ of pancreatitis, prediabetes, hyperlipidemia, cholecystectomy, Uterine fibroids, depression, sleep apnea who presents for breast pain and fatigue my hormones are out of control., she feels tired and all the time. She has had another painful cust in the same area under the right nipple. ABX helped it go away. Last mammogram 10/2022 showed an infection in the area. When this happened last month she felt the area get very hard. she denies any drainage or any other changes to the skin. JOSE SUMMERS Attn: Accounting,[address] [place], [address], [facility] 03/11/2023 09:36:45 02/15/2024 text/html Nimco Baldwin is a 48-year-old female with PMHx of BPPV, pancreatitis, hypertriglyceridemia, nephrolithiasis who is here for f/u She was admitted for recurrent left pyelonephritis in the setting of left uretal stent placed for left 7 mm nephrolithiasis. CTX initiated and Ucx showed E. Coli 100,000 CFU so discharged with ciprofloxacin 500mg BID (EOT 12/25/23). Nephrolithiasis procedure done with with [facility] on 12/24/23. patient is following endo for below imaging on CT. She would like to increase duloxetine as she has done very well on 20mg bid. Imaging Requiring Follow Up:CT abdomen and pelvis:- Adrenal Glands: Stable left adrenal nodule measuring 9 mm on series 2 image 38. This is technically indeterminate on today's study but previously measured less than 10 Hounsfield units on noncontrast abdomen pelvis 10/11/2023, compatible with a benign adenoma. No right adrenal nodule. she is following with endo.- Kidneys: Normal enhancement of the right kidney. There is a double-J ureteral stent redemonstrated within the left ureter. Heterogeneous enhancement and scarring of the left kidney, similar to 09/25/2023. Mild left pelvocaliectasis. There is urothelial thickening and hyperenhancement of the left kidney. This may be reactive or be infectious in etiology. Recommend correlation with urinalysis to exclude upper urinary tract infection/pyelonephrit is. No significant perinephric stranding. Punctate nonobstructing left nephrolithiasis. There is a redemonstrated 7 mm stone in the proximal left ureter on series 2 image 68. JOSE SUMMERS Attn: Accounting,[address] [facility], [place], [address], [facility] 02/16/2024 08:32:23 05/16/2024 text/html ER f/u visit for pulled muscle On 05/14/2024 she went to ER for left sided back pain after caring for another person and having to be more hands-on. ER obtained CT which was normal. diagnosed with muscle strain and given baclofen. Baclofen has helped. lidocaine patches do no help. She has tens machine at home and has not used it. denies weakness, tingling, numbness. JOSE SUMMERS Attn: Accounting,[address] [facility], [place], [address], [facility] [place] 05/16/2024 10:39:03 OBGyn Episode Ob Episode Information Episode Created Date Number of Fetuses Patient Bloodtype Patient rh Status Prepregnancy Weight lbs Domestic Partner Domestic Partner Phone Father Name Head Of Sales Promotion Status 07/17/19 17 1 CLOSED Fetus Data First Name Last Name Admitted to NICU Weight (g) Sex Living Outcome Pediatric Complications Fetus ID Race Codes Race Delivery Type Ectopic 13929 Tim Calculation Initial Tim Date Initial Exam Date Initial Exam Provider Initial Ultrasound Date Last Menstrual Period Date Ultra Sound Weeks Gestation 0 Eighteen To Twenty Week Tim Update Ultra Sound Date Fundal Height At Umbil Quickening Date Ultra Sound Latest Weeks Gestation Final Tim Confirmed By Final Tim Confirmed Date Final Tim Date Ultra Sound Latest Days Gestation 0 0 Menstrual History Last Menstrual Date Menses Monthly On Bcp Conception Prior Menses Frequency Hcg Plus Date Menarche Onset Age Delivery Information Delivery Date Delivery Type Labor Anesthesia Weeks Gestation Incision Type Labor Labor Length Hrs Delivered By Post Complications Tubal Sterilization Discharge Date Comments 5 5 Discharge Information Feeding Method Contraceptive Method Maternal HG B and HCT Levels
--- OUTSIDE RECORDS SUMMARY | 2024-08-17 16:58 | XMS_ITS | Clinical Summary ---
Author Organization [facility] Address [address] [facility] [address] [place] [address] Phone Care Team Providers Care National Accounts Sales Name Role Phone Helena Morse Ren JEFFRIES Primary Care Provider [phone] Allergies No known active allergies Medications metFORMIN (GLUCOPHAGE) 500 MG Tablet Take 500 mg by mouth 2 times daily. 1 Active venlafaxine (EFFEXOR-XR) 75 MG CAPSULE SR 24 HR TAKE 1 CAPSULE BY MOUTH ONCE DAILY 1 Active ondansetron (ZOFRAN-ODT) 4 MG TABLET DISPERSIBLE DISSOLVE 1 TABLET IN MOUTH EVERY 6 HOURS NEEDED FOR NAUSEA AND VOMITING 1 Active VITAMIN D PO Take by mouth daily. Active omeprazole (PriLOSEC) 40 MG CAPSULE DELAYED RELEASE Take 1 Capsule by mouth daily. 90 Capsule 3 1 Active HYDROcodone-acet aminophen (NORCO) 5-325 MG Tablet Take 1-2 Tablets by mouth every 6 hours as needed for Moderate or more severe pain. 15 Tablet 1 Active ondansetron (Zofran ODT) 4 MG TABLET DISPERSIBLE Take 1 Tablet by mouth every 8 hours as needed for Nausea - 1st line. 15 Tablet 1 Active Active Problems No known active problems Family History Medical History Relation Name Comments No Known Problems Father No Known Problems Mother Colon Cancer Paternal Grandfather Relation Name Status Comments Father Mother Paternal Grandfather Social History Tobacco Use Types Packs/Day Years Used Date Smoking Tobacco: Every Day Cigarettes 0.3 22 Smokeless Tobacco: Never Tobacco Cessation:Ready to Q uit: Yes; Counseling Given: Yes Alcohol Use Standard Drinks/Week Comments Yes 0 (1 standard drink = 0.6 oz pur e alcohol) 2x monthly Sexually Active Control Partners Comments Yes Comments No Sex and Gender Information Value Date Recorded Sex Assigned at Not on file Legal Sex Female 7:07 PM CDT Gender Identity Not on file Sexual Orientation Not on file Last Filed Vital Signs Vital Sign Reading Time Taken Comments Blood Pressure 119/69 08/21/2020 1:00 PM CDT Pulse 61 08/21/2020 1:15 PM CDT Temperature 36.2 C (97.2 F) 08/21/2020 10:05 AM CDT Respiratory Rate 18 08/21/2020 10:05 AM CDT Oxygen Saturation 97% 08/21/2020 1:15 PM CDT Inhaled Oxygen Concentration - - Weight 122.5 kg (270 lb) 08/21/2020 10:05 AM CDT Height 165.1 cm (5' 5) 08/21/2020 10:05 AM CDT Body Mass Index 44.93 08/21/2020 10:05 AM CDT Plan of Treatment Health Maintenance Due Date Last Done Comments TdaP Immunization 1975 Hepatitis B Immunization (1 of 3 - 19+ 3-dose series) 09/22/1994 Cologuard 09/22/2020 Immunochemical Fecal Occult Blood 08/21/2021 08/21/2020 SARS-COV-2 Immunization ( season) 2023 12/19/2020, 05/17/2020, 04/24/2020 Influenza Immunization (Seas on Ended) 2024 Colonoscopy 08/17/2030 08/17/2020 Colorectal Cancer Screening 08/17/2030 Respiratory Syncytial Virus (RSV) Immunization (Adult) (1 - 1-dose 75+ series) 09/22/2050 Hepatitis C Virus (HCV) Screening Completed 06/22/2020 Human Papillomavirus (HPV) Immunization Aged Out No longer eligible b ased on patient's age to complete this topic Meningococcal Immunization (ACWY) Aged Out No longer eligible b ased on patient's age to complete this topic Pneumococcal Immunization Combined Aged Out No longer eligible b ased on patient's age to complete this topic Rotavirus Immunization Aged Out No lo nger eligible based on patient's age to complete this topic Procedures Procedure Name Priority Date/Time Associated Diagnosis Comments STOOL, OCCULT BLOOD, DIAGNOSTIC, VIA GUAIAC STAT 08/21/2020 12:15 PM CDT HEPATITIS PANEL ACUTE (AHP) Routine 06/22/2020 1:58 PM CDT Generalized abdominal pain Hepatomegaly from Last 3 Months or Most Recently Relevant to Health Maintenance Results * (ABNORMAL) Stool Occult Blood - Diagnostic (08/21/2020 12:15 PM CDT) Pathologist [facility] OCCULT BLOOD DIAG, GI BLEED Positive(A ) Negative 08/21/2020 12:45 PM CDT [facility] Stool Non-Phlebotomy Collection / Unknown 08/21/2020 12:15 PM CDT 08/21/2020 12:26 PM CDT us Scott García CLIENT BUSINESS MANAGER, SAIL REPAIR PERSON BODY FLUIDS & STOOLS OR DERABLES Final Result [facility] [address] [place] [address] * HEPATITIS PANEL ACUTE (AHP) (06/22/2020 1:58 PM CDT) Pathologist [facility] HEPATITIS A IGM ANTIBODY NON DETECTED NON DETECTED [facility] ARCH [id number] 06/22/2020 9:46 PM CDT [facility] Comment: IGM Antibodies to HAV not detected. Does not exclude early acute or recovered HAV infection. HEP B CORE AB (IGM) NON DETECTED NON DETECTED [facility] [id number] A 06/22/2020 9:46 PM CDT [facility] Comment:IGM anti-HBC not det ected. Does not exclude the possibility of exposure to or infection with HBV. HEPATITIS B SURFACE ANTIGEN NON DETECTED NON DETECTED [facility] ARCH [id number] B 06/22/2020 9:46 PM CDT [facility] Comment:A nonreactive test r esult does not exclude the possibility of exposure to or infection with Hepatitis B virus. A nonreactive test result in individuals with prior exposure to hepatitis B may be due to antigen levels below the detection limit of this assay or lack of antigen reactivity to the antibodies in this assay. hepatitis C antibody 0.30 <1 S/CO [facility] ARCH [id number] 06/22/2020 9:[address] [facility] Comment: Signal/Cutoff ratio < 0.79 is Nondetected Signal/Cutoff ratio 0.80-0.99 is Grayzone Signal/Cutoff ratio > 0.99 is Detected Supplemental assays are recommended if signal/cutoff ratio is >/=1.00. Signal/cutoff ratio result >/= 5.00 is 97% predictive of positivity for recombinant immunoblot assay (RIBA) and will be reported to the [place] Department of Public Health as required. Blood Venipuncture / Unknown 06/22/2020 1:58 PM CDT 06/22/2020 2:21 PM CDT us Haily Horowitz PAC HEMATOLOGY ORDERABLES Fin al Result [facility] [address] [place] [address], from Last 3 Months or Most Recently Relevant to Health Maintenance [facility] Care Teams National Accounts Sales Relationship Specialty Start Date End Date Helena Morse, MERVIN [address] [place], [place] [id number] PCP - General Physician Radio Artist 06/13/20
== END 2024-08-17 14:05 | disposition home or self-care (01) ==
PROVIDERS: PCP Physician Assistant; Visit Provider Physician Assistant
DX: M25.512 Pain in left shoulder (principal)
CPT/HCPCS: 73030

== ENCOUNTER 2024-12-17 08:17 | Emergency (ER) | payer OTHER, SELFPAY ==
[2024-12-17 08:25] VITALS: BP 111/62; PULSE 62; RESP 20; TEMP 36.2; O2SAT 100
--- NOTE | 2024-12-17 09:42 | ED.GENADULT ---
HPI - General Adult General Chief complaint: Upper Respiratory Infection Stated complaint: headache/nausea Source: patient Mode of arrival: ambulatory Limitations: no limitations History of Present Illness HPI narrative: Patient presents for evaluation of sick symptoms. Symptom onset more than 1 week ago. She reports sinus congestion, cough, sore throat and nausea. She denies any chills, shortness of breath, vomiting or diarrhea. Her partner has similar symptoms and is being treated for a sinus infection. She has tried mucinex for her symptoms. She does vape. Related Data Home Medications ?Medication ?Instructions ?Recorded ?Confirmed ?Last Taken ?Type atorvastatin 40 mg tablet 40 mg PO 07/13/23 07/18/24 Unknown History duloxetine 20 mg capsule,delayed 40 mg PO 07/13/23 07/18/24 Unknown History release Allergies Allergy/AdvReac Type Severity Reaction Status Date / Time No Known Allergies Allergy Verified 12/17/24 08:58 Review of Systems Review of Systems: CONSTITUTIONAL: Denies fever, chills, or sweats. EYES: Denies visual changes, redness, or discharge. ENT: Reports sinus congestion and sore throat. denies otalgia CARDIOVASCULAR: Denies chest pain, palpitations, or edema. RESPIRATORY: reports cough. Denies shortness of breath. GASTROINTESTINAL: Reports nausea. Denies abdominal pain, vomiting, or diarrhea. GENITOURINARY: Denies dysuria or hematuria. SKIN: Denies rash or itching. MUSCULOSKELETAL: Denies back pain, joint pain, or myalgia. NEUROLOGIC: Denies headache, numbness, dizziness, or weakness. PSYCHIATRIC: Denies anxiety or depression. [facility] Past Medical History Medical History Screening mammogram for breast cancer Morbid obesity Screening breast examination Hyperlipidemia Vertigo Migraine headache History of pancreatitis Surgical History Surgical History H/O: hysterectomy 02/27/22 - robotic assisted hysterectomy abnormal uterine bleeding - fibroids H/O unilateral oophorectomy H/O dilation and curettage several History of orthopedic surgery History of cholecystectomy Family History Family History Father Diabetes mellitus Hypertension Depression Mother Hypertension Depression Cerebrovascular accident Social History Social History Smoking status: Current every day smoker Tobacco type: e-cigarettes/vaping Alcohol intake: never Drinks per week: 1 Substance use: current Substance use type: marijuana Other substance usage details: edibles for sleep Do You Feel Safe in your Home?: Yes Lack of Transportation: No Lack of Food: Never True Current Housing: I Have Housing Concerned About Future Housing: No Difficulty Paying Gas/Electric Bills: No Difficulty Paying for Meds: No Currently Unemployed: No Education: High School Diploma/GED Difficulty w/ Childcare or Family Care: No Living arrangements: with family Gender identity (if verbalized by the patient): Female Sexual Orientation (if Verbalized by the Patient): Straight or Heterosexual Spiritual care concerns: No Exam Narrative: GENERAL: Well-appearing, well-nourished, and in no acute distress. HEAD: Normocephalic, atraumatic. EYES: PERRLA and EOMI. ENT: Nares clear, no rhinorrhea or epistaxis. Mucous membranes moist. Oropharynx without tonsillar hypertrophy exudate or other lesions. Bilateral TMs pearly woodall nonbulging NECK: Supple. No adenopathy or masses. No carotid bruits or JVD CHEST: Clear to auscultation. No respiratory distress. No wheezes rales or rhonchi HEART: Regular rate and rhythm. No murmur heard. Normal peripheral pulses. ABDOMEN: Soft, nontender, nondistended, normal active bowel sounds. EXTREMITIES: Normal range of motion. No edema. SKIN: Warm, dry, no rash. NEURO: No focal deficits. Alert and oriented x3. PSYCH: Normal mood and affect. Course Course Emergency Course: This is a 49-year-old female who presented for evaluation of sick symptoms. COVID, strep, influenza were all negative. She meets criteria for bacterial sinusitis based upon duration of time in which she has been symptomatic. Discharge with Augmentin and Zofran. Follow up with primary provider. Go to the ER for worsening symptoms. Patient in agreement with plan of care. Level of Care: Express Care Visit Vital Signs Vital signs: Vital Signs Temperature 36.2 C L 12/17/24 08:25 Pulse Rate 62 12/17/24 08:25 Respiratory Rate 20 12/17/24 08:25 Blood Pressure 111/62 12/17/24 08:25 Pulse Oximetry 100 12/17/24 08:25 Oxygen Delivery Room Air 12/17/24 08:25 Temperature 36.2 C L 12/17/24 08:25 Pulse Rate 62 12/17/24 08:25 Respiratory Rate 20 12/17/24 08:25 Blood Pressure 111/62 12/17/24 08:25 Pulse Oximetry 100 12/17/24 08:25 Oxygen Delivery Room Air 12/17/24 08:25 Medical Decision Making Vital Signs Vital Signs: Vital Signs Temperature 36.2 C L 12/17/24 08:25 Pulse Rate 62 12/17/24 08:25 Respiratory Rate 20 12/17/24 08:25 Blood Pressure 111/62 12/17/24 08:25 Pulse Oximetry 100 12/17/24 08:25 Oxygen Delivery Room Air 12/17/24 08:25 Temperature 36.2 C L 12/17/24 08:25 Pulse Rate 62 12/17/24 08:25 Respiratory Rate 20 12/17/24 08:25 Blood Pressure 111/62 12/17/24 08:25 Pulse Oximetry 100 12/17/24 08:25 Oxygen Delivery Room Air 12/17/24 08:25 Discharge Plan Discharge Clinical Impression: Sinusitis Patient Disposition: Home Condition: Stable Instructions: Antibiotic Form, Sinusitis (ED) Patient Language: Slovak Prescriptions: New amoxicillin-pot clavulanate 875-125 mg tablet 1 tablet PO Q12H Qty: 20 0RF ondansetron 4 mg tablet,disintegrating 4 mg PO Q8H PRN (Reason: nausea and vomiting) Qty: 12 0RF No Action duloxetine 20 mg capsule,delayed release(DR/EC) 40 mg PO atorvastatin 40 mg tablet 40 mg PO estradiol 1 mg tablet See Rx Instructions .ROUTE .COMPLEX Qty: 60 2RF Dose Instruction: Take 2 tablets by mouth once daily Rx Instructions: Take 2 tablets by mouth once daily Follow-up/Referrals: Lito,JOSE Mckeon [Primary Care Provider, Family Practice] Time of Disposition: 09:41
[2024-12-17 10:06] LABS: EDCOVIDSCREEN Negative (Negative)
[2024-12-17 10:06] LABS: EDINFLUASCREEN Negative (Negative); EDINFLUBSCREEN Negative (Negative)
[2024-12-17 10:07] LABS: EDSTREPNEGPOS1 Negative (Negative)
== END 2024-12-17 09:54 | disposition home or self-care (01) ==
PROVIDERS: Emergency Provider Nurse Practitioner; PCP Physician Assistant
DX: J32.9 Chronic sinusitis, unspecified (principal); Z20.822 Contact with and (suspected) exposure to COVID-19; F17.290 Nicotine dependence, other tobacco product, uncomplicated; F12.90 Cannabis use, unspecified, uncomplicated; E78.5 Hyperlipidemia, unspecified; E66.01 Morbid (severe) obesity due to excess calories; Z68.36 Body mass index [BMI] 36.0-36.9, adult
CPT/HCPCS: 87081; 87426; 87804; 87880; 99213; G0463

== ENCOUNTER 2025-01-31 15:22 | Outpatient (CLI) | payer OTHER, SELFPAY ==
--- OUTSIDE RECORDS SUMMARY | 2024-12-04 18:00 | XMS_ITS | Continuity of Care Document ---
Author Organization [facility] Address [address] [place] [id number] Phone Care Team Providers Care Automatic Seamer Name Role Phone Feliberto RODRIGUEZ, FACC, Asa Unavailable Unavailab le Procedures Procedure Date TTE W/DOPPLER, COMPLETE Advance Directives Directive Yes / No Effective Date File Name No Information Encounters Encounter Description Practice Location Reason(s) For Visit Diagnoses Date Provider Providers Copied on Encounter [facility] , [address] [place] [address], [id number], tel:[phone] [facility] Inpt No Information Feliberto Bray. [address] [place] [address], [id number], . tel:[phone] Referring Provider: Asa Dao, [address] [place] [address], [place], [address]. tel:[phone] Family History Family Member Type Diagnosis Age At Onset No Information Payers Payer name Insurance type Covered alliance party ID Authoriza tion(s) No Information Social History Type Description Quantity Date Captured Comments Sex Female Smoking Status No Information Chief Complaint And Reason For Visit No Information Reason For Referral Reason For Referral No Information History Of Present Illness Encounter Date Complaint History Of Prese nt Illness No Information Functional Status Date Functional Assessmen t No Information Instructions Date Instruction Additional Infor mation No Information Assessments Type Assessment Date No Information Patient Care Teams Name Effective Dates (start - stop) Status Members No Information
--- NOTE | ~2025-01-31 | XR_ITS ---
EXAMINATION: XR shoulder LT min 2V, 01/31/2025 15:40 MANAGER MEDICARE MARKETING HISTORY: neck pain, pain of left shoulder joint COMPARISON: No comparisons available. Findings: No acute fracture or malalignment. Moderate to severe degenerative changes Soft tissues unremarkable. Impression: No acute fracture or malalignment. Reviewed, dictated and finalized at location P. GER MEDICARE MARKETING Impression: No acute fracture or malalignment.
--- NOTE | ~2025-01-31 | XR_ITS ---
[id number] Indication: neck pain, pain of left shoulder joint Comparison: None Findings: The vertebral heights are intact. No fracture or subluxation. Moderate loss of disc height at C5-6 and C6-7. Soft tissues unremarkable Impression: No acute abnormality. Reviewed, dictated and finalized at location P. AN Impression: No acute abnormality.
--- OUTSIDE RECORDS SUMMARY | 2025-01-31 17:06 | XMS_ITS | Clinical Summary ---
Author Organization [facility] Address [address] [place] [address] Care Team Providers Care Travel Administrator Name Role Phone Helena Morse PA-C Primary Care Provider [phone] Andrés Tello MD Unavailable [phone] Allergies No known active allergies Medications atorvastatin (LIPITOR) 40 MG tablet Take 1 tablet (40 mg total) by mouth nightly at bedtime. 4 Active DULoxetine (CYMBALTA) 20 MG capsule Take 1 capsule (20 mg total) by mouth 2 (two) times daily. 4 Active estradiol (ESTRACE) 1 MG tablet Take 2 tablets (2 mg total) by mouth daily. 4 Active naproxen (NAPROSYN) 500 MG tablet Take 1 tablet (500 mg total) by mouth 2 (two) times daily as needed (pain). Active tamsulosin (FLOMAX) 0.4 MG Cap Take 1 capsule (0.4 mg total) by mouth daily. 30 capsule 4 Active baclofen (LIORESAL) 10 MG tablet Take 1 tablet (10 mg total) by mouth 3 (three) times daily. 15 tablet 5 Active lidocaine 4 % patch Place 1 patch onto the skin daily. Remove & Discard patch within 12 hours or as directed by 10 patch 5 Active ondansetron (ZOFRAN-ODT) 4 MG disintegrating tablet Take 1 tablet (4 mg total) by mouth every 8 (eight) hours as needed. 10 tablet 5 Active Active Problems Problem Noted Date Diagnosed Date Pyelonephritis 12/11/2023 Ureteral stent present 12/11/2023 Kidney stone 09/26/2023 Nephrolithiasis 09/25/2023 Social History Tobacco Use Types Packs/Day Years Used Date Smoking Tobacco: Some Days Electronic Cigarettes Smokeless Tobacco: Never Alcohol Use Standard Drinks/Week Comments Yes 0 (1 standard drink = 0.6 oz pur e alcohol) rare B1300 Health Literacy Answer Date Recor ded How often do you need to hav e someone help you when you read instructions, pamphlets, or other written material from your doctor or pharmacy? Never 12/11/2023 [facility] Utilities Answer Date Recorded In the past 12 months has e [employer], gas, oil, or water [employer] threatened to shut off services in your home? No 12/11/2023 Humiliation, Afraid, Rape, and Kick questionnair e Answer Date Recorded Within the last year, have y ou been afraid of your partner or ex-partner? No 12/11/2023 Within the last year, have y ou been humiliated or emotionally abused in other ways by your partner or ex-partner? No Within the last year, have y ou been kicked, hit, slapped, or otherwise physically hurt by your partner or ex-partner? No 12/11/2023 Within the last year, have y ou been raped or forced to have any kind of sexual activity by your partner or ex-partner? No 12/11/2023 Social Connection and Isolation Panel Answer Date Recorded In a typical week, how many times do you talk on the phone with family, friends, or neighbors? More than three times a week 12/11/2023 How often do you get togethe r with friends or relatives? Three times a week 12/11/2023 How often do you attend chur ch or sabianism services? 1 to 4 times per year 12/11/2023 Do you belong to any clubs o r organizations such as adventist groups, unions, fraternal or athletic groups, or school groups? No 12/11/2023 How often do you attend meet ings of the clubs or organizations you belong to? Never 12/11/2023 Are you , , di vorced, , never , or living with a partner? 12/11/2023 AUDIT-C Answer Date Recorded Q1: How often do you have a drink containing alc ohol? Monthly or less 12/11/2023 Q2: How many drinks containi ng alcohol do you have on a typical day when you are drinking? 1 or 2 12/11/2023 Q3: How often do you have si x or more drinks on one occasion? Never 12/11/2023 Overall Financial Resource Strain (CARDIA) Answe r Date Recorded How hard is it for you to pa y for the very basics like food, housing, medical care, and heating? Somewhat hard 12/11/2023 [facility] ional Health - Occupational Stress Questionnaire Answer Date Recorded Do you feel stress - tense, restless, nervous, or anxious, or unable to sleep at night because your mind is troubled all the time - these days? To some extent 12/11/2023 Exercise Vital Sign Answer Date Recorde d On average, how many days pe r week do you engage in moderate to strenuous exercise (like a brisk walk)? 0 days 12/11/2023 On average, how many minutes do you engage in exercise at this level? 0 min 12/11/2023 Hunger Vital Sign Answer Date Recorded Within the past 12 months, y ou worried that your food would run out before you got the money to buy more. Never true 12/11/19 24 Within the past 12 months, t he food you bought just didn't last and you didn't have money to get more. Never true 12/11/2023 PRAPARE - Transportation Answer Date Re corded In the past 12 months, has l ack of transportation kept you from medical appointments or from getting medications? No 06/2023 In the past 12 months, has l ack of transportation kept you from meetings, work, or from getting things needed for daily living? No 12/11/2023 Housing Stability Vital Sign Answer Puma e Recorded In the last 12 months, was t here a time when you were not able to pay the mortgage or rent on time? No 12/11/2023 In the past 12 months, how m any times have you moved where you were living? 0 12/11/2023 At any time in the past 12 m [facility], were you homeless or living in a mcc (including now)? No 12/11/2023 Comments No Sex and Gender Information Value Date Recorded Sex Assigned at Female 05/14/2024 10:03 AM OPERATOR RECEPTIONIST Legal Sex Female 4:06 PM CDT Gender Identity Not on file Sexual Orientation Not on file Last Filed Vital Signs Vital Sign Reading Time Taken Comments Blood Pressure 149/78 05/14/2024 12:00 PM OPERATOR RECEPTIONIST Pulse 57 05/14/2024 12:00 PM OPERATOR RECEPTIONIST Temperature 37 C (98.6 F) 05/14/2024 9:40 AM OPERATOR RECEPTIONIST Respiratory Rate 17 05/14/2024 12:0 0 PM OPERATOR RECEPTIONIST Oxygen Saturation 98% 05/14/2024 12: 00 PM OPERATOR RECEPTIONIST Inhaled Oxygen Concentration - - Weight 102.7 kg (226 lb 6.6 oz) 05/14/2024 9:40 AM OPERATOR RECEPTIONIST Height 165.1 cm (5' 5) 05/14/2024 9:40 AM OPERATOR RECEPTIONIST Body Mass Index 37.68 05/14/2024 9:40 AM OPERATOR RECEPTIONIST Plan of Treatment Health Maintenance Due Date Last Done Comments Colorectal Cancer Screening Colonoscopy (10 Years) 1975 Annual Physical 09/22/1978 Hepatitis B Vaccines (1 of 3 - 19+ 3-dose series) 09/22/1994 Pneumococcal Vaccine: Pediatrics (0 to 5 Years) and At-Risk Patients (6 to 49 Years) (2 of 2 - PCV) 12/30/2014 12/30/2013 Mammogram Screening 2015 COVID-19 Vaccine ( season) 2024 12/19/2020, 05/17/2020, 05/17/2020, Additional history exists Influenza Adult (#1) 2024 12/30/2013 DTaP, Tdap and Td Vaccines (2 - Td or Tdap) 08/14/2032 08/14/2022 Hepatitis C Completed 06/22/2020 Hepatitis A Vaccines Aged Out No long er eligible based on patient's age to complete this topic Meningococcal B Vaccine Aged Out No l onger eligible based on patient's age to complete this topic Meningococcal Vaccine Aged Out No patel ivon eligible based on patient's age to complete this topic RSV Immunizations Under 20 Months Aged Out No longer eligible based on patient's age to complete this topic Goals Goal Patient Goal Type Associated Problems Recent Progress Patient-Stated? Author Health - patient able to perform ADLs independently Lifestyle No Amarilis Bernard, RN Medical Devices Implanted Type Area Clinical Research Spec Device Identifier Shelf Expiration Date Model / Serial / Lot Stent Ureteral Contour Vl 4.8fr X 22-30cm - [id number] Implanted:Qty : 1 on 09/26/2023 by Andrés Tello MD at [facility] Stent Left: Ureter [employer] [id number] 12/25/2025 [id number] / / [id number] [employer] Insurance [employer] MEDICAID Advance Directives * Full Code (Latest Code Status on File) Date Activated Date Inactivated Comments 12/11/2023 5:15 PM 12/13/2023 3:05 PM * Full Code Date Activated Date Inactivated Comments 09/26/2023 3:19 AM 09/28/2023 1:03 PM Care Teams Travel Administrator Relationship Specialty Start Date End Date Helena Morse PA-C [address] [place] [id number] PCP - General NURSE PRACTITIONER 05/28/20 Andrés Tello MD [address] [place] [address] Consulting Physician UROLOGY 10/06/23
--- OUTSIDE RECORDS SUMMARY | 2025-01-31 17:06 | XMS_ITS | Encounter Summary ---
Author Organization [facility] Address [address] [place] [address] Care Team Providers Care Air Turning Machine Feeder Name Role Phone Nya Dee RN Unavailable Unavailable Helena Morse PA-C Primary Care Provider Encounter Details Date Type Department Care Team (Late st Contact Info) Description 02/12/2024 Telephone [facility] - End[facility]inology [address] [facility], [place] [address] Fabienne Jefferson MD [address] [place] [address] Social History Tobacco Use Types Packs/Day Years Used Date Smoking Tobacco: Former Cigarettes 0 Q uit: 11/23/2016 Smokeless Tobacco: Never Alcohol Use Standard Drinks/Week Comments Yes 0 (1 standard drink = 0.6 oz pur e alcohol) seldom AUDIT-C Answer Date Recorded Q1: How often do you have a drink containing alcohol? Never 12/24/2023 Q2: How many drinks containi ng alcohol do you have on a typical day when you are drinking? Patient does not drink Q3: How often do you have si x or more drinks on one occasion? Never 12/24/2023 Comments No Sex and Gender Information Value Date Recorded Sex Assigned at Not on file Legal Sex Female 5:15 PM MILITARY TECHNOLOGY MANAGER Gender Identity Not on file Sexual Orientation Not on file documented as of this encounter Functional Status * Is person deaf or have serious hearing difficulty? Answer Date of Assessment Author No 12/24/2023 3:39 PM Paulie Marsh RN * Is person blind or have serious difficulty seeing? Answer Date of Assessment Author No 12/24/2023 3:39 PM Paulie Marsh RN * Does person have serious difficulty walking/climbing stairs? Answer Date of Assessment Author No 12/24/2023 3:39 PM Paulie Marsh RN * Does person have difficulty dressing/bathing? Answer Date of Assessment Author No 12/24/2023 3:39 PM CDPaulie Edmondson RN * Does person have difficulty doing errands alone? Answer Date of Assessment Author No 12/24/2023 3:39 PM Paulie Marsh RN documented as of this encounter Mental Status * Does person have difficulty concentrating/remembering/making decisions? Answer Entry Date Author No 12/24/2023 3:39 PM Paulie Marsh RN documented in this encounter Miscellaneous Notes * Telephone Encounter - Alejandro Jefferson MD - 02/16/2024 8:10 AM CST I called Ms. Baldwin and was unable to reach her but left a voice note on how she is to take the medication. I will place a new prescription for the 1 mg dexamethasone tablet. TARY TECHNOLOGY MANAGER * Telephone Encounter - Svetlana Saeed - 02/12/2024 8:11 AM CST Current Provider: Dr. Alejandro Jefferson Reason for Call: Ms. Nimco Baldwin took her dexAMETHasone (Decadron) 1 MG tablet pill for the test youwanted her to have in the wrong order. Lab Jesus Alberto says she needs a new script to take the pill opposite the way the orders are written. [facility] [address] [place] [address] Patient Call Back Number: [phone] TARY TECHNOLOGY MANAGER documented in this encounter Plan of Treatment Upcoming Encounters Date Type Department Care Team (Late st Contact Info) Description 02/15/2025 3:00 PM MILITARY TECHNOLOGY MANAGER Office Visit [facility] - Urology [address] [place] [id number] Alfred Light PA [address] [place] [address] 06/07/2025 1:00 PM CDT Office Visit [facility] - Endocrinology [address] [facility] [place] [address] Alejandro Jefferson MD [facility] [place] [address] documented as of this encounter Visit Diagnoses Not on filedocumented in this encounter Care Teams Air Turning Machine Feeder Relationship Specialty Start Date End Date Helena Morse PA-C [address] [place] [phone] PCP - General Physician Die Out Worker 12/03/23 Nya Dee, RN Registered Nurse 03/26/17 documented as of this encounter
--- OUTSIDE RECORDS SUMMARY | 2025-01-31 17:06 | XMS_ITS | Clinical Summary ---
Author Organization [facility] Address [address] [facility] [address] Care Team Providers Care Lineman Apprentice Name Role Phone Nya Dee RN Unavailable Unavailable Helena Morse PA-C Primary Care Provider Source Comments [facility],non-owned Affiliates and Associated Physician Practices is amultiple site organization consisting of ambulatory clinics and hospital sitesin [place], [place], [place] and [place]. This disclosure is being madepursuant to the Care Everywhere program and may not contain all information available regarding this patient. Last updated 17.[facility] Allergies No known active allergies Medications * Be aware that medications may not be up to date on this document. Alwaysverify current medications with the patient. ibuprofen (MOTRIN) 600 MG tablet Take 1 tablet by mouth every 6 hours as needed for Pain 40 tablet 03/26/2017 Active Acetaminophen-C affeine (EXCEDRIN TENSION HEADACHE) 500-65 MG Take by mouth. 02/11/2017 Active terconazole (TERAZOL 3) 0.8 % vaginal cream 0 01/16/2017 Act shakila Glucose Blood (BLOOD GLUCOSE TEST STRIPS) STRP Use 1 strip DAILY. 100 strip PRN 07/17/2016 Active Cholecalciferol (VITAMIN D3) 59694 UNITS TABS Take 3 (three) tablets by mouth DAILY 07/17/2016 Active FREESTYLE LANCETS MISC Use DAILY. 100 Each PRN 07/17/2016 Active calcium carbonate (CALCIUM 600) 600 MG tablet Take 1 (one) tablet by mouth BID 1 05/16/2016 Active metFORMIN (GLUCOPHAGE) 500 MG tablet Take 2 tablets by mouth 2 times daily 120 tablet 07/20/2017 Active atorvastatin (LIPITOR) 40 MG tablet Take 1 tablet by mouth once daily 90 tablet 07/22/2017 Active fenofibrate (LOFIBRA) 160 MG tablet Take 1 tablet by mouth once daily 30 tablet 1 07/22/2017 Active DULoxetine (Cymbalta) 20 MG capsule Take 1 (one) capsule by mouth 2 times daily Active estradiol (Estrace) 1 MG tablet Take 2 (two) tablets by mouth once daily Active VITAMIN D PO Take by mouth once daily Active naproxen (Naprosyn) 500 MG tablet Take 1 (one) tablet by mouth 2 times daily as needed Active famotidine (Pepcid) 20 MG tablet Take 1 (one) tablet by mouth prn Active HYDROcodone-ange taminophen ([place]) 5-325 MG tabletIndicatio ns:Ureteral stent present,Kidney stone Take 1 (one) tablet by mouth every 6 hours as needed for Pain 6 tablet 12/24/2023 Active acetaminophen (Tylenol) 500 MG capsule Take 1 (one) capsule by mouth every 4 hours as needed for Fever or Pain 12/24/2023 Active fluconazole (Diflucan) 200 MG tablet Take 1 (one) tablet by mouth once daily 10 tablet 12/26/2023 Active baclofen (Lioresal) 10 MG tablet Take 1 (one) tablet by mouth 3 times daily 05/14/2024 Active lidocaine (Lidoderm) 4 % patch Apply 1 (one) patch to skin every 24 hours 05/14/2024 Active meclizine (Antivert) 12.5 MG tablet Active dexAMETHasone (Decadron) 1 MG tablet Take one pill at 11 pm the night before you go for your morning blood work 1 tablet 06/01/2024 Active ondansetron, disintegrating, (Zofran ODT) 4 MG tablet Take 1 (one) tablet by mouth every 6 hours as needed 15 tablet 07/20/2024 Active Active Problems Problem Noted Date Diagnosed Date Kidney stone 12/24/2023 Ureteral stent present 12/24/2023 Dizziness 09/03/2021 Abnormal uterine bleeding (AUB) 03/26/2017 Pure hyperglyceridemia 07/17/2016 Type 2 diabetes mellitus without complications 0 07/17/2016 Overview (12/07/2024): IMO 06/08/2024 IMO 12/07/2024 Morbid (severe) obesity due to excess calories 0 07/17/2016 Acute cholecystitis 01/02/2014 Acute pancreatitis without infection or necrosis 12/29/2013 Immunizations Immunization Administration Dates Next Due INFLUENZA VACCINE, TRIV. (AF LURIA, FLUZONE TRIVALENT; 6MO+) (IIV3) 12/30/2013 PNEUMOCOCCAL PPSV23 12/30/2013 Social History Tobacco Use Types Packs/Day Years Used Date Smoking Tobacco: Former Cigarettes 0 Q uit: 11/23/2016 Smokeless Tobacco: Never Tobacco Cessation:Counseling Given: No Alcohol Use Standard Drinks/Week Comments Yes 0 [...] on file Legal Sex Female 5:15 PM ORACLE APEX DEVELOPER Gender Identity Not on file Sexual Orientation Not on file Last Filed Vital Signs Vital Sign Reading Time Taken Comments Blood Pressure 106/74 07/20/2024 2:55 PM CDT Pulse 80 07/20/2024 2:55 PM CDT Temperature 36.8 C (98.2 F) 07/20/2024 2:55 PM CDT Respiratory Rate 17 07/20/2024 2:55 PM CDT Oxygen Saturation 98% 07/20/2024 2:55 PM CDT Inhaled Oxygen Concentration 21% 12/24/2023 2 :25 PM CDT Weight 103.4 kg (228 lb) 07/20/2024 2:55 PM CDT Height 165.1 cm (5' 5) 07/20/2024 2:55 PM CDT Body Mass Index 37.94 07/20/2024 2:55 PM CDT Plan of Treatment Upcoming Encounters Date Type Department Care Team (Late st Contact Info) Description 02/15/2025 3:00 PM ORACLE APEX DEVELOPER Office Visit [facility] - Urology [address] [place] [address] Alfred Light PA [address] [place] [address] 06/07/2025 1:00 PM CDT Office Visit [facility] - Endocrinology [address] [facility], [place] [address] Alejandro Jefferson MD [address] [facility] [place] [address] Health Maintenance Due Date Last Done Comments COLOGUARD (AGES 45-75) - COLON CA SCREENING 1975 COLON MONITORING 1975 COLONOSCOPY - COLON CA SCREENING 1975 CT COLONOGRAPHY - COLON CA SCREENING 1975 Colorectal Cancer Screening 1975 FIT - COLON CA SCREENING 1975 FLEX SIG - COLON CA SCREENING 1975 MAMMOGRAM 1975 HIV SCREENING 09/22/1990 HEPATITIS C SCREENING 09/18/1993 DTAP/TDAP/TD VACCINES (1 - Tdap) 09/22/1994 HEPATITIS B VACCINE (1 of 3 - 19+ 3-dose series) 09/22/1994 DIABETES RETINOPATHY SCREENING 06/08/2017 DIABETES-FOOT EXAM WITH MONOFILAMENT 06/08/2017 DIABETES-HGB A1C 06/08/2017 07/17/2016 DEPRESSION SCREENING 03/09/2024 DIABETES - URINE PROTEIN SCREENING 03/09/2024 COVID-19 VACCINE ( season) 2024 12/19/2020, 05/17/2020, 04/24/2020 INFLUENZA VACCINE (#1) 2024 12/30/2013 DIABETES-SERUM CREATININE 01/21/20252023, 11/27/2023, 03/26/2017, Additional history exists ZOSTER VACCINE (1 of 2) 09/22/2025 HIB VACCINE Aged Out No longer eligi ble based on patient's age to complete this topic HPV VACCINE Aged Out No longer eligi ble based on patient's age to complete this topic MENINGOCOCCAL (Group B) VACCINE SHARED DECISION-MAKING Aged Out No longer eligible based on patient's age to complete this topic MENINGOCOCCAL GROUPS A/C/Y/W VACCINE Aged Out No longer eligible based on patient's age to complete this topic Medical Devices Implanted Type Area Glass Artist Device Identifier Shelf Expiration Date Model / Serial / Lot Stent Uret 6fr 26cm Sft Tria Implanted:Qty: 1 on 12/24/2023 by Alfredo Cheng MD at [facility] Left: Ureter [employer] Jesus Alberto 09/21/2026 [id number] / / [id number] Procedures Procedure Name Priority Date/Time Associated Diagnosis Comments COMPREHENSIVE METABOLIC PANEL Routine 01/22/2024 3:52 PM ORACLE APEX DEVELOPER Kidney stone HEMOGLOBIN A1C Routine 07/17/2016 11:12 AM CDT from Last 3 Months or Most Recently Relevant to Health Maintenance Results * (ABNORMAL) COMPREHENSIVE METABOLIC PANEL (01/22/2024 3:52 PM ORACLE APEX DEVELOPER) BUN 14 7 - 26 mg/dL 01/22/2024 4:48 PM [facility] [place] [employer] Creatinine 0.97(H) 0.56 - 0.96 mg/dL 01/22/2024 4:48 PM [facility] [employer] Sodium 140 136 - 145 mmol/L 01/22/2024 4:[address] [facility] Potassium 3.7 3.5 - 4.5 mmol/L 01/22/2024 4:48 PM [facility] [employer] Chloride 104 98 - 107 mmol/L 01/22/2024 4:48 PM [facility] [facility] [employer] CO2 28 22 - 29 mmol/L 01/22/2024 4:48 PM [facility] [facility] Glucose 87 70 - 99 mg/dL 01/22/2024 4:48 PM [facility] Calcium 9.3 8.4 - 10.2 mg/dL 01/22/2024 4:48 PM [facility] [employer] Protein Total 6.8 6.0 - 8.3 g/dL 01/22/2024 4:48 PM ORACLE APEX DEVELOPER [facility] Albumin 3.5 3.4 - 5.0 g/dL 01/22/2024 4:48 PM [facility] Bilirubin Total 0.5 0.2 - 1.2 mg/dL 01/22/2024 4:48 PM [facility] Alkaline Phosphatase 103 40 - 150 U/L 01/22/2024 4:48 PM [facility] ALT 11 5 - 55 U/L 01/22/2024 4:48 PM [facility] AST 13 5 - 34 U/L 01/22/2024 4:48 PM [facility] Anion Gap 8 6 - 16 01/22/2024 4:48 PM [facility] BUN/Creatinine Ratio 14 7 - 23 01/22/2024 4:48 PM [facility] Osmolality Calculated 290 275 - 295 mOsm/kg 01/22/2024 4:48 PM [facility] Albumin/Globulin Ratio 1.1 1.1 - 2.3 01/22/2024 4:48 PM [facility] eGFR by CKD-EPI 72(L) >=90 mL/min/1.7 3 m2 01/22/2024 4:48 PM [facility] Blood BLOOD SPECIMEN / Unknown Lab Venipuncture / Unknown 01/22/2024 3:52 PM ORACLE APEX DEVELOPER 01/22/2024 4:20 PM ORACLE APEX DEVELOPER Alfredo Cheng MD LAB - CHEMISTRY ORDERABLES Final Result [facility] [address] [place] [phone], [facility] [phone] * HEMOGLOBIN A1C (07/17/2016 11:12 AM CDT) Hemoglobin A1c 5.8 4.4 - 6.3 % [facility] Estimated Average Glucose 120 mg/dL [facility] Comment: HbA1c Interpretation: Treatment target values recommended by ADA and other clinical organizations should be used to evaluate metabolic control in patients. Treatment Target Values: Normal : < 5.7% Pre-diabetes: 5.7-6.4% Diabetes: Equal to or greater than 6.5% Reference: [place] Diabetes Association Standards of Care in Diabetes -2014 In patients 70 years and older consider HbA1c target range of 7.0-7.5% Reference: Diabetes Mellitus in Older People: Position Statement on behalf of the International Association of Gerontology and Geriatrics (IAGG), the Diabetes Working Democrat for Older People (EDWPOP), and the International Task Force of Experts in Diabetes. Neeraj Mcclure et al. J [place] Medical Directors Association. 2012 Test results diagnostic of diabetes should be repeated for confirmation. The Tosoh G8 assay for the measurement of HbA1c is a National Glycohemoglobin Standardization Program (NGSP)certified method. Results for patients with HbE disease should be interpreted with caution as this hemoglobinopathy has been shown to interfere with the Tosoh G8 assay. Blood specimen (specimen) BLOOD SPECIMEN / Unknown 07/17/2016 11:12 AM CDT 07/17/2016 11:12 AM CDT Kwame Goins MD LAB - CHEMISTRY ORDERABLES Final Result [address] [phone] from Last 3 Months or Most Recently Relevant to Health Maintenance [place] [place] [address] [facility] [place] [address] [facility] Care Teams Lineman Apprentice Relationship Specialty Start Date End Date Helena Morse PA-C [address] [place] [phone] PCP - General Physician Order Desk Caller 12/03/23 Nya Dee, RN Registered Nurse 03/26/17
--- OUTSIDE RECORDS SUMMARY | 2025-01-31 17:06 | XMS_ITS | Clinical Summary ---
Author Organization [facility] Address [address] [facility] [address] [place] [address] Phone Care Team Providers Care Agricultural Engineering Technicians Name Role Phone Helena Morse Ren JEFFRIES Primary Care Provider [phone] Allergies No known active allergies Medications metFORMIN [...] Date Last Done Comments TdaP Immunization 1975 Varicella Immunization (1 of 2 - 13+ 2-dose series) 09/22/1988 Hepatitis B Immunization (1 of 3 - 19+ 3-dose series) 09/22/1994 Pap Smear 09/22/1996 Cervical Cancer Screening (CCS) 09/22/2005 HPV/Cotest 09/22/2005 Cologuard 09/22/2020 Immunochemical Fecal Occult Blood 08/21/2021 08/21/2020 Influenza Immunization (#1) 2024 SARS-COV-2 Immunization ( season) 2024 12/19/2020, 05/17/2020, 04/24/2020 Colonoscopy 08/17/2030 08/17/2020 Colorectal Cancer Screening 08/17/2030 [...] Blood - Diagnostic (08/21/2020 12:15 PM CDT) OCCULT BLOOD DIAG Positive(A ) Negative 08/21/2020 12:45 PM CDT [facility] Stool Non-Phlebotomy Collection / Unknown 08/21/2020 12:15 PM CDT 08/21/2020 12:26 PM CDT Scott García APRN, CNP BODY FLUIDS & STOOLS OR DERABLES Final Result [facility] [address] [place] [address] * HEPATITIS PANEL ACUTE (AHP) (06/22/2020 1:58 PM CDT) Pathologist [facility] HEPATITIS A IGM ANTIBODY NON DETECTED NON DETECTED [facility] [id number] 06/22/2020 9:46 PM CDT [facility] Comment: IGM Antibodies to HAV not detected. Does not exclude early acute or recovered HAV infection. HEP B CORE AB (IGM) NON DETECTED NON DETECTED [facility] [id number] 06/22/2020 9:46 PM CDT [facility] Comment:IGM anti-HBC not det ected. Does not exclude the possibility of exposure to or infection with HBV. HEPATITIS B SURFACE ANTIGEN NON DETECTED NON DETECTED [facility] [id number] 06/22/2020 9:46 PM CDT [facility] Comment:A nonreactive test r esult does not exclude the possibility of exposure to or infection with Hepatitis B virus. A nonreactive test result in individuals with prior exposure to hepatitis B may be due to antigen levels below the detection limit of this assay or lack of antigen reactivity to the antibodies in this assay. hepatitis C antibody 0.30 <1 S/CO [facility] [id number] 06/22/2020 9:46 PM CDT [facility] Comment: Signal/Cutoff ratio < 0.79 is Nondetected Signal/Cutoff ratio 0.80-0.99 is Grayzone Signal/Cutoff ratio > 0.99 is Detected Supplemental assays are recommended if signal/cutoff ratio is >/=1.00. Signal/cutoff ratio result >/= 5.00 is 97% predictive of positivity for recombinant immunoblot assay (RIBA) and will be reported to the [place] Department of Public Health as required. Blood Venipuncture / Unknown 06/22/2020 1:58 PM CDT 06/22/2020 2:21 PM CDT Haily Horowitz PAC HEMATOLOGY ORDERABLES Fin al Result [facility] [address] [place] [address], from Last 3 Months or Most Recently Relevant to Health Maintenance Insurance MEDICAID [facility] Care Teams Agricultural Engineering Technicians Relationship Specialty Start Date End Date Helena Morse, MERVIN [address] [place] [address] PCP - General Physician Car Hopper 06/13/20
== END 2025-01-31 15:23 | disposition home or self-care (01) ==
DX: M19.012 Primary osteoarthritis, left shoulder (principal); M54.2 Cervicalgia; R29.890 Loss of height
CPT/HCPCS: 72040; 73030

== ENCOUNTER 2025-02-10 08:27 | Emergency (ER) | payer OTHER, SELFPAY ==
--- NOTE | ~2025-02-10 | CT_ITS ---
EXAMINATION: CT abdomen pelvis w con DATE: 02/10/2025 10:10 INDICATION: Abdominal pain TECHNIQUE: Computed tomography (CT) of the abdomen and pelvis was performed with 100 mL Omnipaque-350 intravenous contrast. Automated exposure control and iterative reconstruction technique were employed. The dose-length product was 1030.51 mGy-cm. COMPARISON: 11/03/2023 FINDINGS: Mild dependent atelectasis in the lateral lower lobes. Heart size is normal. No pericardial or pleural effusion. Calcified mediastinal lymph nodes consistent with old granulomatous disease. Minimal pneumobilia the distal most aspect of the common bile duct likely related to prior cholecystectomy and hysterectomy with surgical clips the gallbladder fossa. Liver, spleen, pancreas, bilateral adrenal glands and right kidney are normal. There are scattered cortical scarring at the left kidney. Mild diverticulosis with descending and sigmoid colon predominance without adjacent from trace stranding to suggest diverticular colitis. Small bowel and appendix are normal. Bladder is normal. The uterus is not identified and has likely been surgically resected. No free intraperitoneal gas or fluid. No pathologically enlarged abdominal or pelvic lymphadenopathy. Mild to moderate thoracolumbar spondylosis. IMPRESSION: 1. No acute intra-abdominal/pelvic process. 2. Scattered cortical scarring at the left kidney likely sequela prior infection or infarction. Reviewed, dictated and finalized at location A. UNT SERVICES MANAGER IMPRESSION: 1. No acute intra-abdominal/pelvic process. 2. Scattered cortical scarring at the left kidney likely sequela prior infectio n or infarction.
[2025-02-10 08:33] VITALS: BP 133/77; PULSE 64; RESP 16; TEMP 36.6; O2SAT 100
[2025-02-10 08:37] VITALS: BP 133/77; PULSE 74; RESP 15; O2SAT 100
[2025-02-10 08:43] VITALS: BP 126/65; PULSE 81; RESP 16; O2SAT 98
[2025-02-10 08:49] LABS: Hematocrit 41.3 % (37.0-47.0); Hemoglobin 13.6 g/dL (12.0-15.0); Immature Granulocyte Percent A 0.6 % (0-0.5); Lymphocytes Absolute Auto 2.12 K/mm3 (0.9-3.2); Mean Corpuscular HGB Conc 32.9 g/dl (32-36); Mean Corpuscular Hemoglobin 30.8 pg (26-34); Mean Corpuscular Volume 93.7 fl (80-100); Nucleated Red Blood Cells Absolute Auto 0.000 K/mm3 (0.0-0.012); Nucleated Red Blood Cells Perc 0.0 % (0.0-0.2); Platelet Count Result 329 k/mm3 (150-375); Red Blood Count 4.41 M/mm3 (4.2-5.4); White Blood Count 8.2 K/mm3 (4.5-10.0)
[2025-02-10 08:54] LABS: BEDSIDEPREGUCG Negative (Negative)
[2025-02-10 09:02] VITALS: BP 103/78; PULSE 76; RESP 14; O2SAT 98
[2025-02-10] MEDS: SODIUM CHLORIDE 0.9% IV 1,000 ML 150 ML IV CONT (09:03)
[2025-02-10] MEDS: ONDANSETRON INJ 4 MG/2 ML VIAL IV PUSH (09:04)
[2025-02-10] MEDS: MORPHINE SULFATE (*CRX) 4 MG/ML INJ IV PUSH (09:05)
--- NOTE | 2025-02-10 09:06 | PC.NURSE ---
EDP Dr. Garcia assessed pt and left. pt then states Why cant we have [place] doctors pt then continued inappropriate and racists remarks on foreign doctors
[2025-02-10 09:14] LABS: Alanine Aminotransferase 17 U/L (6-35); Albumin Level 4.1 g/dL (3.5-5.1); Alkaline Phosphatase 119 U/L (38-126); Anion Gap 4 mmol/L (4-12); Aspartate Amino Transferase 19 U/L (14-36); Bilirubin,Total 0.6 mg/dL (0.2-1.3); Blood Urea Nitrogen 6 mg/dL (7-17); Calcium 8.7 mg/dL (8.4-10.2); Carbon Dioxide 30 mmol/L (22-30); Chloride 101 mmol/L (98-107); Estimated CRCL calculation 83 ml/min; Estimated Glomerular Filt Rate > 60; Glucose 108 mg/dL (65-110); Lipase 276 U/L (23-300); Potassium 3.4 mmol/L (3.4-5.0); Sodium 135 mmol/L (137-145); Total Protein 7.4 g/dL (6.3-8.2)
[2025-02-10 09:21] LABS: Add Urine Microscopic? YES; Appearance Urine Cloudy (Clear); Glucose Urine UA Negative (Negative); Leukocyte Esterase Ur 3+ LEU/UL (Negative); Need Manual Microscopic Reviewed; Nitrate Urine Negative (Negative); Non Pathogenic Casts 0-2; Specific Grav Ur 1.012 (1.001-1.035)
[2025-02-10 09:32] VITALS: BP 115/70; PULSE 68; RESP 18; O2SAT 94
--- OUTSIDE RECORDS SUMMARY | 2025-02-10 09:52 | XMS_ITS | Encounter Summary ---
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 INE ADJUSTER HELPER * Telephone Encounter - Svetlana Saeed - 02/12/2024 8:11 AM CST Current Provider: Dr. Alejandro Jefferson Reason for Call: Ms. Nimco Baldwin took her dexAMETHasone (Decadron) 1 MG tablet pill for the test youwanted her to have in the wrong order. Lab Jesus Alberto says she needs a new script to take the pill opposite the way the orders are written. [facility] [address] [place] [id number] Patient Call Back Number: [phone] INE ADJUSTER HELPER documented in this encounter Plan of Treatment Upcoming Encounters Date Type Department Care Team (Late st Contact Info) Description 06/07/2025 1:00 PM CDT Office Visit [facility] End[facility]inology [address] [facility] [place] [address] Alejandro Jefferson MD [address] [facility] [place] [phone] documented as of this encounter Visit Diagnoses Not on filedocumented in this encounter Care Teams Critical Care Nurse Relationship Specialty Start Date End Date Helena Morse PA-C [address] [place] [phone] PCP - General Physician History Department Chair 12/03/23 Nya Dee, RN Registered Nurse 03/26/17 documented as of this encounter
--- OUTSIDE RECORDS SUMMARY | 2025-02-10 09:53 | XMS_ITS | Encounter Summary ---
Author Organization [facility] Health Address [address] [place] [address] Care Team Providers Care Naval Gunfire Liaison Officer Name Role Phone Nya Dee RN Unavailable Unavailable Helena Morse PA-C Primary Care Provider Reason for Visit * Reason Onset Date Comments Appointment 02/10/2025 Spoke to pt to l et her know that her insurance is no longer in network with [facility]. Pt is aware that her appointment for 02.15.25 is canceled Encounter Details Date Type Department Care Team (Late st Contact Info) Description 02/10/2025 Telephone [facility] - General Surgery [address] [place] [address] Alfred iLght PA [address] [place] [address] Appointment (Spoke to pt to let her know that her insurance is no longer in network with [facility]. 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 Answer Date of Assessment Author No 12/24/2023 3:39 PM CDT Paulie Lucio RN * Is person blind or have serious difficulty seeing? Answer Date of Assessment Author No 12/24/2023 3:39 PM CDT Paulie Lucio RN * Does person have serious difficulty walking/climbing stairs? Answer Date of Assessment Author No 12/24/2023 3:39 PM CDT Paulie Lucio RN * Does person have difficulty dressing/bathing? Answer Date of Assessment Author No 12/24/2023 3:39 PM CDT Paulie Lucio RN * Does person have difficulty doing errands alone? Answer Date of Assessment Author No 12/24/2023 3:39 PM SAIT Paulie Lucio RN documented as of this encounter Mental Status * Does person have difficulty concentrating/remembering/making decisions? Answer Entry Date Author No 12/24/2023 3:39 PM Paulie Marsh RN documented in this encounter Plan of Treatment Upcoming Encounters Date Type Department Care Team (Late st Contact Info) Description 06/07/2025 1:00 PM CDT Office Visit [facility] - Endocrinology [address] [facility], [place] [id number] Alejandro Jefferson MD [address] [facility] [place] [phone] documented as of this encounter Visit Diagnoses Not on filedocumented in this encounter Care Teams Naval Gunfire Liaison Officer Relationship Specialty Start Date End Date Helena Morse PA-C [address] [place] [phone] PCP - General Physician Mechanic/Welder 12/03/23 Nya Dee, RN Registered Nurse 03/26/17 documented as of this encounter
--- OUTSIDE RECORDS SUMMARY | 2025-02-10 09:53 | XMS_ITS | Clinical Summary ---
Author Organization [facility] Address [address] [facility] [address] [place] [address] Phone Care Team Providers Care Medical Policy Specialist Name Role Phone Helena Morse Ren JEFFRIES Primary Care Provider [phone] Allergies No known active allergies Medications metFORMIN [...] - Diagnostic (08/21/2020 12:15 PM CDT) Pathologist [facility] OCCULT BLOOD DIAG Positive(A ) Negative 08/21/2020 12:45 PM CDT [facility] Stool Non-Phlebotomy Collection / Unknown 08/21/2020 12:15 PM CDT 08/21/2020 12:26 PM CDT us Scott García APRN, CNP BODY FLUIDS & STOOLS OR DERABLES Final Result [facility] [address] [place] [address] * HEPATITIS PANEL ACUTE (AHP) (06/22/2020 1:58 PM CDT) Pathologist [facility] HEPATITIS A IGM ANTIBODY NON DETECTED NON DETECTED [facility] [id number] 06/22/2020 9:46 PM CDT [facility] Comment: IGM Antibodies to HAV not detected. Does not exclude early acute or recovered HAV infection. HEP B CORE AB (IGM) NON DETECTED NON DETECTED [facility] [id number] A 06/22/2020 9:46 PM CDT [facility] Comment:IGM anti-HBC not det ected. Does not exclude the possibility of exposure to or infection with HBV. HEPATITIS B SURFACE ANTIGEN NON DETECTED NON DETECTED [facility] [id number] B 06/22/2020 9:46 PM CDT [facility] Comment:A nonreactive test r esult does not exclude the possibility of exposure to or infection with Hepatitis B virus. A nonreactive test result in individuals with prior exposure to hepatitis B may be due to antigen levels below the detection limit of this assay or lack of antigen reactivity to the antibodies in this assay. hepatitis C antibody 0.30 <1 S/[facility] [id number] B 06/22/2020 9:46 PM CDT [facility] Comment: Signal/Cutoff ratio < 0.79 is Nondetected Signal/Cutoff ratio 0.80-0.99 is Grayzone Signal/Cutoff ratio > 0.99 is Detected Supplemental assays are recommended if signal/cutoff ratio is >/=1.00. Signal/cutoff ratio result >/= 5.00 is 97% predictive of positivity for recombinant immunoblot assay (RIBA) and will be reported to the [place] Department of Public Health as required. Blood Venipuncture / Unknown 06/22/2020 1:58 PM CDT 06/22/2020 2:21 PM CDT us Haily Horowitz PAC HEMATOLOGY ORDERABLES Fin al Result [facility] [address] [place] [address], from Last 3 Months or Most Recently Relevant to Health Maintenance Insurance MEDICAID [employer] [facility] Care Teams Medical Policy Specialist Relationship Specialty Start Date End Date Helena Morse PAC [address] [place] [address] PCP - General Physician X Ray Equipment Tester 06/13/20
--- OUTSIDE RECORDS SUMMARY | 2025-02-10 09:53 | XMS_ITS | Clinical Summary ---
Author Organization [facility] Address [address] [facility] [place] [address] Care Team Providers Care Zinc Plate Cutter Name Role Phone Nya Dee RN Unavailable Unavailable Helena Morse PA-C Primary Care Provider Source Comments [facility],non-owned Affiliates and Associated Physician Practices is amultiple site organization consisting of ambulatory clinics and hospital sitesin [place], [place], [place] and [place]. This disclosure is being madepursuant to the Care Everywhere program and may not contain all information available regarding this patient. Last updated 17.[facility] Allergies No known active allergies Medications * [...] strip PRN 07/17/2016 Active Cholecalciferol (VITAMIN D3) 66776 UNITS TABS Take 3 (three) tablets by [...] tablet by mouth prn Active HYDROcodone-ange taminophen ([place]) 5-325 MG tabletIndicatio ns:Ureteral stent present,Kidney stone [...] Acute pancreatitis without infection or necrosis 12/29/2013 Encounters Date Type Department Care Team Description 02/10/2025 Telephone [facility] - General Surgery [address] [place] [address] Alfred Light PA Appointment (Spoke to pt to let her know that her insurance is no longer in network with [facility]. Pt is aware that her appointment for 02.15.25 is canceled) from Last 3 Months Immunizations Immunization Administration Dates Next Due INFLUENZA [...] on file Legal Sex Female 5:15 PM TODDLER NANNY Gender Identity Not on file Sexual Orientation [...] Description 06/07/2025 1:00 PM CDT Office Visit [facility] - Endocrinology [address] [facility], [place] [phone] Alejandro Jefferson MD [address] [facility] [place] [place] [address] Health Maintenance Due Date Last [...] this topic Medical Devices Implanted Type Area Corrugator Helper Device Identifier Shelf Expiration Date Model / Serial / Lot Stent Uret 6fr 26cm Sft Tria Implanted:Qty: 1 on 12/24/2023 by Alfredo Cheng MD at [facility] Left: Ureter [employer] Jesus Alberto 09/21/2026 [id number] / / [id number] Procedures Procedure Name Priority Date/Time Associated Diagnosis Comments COMPREHENSIVE METABOLIC PANEL Routine 01/22/2024 3:52 PM TODDLER NANNY Kidney stone HEMOGLOBIN A1C Routine 07/17/2016 11:12 AM CDT from Last 3 Months or Most Recently Relevant to Health Maintenance Results * (ABNORMAL) COMPREHENSIVE METABOLIC PANEL (01/22/2024 3:52 PM TODDLER NANNY) BUN 14 7 - 26 mg/dL 01/22/2024 4:48 PM [facility] Creatinine 0.97(H) 0.56 - 0.96 mg/dL 01/22/2024 4:48 PM [facility] Sodium 140 136 - 145 mmol/L 01/22/2024 4:48 PM [facility] Potassium 3.7 3.5 - 4.5 mmol/L 01/22/2024 4:48 PM [facility] Chloride 104 98 - 107 mmol/L 01/22/2024 4:48 PM [facility] CO2 28 22 - 29 mmol/L 01/22/2024 4:48 PM [facility] Glucose 87 70 - 99 mg/dL 01/22/2024 4:48 PM [facility] Calcium 9.3 8.4 - 10.2 mg/dL 01/22/2024 4:48 PM [facility] Protein Total 6.8 6.0 - 8.3 g/dL 01/22/2024 4:48 PM [facility] Albumin 3.5 3.4 - 5.0 g/dL 01/22/2024 4:48 PM [facility] Bilirubin Total 0.5 0.2 - 1.2 mg/dL 01/22/2024 4:48 PM [facility] Alkaline Phosphatase 103 40 - 150 U/L 01/22/2024 4:48 PM [facility] ALT 11 5 - 55 U/L 01/22/2024 4:48 PM [facility] AST 13 5 - 34 U/L 01/22/2024 4:48 PM [facility] Anion Gap 8 6 - 16 01/22/2024 4:48 PM [facility] BUN/Creatinine Ratio 14 7 - 23 01/22/2024 4:48 PM [facility] Osmolality Calculated 290 275 - 295 mOsm/kg 01/22/2024 4:48 PM [facility] Albumin/Globulin Ratio 1.1 1.1 - 2.3 01/22/2024 4:48 PM [facility] eGFR by CKD-EPI 72(L) >=90 mL/min/1.7 3 m2 01/22/2024 4:48 PM [facility] Blood BLOOD SPECIMEN / Unknown Lab Venipuncture / Unknown 01/22/2024 3:52 PM TODDLER NANNY 01/22/2024 4:20 PM [facility] Alfredo Cheng MD LAB - CHEMISTRY ORDERABLES Final Result [facility] [address] [place] [phone], [facility] [phone] * HEMOGLOBIN A1C (07/17/2016 11:12 AM CDT) Hemoglobin A1c 5.8 4.4 - 6.3 % [facility] Estimated Average Glucose 120 mg/dL [facility] Comment: HbA1c Interpretation: Treatment target values recommended by ADA and other clinical organizations should be used to evaluate metabolic control in patients. Treatment Target Values: Normal : < 5.7% Pre-diabetes: 5.7-6.4% Diabetes: Equal to or greater than 6.5% Reference: [place] Diabetes Association Standards of Care in Diabetes -2014 In patients 70 years and older consider HbA1c target range of 7.0-7.5% Reference: Diabetes Mellitus in Older People: Position Statement on behalf of the International Association of Gerontology and Geriatrics (IAGG), the Diabetes Working Democrat for Older People (EDWPOP), and the International Task Force of Experts in Diabetes. Neeraj Mcclure et al. J [place] Medical Directors Association. 2012 Test results diagnostic [...] 11:12 AM CDT 07/17/2016 11:12 AM CDT us Kwame Goins MD LAB - CHEMISTRY ORDERABLES Final Result [address] [phone] from Last 3 Months or Most Recently Relevant to Health Maintenance Insurance [facility] Care Teams Zinc Plate Cutter Relationship Specialty Start Date End Date Helena Morse PA-C [address] [place] [phone] PCP - General Physician Senior Chemical Engineer 12/03/23 Nya Dee, RN Registered Nurse 03/26/17
--- OUTSIDE RECORDS SUMMARY | 2025-02-10 09:53 | XMS_ITS | Clinical Summary ---
Author Organization [facility] Address [address] [place] [address] Care Team Providers Care Automotive Parts Interpreter Name Role Phone Helena Morse PA-C Primary Care Provider [phone] Andrés Tello MD Unavailable [phone] Allergies No known active allergies Medications atorvastatin [...] from your doctor or pharmacy? Never 12/11/2023 [facility] Utilities Answer Date Recorded In the past 12 months has e [employer], gas, oil, or water [employer] threatened to shut off services in your [...] often do you attend chur ch or hinduism services? 1 to 4 times per year 12/11/2023 Do you belong to any clubs o r organizations such as catholic groups, unions, fraternal or athletic groups, or [...] medical care, and heating? Somewhat hard 12/11/2023 [facility] [place] of Occupat ional Health - Occupational Stress [...] any time in the past 12 [facility], were you homeless or living in a skilled nursing (including now)? No 12/11/2023 Comments No Sex and Gender Information Value Date Recorded Sex Assigned at Female 05/14/2024 10:03 AM TEST ENGINE OPERATOR Legal Sex Female 4:06 PM CDT Gender Identity Not on file Sexual Orientation Not on file Last Filed Vital Signs Vital Sign Reading Time Taken Comments Blood Pressure 149/78 05/14/2024 12:00 PM TEST ENGINE OPERATOR Pulse 57 05/14/2024 12:00 PM TEST ENGINE OPERATOR Temperature 37 C (98.6 F) 05/14/2024 9:40 AM TEST ENGINE OPERATOR Respiratory Rate 17 05/14/2024 12:0 0 PM TEST ENGINE OPERATOR Oxygen Saturation 98% 05/14/2024 12: 00 PM TEST ENGINE OPERATOR Inhaled Oxygen Concentration - - Weight 102.7 kg (226 lb 6.6 oz) 05/14/2024 9:40 AM TEST ENGINE OPERATOR Height 165.1 cm (5' 5) 05/14/2024 9:40 AM TEST ENGINE OPERATOR Body Mass Index 37.68 05/14/2024 9:40 AM TEST ENGINE OPERATOR Plan of Treatment Health Maintenance Due Date [...] Bernard, RN Medical Devices Implanted Type Area Director Of Rehabilitation And Wellness Device Identifier Shelf Expiration Date Model / Serial / Lot Stent Ureteral Contour Vl 4.8fr X 22-30cm - [id number] Implanted:Qty : 1 on 09/26/2023 by Andrés Tello MD at [facility] Stent Left: Ureter [employer] [id number] 12/25/2025 [id number] / / [id number] [employer] Insurance [place] MEDICAID Advance Directives * Full Code (Latest Code Status on File) Date Activated Date Inactivated Comments 12/11/2023 5:15 PM 12/13/2023 3:05 PM * Full Code Date Activated Date Inactivated Comments 09/26/2023 3:19 AM 09/28/2023 1:03 PM Care Teams Automotive Parts Interpreter Relationship Specialty Start Date End Date Helena Morse PA-C [address] [place] [id number] PCP - General NURSE PRACTITIONER 05/28/20 Andrés Tello MD [address] [place] [address] Consulting Physician UROLOGY 10/06/23
[2025-02-10 10:16] VITALS: BP 105/66; PULSE 86; RESP 16; O2SAT 94
--- NOTE | 2025-02-10 10:34 | ED.ABDPAIN ---
HPI - Abdominal Pain General Chief Complaint: Abdominal Pain Stated Complaint: cramping Time Seen by Provider: 02/10/25 08:32 Source: patient Mode of arrival: ambulatory Limitations: no limitations History of Present Illness HPI narrative: 49-year-old with the history of mom hyperlipidemia, pancreatitis, recurrent UTI presently on nitrofurantoin for past few days presents to the ER with complaints of severe abdominal cramps associated with nausea. She denies any vomiting. No history of fever or chills. MD elicited complaint: abdominal pain Pertinent past history: past UTI Onset (ago): day(s) (2) Pain Consistency: constant Location: diffuse Severity: moderate Quality: cramping Radiation: none Related Data Home Medications ?Medication ?Instructions ?Recorded ?Confirmed ?Last Taken ?Type atorvastatin 40 mg tablet 40 mg PO 07/13/23 07/18/24 Unknown History duloxetine 20 mg capsule,delayed 40 mg PO 07/13/23 07/18/24 Unknown History release Allergies Allergy/AdvReac Type Severity Reaction Status Date / Time No Known Allergies Allergy Verified 02/10/25 08:36 Review of Systems Review of Systems: All systems reviewed & are unremarkable except as noted in HPI and below Constitutional: Constitutional: Reports no additional constitutional complaints Eyes: Eyes: Reports no additional eye complaints ENT: Reports system reviewed and no additional complaints, except as documented Cardiovascular: Cardiovascular: Reports no additional cardiovascular complaints Respiratory: Respiratory: Reports no additional respiratory complaints Gastrointestinal: Gastrointestinal: Reports as per HPI Musculoskeletal: Musculoskeletal: Reports no additional musculoskeletal complaints [facility] Past Medical History Medical History Screening mammogram for breast cancer Morbid obesity Screening breast examination Hyperlipidemia Vertigo Migraine headache History of pancreatitis Surgical History Surgical History H/O: hysterectomy 02/27/22 - robotic assisted hysterectomy abnormal uterine bleeding - fibroids H/O unilateral oophorectomy H/O dilation and curettage several History of orthopedic surgery History of cholecystectomy Family History Family History Father Diabetes mellitus Hypertension Depression Mother Hypertension Depression Cerebrovascular accident Social History Social History Smoking status: Current every day smoker Tobacco type: e-cigarettes/vaping Alcohol intake: never Drinks per week: 1 Substance use: current Substance use type: marijuana Other substance usage details: edibles for sleep Lack of Transportation: No Lack of Food: Never True Current Housing: I Have Housing Concerned About Future Housing: No Difficulty Paying Gas/Electric Bills: No Difficulty Paying for Meds: No Currently Unemployed: No Education: High School Diploma/GED Difficulty w/ Childcare or Family Care: No Living arrangements: with family Gender identity (if verbalized by the patient): Female Sexual Orientation (if Verbalized by the Patient): Straight or Heterosexual Spiritual care concerns: No Exam Narrative: GENERAL: Well-appearing, well-nourished, and in no acute distress. HEAD: Normocephalic, atraumatic. EYES: PERRLA and EOMI. ENT: Nares clear, no rhinorrhea or epistaxis. Mucous membranes moist. NECK: Supple. CHEST: Clear to auscultation. No respiratory distress. HEART: Regular rate and rhythm. No murmur heard. Normal peripheral pulses. ABDOMEN: Soft, nontender, nondistended, normal active bowel sounds. EXTREMITIES: Normal range of motion. No edema. SKIN: Warm, dry, no rash. NEURO: No focal deficits. Alert and oriented x3. PSYCH: Normal mood and affect. Course Course Emergency Course: Pain improved with IV morphine and do of nausea improved with Zofran informed about the lab work, CT findings cause of her pain is unknown however her urine is still has quite a bit of WBC will change the antibiotic to Cipro. Vital Signs Vital signs: Vital Signs Temperature 36.6 C 02/10/25 08:33 Pulse Rate 64 02/10/25 08:33 Respiratory Rate 16 02/10/25 08:33 Blood Pressure 133/77 02/10/25 08:33 Pulse Oximetry 100 02/10/25 08:33 Oxygen Delivery Room Air 02/10/25 08:33 Temperature 36.6 C 02/10/25 08:33 Pulse Rate 68 02/10/25 09:32 Respiratory Rate 18 02/10/25 09:32 Blood Pressure 115/70 02/10/25 09:32 Pulse Oximetry 94 02/10/25 09:32 Oxygen Delivery Room Air 02/10/25 08:33 MDM MDM Narrative Medical decision making narrative: 49-year-old with a history of pancreatitis, recurrent UTI presents to the ER with a severe abdominal pain associated with nausea she is presently on antibiotic for UTI. Exam is unremarkable. Will obtain lab work, CT control of pain with IV morphine and nausea with Zofran. Differential Diagnosis Differential Diagnosis: Pancreatitis nonspecific abdominal pain, UTI Medical Records I have reviewed the following patient records and this information was taken into consideration when formulating the assessment and plan.: previous labs and previous ER visits Lab Data MDM Lab Attestation statement: I personally reviewed the patient's lab results. 02/10/25 08:39 02/10/25 08:39 Labs: Lab Results 02/10/25 02/10/25 02/10/25 Range/Units 08:39 08:47 08:51 WBC 8.2 (4.5-10.0) K/mm3 RBC 4.41 (4.2-5.4) M/mm3 Hgb 13.6 (12.0-15.0) g/dL Hct 41.3 (37.0-47.0) % MCV 93.7 (80-100) fl MCH 30.8 (26-34) pg MCHC 32.9 (32-36) g/dl RDW 13.1 (11.5-14.5) % Plt Count 329 (150-375) k/mm3 MPV 9.8 (7.4-10.4) fl Immature Gran % (Auto) 0.6 H (0-0.5) % Neut % (Auto) 66.5 (45.5-73.1) % Lymph % (Auto) 25.8 (18.3-44.2) % [place] % (Auto) 3.9 (2.6-8.5) % Eos % (Auto) 2.6 (0-4.4) % Baso % (Auto) 0.6 (0.2-1.2) % Lymph # (Auto) 2.12 (0.9-3.2) K/mm3 [place] # (Auto) 0.3 (0.1-0.6) K/mm3 Eos # (Auto) 0.2 (0-0.3) K/mm3 Baso # (Auto) 0.1 (0.0-0.1) K/mm3 Abs Immat Gran (auto) 0.05 H (0.00-0.031) K/mm3 Absolute Neuts (auto) 5.5 (1.3-6.7) K/mm3 Absolute Nucleated RBC 0.000 (0.0-0.012) K/mm3 Nucleated RBC % 0.0 (0.0-0.2) % Sodium 135 L (137-145) mmol/L Potassium 3.4 (3.4-5.0) mmol/L Chloride 101 (98-107) mmol/L Carbon Dioxide 30 (22-30) mmol/L Anion Gap 4 (4-12) mmol/L BUN 6 L D (7-17) mg/dL Creatinine 0.85 (0.7-1.0) mg/dL Estim Creat Clear Calc 83 ml/min Estimated GFR > 60 (59 - ) Glucose 108 (65-110) mg/dL Calcium 8.7 (8.4-10.2) mg/dL Total Bilirubin 0.6 (0.2-1.3) mg/dL AST 19 (14-36) U/L ALT 17 (6-35) U/L Alkaline Phosphatase 119 (38-126) U/L Total Protein 7.4 (6.3-8.2) g/dL Albumin 4.1 (3.5-5.1) g/dL Lipase 276 (23-300) U/L Urine Color Yellow (Yellow) Urine Appearance Cloudy H (Clear) Urine pH 6.5 (5.0-9.0) Ur Specific [place] 1.012 (1.001-1.035) Urine Protein Negative (Negative) mg/dL Urine Glucose (UA) Negative (Negative) mg/dL Urine Ketones Negative (Negative) mg/dL Ur Blood (Man) Trace (Negative) Urine Nitrate Negative (Negative) Urine Bilirubin Negative (Negative) Urine Urobilinogen 1.0 (<2.0) mg/dL Add Ur Microanalysis Reviewed Leukocyte Esterase Rfl 3+ H (Negative) RADHA/UL Urine RBC 0-2 (0-2) /hpf Urine WBC >100 H (0-3) /hpf Ur Squamous Epith Cells Few (Few) /hpf Urine Bacteria Rare /hpf Urine Casts 0-2 POC Urine HCG, Qual Negative (Negative) Imaging Data Radiologist's impression: ITS Impressions Abdomen/Pelvis CT 02/10/25 10:13 IMPRESSION: 1. No acute intra-abdominal/pelvic process. 2. Scattered cortical scarring at the left kidney likely sequela prior infection or infarction. Discharge Plan Discharge Clinical Impression: Abdominal pain Qualifiers: Abdominal location: generalized Qualified Code(s): R10.84 - Generalized abdominal pain UTI (urinary tract infection) Qualifiers: Urinary tract infection type: site unspecified Hematuria presence: without hematuria Qualified Code(s): N39.0 - Urinary tract infection, site not specified Patient Disposition: Home Condition: Stable Instructions: Urinary Tract Infection in Women (DC), Abdominal Pain (ED) Patient Language: Vietnamese Prescriptions: New cephalexin 500 mg capsule 500 mg PO Q12H 7 Days Qty: 14 0RF ondansetron 4 mg tablet,disintegrating 4 mg PO Q6-8H PRN (Reason: nausea and vomiting) Qty: 14 0RF No Action amoxicillin-pot clavulanate 875-125 mg tablet 1 tablet PO Q12H Qty: 20 0RF ondansetron 4 mg tablet,disintegrating 4 mg PO Q8H PRN (Reason: nausea and vomiting) Qty: 12 0RF fluconazole 100 mg tablet 100 mg PO DAILY Qty: 1 0RF duloxetine 20 mg capsule,delayed release(DR/EC) 40 mg PO atorvastatin 40 mg tablet 40 mg PO estradiol 1 mg tablet See Rx Instructions .ROUTE .COMPLEX Qty: 60 2RF Dose Instruction: Take 2 tablets by mouth once daily Rx Instructions: Take 2 tablets by mouth once daily Follow-up/Referrals: Charu,Ivet Cochran, MILKING MACHINE MECHANIC [Primary Care Provider, Unknown] Time of Disposition: 10:42
== END 2025-02-10 11:07 | disposition home or self-care (01) ==
PROVIDERS: Emergency Provider Family Medicine
DX: N39.0 Urinary tract infection, site not specified (principal); R10.84 Generalized abdominal pain; E78.5 Hyperlipidemia, unspecified; E66.01 Morbid (severe) obesity due to excess calories; Z68.37 Body mass index [BMI] 37.0-37.9, adult; Z90.710 Acquired absence of both cervix and uterus; Z90.721 Acquired absence of ovaries, unilateral; Z90.49 Acquired absence of other specified parts of digestive tract; F17.290 Nicotine dependence, other tobacco product, uncomplicated
CPT/HCPCS: 36415; 74177; 80053; 81001; 81025; 83690; 85025; 87086; 87186; 96361; 96374; 96375; 99284; J2270; J2405; J7030; Q9967

== ENCOUNTER 2025-02-15 08:26 | Outpatient (CLI) | payer OTHER, SELFPAY ==
--- NOTE | ~2025-02-15 | MM_ITS ---
EXAMINATION: MM screening andrew BI w nik HISTORY: Screening. TECHNIQUE: Craniocaudal and mediolateral oblique 3-D tomosynthesis images were obtained and synthetic 2-D images were generated. CAD analysis was submitted and interpreted. COMPARISON: 2022 and 2017. BREAST PARENCHYMAL COMPOSITION: Not Dense: There are scattered areas of fibroglandular FINDINGS: No suspicious masses are seen. There are no suspicious calcifications. No unexplained architectural distortion is seen. There are no skin or nipple abnormalities identified. There is no adenopathy seen on the images submitted. IMPRESSION: No mammographic evidence to suggest malignancy is seen. The patient may return to screening mammography as per ACR guidelines. BI-RADS 1 - Negative. Reviewed, dictated and finalized at location C. T SPECIALIST
== END 2025-02-15 08:27 | disposition home or self-care (01) ==
LOC: ANHFOHIMG 08:28
PROVIDERS: Visit Provider Obstetrics & Gynecology
DX: Z12.31 Encounter for screening mammogram for malignant neoplasm of breast (principal)
CPT/HCPCS: 77063; 77067